=== PATIENT | female | born 1955 | race Caucasian/White ===

== ENCOUNTER 2017-11-25 16:58 | Emergency (ER) | payer BC, OTHER, SELFPAY ==
[2017-10-03 11:02] VITALS: BMI 28.3
[2017-11-25 16:59] VITALS: BP 153/96; PULSE 114; RESP 18; TEMP 36.7; O2SAT 98; BMI 26.3
--- NOTE | 2017-11-25 17:39 | EKG12_ITS ---
Test Reason : CP Blood Pressure : / mmHG Vent. Rate : 096 BPM Atrial Rate : 096 BPM P-R Int : 152 ms QRS Dur : 078 ms QT Int : 326 ms P-R-T Axes : 071 049 073 degrees QTc Int : 411 ms Normal sinus rhythm Left ventricular hypertrophy with repolarization abnormality Abnormal ECG Confirmed by YAKELIN RAMIREZ ([id number]), deputy editor in chief JARED MTZ ([id number]) on 11/28/2017 1:17:04 PM Referred By: Elver Garcia Confirmed By:YAKELIN RAMIREZ
[2017-11-25 18:04] LABS: Absolute Lymphocyte Count 1.51 X10^3/ul (0.83-4.51); Absolute Neutrophil Count 4.6 X10^3/uL (2.0-7.7); Basophil# 0.01 X10^3/uL; Basophil% 0.2 % (0-1); Eosinophil# 0.07 X10^3/uL; Eosinophils% 1.1 % (0-5); Hematocrit 42.2 % (37-47); Hemoglobin 13.6 g/dl (12.0-15.0); Lymphocyte # 1.51 X10^3/ul (4.0); Lymphocyte % 22.9 % (19-41); Mean Corp Hgb Conc 32.2 g/gl (32-36); Mean Corpuscular Hgb 31.1 pg (27.0-32.0); Mean Corpuscular Volume 96.3 fL (81-99); Mean Platelet Vol. 9.3 fl (6.2-12.0); Monocyte# 0.37 X10^3/uL; Monocyte% 5.6 % (0-10); Neutrophil # 4.63 X10^3/uL (2.7-7.7); POSITIVE COUNT NO; POSITIVE DIFFERENTIAL NO; POSITIVE MORPHOLOGY NO; Platelet Count 258 K/mm3 (150-450); RBC Distribution Width CV 15.2 % (11.6-14.6); RBC Distribution Width SD 52.9 fl (35.1-43.9); Red Blood Count 4.38 M/mm3 (4.2-5.4); White Blood Count 6.6 K/mm3 (4.4-11.0)
[2017-11-25] MEDS: 0.9% Normal Saline 1,000 ML 150 ML IV (18:12)
[2017-11-25 18:13] LABS: Anion Gap 7 (5-15); BUN 15 mg/dL (7-18); BUN/Creat Ratio 20.7 RATIO (10-20); Calcium,Total 9.3 mg/dL (8.5-10.1); Chloride 101 mmol/L (98-107); Creatinine, Serum 0.72 mg/dL (0.55-1.02); EST Glomerular Filtration Rate 86 mL/min (>60); Est Glom Filt Rate - Afr Amer 104 mL/min (>60); Estimated Creatinine Clearance 77.77 ml/min; Glucose 102 mg/dL (74-106); Potassium 4.1 mmol/L (3.5-5.1); Sodium Level 138 mmol/L (136-145)
--- NOTE | 2017-11-25 18:18 | RAD_ITS ---
XR Chest 2 Views INDICATION: COUGH x3 DAYS, CURRENTLY ON ORAL CHEMO, HAS PORT FOR HX OF CHEMOTHERAPY FOR SARCOMA COMPARISON: PET/CT September 18, 2017 TECHNIQUE: 2 views of the chest FINDINGS: Heart size is within normal limits. Pulmonary vascularity is within normal limits. There is redemonstration of a mass along the left lateral hemithorax, compatible with given history of metastatic disease. Opacities at the right lung base are new from the prior CT, may represent developing pneumonic infiltrate. Chest port is seen over the right chest. Underlying emphysematous changes are noted. RAD/Chest PA and Lateral IMPRESSION: Masslike opacities in the left chest compatible with given history of metastatic disease. New hazy opacities at the right lung base, may represent metastatic disease or pneumonia in the appropriate clinical setting. Underlying COPD/emphysema. at 1928 Reported and signed by: Celeste Finn MD Electronically Signed: Celeste Finn MD at 18:26 EST Tel , Service support ,
--- NOTE | 2017-11-25 18:45 | CT_ITS ---
CT Chest W/ Contrast INDICATION: MOIST COUGH, SOB, LEFT SIDE CP WORSE WITH BREATHING, CURRENT CHEMO WITH SARCOMA ON LEG, BREAST CA WITH LUNG METS, POWER PORT COMPARISON: PET CT September 18, 2017 TECHNIQUE: Axial CT imaging of the chest with IV contrast. Coronal and sagittal reformatted images. Radiation dose optimization technique applied. : 100 mL of Isovue-300 were given intravenously. FINDINGS: Compared to the PET/CT from September 2017, there is interval increase in pleural based soft tissues, extending along the left lateral hemithorax, most compatible with advancing metastatic disease. Scattered bilateral pulmonary nodules have slightly increased in size. The right middle lobe is collapsed, which is unchanged compared to the prior study. There is stable marked underlying centrilobular emphysema. Enlarged mediastinal and left hilar lymph nodes appear increased compared to the prior study. There is a 3.6 cm lobulated mass in the right breast and a 2 cm spiculated mass in the left breast. Osseous structures are osteopenic. CT/Chest WITH Contrast IMPRESSION: Increase in pleural-based tissue spreading along the left hemithorax, likely increasing metastatic disease. Increase in size in few scattered pulmonary nodules. Stable collapse of the right middle lobe. Stable severe underlying centrilobular emphysema. Worsening mediastinal and left hilar lymphadenopathy. Bilateral breast masses redemonstrated. at 2020 Reported and signed by: Celeste Finn MD Electronically Signed: Celeste Finn MD at 19:18 EST Tel , Service support ,
[2017-11-25 18:50] LABS: Lactic Acid 2.5 mmol/L (0.4-2.0)
[2017-11-25 19:02] VITALS: BP 118/62; PULSE 93; RESP 16; O2SAT 97
[2017-11-25] MEDS: 0.9% Normal Saline 1,000 ML 999 ML IV (19:39)
--- NOTE | 2017-11-25 21:10 | ED.VISSUMM ---
- ER Visit Summary Date of Service: 11/25/17 Chief Complaint: Cough, short of breath, chest pain History of Present Illness: The patient is a 62 F with runny nose symptoms that started a week and a half ago. This progressively worsened the more congestion and cough. She is occasionally bringing up white sputum. She went of left lateral chest pain that is worse with cough. She is a history of breast and lung cancer with bone metastases. She also has a history of A. fib. She is currently taking daily oral chemotherapy. She follows with Dr. Marinelli for her oncology care. She denies having fever, chills, or night sweats. Physical Examination: Blood pressure is 153/96, temperature 98.1, heart rate 114, respiratory rate 18, pulse ox 98% on room air. Patient sitting upright in bed no acute distress. She is chronically ill-appearing. Heart is slightly tachycardic and regular. Lung sounds with rales at the left base. Abdomen is soft nontender. Test Results: Two-view chest x-ray reveals masslike opacities in the left chest compatible with history of metastatic disease. New hazy opacifications the right lung base may represent metastatic disease or pneumonia. Underlying COPD is noted. EKG is sinus at 96. CBC and chemistry studies normal. Lactate mildly elevated at 2.5. Emergency Department Course and Treatment: Patient was given IV fluids here. CT the chest with contrast was obtained that shows an increase in the pleural-based tissue spreading along the left hemithorax, likely increasing metastatic disease. There is an increase in size of pulmonary nodules. There is stable collapse of the right middle lobe. There is stable severe emphysema. Bilateral breast masses are again redemonstrated. Patient's vital signs have maintained stable while here in the emergency room. I spoke with her oncologist. There is no need to start antibiotic at this time but he does want to see the patient in the clinic on Monday. Patient states that she has been trying to taper off her oxycodone. I encouraged her to go back up on her oxycodone to control the pain at this time until this acute illness is resolved. She understands and is comfortable with the plan. Treatment Plan: [] Disposition: Discharge Impression: 1. Viral URI with cough 2. Increased lung metastases with chest pain This note was generated with eLibs.comation software. It may contain incorrect words, spelling, and punctuation that were not noted in review of the chart prior to signing ED Disposition - Plan for ED Patient: Chief Complaint: Chest Pain Referrals: Patrick Lacey DO [Primary Care Provider] -
--- NOTE | 2017-11-25 21:14 | ED.DCSUM_ITS ---
- ER Visit Summary Date of Service: 11/25/17 Chief Complaint: Cough, short of breath, chest pain History of Present Illness: The patient is a 62 F with runny nose symptoms that started a week and a half ago. This progressively worsened the more congestion and cough. She is occasionally bringing up white sputum. She went of left lateral chest pain that is worse with cough. She is a history of breast and lung cancer with bone metastases. She also has a history of A. fib. She is currently taking daily oral chemotherapy. She follows with Dr. Marinelli for her oncology care. She denies having fever, chills, or night sweats. Physical Examination: Blood pressure is 153/96, temperature 98.1, heart rate 114 , respiratory rate 18, pulse ox 98% on room air. Patient sitting upright in bed no acute distress. She is chronically ill- appearing. Heart is slightly tachycardic and regular. Lung sounds with rales at the left base. Abdomen is soft nontender. Test Results: Two-view chest x-ray reveals masslike opacities in the left chest compatible with history of metastatic disease. New hazy opacifications the right lung base may represent metastatic disease or pneumonia. Underlying COPD is noted. EKG is sinus at 96. CBC and chemistry studies normal. Lactate mildly elevated at 2.5. Emergency Department Course and Treatment: Patient was given IV fluids here. CT the chest with contrast was obtained that shows an increase in the pleural- based tissue spreading along the left hemithorax, likely increasing metastatic disease. There is an increase in size of pulmonary nodules. There is stable collapse of the right middle lobe. There is stable severe emphysema. Bilateral breast masses are again redemonstrated. Patient's vital signs have maintained stable while here in the emergency room. I spoke with her oncologist. There is no need to start antibiotic at this time but he does want to see the patient in the clinic on Monday. Patient states that she has been trying to taper off her oxycodone. I encouraged her to go back up on her oxycodone to control the pain at this time until this acute illness is resolved. She understands and is comfortable with the plan. Treatment Plan: [] Disposition: Discharge Impression: 1. Viral URI with cough 2. Increased lung metastases with chest pain This note was generated with Factor.ioation software. It may contain incorrect words, spelling, and punctuation that were not noted in review of the chart prior to signing ED Disposition - Plan for ED Patient: Chief Complaint: Chest Pain Referrals: Patrick Lacey DO [Primary Care Provider] -
--- NOTE | 2017-11-25 21:14 | ED.DEP ---
ED Disposition - Plan for ED Patient: Disposition: Home or Assisted Living Chief Complaint: Chest Pain Instructions: ED Chest Pain NonCardiac, ED URI Viral Referrals: Vince Marinelli MD [NON-STAFF] - 2 Days
[2017-11-25 21:27] VITALS: BP 98/61; PULSE 100; RESP 16; O2SAT 95
[2017-11-25 21:55] LABS: Reflex Lactate? Y
== END 2017-11-25 21:29 | disposition home or self-care (01) ==
PROVIDERS: Emergency Provider Emergency Medicine; Family Provider Family Medicine; PCP Family Medicine
DX: J06.9 Acute upper respiratory infection, unspecified (principal); R05 Cough; R07.9 Chest pain, unspecified; C50.912 Malignant neoplasm of unspecified site of left female breast; C50.911 Malignant neoplasm of unspecified site of right female breast; C78.02 Secondary malignant neoplasm of left lung; C79.51 Secondary malignant neoplasm of bone; Z72.0 Tobacco use; Z79.82 Long term (current) use of aspirin; Z79.899 Other long term (current) drug therapy; Z79.891 Long term (current) use of opiate analgesic
CPT/HCPCS: 36415; 36591; 71046; 71260; 80048; 83605; 85025; 87040; 93005; 99283; J7030; Q9967; A4216

== ENCOUNTER → 2017-12-11 12:09 | Outpatient (CLI) | payer BC, OTHER, SELFPAY ==
[2017-10-03 11:02] VITALS: BMI 28.3
--- NOTE | 2017-12-11 12:28 | CT_ITS ---
STUDY: CT CHEST WITH CONTRAST REASON FOR EXAM: Female, 62 years old. Shortness of breath on exertion. History of breast cancer. Radiation therapy. RADIATION DOSAGE (If Supplied By Facility): CTDIvol = ( 10.35 ) mGy, DLP = ( 421.27 ) mGycm TECHNIQUE: Transaxial imaging was performed following intravenous administration of 100 ml of Isovue 300 contrast material. Multiplanar coronal and sagittal images were reformatted. Individualized dose optimization techniques were used for this CT. COMPARISON: Comparison is made with prior study dated November 25, 2017. FINDINGS: A right-sided aleah catheter seen with the tip in the super vena cava. There is a 3.2 cm x 3.1 cm mass in the right breast with a tissue clip marker within it. There is also evidence of a 1.6 cm x 1.6 cm nodule in the medial inferior portion of the left breast. There is a 4.5 cm x 2.5 cm mass in the peripheral lateral aspect of the left upper lobe. This abuts the pleural surface. There is evidence of a thickening of the right major fissure. Diffuse emphysematous changes. There is a 1 cm x 1 cm nodule in the right upper lobe. This is essentially unchanged. Since prior study, there has been progressive moderate-sized left pleural effusion with pleural soft tissue masses. These have progressed as compared to prior study. There is no evidence of pulmonary embolus. Normal heart and pericardium. There are multiple small lymph nodes within the mediastinum, which are normal in size and morphology most compatible with reactive lymph hyperplasia. Normal hilar regions. Normal enhanced pulmonary arteries. Normal aorta arch and descending thoracic aorta. There are multi-level degenerative changes of the thoracic spine. There is no demonstrated abnormality of the visualized upper abdomen. CT/Chest WITH Contrast IMPRESSION: Progressive left pleural effusion with left pleural based masses. Stable mass in the peripheral lateral aspect of the left upper lobe which abuts the pleural surface. Stable right upper lobe nodule. Stable bilateral breast nodules. There is no evidence of pulmonary embolism. Electronically Signed: Anatoly Broussard MD at 13:47 EDT Tel [phone], Service support ,
== END ==
PROVIDERS: Visit Provider Internal Medicine Medical Oncology
DX: R05 Cough (principal); C50.919 Malignant neoplasm of unspecified site of unspecified female breast; R06.02 Shortness of breath
CPT/HCPCS: 71260; Q9967; A4216

== ENCOUNTER → 2017-12-12 13:02 | Outpatient (CLI) | payer BC, OTHER, SELFPAY ==
[2017-10-03 11:02] VITALS: BMI 28.3
--- NOTE | 2017-12-12 13:04 | US_ITS ---
PROCEDURE: ULTRASOUND GUIDED THORACENTESIS. DATE: December 12, 2017. INDICATION: Female, 62 years old. Left pleural effusion. PHYSICIAN: Anatoly Broussard M.D. PROCEDURE: The risks, benefits, and alternatives to the procedure were explained to the patient. The specific risks of bleeding, infection, and pneumothorax requiring chest tube insertion were discussed and accepted. Written informed consent was obtained. Ultrasonographic evaluation of the left lower pleural space was carried out. An adequate pocket was identified. The patient was placed in the sitting, upright position. The overlying skin was prepped and draped in sterile fashion. 1% lidocaine was administered subcutaneously for local anesthesia. Under ultrasound guidance, a 6 Yoruba thoracentesis needle/catheter system was advanced into the left posterior lower pleural fluid collection. Approximately 150 mL of bloody fluid was drained. The catheter was removed, and a sterile dressing was applied. The patient tolerated the procedure well. A chest x-ray was ordered. US/Thoracentesis W US IMPRESSION: Ultrasound-guided left thoracentesis. Electronically Signed: Anatoly Broussard MD at 14:33 EDT Tel [phone], Service support ,
--- NOTE | 2017-12-12 14:12 | RAD_ITS ---
STUDY: X-RAY CHEST REASON FOR EXAM: Female, 62 years old. Post thoracentesis TECHNIQUE: Single AP portable view of the chest. COMPARISON: 11/25/2017. FINDINGS: No pneumothorax seen. Increasing density in the left lung base suggests worsening of atelectasis or infiltrate and small left pleural effusion. No other changes. Stable right Mediport catheter. Stable soft tissue densities along the periphery of the left chest and in the mid left lung consistent with pleural thickening and/or mass. On the right there is mild atelectasis or scarring in the lung bases. Heart size grossly normal. Degenerative changes of the spine. RAD/Chest Insp/Exp 2 View IMPRESSION: No pneumothorax. Since prior chest x-ray, increased atelectasis, infiltrate, and/or small effusion in the left lung base. Electronically Signed: Miguel Butler MD at 9:18 EDT , Service support ,
== END ==
PROVIDERS: Visit Provider Internal Medicine Medical Oncology
DX: R06.02 Shortness of breath (principal); J91.8 Pleural effusion in other conditions classified elsewhere
CPT/HCPCS: 32555; 71046

== ENCOUNTER → 2017-12-25 13:36 | Outpatient (CLI) | payer BC, OTHER, SELFPAY ==
[2017-10-03 11:02] VITALS: BMI 28.3
--- NOTE | 2017-12-25 13:38 | RAD_ITS ---
STUDY: X-RAY CHEST REASON FOR EXAM: Female, 62 years old. Lung cancer, shortness of breath TECHNIQUE: PA and lateral views of the chest. COMPARISON: 12/12/2017 FINDINGS: Stable appearance of a right subclavian port. Right lung is hyperexpanded with chronic interstitial changes and increased opacifications in the lung base compared to the previous study which likely represent atelectasis. Left lung shows increased opacifications as well there is a suggestion of a left perihilar mass and nodules in the periphery of the left lung field. There is stable nonspecific pleural thickening in the left pleural effusion unchanged. Normal size heart. Normal mediastinum and joel. Normal visualized pulmonary arteries. Normal visualized aortic arch and descending thoracic aorta. There are diffuse degenerative changes of the visualized thoracic spine. There is degenerative osteoarthritis of the bilateral shoulders. Multiple air-fluid levels noted on the upright film consistent with ileus. RAD/Chest PA and Lateral IMPRESSION: Worsening opacifications in both lung santana suggesting atelectasis in the right lung base, left perihilar soft tissue mass and metastasis in the left peripheral lung field. Stable nonspecific pleural thickening in the left hemithorax with stable left pleural effusion. Degenerative bony changes Stable appearance of a right subclavian port Electronically Signed: Pankaj Troy MD at 14:23 EDT , Service support ,
[2017-12-25 15:58] LABS: Absolute Lymphocyte Count 0.42 X10^3/ul (0.83-4.51); Absolute Neutrophil Count 10.5 X10^3/uL (2.0-7.7); Eosinophil# 0.01 X10^3/uL; Eosinophils% 0.1 % (0-5); Hematocrit 41.6 % (37-47); Hemoglobin 13.5 g/dl (12.0-15.0); Lymphocyte # 0.42 X10^3/ul (4.0); Lymphocyte % 3.7 % (19-41); Mean Corp Hgb Conc 32.5 g/gl (32-36); Mean Corpuscular Hgb 30.5 pg (27.0-32.0); Mean Corpuscular Volume 94.1 fL (81-99); Monocyte# 0.22 X10^3/uL; Neutrophil # 10.52 X10^3/uL (2.7-7.7); Neutrophil % 93.8 % (47-70); Platelet Count 312 K/mm3 (150-450); RBC Distribution Width SD 55.3 fl (35.1-43.9); Red Blood Count 4.42 M/mm3 (4.2-5.4); White Blood Count 11.2 K/mm3 (4.4-11.0)
[2017-12-25 16:02] LABS: Differential Indicated SCAN CRITERIA MET; POSITIVE COUNT NO; POSITIVE DIFFERENTIAL YES; POSITIVE MORPHOLOGY NO
[2017-12-25 16:17] LABS: ALB/GLOB Ratio 0.7 RATIO (0.9-2.4); AST(SGOT) 18 U/L (15-37); Alanine Aminotransfer ALT/SGPT 27 U/L (13-56); Albumin, Serum 2.9 g/dL (3.2-5.0); Alkaline Phosphatase 73 U/L (45-117); Anion Gap 11 (5-15); BUN 19 mg/dL (7-18); BUN/Creat Ratio 18.6 RATIO (10-20); Calcium,Total 9.3 mg/dL (8.5-10.1); Chloride 100 mmol/L (98-107); Creatinine, Serum 1.02 mg/dL (0.55-1.02); EST Glomerular Filtration Rate 58 mL/min (>60); Est Glom Filt Rate - Afr Amer 70 mL/min (>60); Glucose 122 mg/dL (74-106); Potassium 4.3 mmol/L (3.5-5.1); Protein, Total 6.9 g/dL (6.4-8.2); Sodium Level 138 mmol/L (136-145)
[2017-12-25 16:58] LABS: Platelet Estimate ADEQUATE (ADEQ)
[2017-12-25 16:59] LABS: Anisocytosis RARE; Macrocytosis RARE
[2017-12-25 23:28] LABS: Xtra Tube EP Lab EXTRA TUBE
[2017-12-25 23:29] LABS: Xtra Tube EP Lab EXTRA TUBE
== END ==
PROVIDERS: Family Provider Family Medicine; PCP Family Medicine; Visit Provider Internal Medicine Medical Oncology
DX: C79.51 Secondary malignant neoplasm of bone (principal); C79.9 Secondary malignant neoplasm of unspecified site; R07.81 Pleurodynia
CPT/HCPCS: 71046; 80053; 85025

== ENCOUNTER → 2018-01-11 14:45 | Outpatient (CLI) | payer BC, SELFPAY ==
[2017-10-03 11:02] VITALS: BMI 28.3
--- NOTE | 2018-01-11 14:46 | CT_ITS ---
STUDY: CT CHEST WITH CONTRAST REASON FOR EXAM: Female, 62 years old. Metastatic sarcoma. RADIATION DOSAGE (If Supplied By Facility): CTDIvol = ( 10.67 ) mGy, DLP = ( 1158.32 ) mGycm TECHNIQUE: Transaxial imaging was performed following intravenous administration of 100 ml of Isovue 300 contrast material. Multiplanar coronal and sagittal images were reformatted. Individualized dose optimization techniques were used for this CT. COMPARISON: CT of the abdomen and pelvis, January 11, 2018. CT of the chest, December 11, 2017. FINDINGS: There is a right jugular Port-A-Cath. There is a multi loculated left pleural effusion with marked atelectasis of the lower left lung. There is associated pleural-based thickening . There is a questionable mass extending from the left pleural surface left upper lobe is appears unchanged from the prior examination. There is diffuse emphysematous changes throughout both lungs. In the right upper lobe there is a 1 x 0.9 x 0.6 cm soft tissue nodule (image 26, series 2). There is persistent thickening of the lower oblique fissure unchanged from prior study. There is a 6 x 6 x 4 cm soft tissue nodule in the right lower lobe best seen on image 66 of series 6. Normal heart and pericardium. There is a cyst stable precarinal lymph node. There is stable subcarinal lymphadenopathy. Stable bilateral hilar lymphadenopathy. Normal enhanced pulmonary arteries. There is atherosclerotic calcification of the aortic arch with tortuosity and elongation of the aortic arch and descending thoracic aorta. There are degenerative changes of the thoracic spine. There is a 3.7 x 3.3 x 2.9 cm soft tissue mass in the upper right breast which now contains a surgical clip suggesting biopsy. This is unchanged there is also subcutaneous mass in the medial left breast measuring 1.1 x 1.5 x 0.9 cm in size. This appears slightly smaller in size and less distinct than on the prior study. Please refer to the abdominal CT performed the same day for evaluation of the subdiaphragmatic findings. CT/Chest WITH Contrast IMPRESSION: 1. Persistent multiloculated left pleural effusion with atelectasis. 2. Persistent pleural-based masses in the left lung is stable when compared to prior study. 3. Stable right upper and right lower lobe masses. 4. Stable mediastinal lymphadenopathy. Stable bilateral breast masses. Electronically Signed: Remigio Wilson DO at 17:04 EDT Tel [phone], Service support ,
--- NOTE | 2018-01-11 14:52 | CT_ITS ---
STUDY: CT ABDOMEN AND PELVIS WITH CONTRAST REASON FOR EXAM: Female, 62 years old. Metastatic sarcoma. RADIATION DOSAGE (If Supplied By Facility): CTDIvol = ( 10.67 ) mGy, DLP = ( 1158.32 ) mGycm TECHNIQUE: Transaxial images were obtained from the dome of the diaphragm to the symphysis pubis without oral contrast. 100 ml of Isovue 300 contrast was administered. Sagittal and coronal images were reconstructed. Individualized dose optimization techniques were used for this CT. COMPARISON: CT of the chest, December 11, 2017. CT of the abdomen and pelvis, September 08, 2017. FINDINGS: There appears to be partially loculated pleural effusion on the left with marked atelectasis at the lung base. There are pleural-based densities are seen along the anterolateral aspect of the mid chest and posteriorly at the right lung base. Stable thickening along the lower right oblique fissure. The visualized portions of the heart are within normal limits. There is a 3.4 x 3 cm mass in the right breast with central calcification. A smaller subcutaneous masses seen in the medial left breast measuring 0.9 x 1.0 x 1.4 cm. Normal liver. Normal gallbladder and extrahepatic biliary system. Normal spleen. Normal pancreas. Normal bilateral adrenal glands. Right kidney is of normal size and cortical enhancement. There are multiple cysts. The largest in the mid to lower pole measures 3.8 x 3 x 3.6 cm. There is no renal calculi or hydronephrosis. Normal left kidney. Normal visualized stomach. Normal small intestine. Normal colon. There is non-visualization of the appendix. Normal abdominal aorta. Normal inferior vena cava. Normal retroperitoneum. Urinary bladder is poorly distended. Normal vaginal cuff. No pelvic lymphadenopathy or mass. No free air or free fluid is seen within the peritoneal cavity. Normal abdominal wall. There are mild degenerative changes lumbar spine. There is a medullary ankur in the proximal right femur. CT/Abdomen/Pelvis WITH Contrast IMPRESSION: 1. Large loculated pleural effusion with collapse and associated pleural thickening. The findings appear similar to the prior CT of the chest. 2. Stable thickening of the lower right oblique fissure. 3. Bilateral breast masses unchanged from prior chest CT. 4. Stable right renal cyst. 5. No other evidence for abdominal or pelvic abnormality. Electronically Signed: Remigio Wilson DO at 16:55 EDT Tel [phone], Service support ,
--- NOTE | 2018-01-11 15:06 | ECHOD_ITS ---
Reason For Study: NEOPLASM Procedure This was a 2D Doppler, Color Flow transthoracic echocardiogram. The study was technically difficult. Exam performed in department. Left Ventricle Normal LV size. Left ventricular systolic function is normal. The estimated ejection fraction is 60 %. Transmitral and pulmonary venous doppler flow suggestive of elevated left atrial pressure. No regional wall motion abnormalities noted. Right Ventricle Normal RV size. Normal systolic function. Atria Normal left atrium. Normal right atrium. Mitral Valve Normal mitral valve. Tricuspid Valve Normal tricuspid valve. Mild (1+) tricuspid valve insufficiency. Pulmonary artery systolic pressure is 38 mmHg. Pulmonic Valve Normal pulmonic valve. Great Vessels Normal aortic root. The pulmonary artery is normal size. Normal inferior vena cava. Pericardium/Pleural No pericardial effusion. MMode/2D Measurements & Calculations LVIDd: 4.2 cm IVSd: 0.90 cm Ao root diam: 3.2 cm LVIDs: 2.7 cm LVPWd: 0.86 cm RVDd: 2.9 cm FS: 34.2 % LAV(MOD-bp): 40.5 ml EDV(MOD-sp4): 49.9 ml EDV(MOD-sp2): 81.7 ml LAV(MOD-bp) Indexed: 21.8 ml/m2 ESV(MOD-sp4): 19.4 ml EF(MOD-sp2): 50.2 % LAV(MOD-sp2): 41.9 ml EF(MOD-sp4): 61.0 % LAV(MOD-sp4): 34.4 ml SV(MOD-sp4): 30.4 ml SV(MOD-sp2): 41.0 ml LA A4 area: 14.4 cm2 RA A4 area: 10.9 cm2 Doppler Measurements & Calculations MV E max poly: 60.3 cm/sec Ao V2 max: 98.8 cm/sec LV V1 max: 80.9 cm/sec MV A max poly: 77.5 cm/sec Ao max P.9 mmHg LV V1 max P.6 mmHg MV E/A: 0.78 PA V2 max: 74.0 cm/sec TR max poly: 287.7 cm/sec TR max P.2 mmHg Interpretation Summary Normal LV size. Left ventricular systolic function is normal. Mild (1+) tricuspid valve insufficiency. The estimated ejection fraction is 60 %. Transmitral and pulmonary venous doppler flow suggestive of elevated left atrial pressure. Compared to prior study, there is no significant change. Ordering Physician: Vince Marinelli Referring Physician: EVER GUSTAFSON Performed By: Kinsey Vasquez, OSIRIS, RVT
== END ==
PROVIDERS: Visit Provider Internal Medicine Medical Oncology
DX: C49.22 Malignant neoplasm of connective and soft tissue of left lower limb, including hip (principal); C40.21 Malignant neoplasm of long bones of right lower limb; C79.9 Secondary malignant neoplasm of unspecified site; C79.51 Secondary malignant neoplasm of bone
CPT/HCPCS: 71260; 74177; 93306; Q9967; A4216

== ENCOUNTER 2018-01-19 14:02 | Inpatient (IN) | payer BC, OTHER, SELFPAY ==
[2017-10-03 11:02] VITALS: BMI 28.3
[2018-01-19] VITALS (9 sets, daily range): BP systolic 83–102; BP diastolic 36–70; PULSE 95–107; RESP 16–20; TEMP 36.4–36.9; O2SAT 83–97; BMI 25.8; BMI 26.2
--- NOTE | 2018-01-19 14:19 | EKG12_ITS ---
Test Reason : CP/SOB Blood Pressure : / mmHG Vent. Rate : 103 BPM Atrial Rate : 103 BPM P-R Int : 144 ms QRS Dur : 084 ms QT Int : 334 ms P-R-T Axes : 054 056 046 degrees QTc Int : 437 ms Sinus tachycardia with occasional Premature ventricular complexes Abnormal ECG Confirmed by SHIKHA TAYLOR, RONDA ([id number]), telegraph editor JARED MTZ ([id number]) on 01/22/2018 2:41:37 PM Referred By: Elver Garcia Confirmed By:RONDA TRIVEDI MD
--- NOTE | 2018-01-19 14:20 | RAD_ITS ---
STUDY: X-RAY CHEST REASON FOR EXAM: Female, 63 years old. Chest pain. TECHNIQUE: Single AP portable view of the chest. COMPARISON: Comparison is made with prior study dated December 25, 2017. FINDINGS: A right-sided aleah catheter is in situ. The tip is at the junction of the superior vena cava and right atrium. EKG lines are seen. There is elevation of the left hemidiaphragm with left pleural effusion and underlying infiltration and/or atelectasis. Metastatic deposits should be ruled out. Stable mild increased markings at the right lung base. Normal size heart. Normal mediastinum and joel. Normal visualized pulmonary arteries. There is atherosclerotic calcification of the aortic arch with tortuosity. Normal visualized thoracic spine. Normal visualized ribs, clavicles, and shoulders. There is no demonstrated abnormality of the visualized soft tissue structures of the upper abdomen. RAD/Chest 1 View (Portable) IMPRESSION: Increasing left pleural effusion with elevation of left hemidiaphragm and infiltration in the left hemithorax. Stable changes at the right lung base. Electronically Signed: Anatoly Broussard MD at 15:01 EDT Tel [phone], Service support ,
--- NOTE | 2018-01-19 14:47 | US_ITS ---
PROCEDURE: ULTRASOUND GUIDED THORACENTESIS. DATE: January 19, 2018. INDICATION: Female, 63 years old. Left pleural effusion PHYSICIAN: Anatoly Broussard M.D. PROCEDURE: The risks, benefits, and alternatives to the procedure were explained to the left. The specific risks of bleeding, infection, and pneumothorax requiring chest tube insertion were discussed and accepted. Written informed consent was obtained. Ultrasonographic evaluation of the left lower pleural space was carried out. An adequate pocket was identified. The patient was placed in the sitting, upright position. The overlying skin was prepped and draped in sterile fashion. 1% lidocaine was administered subcutaneously for local anesthesia. Under ultrasound guidance, a 6 Vincentian thoracentesis needle/catheter system was advanced into the left posterior lower pleural fluid collection. Approximately 1800 mL of bloody fluid was drained. The catheter was removed, and a sterile dressing was applied. A specimen was collected and sent to the laboratory for analysis, as requested by the referring clinician. The patient tolerated the procedure well. A chest x-ray was ordered. US/Thoracentesis W US IMPRESSION: Ultrasound-guided left thoracentesis. Electronically Signed: Anatoly Broussard MD at 16:05 EDT Tel [phone], Service support ,
[2018-01-19] MEDS: HYDROmorphone 1 MG/ML Syringe IV (15:04)
[2018-01-19] MEDS: Ondansetron 4 MG/2 ML Vial IV (15:04)
[2018-01-19 15:36] LABS: Anion Gap 8 (5-15); BUN 11 mg/dL (7-18); Calcium,Total 9.1 mg/dL (8.5-10.1); Chloride 101 mmol/L (98-107); Creatinine, Serum 0.61 mg/dL (0.55-1.02); EST Glomerular Filtration Rate 105 mL/min (>60); Est Glom Filt Rate - Afr Amer 127 mL/min (>60); Glucose 114 mg/dL (74-106); Sodium Level 137 mmol/L (136-145)
--- NOTE | 2018-01-19 15:37 | RAD_ITS ---
STUDY: X-RAY CHEST REASON FOR EXAM: Female, 63 years old. Status post left thoracentesis. TECHNIQUE: AP inspiration and expiration views were obtained. COMPARISON: Comparison is made with prior study done earlier today. FINDINGS: A left-sided thoracentesis was performed. Residual small left pleural effusion with patchy infiltrates and/or masses in the left hemithorax. There is no evidence of pneumothorax. RAD/Chest Insp/Exp 2 View IMPRESSION: Status post left thoracentesis. There is no evidence of pneumothorax. Electronically Signed: Anatoly Broussard MD at 15:57 EDT Tel [phone], Service support ,
--- NOTE | 2018-01-19 15:53 | NURSING ---
1800 cc dark fluid pulled from right ultrasound guided thoracentesis, report given to Grady Crane last set of vital signs 81/41, po2 at 92% 4 l nc, resp 16, heart rate at 94, asymptomatic, denies pain, no sob, call light within reach, dr cutler with patient.
[2018-01-19 15:54] LABS: Absolute Lymphocyte Count 0.68 X10^3/ul (0.83-4.51); Absolute Neutrophil Count 4.7 X10^3/uL (2.0-7.7); Basophil# 0.02 X10^3/uL; Basophil% 0.3 % (0-1); Differential Indicated SCAN CRITERIA MET; Eosinophil# 0.03 X10^3/uL; Eosinophils% 0.5 % (0-5); Hematocrit 32.2 % (37-47); Hemoglobin 10.3 g/dl (12.0-15.0); Lymphocyte # 0.68 X10^3/ul (4.0); Lymphocyte % 11.1 % (19-41); Mean Corpuscular Hgb 31.7 pg (27.0-32.0); Mean Corpuscular Volume 99.1 fL (81-99); Mean Platelet Vol. 9.6 fl (6.2-12.0); Monocyte# 0.71 X10^3/uL; Monocyte% 11.6 % (0-10); Neutrophil # 4.67 X10^3/uL (2.7-7.7); Neutrophil % 76.2 % (47-70); POSITIVE COUNT NO; POSITIVE DIFFERENTIAL NO; POSITIVE MORPHOLOGY YES; Platelet Count 297 K/mm3 (150-450); RBC Distribution Width CV 21.8 % (11.6-14.6); RBC Distribution Width SD 75.2 fl (35.1-43.9); Red Blood Count 3.25 M/mm3 (4.2-5.4); White Blood Count 6.1 K/mm3 (4.4-11.0)
--- NOTE | 2018-01-19 16:21 | ED.VISSUMM ---
- ER Visit Summary Date of Service: 01/19/18 Chief Complaint: Left-sided chest pain with shortness of breath. 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 Patient states her last 5 days she has had left-sided chest and lung discomfort and shortness of breath. The shortness of breath is worse when she is supine. The chest pain really does not change with position or exertion. She has not had a recent admissions. She has never had a DVT or PE. She denies any hemoptysis. There is no pleuritic nature to the pain. She denies any fever or change in her cough. She is not on home oxygen. She denies any calf pain. Physical Examination: Older female vital signs are stable afebrile. She does not look septic toxic. She is no acute distress. Pulse ox is 94% on room air. HEENT exam unremarkable neck nontender lungs clear but diminished in the left base. Heart regular rhythm rate about 100 no murmur. Chest wall nontender. No subcu air. Abdomen soft nontender normal bowel sounds no peritoneal signs. She is moving all 4 extremities. Both lower extremities have trace edema. Equal symmetrical. Calves are nontender without cords. Neurologically she is awake and alert. Patient has equal radial pulses bilaterally. Test Results: Chest x-ray shows chronic changes and a moderate to large left pleural effusion involving about half her left chest cavity. Her EKG shows sinus tachycardia rate of 103 with PVCs. No signs of ND or ischemia. White count is 6. H&H 10 and 32. Electrolytes unremarkable. Troponin normal. Emergency Department Course and Treatment: Patient's history and exam is consistent with left pleural effusion causing her pain shortness of breath. She was treated with IV Dilaudid and Zofran. I spoke to the interventional radiologist Dr. Rene patient was taken to radiology and he drained 1800 cc of bloody fluid out of her left chest cavity. Patient tolerated procedure well. She is hypotensive but she was hypotensive after receiving the IV pain medication and has a history of hypotension. Her and her state her blood pressure often is in the 80s. She denies being lightheaded or dizzy. States she feels much better after having the fluid drained. She has less shortness of breath and less chest pain. She feels chondral being discharged to home. I did review her post thoracentesis chest x-ray and I did not see any signs of a pneumothorax. There is still a fair amount of left pleural effusion but it is improved. I was informed by the respiratory therapy technician that they had to stop the procedure due to her coughing and did not take the entire effusion out. Treatment Plan: Interventional radiology drain the left pleural effusion. She will be discharged to home to follow-up with her oncologist Disposition: Discharge Impression: Left-sided chest pain shortness of breath secondary to left pleural effusion. History of sarcoma with left lung metastases. Chronic anemia This note was generated with [employer] dictation software. It may contain incorrect words, spelling, and punctuation that were not noted in review of the chart prior to signing ED Disposition - Plan for ED Patient: Chief Complaint: Shortness of Breath Referrals: Patrick Lacey DO [Primary Care Provider] -
--- NOTE | 2018-01-19 16:26 | ED.DCSUM_ITS ---
- ER Visit Summary Date of Service: 01/19/18 Chief Complaint: Left-sided chest pain with shortness of breath. 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 Patient states her last 5 days she has had left-sided chest and lung discomfort and shortness of breath. The shortness of breath is worse when she is supine. The chest pain really does not change with position or exertion. She has not had a recent admissions. She has never had a DVT or PE. She denies any hemoptysis. There is no pleuritic nature to the pain. She denies any fever or change in her cough. She is not on home oxygen. She denies any calf pain. Physical Examination: Older female vital signs are stable afebrile. She does not look septic toxic. She is no acute distress. Pulse ox is 94% on room air. HEENT exam unremarkable neck nontender lungs clear but diminished in the left base. Heart regular rhythm rate about 100 no murmur. Chest wall nontender. No subcu air. Abdomen soft nontender normal bowel sounds no peritoneal signs. She is moving all 4 extremities. Both lower extremities have trace edema. Equal symmetrical. Calves are nontender without cords. Neurologically she is awake and alert. Patient has equal radial pulses bilaterally. Test Results: Chest x-ray shows chronic changes and a moderate to large left pleural effusion involving about half her left chest cavity. Her EKG shows sinus tachycardia rate of 103 with PVCs. No signs of NH or ischemia. White count is 6. H&H 10 and 32. Electrolytes unremarkable. Troponin normal. Emergency Department Course and Treatment: Patient's history and exam is consistent with left pleural effusion causing her pain shortness of breath. She was treated with IV Dilaudid and Zofran. I spoke to the interventional radiologist Dr. Rene patient was taken to radiology and he drained 1800 cc of bloody fluid out of her left chest cavity. Patient tolerated procedure well. She is hypotensive but she was hypotensive after receiving the IV pain medication and has a history of hypotension. Her and her state her blood pressure often is in the 80s. She denies being lightheaded or dizzy. States she feels much better after having the fluid drained. She has less shortness of breath and less chest pain. She feels chondral being discharged to home. I did review her post thoracentesis chest x-ray and I did not see any signs of a pneumothorax. There is still a fair amount of left pleural effusion but it is improved. I was informed by the photo technician that they had to stop the procedure due to her coughing and did not take the entire effusion out. Treatment Plan: Interventional radiology drain the left pleural effusion. She will be discharged to home to follow-up with her oncologist Disposition: Discharge Impression: Left-sided chest pain shortness of breath secondary to left pleural effusion. History of sarcoma with left lung metastases. Chronic anemia This note was generated with [employer] dictation software. It may contain incorrect words, spelling, and punctuation that were not noted in review of the chart prior to signing ED Disposition - Plan for ED Patient: Chief Complaint: Shortness of Breath Referrals: Patrick Lacey DO [Primary Care Provider] -
--- NOTE | 2018-01-19 16:26 | ED.DEP ---
ED Disposition - Plan for ED Patient: Disposition: Home or Assisted Living Chief Complaint: Shortness of Breath Instructions: ED Effusion Pleural Referrals: Patrick Lacey DO [Primary Care Provider] - As Needed Vince Marinelli MD [NON-STAFF] - As Needed Additional Instructions: Radiologist drained 1.8 L of fluid out of your left chest cavity. This should greatly improve your symptoms. You may still have some shortness of breath and some chest pain from this because he could not drain it all out. Return to the ER feeling worse. Otherwise follow-up with your oncologist and primary care physician as needed.
[2018-01-19 16:29] LABS: Differential Comment SCANNED
--- NOTE | 2018-01-19 17:10 | PCM.HP.STD ---
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 Chest x-ray showed large left-sided pleural effusion and she underwent thoracentesis by interventional radiology. The patient was to be discharged home and was noted to be hypoxic, she does not usually use supplemental oxygen at home the patient needed to be placed in the hospital for observation to arrange for home oxygen. Whilst in the emergency room the patient was noted to have atrial fibrillation with rapid ventricular response and she was started on IV Cardizem drip and admitted to progressive care unit for further management. Past Medical History Past Medical History (Chronic Problems): Chronic Problems (Last Reviewed 01/23/18 @ 10:09 by Hali Altamirano) Pleural cavity effusion (Chronic) GERD (gastroesophageal reflux disease) (Chronic) Tobacco dependence due to cigarettes (Chronic) Insomnia (Chronic) Depression (Chronic) Malignant pleural effusion (Chronic) Breast cancer (Chronic) left, for port removal PAF (paroxysmal atrial fibrillation) (Chronic) Bone metastases (Chronic) Sarcoma of left thigh (Chronic) Metastatic neoplastic disease (Chronic) Cough (Chronic) Left axillary pain (Chronic) Chemotherapy management, encounter for (Chronic) Anemia associated with chemotherapy (Chronic) Allergies Penicillins Allergy (Intermediate, Verified 01/23/18 10:09) Hives mirtazapine Adverse Reaction (Severe, Verified 01/23/18 10:09) mental changes mental changes Home Medications: Ambulatory Orders Medication Instructions Recorded Escitalopram Oxalate [Lexapro] 20 mg PO DAILY 09/21/15 Multivitamin [Daily Multiple 1 each PO DAILY 10/01/15 Vitamin] Oxycodone CR [Oxycontin] 10 mg PO Q12H #60 tablet 11/10/17 Aspirin [Aspirin, Baby] 81 mg PO DAILY@0800 01/20/18 Cephalexin [Keflex] 500 mg PO BID 01/20/18 Metoprolol Tartrate [Lopressor 25 mg PO BID 01/20/18 (beta onur)] Oxycodone [Oxyir] 5 mg PO Q6H PRN 01/20/18 Amiodarone HCl [Cordarone] 200 mg PO DAILY #30 tab 01/21/18 Amitriptyline HCl [Elavil] 10 mg PO QHS #30 tab 01/21/18 Digoxin [Lanoxin] 62.5 mcg PO DAILY #30 tab 01/21/18 Dronabinol [Marinol] 2.5 mg PO BIDAC #60 cap 01/21/18 Nicotine [Nicoderm Cq (PBKC)] 14 mg TRANSDERM. 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 VTE Information - Inpt Only VTE Present on Admission: No VTE Mechan Device Prophylaxis: SCD's VTE Pharm Prophylaxis ordered?: No - Physical Exam General: Alert, Oriented x3 HEENT: PERRLA Oral: Moist Mucosa Neck: Supple, No JVD Lungs: Clear to auscultation Cardiovascular: Normal S1, Normal S2 Abdomen: Bowel Sounds Present, Soft, Non Tender Extremities: No edema Musculoskeletal: Tenderness Neurological: Cranial nerves II-XII grossly intact Vital Signs Temp Pulse Resp BP Pulse Ox 97.7 F L 87 18 97/43 L 77 01/21/18 11:20 01/21/18 11:20 01/21/18 11:20 01/21/18 11:20 01/21/18 13:58 Oxygen Flow Rate (L/min) [At 0 REST on Room Air] Oxygen Flow Rate (L/min) 3 Oxygen Delivery Method Nasal Cannula Weight: 75.9 kg Body Mass Index (BMI) 26.2 Assessment/Plan 1. Left-sided pleural effusion status post thoracentesis by interventional radiology. 2. Acute hypoxic respiratory failure most likely due to pleural effusion; continue on supplemental oxygen. 3. paroxysmal atrial fibrillation ; she now has rapid ventricular response and has been started on Cardizem drip for rate control. 4. History of sarcoma with left lung metastases. 5. Chronic anemia; we will monitor hemoglobin closely. 6. DVT Prophylaxis with Lovenox. Code Visit OBSV E&M: 60989 Initial observation care L2
--- NOTE | 2018-01-19 22:40 | NURSING ---
Patient converted once to floor -EKG confirms ST with PVC's rate has been controlled between 90-110. Spoke with MD WOODS - cancelled cardizem drip order at this time. Paper order cancelled.
[2018-01-20] VITALS (23 sets, daily range): BP systolic 83–96; BP diastolic 35–59; PULSE 87–153; RESP 17–18; TEMP 36.3–36.9; O2SAT 85–96
[2018-01-20] MEDS: 0.9% NaCl Peripheral Flush Adult/Peds IV ×4 (03:08→15:05)
[2018-01-20 03:25] LABS: Absolute Lymphocyte Count 0.82 X10^3/ul (0.83-4.51); Absolute Neutrophil Count 3.8 X10^3/uL (2.0-7.7); Basophil# 0.01 X10^3/uL; Basophil% 0.2 % (0-1); Eosinophil# 0.05 X10^3/uL; Hematocrit 29.6 % (37-47); Hemoglobin 9.4 g/dl (12.0-15.0); Lymphocyte # 0.82 X10^3/ul (4.0); Lymphocyte % 15.7 % (19-41); Mean Corp Hgb Conc 31.8 g/gl (32-36); Mean Corpuscular Hgb 31.1 pg (27.0-32.0); Mean Platelet Vol. 8.9 fl (6.2-12.0); Monocyte# 0.58 X10^3/uL; Monocyte% 11.1 % (0-10); Neutrophil # 3.76 X10^3/uL (2.7-7.7); Platelet Count 223 K/mm3 (150-450); RBC Distribution Width SD 76.4 fl (35.1-43.9); Red Blood Count 3.02 M/mm3 (4.2-5.4); White Blood Count 5.2 K/mm3 (4.4-11.0)
[2018-01-20 03:26] LABS: Differential Indicated SCAN CRITERIA MET; POSITIVE COUNT NO; POSITIVE DIFFERENTIAL NO; POSITIVE MORPHOLOGY YES
[2018-01-20 03:39] LABS: Anion Gap 8 (5-15); BUN 10 mg/dL (7-18); BUN/Creat Ratio 17.3 RATIO (10-20); Calcium,Total 8.4 mg/dL (8.5-10.1); Chloride 103 mmol/L (98-107); Creatinine, Serum 0.58 mg/dL (0.55-1.02); EST Glomerular Filtration Rate 112 mL/min (>60); Est Glom Filt Rate - Afr Amer 135 mL/min (>60); Estimated Creatinine Clearance 95.29 ml/min; Glucose 99 mg/dL (74-106); Magnesium 1.8 mg/dL (1.6-2.6); Sodium Level 141 mmol/L (136-145); Thyroid Stim Hormone (TSH) 0.82 uIU/mL (0.358-3.74)
[2018-01-20 03:42] LABS: Anisocytosis 2+
[2018-01-20 03:43] LABS: Macrocytosis 1+; Polychromasia RARE
[2018-01-20] MEDS: Metoprolol Tartrate 25 MG Tablet PO ×2 (05:39→21:47)
--- NOTE | 2018-01-20 05:55 | EKG12_ITS ---
Test Reason : AM EKG Blood Pressure : / mmHG Vent. Rate : 110 BPM Atrial Rate : 110 BPM P-R Int : 144 ms QRS Dur : 086 ms QT Int : 328 ms P-R-T Axes : 056 060 062 degrees QTc Int : 443 ms Sinus tachycardia with Premature supraventricular complexes Otherwise normal ECG Confirmed by SHIKHA TAYLOR, RONDA ([id number]), editor at large JARED MTZ ([id number] on 01/25/2018 1:50:10 PM Referred By: ALMA Confirmed By:RONDA TRIVEDI MD
--- NOTE | 2018-01-20 08:03 | PCM.PROGNOTE ---
- Physical Exam Vital Signs Temp Pulse Resp BP Pulse Ox 98 F 101 H 18 94/52 L 94 01/20/18 06:32 01/20/18 06:32 01/20/18 06:32 01/20/18 06:32 01/20/18 06:32 Oxygen Flow Rate (L/min) 4 Oxygen Delivery Method Nasal Cannula Weight: 167 lb 5.294 oz Body Mass Index (BMI) 26.2 Intake and Output for Last 24 Hours 01/18/18 01/19/18 01/20/18 23:59 23:59 23:59 Intake Total 220 / 220 Balance 220 / 220 Laboratory Tests Past 24 Hrs 01/20/18 01/20/18 01/20/18 03:00 03:00 03:00 WBC 5.2 RBC 3.02 L Hgb 9.4 L Hct 29.6 L MCV 98.0 MCH 31.1 MCHC 31.8 L RDW 22.0 H RDW Differential 76.4 H Plt Count 223 MPV 8.9 Immature Gran % (Auto) 0.000 Neut % (Auto) 72.0 H Lymph % (Auto) 15.7 L [place] % (Auto) 11.1 H Eos % (Auto) 1.0 Baso % (Auto) 0.2 Absolute Neuts (auto) 3.8 Absolute Lymphs (auto) 0.82 L Total Counted Not Reportable Polychromasia RARE Anisocytosis 2+ Macrocytosis 1+ Sodium 141 Potassium 4.0 Chloride 103 Carbon Dioxide 30.0 Anion Gap 8 BUN 10 Creatinine 0.58 Estim Creat Clear Calc 95.29 Est GFR (MDRD) Af Amer 135 Est GFR (MDRD) Non-Af 112 BUN/Creatinine Ratio 17.3 Glucose 99 Calcium 8.4 L Magnesium 1.8 Troponin I < 0.02 TSH 0.82 01/20/18 06:40 WBC RBC Hgb Hct MCV MCH MCHC RDW RDW Differential Plt Count MPV Immature Gran % (Auto) Neut % (Auto) Lymph % (Auto) [place] % (Auto) Eos % (Auto) Baso % (Auto) Absolute Neuts (auto) Absolute Lymphs (auto) Total Counted Polychromasia Anisocytosis Macrocytosis Sodium Potassium Chloride Carbon Dioxide Anion Gap BUN Creatinine Estim Creat Clear Calc Est GFR (MDRD) Af Amer Est GFR (MDRD) Non-Af BUN/Creatinine Ratio Glucose Calcium Magnesium Troponin I < 0.02 TSH Medical Necessity - Tobacco Use Smoking Status: Current every day smoker Tobacco Use: Cigarettes
--- NOTE | 2018-01-20 08:09 | PCM.PROGNOTE ---
Subjective: Pt is a 63 YO F admitted to the hospital on 01/[address] Malik after being seen in the ER. No H&P on the chart due to computer crashing on 01/19. 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 EKG in the ER showed AF with RVR and PVC's. No ischemic changes. Admitting lab showed a normal white blood cell count of 6.1 with 76% neutrophils. Hemoglobin was 10.3, down from 13.5 on 01/08/2018. Platelets were WNL. BMP was unremarkable with a potassium of 4.0. Magnesium today is 1.8. Troponin was less than 0.02. Chest x-ray showed an increasing left pleural effusion with elevation of the left hemidiaphragm and infiltration in the left hemothorax. Thoracentesis was performed by Dr. Broussard and 1800 cc of bloody fluid was removed. She is afebrile. Heart rate remains increased and is currently 114. business banking officer shows atrial fibrillation with PVCs. Blood pressures have been on the low side in the current blood pressure is 94/52 with a mean arterial pressure of 66. She is 94% saturated on a 4 L nasal cannula. Lab today shows a hemoglobin of 9.4 and platelets and white blood cell are still within normal limits. Electrolytes are normal and the BUN is 10 with a creatinine of 0.58. Serial troponins were negative. An echocardiogram done on 01/11/2018 showed an ejection fraction of 60% with no regional wall motion abnormalities. There was +1 TR. Both atria were of normal size. - Physical Exam General: Alert, Cooperative, Well developed, Well nourished, - - having some trouble with word finding HEENT: PERRLA, EOMI, Normocephalic, - - she has a mass R restorationism due to metastasis Oral: Moist Mucosa Neck: Supple, No JVD, Negative Carotid Bruits, No Nodes, No Nuchal Rigidity, Trachea Midline Lungs: Diminished, Rales - left, Wheezes - rare on the right, - - not tachypneic, no accessory muscle use, no conversational dyspnea at rest. Cardiovascular: Normal S1, Normal S2, No murmurs, Irregular Rate, No rub noted, No Gallop, - - telemetry shows AF with PVC's Abdomen: Bowel Sounds Present, Soft, Non Tender, Non-Distended, - - no bruits Extremities: No clubbing, No cyanosis, No edema, No Calf Tenderness, Diminished Peripheral Pulses, - - femorals are also diminished....barely palpable...no bruits Skin: No rashes, No breakdown Neurological: Cranial nerves II-XII grossly intact, Neuro grossly intact Psych/Mental Status: Normal Affect, Appropriate Vital Signs Temp Pulse Resp BP Pulse Ox 98 F 101 H 18 94/52 L 94 01/20/18 06:32 01/20/18 06:32 01/20/18 06:32 01/20/18 06:32 01/20/18 06:32 Oxygen Flow Rate (L/min) 4 Oxygen Delivery Method Nasal Cannula Weight: 167 lb 5.294 oz Body Mass Index (BMI) 26.2 Intake and Output for Last 24 Hours 01/18/18 01/19/18 01/20/18 23:59 23:59 23:59 Intake Total 220 / 220 Balance 220 / 220 Laboratory Tests Past 24 Hrs 01/20/18 01/20/18 01/20/18 03:00 03:00 03:00 WBC 5.2 RBC 3.02 L Hgb 9.4 L Hct 29.6 L MCV 98.0 MCH 31.1 MCHC 31.8 L RDW 22.0 H RDW Differential 76.4 H Plt Count 223 MPV 8.9 Immature Gran % (Auto) 0.000 Neut % (Auto) 72.0 H Lymph % (Auto) 15.7 L [place] % (Auto) 11.1 H Eos % (Auto) 1.0 Baso % (Auto) 0.2 Absolute Neuts (auto) 3.8 Absolute Lymphs (auto) 0.82 L Total Counted Not Reportable Polychromasia RARE Anisocytosis 2+ Macrocytosis 1+ Sodium 141 Potassium 4.0 Chloride 103 Carbon Dioxide 30.0 Anion Gap 8 BUN 10 Creatinine 0.58 Estim Creat Clear Calc 95.29 Est GFR (MDRD) Af Amer 135 Est GFR (MDRD) Non-Af 112 BUN/Creatinine Ratio 17.3 Glucose 99 Calcium 8.4 L Magnesium 1.8 Troponin I < 0.02 TSH 0.82 01/20/18 06:40 WBC RBC Hgb Hct MCV MCH MCHC RDW RDW Differential Plt Count MPV Immature Gran % (Auto) Neut % (Auto) Lymph % (Auto) [place] % (Auto) Eos % (Auto) Baso % (Auto) Absolute Neuts (auto) Absolute Lymphs (auto) Total Counted Polychromasia Anisocytosis Macrocytosis Sodium Potassium Chloride Carbon Dioxide Anion Gap BUN Creatinine Estim Creat Clear Calc Est GFR (MDRD) Af Amer Est GFR (MDRD) Non-Af BUN/Creatinine Ratio Glucose Calcium Magnesium Troponin I < 0.02 TSH Medical Necessity - Tobacco Use Smoking Status: Current every day smoker Tobacco Use: Cigarettes Assessment/Plan Impressions 1. PAF with RVR - currently on Metoprolol. BP is marginal so I do not feel we can push the dose any higher. ECHO from 01/11 shows normal EF and normal size atria. Will add dig today. Can not anticoagulate due to the recurrent bloody effusion on the left and the new anemia. She has never seen a certified art therapist so will consult Dr. Benavides to assist in the management of the AF/RVR. Mag is only 1.8 so will supplement to keep it around 2. 2. 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 Right breast cancer diagnosed in 2014 and treated with lumpectomy, chemo and radiation. Recurrent to the left breast and metastatic to pleura with a malignant effusion and to the Left temporal area (involves bone) and also to the lungs. Treated by Dr. Marinelli. She is supposed to get 2 rounds of chemo for lesions in the mouth.....to start 01/23 4. acute respiratory failure with hypoxemia 5. Malignant effusion L chest - S/P thoracentesis on 01/19 6. tobacco dependence 7. HTN 8. Depression 9. GERD 10. Difficulty with word finding and the last imaging of the brain was 2 years ago.......Will get a CTB CTA of the chest to exclude PE as contributing to acute hypoxemia - she is at high risk Recheck the lab in the AM Depending on the results of the CTB and the CTA of the chest may want to discuss palliative. Code Visit Inpatient E&M: 30220 Subs Hosp L3
--- NOTE | 2018-01-20 08:29 | PN_ITS ---
Subjective: Pt is a 63 YO F admitted to the hospital on 01/[address] Malik after being seen in the ER. No H&P on the chart due to computer crashing on 01/19. 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 EKG in the ER showed AF with RVR and PVC's. No ischemic changes. Admitting lab showed a normal white blood cell count of 6.1 with 76% neutrophils. Hemoglobin was 10.3, down from 13.5 on 01/08/2018. Platelets were WNL. BMP was unremarkable with a potassium of 4.0. Magnesium today is 1.8. Troponin was less than 0.02. Chest x-ray showed an increasing left pleural effusion with elevation of the left hemidiaphragm and infiltration in the left hemothorax. Thoracentesis was performed by Dr. Broussard and 1800 cc of bloody fluid was removed. She is afebrile. Heart rate remains increased and is currently 114. laboratory monitor shows atrial fibrillation with PVCs. Blood pressures have been on the low side in the current blood pressure is 94/52 with a mean arterial pressure of 66. She is 94% saturated on a 4 L nasal cannula. Lab today shows a hemoglobin of 9.4 and platelets and white blood cell are still within normal limits. Electrolytes are normal and the BUN is 10 with a creatinine of 0.58. Serial troponins were negative. An echocardiogram done on 01/11/2018 showed an ejection fraction of 60% with no regional wall motion abnormalities. There was +1 TR. Both atria were of normal size. - Physical Exam General: Alert, Cooperative, Well developed, Well nourished, - - having some trouble with word finding HEENT: PERRLA, EOMI, Normocephalic, - - she has a mass R confucianist due to metastasis Oral: Moist Mucosa Neck: Supple, No JVD, Negative Carotid Bruits, No Nodes, No Nuchal Rigidity, Trachea Midline Lungs: Diminished, Rales - left, Wheezes - rare on the right, - - not tachypneic , no accessory muscle use, no conversational dyspnea at rest. Cardiovascular: Normal S1, Normal S2, No murmurs, Irregular Rate, No rub noted, No Gallop, - - telemetry shows AF with PVC's Abdomen: Bowel Sounds Present, Soft, Non Tender, Non-Distended, - - no bruits Extremities: No clubbing, No cyanosis, No edema, No Calf Tenderness, Diminished Peripheral Pulses, - - femorals are also diminished....barely palpable...no bruits Skin: No rashes, No breakdown Neurological: Cranial nerves II-XII grossly intact, Neuro grossly intact Psych/Mental Status: Normal Affect, Appropriate Vital Signs Temp Pulse Resp BP Pulse Ox 98 F 101 H 18 94/52 L 94 01/20/18 06:32 01/20/18 06:32 01/20/18 06:32 01/20/18 06:32 01/20/18 06:32 Oxygen Flow Rate (L/min) 4 Oxygen Delivery Method Nasal Cannula Weight: 167 lb 5.294 oz Body Mass Index (BMI) 26.2 Intake and Output for Last 24 Hours 01/18/18 01/19/18 01/20/18 23:59 23:59 23:59 Intake Total 220 / 220 Balance 220 / 220 Laboratory Tests Past 24 Hrs 01/20/18 01/20/18 01/20/18 03:00 03:00 03:00 WBC 5.2 RBC 3.02 L Hgb 9.4 L Hct 29.6 L MCV 98.0 MCH 31.1 MCHC 31.8 L RDW 22.0 H RDW Differential 76.4 H Plt Count 223 MPV 8.9 Immature Gran % (Auto) 0.000 Neut % (Auto) 72.0 H Lymph % (Auto) 15.7 L [place] % (Auto) 11.1 H Eos % (Auto) 1.0 Baso % (Auto) 0.2 Absolute Neuts (auto) 3.8 Absolute Lymphs (auto) 0.82 L Total Counted Not Reportable Polychromasia RARE Anisocytosis 2+ Macrocytosis 1+ Sodium 141 Potassium 4.0 Chloride 103 Carbon Dioxide 30.0 Anion Gap 8 BUN 10 Creatinine 0.58 Estim Creat Clear Calc 95.29 Est GFR (MDRD) Af Amer 135 Est GFR (MDRD) Non-Af 112 BUN/Creatinine Ratio 17.3 Glucose 99 Calcium 8.4 L Magnesium 1.8 Troponin I < 0.02 TSH 0.82 01/20/18 06:40 WBC RBC Hgb Hct MCV MCH MCHC RDW RDW Differential Plt Count MPV Immature Gran % (Auto) Neut % (Auto) Lymph % (Auto) [place] % (Auto) Eos % (Auto) Baso % (Auto) Absolute Neuts (auto) Absolute Lymphs (auto) Total Counted Polychromasia Anisocytosis Macrocytosis Sodium Potassium Chloride Carbon Dioxide Anion Gap BUN Creatinine Estim Creat Clear Calc Est GFR (MDRD) Af Amer Est GFR (MDRD) Non-Af BUN/Creatinine Ratio Glucose Calcium Magnesium Troponin I < 0.02 TSH Medical Necessity - Tobacco Use Smoking Status: Current every day smoker Tobacco Use: Cigarettes Assessment/Plan Impressions 1. PAF with RVR - currently on Metoprolol. BP is marginal so I do not feel we can push the dose any higher. ECHO from 01/11 shows normal EF and normal size atria. Will add dig today. Can not anticoagulate due to the recurrent bloody effusion on the left and the new anemia. 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 Benavides to assist in the management of the AF/RVR. Mag is only 1.8 so will supplement to keep it around 2. 2. 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 Right breast cancer diagnosed in 2014 and treated with lumpectomy, chemo and radiation. Recurrent to the left breast and metastatic to pleura with a malignant effusion and to the Left temporal area (involves bone) and also to the lungs. Treated by Dr. Marinelli. She is supposed to get 2 rounds of chemo for lesions in the mouth.....to start 01/23 4. acute respiratory failure with hypoxemia 5. Malignant effusion L chest - S/P thoracentesis on 01/19 6. tobacco dependence 7. HTN 8. Depression 9. GERD 10. Difficulty with word finding and the last imaging of the brain was 2 years ago.......Will get a CTB CTA of the chest to exclude PE as contributing to acute hypoxemia - she is at high risk Recheck the lab in the AM Depending on the results of the CTB and the CTA of the chest may want to discuss palliative. Code Visit Inpatient E&M: 28905 Subs Hosp L3
--- NOTE | 2018-01-20 09:03 | CT_ITS ---
STUDY: CTA CHEST REASON FOR EXAM: Female, 63 years old. HYPOXIA, ALTERED MENTAL STATUS, ACUTE RESP FAILURE, HX-BREAST CA AND LARGE MALIGNANT EFFUSION ON LEFT, METASTATIC SARCOMA RT THIGH WITH LUNG METS, CURRENT SMOKER, CHEMO AND RAD TX RADIATION DOSAGE (If Supplied By Facility): CTDIvol = ( 27.86 ) mGy, DLP = ( 1986.77 ) mGycm TECHNIQUE: The examination was performed with the intravenous administration of 100 ml of Isovue 370 contrast material. Post-processing of the angiographic images was performed, with multiplanar reformation and 3D reconstruction. Individualized dose optimization techniques were used for this CT. COMPARISON: Jan 11 2018 2:52pm. FINDINGS: Normal enhancement of the main pulmonary artery and right and left pulmonary arteries. Normal enhancement of the bilateral peripheral pulmonary arteries. There is no demonstrated pulmonary embolism. Normal thoracic aorta and visualized great vessels. There is no demonstrated aortic dissection. Normal heart and pericardium. There is moderate enlargement of mediastinal lymph nodes consistent with metastatic lesions. Normal hilar regions. Normal visualized trachea and bronchi. The lungs are well expanded. There is a multi loculated left pleural effusion with marked atelectasis of the lower left lung. There is associated nodular pleural thickening suggesting diffuse left hemithorax pleural metastatic disease. There is a left upper lobe pleural based mass extending from the left pleural surface is unchanged from the prior examination. Metastatic lesions are seen in anterior aspect of the left second, third, fourth ribs with pathologic fractures. Metastatic lesions are seen in the right upper lobe the largest measures 1.2 cm. Healing fractures are seen at the posterior aspect of the left eighth, ninth, 10th, 11th ribs. There is a right breast mass measures 4 cm. Normal visualized upper abdomen. CT/CTA Chest W/WO Contrast IMPRESSION: No demonstrated pulmonary embolism or arterial dissection. Diffuse left hemithorax pleural metastatic disease. There is a left upper lobe pleural based mass extending from the left pleural surface is unchanged from the prior examination. Metastatic lesions are seen in anterior aspect of the left second, third, fourth ribs with pathologic fractures. Metastatic lesions are seen in the right upper lobe the largest measures 1.2 cm. Electronically Signed: Miguel Miranda MD at 11:55 EDT Tel , Service support ,
--- NOTE | 2018-01-20 09:10 | CT_ITS ---
STUDY: CT BRAIN WITH AND WITHOUT CONTRAST REASON FOR EXAM: Female, 63 years old. HYPOXIA, ALTERED MENTAL STATUS, ACUTE RESP FAILURE, HX-BREAST CA AND LARGE MALIGNANT EFFUSION ON LEFT, METASTATIC SARCOMA RT THIGH WITH LUNG METS, CURRENT SMOKER, CHEMO AND RAD TX. RADIATION DOSAGE (If Supplied By Facility): CTDIvol = ( 27.86 ) mGy, DLP = ( 1986.77 ) mGycm TECHNIQUE: Transaxial CT imaging of the brain was performed pre and post contrast administration. The examination was performed with intravenous administration of 100 ml of Isovue 370 contrast material. Individualized dose optimization techniques were used for this CT. COMPARISON: None. FINDINGS: There is a 3 cm soft tissue mass in the scalp in the right temporal region. Normal calvarium. Normal size ventricles and extra-axial spaces for the patient's age. There are areas of decreased attenuation within the white matter tracts of the supratentorial brain, consistent with microvascular disease changes. Normal basal ganglia and thalami. Normal brainstem. Normal cerebellum. There is no intracranial hemorrhage. There are no findings of an acute ischemic infarction. Normal visualized paranasal sinuses. CT/Brain/Head W/WO Contrast IMPRESSION: There is a 3 cm soft tissue mass in the scalp in the right temporal region. There is no evidence of intracranial metastasis. Electronically Signed: Miguel Miranda MD at 11:37 EDT Tel , Service support ,
[2018-01-20] MEDS: oxyCODONE 5 MG Tablet PO ×2 (10:59→18:34)
[2018-01-20] MEDS: Digoxin 250 MCG/ML Ampul IV (11:07)
[2018-01-20] MEDS: Escitalopram Oxalate 20 MG Tablet PO (11:09)
--- NOTE | 2018-01-20 12:27 | CASEMGMT ---
Addendum entered by Ritika Zavala 01/20/18 13:51: SW spoke with patient's in the hallway as patient was receiving nursing care. SW asked if they have spoken to Terese, the Patient Navigator, regarding disability. He said they have talked with her about this and also regarding insurance. He said they have insurance, but soon will not have insurance. They have spoken to Terese about [employer], which is what they are likely going to end up doing as it will be really hard to find an insurance that will take patient with all of her medical problems. He expressed frustration with insurance companies and various other things with society. He told SW a story about him finding a wallet and in return his ended up receiving a shawl that was prayed over by this gentleman's sabianist. He said it is good to know there are still good people out there. He then told SW he wanted to get back to his and thanked SW for talking. Ritika DAVIES Original Note: SW met with patient to completed initial assessment. Her was also present. She is normally independent. Patient plans on returning home at d/c and is hoping to be able to be weaned off O2 for d/c. After talking with patient SW was informed that patient's insurance will be terminating. SW will check back with patient regarding this. Ritika DAVIES
--- NOTE | 2018-01-20 13:56 | PCM.CONS.C ---
Problem List (1) Atrial fibrillation Status: Acute (2) Breast cancer Status: Resolved Comment: left, for port removal (3) Metastatic neoplastic disease Status: Chronic (4) Pleural cavity effusion Status: Chronic Reason for Consult Date of Consultation: 01/20/18 History of Present Illness: The patient is a 63 year old white female with a history of breast carcinoma, sarcoma involving the lower extremity, metastatic disease, malignant pleural effusion (hemorrhagic) who is referred for evaluation of atrial fibrillation with rapid ventricular response. She states that she has had a history of atrial fibrillation in the past. To the best of her knowledge this occurred one time with spontaneous return to sinus rhythm. She has been hospitalized and has had a recurrence of her atrial fibrillation with notation of rapid ventricular response. She states that she feels it in her neck. She does not describe any classic symptoms of angina pectoris nor she had acute CHF or pulmonary edema. There has been no near syncope or syncope. She has been treated medically with rate control therapy. She has not been on anticoagulant therapy based upon her underlying carcinomas and metastatic disease and malignant pleural effusion which was deemed hemorrhagic. She has been treated with rate control with beta-blockers. Based upon low blood pressure she received additional rate control therapy with digitalis. She has not been on anticoagulant therapy secondary to her previous carcinoma history and her malignant pleural effusion-hemorrhagic. She has not been on antiarrhythmic therapy. [] Past Medical History Allergies/Adverse Reactions: Allergies Penicillins Allergy (Intermediate, Verified 01/20/18 02:09) Hives mirtazapine Adverse Reaction (Severe, Verified 01/20/18 02:09) mental changes mental changes Home Medications: Ambulatory Orders Medication Instructions Recorded Escitalopram Oxalate [Lexapro] 20 mg PO DAILY 09/21/15 Multivitamin [Daily Multiple 1 each PO DAILY 10/01/15 Vitamin] Oxycodone CR [Oxycontin] 10 mg PO Q12H #60 tablet 11/10/17 Lorazepam [Ativan] 1 mg PO QHS 11/25/17 Aspirin [Aspirin, Baby] 81 mg PO DAILY@0800 01/20/18 Cephalexin [Keflex] 500 mg PO BID 01/20/18 Metoprolol Tartrate [Lopressor 25 mg PO BID 01/20/18 (beta onur)] Oxycodone [Oxyir] 5 mg PO Q6H PRN 01/20/18 Past Medical History (Chronic Problems): Chronic Problems (Last Reviewed 01/16/18 @ 11:09 by Hali Altamirano) Pleural cavity effusion (Chronic) Bone metastases (Chronic) Sarcoma of left thigh (Chronic) Metastatic neoplastic disease (Chronic) Anemia associated with chemotherapy (Chronic) Surgical History: - Psychiatric History: No 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 Denies: Chest Discomfort, Orthopnea, PND, Peripheral Edema, Lightheadedness, Dizziness, Near Syncope, Syncope Respiratory: Denies: Cough, Sputum Production, Hemoptysis Gastrointestinal: Denies: Hematemesis, Hematochezia, Melena Genitourinary: Denies: Dysuria, Hematuria Skin: Denies: Rash Subjectve: This is a 63-year-old white female who appears to be resting comfortably at the moment in no acute distress. Objective: Vital Signs Temp Pulse Resp BP Pulse Ox 97.9 F 93 18 93/35 L 95 01/20/18 11:04 01/20/18 11:07 01/20/18 11:04 01/20/18 11:07 01/20/18 11:33 Oxygen Flow Rate (L/min) 4 Oxygen Delivery Method Nasal Cannula Weight: 167 lb 5.294 oz Body Mass Index (BMI) 26.2 Intake and Output for Last 24 Hours 01/18/18 01/19/18 01/20/18 23:59 23:59 23:59 Intake Total 220 / 220 Balance 220 / 220 General: Awake, Alert, Oriented x 3, Cooperative, No Acute Distress, Ill Appearing Neck: No JVD Lungs: Diminished Left Base Cardiovascular: Regular Rhythm, Normal S1, Normal S2 Murmur Murmur: Grade 2/6, Soft, Mid Systolic, LLSB Abdomen: Bowel Sounds Present, Soft, Non Tender Extremities: No edema 01/20/18 03:00: Troponin I < 0.02 01/20/18 03:00: WBC 5.2, RBC 3.02 L, Hgb 9.4 L, Hct 29.6 L, MCV 98.0, MCH 31.1, MCHC 31.8 L, RDW 22.0 H, RDW Differential 76.4 H, Plt Count 223, MPV 8.9, Immature Gran % (Auto) 0.000, Neut % (Auto) 72.0 H, Lymph % (Auto) 15.7 L, [place] % (Auto) 11.1 H, Eos % (Auto) 1.0, Baso % (Auto) 0.2, Absolute Neuts (auto) 3.8, Total Counted Not Reportable 01/20/18 03:00: Sodium 141, Potassium 4.0, Chloride 103, Carbon Dioxide 30.0, Anion Gap 8, BUN 10, Creatinine 0.58, Est GFR (MDRD) Af Amer 135, Est GFR (MDRD) Non-Af 112, BUN/Creatinine Ratio 17.3, Glucose 99, Calcium 8.4 L, Magnesium 1.8 01/20/18 06:40: Troponin I < 0.02 Rhythm: Sinus rhythm EK01/19/2018: 1930 hrs.: Atrial fibrillation with rapid ventricular response with nonspecific ST/T-wave abnormality; 01/19/2018: 2241 hrs.: Sinus rhythm/sinus tachycardia with occasional PVCs; 01/20/2018: 0514 hrs.: Sinus rhythm/sinus tachycardia with occasional PVCs ECHO: 01/11/2018: Left ventricle: Reported as normal with an LVEF of 60%; mild TR; estimated RV systolic pressure of 38 mmHg CXR: Upon review: Findings compatible with bilateral mass lesions with a left sided pleural effusion: Please see official report Assessment/Plan 1. Paroxysmal atrial fibrillation with rapid ventricular response At the present time the patient has a history of paroxysmal atrial fibrillation with rapid ventricular response. The etiology may be multifactorial with respect to a combination of the patient's age and her underlying pulmonary/pleural related conditions. She is not known to have a separate underlying primary cardiovascular condition with respect to underlying structural or functional heart disease. She is not known to have underlying metabolic conditions to contribute to this. At the present time she is in sinus rhythm. It would be reasonable to continue rate control therapy. If she cannot tolerate higher doses of beta blockers or calcium channel antagonists based upon low blood pressure and she can be considered for alternative agents such as digitalis. It might not be unreasonable to consider an attempt at antiarrhythmic therapy. As she is unknown as to whether or not she has other cardiovascular disease such as CAD, etc. it would not be unreasonable to consider agent such as amiodarone. This may help maintain sinus rhythm. She does not appear to be an ideal candidate based upon her aforementioned noncardiac diagnoses and findings for long-term systemic oral anticoagulant therapy. She has been delegated to antiplatelet therapy. She does not appear to demonstrate clinical or objective findings at this time leading to further cardiovascular studies such as noninvasive pharmacologic stress test or invasive diagnostic cardiac catheterization. She appears to be a candidate for conservative medical management based on her extensive carcinoma history, metastatic disease, etc. The above was discussed and reviewed with the patient, her , and Dr. Tinsley. This note was generated with [employer] dictation software. It may contain incorrect words, spelling, and punctuation that were not noted in checking the note before signing.
--- NOTE | 2018-01-20 14:07 | CON.PCM_ITS ---
Problem List (1) Atrial fibrillation Status: Acute (2) Breast cancer Status: Resolved Comment: left, for port removal (3) Metastatic neoplastic disease Status: Chronic (4) Pleural cavity effusion Status: Chronic Reason for Consult Date of Consultation: 01/20/18 History of Present Illness: The patient is a 63 year old white female with a history of breast carcinoma, sarcoma involving the lower extremity, metastatic disease, malignant pleural effusion (hemorrhagic) who is referred for evaluation of atrial fibrillation with rapid ventricular response. She states that she has had a history of atrial fibrillation in the past. To the best of her knowledge this occurred one time with spontaneous return to sinus rhythm. She has been hospitalized and has had a recurrence of her atrial fibrillation with notation of rapid ventricular response. She states that she feels it in her neck. She does not describe any classic symptoms of angina pectoris nor she had acute CHF or pulmonary edema. There has been no near syncope or syncope. She has been treated medically with rate control therapy. She has not been on anticoagulant therapy based upon her underlying carcinomas and metastatic disease and malignant pleural effusion which was deemed hemorrhagic. She has been treated with rate control with beta-blockers. Based upon low blood pressure she received additional rate control therapy with digitalis. She has not been on anticoagulant therapy secondary to her previous carcinoma history and her malignant pleural effusion-hemorrhagic. She has not been on antiarrhythmic therapy. [] Past Medical History Allergies/Adverse Reactions: Allergies Penicillins Allergy (Intermediate, Verified 01/20/18 02:09) Hives mirtazapine Adverse Reaction (Severe, Verified 01/20/18 02:09) mental changes mental changes Home Medications: Ambulatory Orders Medication Instructions Recorded Escitalopram Oxalate [Lexapro] 20 mg PO DAILY 09/21/15 Multivitamin [Daily Multiple 1 each PO DAILY 10/01/15 Vitamin] Oxycodone CR [Oxycontin] 10 mg PO Q12H #60 tablet 11/10/17 Lorazepam [Ativan] 1 mg PO QHS 11/25/17 Aspirin [Aspirin, Baby] 81 mg PO DAILY@0800 01/20/18 Cephalexin [Keflex] 500 mg PO BID 01/20/18 Metoprolol Tartrate [Lopressor 25 mg PO BID 01/20/18 (beta onur)] Oxycodone [Oxyir] 5 mg PO Q6H PRN 01/20/18 Past Medical History (Chronic Problems): Chronic Problems (Last Reviewed 01/16/18 @ 11:09 by Hali Altamirano) Pleural cavity effusion (Chronic) Bone metastases (Chronic) Sarcoma of left thigh (Chronic) Metastatic neoplastic disease (Chronic) Anemia associated with chemotherapy (Chronic) Surgical History: - Psychiatric History: No 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 Denies: Chest Discomfort, Orthopnea, PND, Peripheral Edema, Lightheadedness, Dizziness, Near Syncope, Syncope Respiratory: Denies: Cough, Sputum Production, Hemoptysis Gastrointestinal: Denies: Hematemesis, Hematochezia, Melena Genitourinary: Denies: Dysuria, Hematuria Skin: Denies: Rash Subjectve: This is a 63-year-old white female who appears to be resting comfortably at the moment in no acute distress. Objective: Vital Signs Temp Pulse Resp BP Pulse Ox 97.9 F 93 18 93/35 L 95 01/20/18 11:04 01/20/18 11:07 01/20/18 11:04 01/20/18 11:07 01/20/18 11:33 Oxygen Flow Rate (L/min) 4 Oxygen Delivery Method Nasal Cannula Weight: 167 lb 5.294 oz Body Mass Index (BMI) 26.2 Intake and Output for Last 24 Hours 01/18/18 01/19/18 01/20/18 23:59 23:59 23:59 Intake Total 220 / 220 Balance 220 / 220 General: Awake, Alert, Oriented x 3, Cooperative, No Acute Distress, Ill Appearing Neck: No JVD Lungs: Diminished Left Base Cardiovascular: Regular Rhythm, Normal S1, Normal S2 Murmur Murmur: Grade 2/6, Soft, Mid Systolic, LLSB Abdomen: Bowel Sounds Present, Soft, Non Tender Extremities: No edema 01/20/18 03:00: Troponin I < 0.02 01/20/18 03:00: WBC 5.2, RBC 3.02 L, Hgb 9.4 L, Hct 29.6 L, MCV 98.0, MCH 31.1, MCHC 31.8 L, RDW 22.0 H, RDW Differential 76.4 H, Plt Count 223, MPV 8.9, Immature Gran % (Auto) 0.000, Neut % (Auto) 72.0 H, Lymph % (Auto) 15.7 L, Carlton % (Auto) 11.1 H, Eos % (Auto) 1.0, Baso % (Auto) 0.2, Absolute Neuts (auto) 3.8 , Total Counted Not Reportable 01/20/18 03:00: Sodium 141, Potassium 4.0, Chloride 103, Carbon Dioxide 30.0, Anion Gap 8, BUN 10, Creatinine 0.58, Est GFR (MDRD) Af Amer 135, Est GFR (MDRD ) Non-Af 112, BUN/Creatinine Ratio 17.3, Glucose 99, Calcium 8.4 L, Magnesium 1.8 01/20/18 06:40: Troponin I < 0.02 Rhythm: Sinus rhythm EK01/19/2018: 1930 hrs.: Atrial fibrillation with rapid ventricular response with nonspecific ST/T-wave abnormality; 01/19/2018: 2241 hrs.: Sinus rhythm/ sinus tachycardia with occasional PVCs; 01/20/2018: 0514 hrs.: Sinus rhythm/ sinus tachycardia with occasional PVCs ECHO: 01/11/2018: Left ventricle: Reported as normal with an LVEF of 60%; mild TR ; estimated RV systolic pressure of 38 mmHg CXR: Upon review: Findings compatible with bilateral mass lesions with a left sided pleural effusion: Please see official report Assessment/Plan 1. Paroxysmal atrial fibrillation with rapid ventricular response At the present time the patient has a history of paroxysmal atrial fibrillation with rapid ventricular response. The etiology may be multifactorial with respect to a combination of the patient's age and her underlying pulmonary/ pleural related conditions. She is not known to have a separate underlying primary cardiovascular condition with respect to underlying structural or functional heart disease. She is not known to have underlying metabolic conditions to contribute to this. At the present time she is in sinus rhythm. It would be reasonable to continue rate control therapy. If she cannot tolerate higher doses of beta blockers or calcium channel antagonists based upon low blood pressure and she can be considered for alternative agents such as digitalis. It might not be unreasonable to consider an attempt at antiarrhythmic therapy. As she is unknown as to whether or not she has other cardiovascular disease such as CAD, etc. it would not be unreasonable to consider agent such as amiodarone. This may help maintain sinus rhythm. She does not appear to be an ideal candidate based upon her aforementioned noncardiac diagnoses and findings for long-term systemic oral anticoagulant therapy. She has been delegated to antiplatelet therapy. She does not appear to demonstrate clinical or objective findings at this time leading to further cardiovascular studies such as noninvasive pharmacologic stress test or invasive diagnostic cardiac catheterization. She appears to be a candidate for conservative medical management based on her extensive carcinoma history, metastatic disease, etc. The above was discussed and reviewed with the patient, her , and Dr. Tinsley. This note was generated with [employer] dictation software. It may contain incorrect words, spelling, and punctuation that were not noted in checking the note before signing.
[2018-01-20] MEDS: Acetaminophen 500 MG Tablet PO ×2 (15:48→21:46)
--- NOTE | 2018-01-20 18:00 | NURSING ---
report obtained on this patient from lexy prater RN
[2018-01-20] MEDS: oxyCODONE HCl Cr 10 MG Tablet PO (21:47)
[2018-01-21] VITALS (11 sets, daily range): BP systolic 96–102; BP diastolic 43–50; PULSE 87–101; RESP 18; TEMP 36.5–36.9; O2SAT 76–97
[2018-01-21] MEDS: 0.9% NaCl Peripheral Flush Adult/Peds IV (04:16)
[2018-01-21 05:05] LABS: Hematocrit 29.1 % (37-47); Hemoglobin 9.2 g/dl (12.0-15.0); Mean Corp Hgb Conc 31.6 g/gl (32-36); Mean Corpuscular Hgb 31.8 pg (27.0-32.0); Mean Corpuscular Volume 100.7 fL (81-99); Mean Platelet Vol. 9.3 fl (6.2-12.0); Platelet Count 254 K/mm3 (150-450); RBC Distribution Width CV 21.7 % (11.6-14.6); RBC Distribution Width SD 75.4 fl (35.1-43.9); Red Blood Count 2.89 M/mm3 (4.2-5.4); White Blood Count 5.3 K/mm3 (4.4-11.0)
[2018-01-21 05:11] LABS: ALB/GLOB Ratio 0.5 RATIO (0.9-2.4); AST(SGOT) 10 U/L (15-37); Alanine Aminotransfer ALT/SGPT 13 U/L (13-56); Albumin, Serum 1.8 g/dL (3.2-5.0); Alkaline Phosphatase 80 U/L (45-117); Anion Gap 4 (5-15); BUN 9 mg/dL (7-18); BUN/Creat Ratio 20.2 RATIO (10-20); Calcium,Total 8.2 mg/dL (8.5-10.1); Chloride 104 mmol/L (98-107); Creatinine, Serum 0.45 mg/dL (0.55-1.02); EST Glomerular Filtration Rate 151 mL/min (>60); Est Glom Filt Rate - Afr Amer 182 mL/min (>60); Estimated Creatinine Clearance 122.82 ml/min; Globulin 3.3 g/dL (2.2-4.2); Glucose 85 mg/dL (74-106); Magnesium 2.3 mg/dL (1.6-2.6); Phosphorus 2.6 mg/dL (2.5-4.9); Protein, Total 5.1 g/dL (6.4-8.2); Sodium Level 141 mmol/L (136-145)
[2018-01-21 05:19] LABS: Scan Indicated on CBC? Y/N YES- FLAGS NOTED
[2018-01-21] MEDS: Enoxaparin 40 MG/0.4 ML Syringe SC (05:44)
[2018-01-21] MEDS: oxyCODONE 5 MG Tablet PO (05:49)
[2018-01-21 06:44] LABS: Differential Comment SCANNED
[2018-01-21] MEDS: Digoxin 125 MCG Tablet PO (10:21)
[2018-01-21] MEDS: Amiodarone 200 MG Tablet PO (10:21)
[2018-01-21] MEDS: oxyCODONE HCl Cr 10 MG Tablet PO (10:22)
[2018-01-21] MEDS: Metoprolol Tartrate 25 MG Tablet PO (10:22)
[2018-01-21] MEDS: Escitalopram Oxalate 20 MG Tablet PO (10:22)
--- NOTE | 2018-01-21 11:04 | PCM.PN.CARD ---
Subjectve: The patient appears to be without any new acute symptoms respect to her underlying cardiac rate or rhythm. Objective: Vital Signs Temp Pulse Resp BP Pulse Ox 97.7 F L 101 H 18 102/43 L 94 01/21/18 09:20 01/21/18 10:22 01/21/18 09:20 01/21/18 10:22 01/21/18 09:20 Oxygen Flow Rate (L/min) 3 Oxygen Delivery Method Nasal Cannula Weight: 167 lb 5.294 oz Body Mass Index (BMI) 26.2 Intake and Output for Last 24 Hours 01/19/18 01/20/18 01/21/18 23:59 23:59 23:59 Intake Total 1579 / 1579 600 / 600 Balance 1579 / 1579 600 / 600 General: Awake, Alert, Oriented x 3, Cooperative, No Acute Distress Neck: No JVD Lungs: Clear to auscultation Cardiovascular: Regular Rhythm, Normal S1, Normal S2 Abdomen: Bowel Sounds Present, Soft, Non Tender Extremities: No edema 01/20/18 13:15: Troponin I < 0.02 01/21/18 04:15: WBC 5.3, RBC 2.89 L, Hgb 9.2 L, Hct 29.1 L, MCV 100.7 H, MCH 31.8, MCHC 31.6 L, RDW 21.7 H, RDW Differential 75.4 H, Plt Count 254, MPV 9.3 01/21/18 04:15: Sodium 141, Potassium 4.0, Chloride 104, Carbon Dioxide 33.0 H, Anion Gap 4 L, BUN 9, Creatinine 0.45 L, Est GFR (MDRD) Af Amer 182, Est GFR (MDRD) Non-Af 151, BUN/Creatinine Ratio 20.2 H, Glucose 85, Calcium 8.2 L, Phosphorus 2.6, Magnesium 2.3, Total Bilirubin 0.20 Rhythm: Sinus rhythm Medical Necessity - Tobacco Use Smoking Status: Current every day smoker Tobacco Use: Cigarettes Assessment/Plan 1. Paroxysmal atrial fibrillation with rapid ventricular response At the present time the patient has a history of paroxysmal atrial fibrillation with rapid ventricular response. The etiology may be multifactorial with respect to a combination of the patient's age and her underlying pulmonary/pleural related conditions. She is not known to have a separate underlying primary cardiovascular condition with respect to underlying structural or functional heart disease. She is not known to have underlying metabolic conditions to contribute to this. At the present time she is in sinus rhythm. She is continuing medical management with antiplatelet therapy, rate control therapy, and initiation of antiarrhythmic therapy with amiodarone. She does not appear to be an ideal candidate based upon her aforementioned noncardiac diagnoses and findings for long-term systemic oral anticoagulant therapy. She has been delegated to antiplatelet therapy. She does not appear to demonstrate clinical or objective findings at this time leading to further cardiovascular studies such as noninvasive pharmacologic stress test or invasive diagnostic cardiac catheterization. She appears to be a candidate for conservative medical management based on her extensive carcinoma history, metastatic disease, etc. She will continue with future outpatient cardiovascular follow-up as deemed appropriate. This note was generated with [employer] dictation software. It may contain incorrect words, spelling, and punctuation that were not noted in checking the note before signing.
--- NOTE | 2018-01-21 11:08 | PN.CARD_ITS ---
Subjectve: The patient appears to be without any new acute symptoms respect to her underlying cardiac rate or rhythm. Objective: Vital Signs Temp Pulse Resp BP Pulse Ox 97.7 F L 101 H 18 102/43 L 94 01/21/18 09:20 01/21/18 10:22 01/21/18 09:20 01/21/18 10:22 01/21/18 09:20 Oxygen Flow Rate (L/min) 3 Oxygen Delivery Method Nasal Cannula Weight: 167 lb 5.294 oz Body Mass Index (BMI) 26.2 Intake and Output for Last 24 Hours 01/19/18 01/20/18 01/21/18 23:59 23:59 23:59 Intake Total 1579 / 1579 600 / 600 Balance 1579 / 1579 600 / 600 General: Awake, Alert, Oriented x 3, Cooperative, No Acute Distress Neck: No JVD Lungs: Clear to auscultation Cardiovascular: Regular Rhythm, Normal S1, Normal S2 Abdomen: Bowel Sounds Present, Soft, Non Tender Extremities: No edema 01/20/18 13:15: Troponin I < 0.02 01/21/18 04:15: WBC 5.3, RBC 2.89 L, Hgb 9.2 L, Hct 29.1 L, MCV 100.7 H, MCH 31.8, MCHC 31.6 L, RDW 21.7 H, RDW Differential 75.4 H, Plt Count 254, MPV 9.3 01/21/18 04:15: Sodium 141, Potassium 4.0, Chloride 104, Carbon Dioxide 33.0 H, Anion Gap 4 L, BUN 9, Creatinine 0.45 L, Est GFR (MDRD) Af Amer 182, Est GFR ( MDRD) Non-Af 151, BUN/Creatinine Ratio 20.2 H, Glucose 85, Calcium 8.2 L, Phosphorus 2.6, Magnesium 2.3, Total Bilirubin 0.20 Rhythm: Sinus rhythm Medical Necessity - Tobacco Use Smoking Status: Current every day smoker Tobacco Use: Cigarettes Assessment/Plan 1. Paroxysmal atrial fibrillation with rapid ventricular response At the present time the patient has a history of paroxysmal atrial fibrillation with rapid ventricular response. The etiology may be multifactorial with respect to a combination of the patient's age and her underlying pulmonary/ pleural related conditions. She is not known to have a separate underlying primary cardiovascular condition with respect to underlying structural or functional heart disease. She is not known to have underlying metabolic conditions to contribute to this. At the present time she is in sinus rhythm. She is continuing medical management with antiplatelet therapy, rate control therapy, and initiation of antiarrhythmic therapy with amiodarone. She does not appear to be an ideal candidate based upon her aforementioned noncardiac diagnoses and findings for long-term systemic oral anticoagulant therapy. She has been delegated to antiplatelet therapy. She does not appear to demonstrate clinical or objective findings at this time leading to further cardiovascular studies such as noninvasive pharmacologic stress test or invasive diagnostic cardiac catheterization. She appears to be a candidate for conservative medical management based on her extensive carcinoma history, metastatic disease, etc. She will continue with future outpatient cardiovascular follow-up as deemed appropriate. This note was generated with [employer] dictation software. It may contain incorrect words, spelling, and punctuation that were not noted in checking the note before signing.
[2018-01-21] MEDS: Dronabinol 2.5 MG Capsule PO (12:55)
--- NOTE | 2018-01-21 12:57 | PCM.DC ---
- Discharge Diagnoses Current Active Problems: Current Active and Chronic Problems (Last Reviewed 01/16/18 @ 11:09 by Hali Altamirano) Atrial fibrillation (Acute) You will use the following diet at home:: No restrictions Your food should be the consistency of: Regular Your liquids should be the consistency of: Regular/Thin Discharge Activity: No Restrictions, May not drive while taking narcotic pain medications., - - Avoid exposure to any strong smells such as bleach, cleaning products, strong colognes or perfumes, paint fumes and smoke of any kind. Avoid sudden exposure to cold air because this can cause bronchospasm. You may want to cover your mouth when you go outside in the winter. Avoid exposure to anyone who is sick with a cough or sore throat. Call your doctor if you observe: Fever of 101 or Higher, Inability to urinate, Inability to have a bowel movement, Shortness of breath, Dizziness, Fainting spells, Swelling in the ankles, Chest pain, Calf discomfort, Uncontrolled pain Instructions: ED Effusion Pleural Additional Instructions: I decided to use Elavil (also called amitriptyline) for the second antidepressant because you listed Remeron as an allergy due to mental status changes. Elavil is an antidepressant that also stimulates appetite and helps you sleep and it is not addictive. I started you on the lowest dose of 10 mg at night. If this is not adequate and you have no adverse side effects then the dose can be increased. The CT of the head did not show any evidence of metastatic lesions in the brain. The CT of the chest did not show any new findings and you did not have any blood clots in the lung. You will need to wear the oxygen at home. I am referring you to a lung doctor who can help with improving the lung finction and managing the oxygen. The best thing for you to do is to stop smoking and I have given you a nicotine patch......I do not care if you use this for the rest of your life as long as it keeps you from smoking. There are 4 REALLY IMPORTANT things you need to do to help your body fight the cancer......eat healthy, get good sleep, get some exercise and STAY AWAY FROM SICK PEOPLE!!! Good luck to you....it was nice to meet you and your and if you are ever in the hospital again and I am working I would be happy to take care of you. Pending Tests on Discharge: results of Cortrosyn stimulation test Allergies/Adverse Reactions: Allergies Penicillins Allergy (Intermediate, Verified 01/20/18 02:09) Hives mirtazapine Adverse Reaction (Severe, Verified 01/20/18 02:09) mental changes mental changes Medications to take at Discharge Escitalopram Oxalate [Lexapro] 20 mg PO DAILY 09/21/15 Multivitamin [Daily Multiple Vitamin] 1 each PO DAILY 10/01/15 Oxycodone CR [Oxycontin] 10 mg PO Q12H #60 tablet 11/10/17 Aspirin [Aspirin, Baby] 81 mg PO DAILY@0800 01/20/18 Cephalexin [Keflex] 500 mg PO BID 01/20/18 Metoprolol Tartrate [Lopressor (beta onur)] 25 mg PO BID 01/20/18 Oxycodone [Oxyir] 5 mg PO Q6H PRN 01/20/18 Amiodarone HCl [Cordarone] 200 mg PO DAILY #30 tab 01/21/18 Amitriptyline HCl [Elavil] 10 mg PO QHS #30 tab 01/21/18 Digoxin [Lanoxin] 62.5 mcg PO DAILY #30 tab 01/21/18 Dronabinol [Marinol] 2.5 mg PO BIDAC #60 cap 01/21/18 Nicotine [Nicoderm Cq ([facility])] 14 mg TRANSDERM. DAILY #30 patch 01/21/18 Oxygen, Home [Home Oxygen] 2 - 4 lpm NASAL CONT #1 unit 01/21/18 The following prescriptions were given: Amiodarone HCl [Cordarone] 200 mg PO DAILY #30 tab Amitriptyline HCl [Elavil] 10 mg PO QHS #30 tab Digoxin [Lanoxin] 62.5 mcg PO DAILY #30 tab Dronabinol [Marinol] 2.5 mg PO BIDAC #60 cap Nicotine [Nicoderm Cq ([facility])] 14 mg TRANSDERM. DAILY #30 patch Oxygen, Home [Home Oxygen] 2 - 4 lpm NASAL CONT #1 unit Primary Care Physician: Vince Marinelli MD [NON-STAFF] - As Needed Patrick Lacey DO [Primary Care Provider] - As Needed Please Follow Up With: Deepthi,Patrick, DO When: 7-10 days Please Follow Up With: Zak Benavides MD When: 2-4 weeks Please Follow Up With: Newton Jenkins DO When: call for an appt with Tri in the next 1-2 weeks Proposed Discharge Date: 01/21/18
--- NOTE | 2018-01-21 13:33 | PCM.DC.SUM ---
Discharge Date and Diagnosis - Problem List Patient Problems: Active and Suspected Problems (Last Reviewed 01/16/18 @ 11:09 by Hali Altamirano) COPD (chronic obstructive pulmonary disease) (Suspected) Acute respiratory failure with hypoxemia (Acute) Atrial fibrillation with RVR (Acute) Date of Admission: 01/19/18 Date of Discharge: 01/21/18 - Primary Discharge Diagnosis Active and Suspected Problems (Last Reviewed 01/16/18 @ 11:09 by Hali Altamirano) Acute respiratory failure with hypoxemia (Acute) Atrial fibrillation with RVR (Acute) COPD (chronic obstructive pulmonary disease) (Suspected) - Secondary Discharge Diagnosis Chronic Problems (Last Reviewed 01/16/18 @ 11:09 by Hali Altamirano) GERD (gastroesophageal reflux disease) (Chronic) Tobacco dependence due to cigarettes (Chronic) Insomnia (Chronic) Depression (Chronic) Malignant pleural effusion (Chronic) Breast cancer (Chronic) - BL PAF (paroxysmal atrial fibrillation) (Chronic) Bone metastases (Chronic) 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 Stable changes at the right lung base. Electronically Signed: Anatoly Broussard MD at 15:01 EDT Tel [phone], Service support , Thoracentesis Ultrasound 01/19/18 14:47 IMPRESSION: Ultrasound-guided left thoracentesis. Electronically Signed: Anatoly Broussard MD at 16:05 EDT Tel [phone], Service support , Chest CTA 01/20/18 09:03 IMPRESSION: No demonstrated pulmonary embolism or arterial dissection. Diffuse left hemithorax pleural metastatic disease. There is a left upper lobe pleural based mass extending from the left pleural surface is unchanged from the prior examination. Metastatic lesions are seen in anterior aspect of the left second, third, fourth ribs with pathologic fractures. Metastatic lesions are seen in the right upper lobe the largest measures 1.2 cm. Electronically Signed: Miguel Miranda MD at 11:55 EDT Tel , Service support , Brain CT 01/20/18 09:10 IMPRESSION: There is a 3 cm soft tissue mass in the scalp in the right temporal region. There is no evidence of intracranial metastasis. Electronically Signed: Miguel Miranda MD at 11:37 EDT Tel , Service support , Laboratory Tests 01/19/18 01/19/18 01/20/18 15:09 15:09 03:00 WBC 6.1 RBC 3.25 L Hgb 10.3 L Hct 32.2 L MCV 99.1 H MCH 31.7 MCHC 32.0 RDW 21.8 H RDW Differential 75.2 H Plt Count 297 MPV 9.6 Immature Gran % (Auto) 0.300 Neut % (Auto) 76.2 H Lymph % (Auto) 11.1 L [place] % (Auto) 11.6 H Eos % (Auto) 0.5 Baso % (Auto) 0.3 Absolute Neuts (auto) 4.7 Absolute Lymphs (auto) 0.68 L Total Counted Not Reportable Differential Comment SCANNED Polychromasia Anisocytosis Macrocytosis Sodium 137 Potassium 4.0 Chloride 101 Carbon Dioxide 28.0 Anion Gap 8 BUN 11 Creatinine 0.61 Estim Creat Clear Calc 90.60 Est GFR (MDRD) Af Amer 127 Est GFR (MDRD) Non-Af 105 BUN/Creatinine Ratio 18.0 Glucose 114 H Calcium 9.1 Phosphorus Magnesium Total Bilirubin AST ALT Alkaline Phosphatase Troponin I < 0.02 < 0.02 Total Protein Albumin Globulin Albumin/Globulin Ratio TSH 01/20/18 01/20/18 01/20/18 03:00 03:00 06:40 WBC 5.2 RBC 3.02 L Hgb 9.4 L Hct 29.6 L MCV 98.0 MCH 31.1 MCHC 31.8 L RDW 22.0 H RDW Differential 76.4 H Plt Count 223 MPV 8.9 Immature Gran % (Auto) 0.000 Neut % (Auto) 72.0 H Lymph % (Auto) 15.7 L [place] % (Auto) 11.1 H Eos % (Auto) 1.0 Baso % (Auto) 0.2 Absolute Neuts (auto) 3.8 Absolute Lymphs (auto) 0.82 L Total Counted Not Reportable Differential Comment Polychromasia RARE Anisocytosis 2+ Macrocytosis 1+ Sodium 141 Potassium 4.0 Chloride 103 Carbon Dioxide 30.0 Anion Gap 8 BUN 10 Creatinine 0.58 Estim Creat Clear Calc 95.29 Est GFR (MDRD) Af Amer 135 Est GFR (MDRD) Non-Af 112 BUN/Creatinine Ratio 17.3 Glucose 99 Calcium 8.4 L Phosphorus Magnesium 1.8 Total Bilirubin AST ALT Alkaline Phosphatase Troponin I < 0.02 Total Protein Albumin Globulin Albumin/Globulin Ratio TSH 0.82 01/20/18 01/21/18 01/21/18 13:15 04:15 04:15 WBC 5.3 RBC 2.89 L Hgb 9.2 L Hct 29.1 L MCV 100.7 H MCH 31.8 MCHC 31.6 L RDW 21.7 H RDW Differential 75.4 H Plt Count 254 MPV 9.3 Immature Gran % (Auto) Neut % (Auto) Lymph % (Auto) [place] % (Auto) Eos % (Auto) Baso % (Auto) Absolute Neuts (auto) Absolute Lymphs (auto) Total Counted Differential Comment SCANNED Polychromasia Anisocytosis Macrocytosis Sodium 141 Potassium 4.0 Chloride 104 Carbon Dioxide 33.0 H Anion Gap 4 L BUN 9 Creatinine 0.45 L Estim Creat Clear Calc 122.82 Est GFR (MDRD) Af Amer 182 Est GFR (MDRD) Non-Af 151 BUN/Creatinine Ratio 20.2 H Glucose 85 Calcium 8.2 L Phosphorus 2.6 Magnesium 2.3 Total Bilirubin 0.20 AST 10 L ALT 13 Alkaline Phosphatase 80 Troponin I < 0.02 Total Protein 5.1 L Albumin 1.8 L Globulin 3.3 Albumin/Globulin Ratio 0.[address] [facility] Operations: None Procedures: Thoracentesis - 01/19/[address] Broussard - 1800 cc removed Summary of Care Provided: Pt is a 63 YO F with a PMH significant for PAF, depression, GERD, sarcoma of the leg, Breast Cancer with mets (lungs, pleura and scalp), malignant pleural effusion on the left and anemia who presented to the ED at [facility] EKG in the ER showed AF with RVR and PVC's. No ischemic changes. Admitting labs showed a normal white blood cell count of 6.1 with 76% neutrophils. Hemoglobin was 10.3, down from 13.5 on 01/08/2018. Platelets were WNL. BMP was unremarkable with a potassium of 4.0. Magnesium today is 1.8. Troponin was less than 0.02. Chest x-ray showed an increasing left pleural effusion with elevation of the left hemidiaphragm and infiltration in the left hemothorax. Thoracentesis was performed by Dr. Broussard and 1800 cc of bloody fluid was removed. There was still fluid remaining but the procedure was stopped due to coughing. She was to be discharged home but, developed AF with RVR prior to leaving and was admitted to a monitored bed on PCU. She has been admitted to the hospital in the past for AF and has been on Metoprolol 25 mg BID. She is chronically borderline hypotensive and diltiazem and increased beta onur were contraindicated. She was given 250mcg of IV dig and started on a daily dose of dig. Renal function is normal. Consult was ordered with Dr. Benavides. She had a CTA of the chest that showed no PE's. The CT chest did show diffuse left hemithorax pleural metastatic disease and a left upper lobe pleural-based mass. It was unchanged from previous CAT scans. A CT brain was also done due to some trouble with word finding and it did not show any brain mets. She has a scalp lesion in the left There were metastatic lesions seen in the anterior aspect of the left second, third and fourth ribs with pathologic fractures. There were metastatic lesions in the right upper lobe, the largest measuring 1.2 cm. There was no pneumothorax on the post procedure film or on the CT scan the following day. She spontaneously converted to NSR in the afternoon of 01/20 and then was started on Amiodarone [address] Benavides. A Cortrosyn stim test was done because of the hypotension and the results are still pending at the time of DC. She was kept in the hospital overnight to monitor for recurrent AF and she remained in SR. There was no significant ectopy. The pulse ox on RA at rest on the day of DC was 77%. A PA and Lateral CXR showed reaccumulating pleural fluid with no evidence of pneumothorax. Home oxygen was arranged. She was discharged home on digoxin 0.625 mg daily and amiodarone 200 mg daily. She will follow up with Dr. Lacey in 7-[address] Benavides in 2-4 weeks. She will follow up with Dr. Marinelli this coming Monday to start chemo. She was given a lab requisition to obtain a CBC, BMP, Mag and Dig in 1 week and the results will be sent to Dr. Lacey. She was not placed on anticoagulation for PAF because she has a bloody malignant effusion on the Left and is at high risk for bleeding. I asked her to follow up with Dr. Jenkins or Dr. Delmer Up in the pulmonary clinic and also with Dr. Alfonso for consideration for a Pleurx catheter. She has been depressed with decreased motivation, decreased appetite and trouble sleeping despite 20 mg of Lexapro. She has tried Remeron in the past and it caused mental status changes. She was started on Elavil 10 mg at in addition to the Lexapro to increase appetite and help her sleep. She was also given a RX for Marinol 2.5 mg BID to help stimulate appetite, help with chronic pain and also to help with anxiety. She was given a dose in the hospital and tolerated it well without adverse side effect. Smoking cessation counselling was given in the hospital and she was given a RX for a Nicotine patch 14 mg at [place]. This note was generated with [employer] dictation software. It may contain incorrect words, spelling, and punctuation that were not noted in checking the note before signing. Discharge Activity: No Restrictions, May not drive while taking narcotic pain medications., - - Avoid exposure to any strong smells such as bleach, cleaning products, strong colognes or perfumes, paint fumes and smoke of any kind. Avoid sudden exposure to cold air because this can cause bronchospasm. You may want to cover your mouth when you go outside in the winter. Avoid exposure to anyone who is sick with a cough or sore throat. Call your doctor if you observe: Fever of 101 or Higher, Inability to urinate, Inability to have a bowel movement, Shortness of breath, Dizziness, Fainting spells, Swelling in the ankles, Chest pain, Calf discomfort, Uncontrolled pain Home Medications: Medications to take at Discharge Escitalopram Oxalate [Lexapro] 20 mg PO DAILY 09/21/15 Multivitamin [Daily Multiple Vitamin] 1 each PO DAILY 10/01/15 Oxycodone CR [Oxycontin] 10 mg PO Q12H #60 tablet 11/10/17 Aspirin [Aspirin, Baby] 81 mg PO DAILY@0800 01/20/18 Cephalexin [Keflex] 500 mg PO BID 01/20/18 Metoprolol Tartrate [Lopressor (beta onur)] 25 mg PO BID 01/20/18 Oxycodone [Oxyir] 5 mg PO Q6H PRN 01/20/18 Amiodarone HCl [Cordarone] 200 mg PO DAILY #30 tab 01/21/18 Amitriptyline HCl [Elavil] 10 mg PO QHS #30 tab 01/21/18 Digoxin [Lanoxin] 62.5 mcg PO DAILY #30 tab 01/21/18 Dronabinol [Marinol] 2.5 mg PO BIDAC #60 cap 01/21/18 Nicotine [Nicoderm Cq ([facility])] 14 mg TRANSDERM. DAILY #30 patch 01/21/18 Oxygen, Home [Home Oxygen] 2 - 4 lpm NASAL CONT #1 unit 01/21/18 Following Prescrptions Were Given to Patient: Amiodarone HCl [Cordarone] 200 mg PO DAILY #30 tab Amitriptyline HCl [Elavil] 10 mg PO QHS #30 tab Digoxin [Lanoxin] 62.5 mcg PO DAILY #30 tab Dronabinol [Marinol] 2.5 mg PO BIDAC #60 cap Nicotine [Nicoderm Cq ([facility]KC)] 14 mg TRANSDERM. DAILY #30 patch Oxygen, Home [Home Oxygen] 2 - 4 lpm NASAL CONT #1 unit Primary Care Physician: Vince Marinelli MD [NON-STAFF] - As Needed Patrick Lacey DO [Primary Care Provider] - As Needed Please Follow Up With: Patrick Lacey DO When: 7-10 days Please Follow Up With: Zak Benavides MD When: 2-4 weeks Please Follow Up With: Newton Jenkins DO When: call for an appt with Tri in the next 1-2 weeks Patient Instructions: Dronabinol Oral capsule, liquid filled, Amitriptyline Hydrochloride Oral tablet, Digoxin Oral tablet, Amiodarone Hydrochloride Oral tablet, ED Effusion Pleural Disposition: Home Minutes spent on discharge:: 45 Patient Condition:: Stable Medical Necessity - Tobacco Use Smoking Status: Current every day smoker Tobacco Use: Cigarettes Meaningful Use Info Meaningful Use Diagnoses (Choose all that apply): None applicable Code Visit Inpatient E&M: 70380 [facility]
--- NOTE | 2018-01-21 14:02 | RAD_ITS ---
STUDY: X-RAY CHEST REASON FOR EXAM: Female, 63 years old. Hypoxemia. TECHNIQUE: PA and lateral views of the chest. COMPARISON: CT of the chest dated January 21, 2018. FINDINGS: Cardiac monitoring leads are present. Right-sided Mediport catheter is visible with the tip the catheter in the superior vena cava. The lungs are expanded. There is heterogeneous left-sided airspace consolidation in addition to what probably represents a loculated left-sided pleural collection. There is patchy right middle lobe airspace disease and/or atelectasis. There are bilateral pleural effusions. There is borderline cardiomegaly. Normal mediastinum and joel. Normal visualized pulmonary arteries. There is atherosclerotic calcification of the aortic arch with tortuosity. There is demineralization of the osseous structures. There is mild curvature of the thoracic spine convexity towards the right. Normal visualized ribs, clavicles, and shoulders. There is no demonstrated abnormality of the visualized soft tissue structures of the upper abdomen. RAD/Chest PA and Lateral IMPRESSION: 1. Persistent left-sided airspace disease with probable loculated pleural collection. 2. Right basilar airspace disease and atelectasis and bilateral pleural effusions. Electronically Signed: Tessie Peña MD at 14:36 EDT , Service support ,
--- NOTE | 2018-01-21 14:19 | DS.PCM_ITS ---
Discharge Date and Diagnosis - Problem List Patient Problems: Active and Suspected Problems (Last Reviewed 01/16/18 @ 11:09 by Hali Altamirano) COPD (chronic obstructive pulmonary disease) (Suspected) Acute respiratory failure with hypoxemia (Acute) Atrial fibrillation with RVR (Acute) Date of Admission: 01/19/18 Date of Discharge: 01/21/18 - Primary Discharge Diagnosis Active and Suspected Problems (Last Reviewed 01/16/18 @ 11:09 by Hali Altamirano) Acute respiratory failure with hypoxemia (Acute) Atrial fibrillation with RVR (Acute) COPD (chronic obstructive pulmonary disease) (Suspected) - Secondary Discharge Diagnosis Chronic Problems (Last Reviewed 01/16/18 @ 11:09 by Hali Altamirano) GERD (gastroesophageal reflux disease) (Chronic) Tobacco dependence due to cigarettes (Chronic) Insomnia (Chronic) Depression (Chronic) Malignant pleural effusion (Chronic) Breast cancer (Chronic) - BL PAF (paroxysmal atrial fibrillation) (Chronic) Bone metastases (Chronic) 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 Stable changes at the right lung base. Electronically Signed: Anatoly Broussard MD at 15:01 EDT Tel [phone], Service support , Thoracentesis Ultrasound 01/19/18 14:47 IMPRESSION: Ultrasound-guided left thoracentesis. Electronically Signed: Anatoly Broussard MD at 16:05 EDT Tel [phone], Service support , Chest CTA 01/20/18 09:03 IMPRESSION: No demonstrated pulmonary embolism or arterial dissection. Diffuse left hemithorax pleural metastatic disease. There is a left upper lobe pleural based mass extending from the left pleural surface is unchanged from the prior examination. Metastatic lesions are seen in anterior aspect of the left second, third, fourth ribs with pathologic fractures. Metastatic lesions are seen in the right upper lobe the largest measures 1.2 cm. Electronically Signed: Miguel Miranda MD at 11:55 EDT Tel , Service support , Brain CT 01/20/18 09:10 IMPRESSION: There is a 3 cm soft tissue mass in the scalp in the right temporal region. There is no evidence of intracranial metastasis. Electronically Signed: Miguel Miranda MD at 11:37 EDT Tel , Service support , Laboratory Tests 01/19/18 01/19/18 01/20/18 15:09 15:09 03:00 WBC 6.1 RBC 3.25 L Hgb 10.3 L Hct 32.2 L MCV 99.1 H MCH 31.7 MCHC 32.0 RDW 21.8 H RDW Differential 75.2 H Plt Count 297 MPV 9.6 Immature Gran % (Auto) 0.300 Neut % (Auto) 76.2 H Lymph % (Auto) 11.1 L [place] % (Auto) 11.6 H Eos % (Auto) 0.5 Baso % (Auto) 0.3 Absolute Neuts (auto) 4.7 Absolute Lymphs (auto) 0.68 L Total Counted Not Reportable Differential Comment SCANNED Polychromasia Anisocytosis Macrocytosis Sodium 137 Potassium 4.0 Chloride 101 Carbon Dioxide 28.0 Anion Gap 8 BUN 11 Creatinine 0.61 Estim Creat Clear Calc 90.60 Est GFR (MDRD) Af Amer 127 Est GFR (MDRD) Non-Af 105 BUN/Creatinine Ratio 18.0 Glucose 114 H Calcium 9.1 Phosphorus Magnesium Total Bilirubin AST ALT Alkaline Phosphatase Troponin I < 0.02 < 0.02 Total Protein Albumin Globulin Albumin/Globulin Ratio TSH 01/20/18 01/20/18 01/20/18 03:00 03:00 06:40 WBC 5.2 RBC 3.02 L Hgb 9.4 L Hct 29.6 L MCV 98.0 MCH 31.1 MCHC 31.8 L RDW 22.0 H RDW Differential 76.4 H Plt Count 223 MPV 8.9 Immature Gran % (Auto) 0.000 Neut % (Auto) 72.0 H Lymph % (Auto) 15.7 L [place] % (Auto) 11.1 H Eos % (Auto) 1.0 Baso % (Auto) 0.2 Absolute Neuts (auto) 3.8 Absolute Lymphs (auto) 0.82 L Total Counted Not Reportable Differential Comment Polychromasia RARE Anisocytosis 2+ Macrocytosis 1+ Sodium 141 Potassium 4.0 Chloride 103 Carbon Dioxide 30.0 Anion Gap 8 BUN 10 Creatinine 0.58 Estim Creat Clear Calc 95.29 Est GFR (MDRD) Af Amer 135 Est GFR (MDRD) Non-Af 112 BUN/Creatinine Ratio 17.3 Glucose 99 Calcium 8.4 L Phosphorus Magnesium 1.8 Total Bilirubin AST ALT Alkaline Phosphatase Troponin I < 0.02 Total Protein Albumin Globulin Albumin/Globulin Ratio TSH 0.82 01/20/18 01/21/18 01/21/18 13:15 04:15 04:15 WBC 5.3 RBC 2.89 L Hgb 9.2 L Hct 29.1 L MCV 100.7 H MCH 31.8 MCHC 31.6 L RDW 21.7 H RDW Differential 75.4 H Plt Count 254 MPV 9.3 Immature Gran % (Auto) Neut % (Auto) Lymph % (Auto) [place] % (Auto) Eos % (Auto) Baso % (Auto) Absolute Neuts (auto) Absolute Lymphs (auto) Total Counted Differential Comment SCANNED Polychromasia Anisocytosis Macrocytosis Sodium 141 Potassium 4.0 Chloride 104 Carbon Dioxide 33.0 H Anion Gap 4 L BUN 9 Creatinine 0.45 L Estim Creat Clear Calc 122.82 Est GFR (MDRD) Af Amer 182 Est GFR (MDRD) Non-Af 151 BUN/Creatinine Ratio 20.2 H Glucose 85 Calcium 8.2 L Phosphorus 2.6 Magnesium 2.3 Total Bilirubin 0.20 AST 10 L ALT 13 Alkaline Phosphatase 80 Troponin I < 0.02 Total Protein 5.1 L Albumin 1.8 L Globulin 3.3 Albumin/Globulin Ratio 0.[address] [facility] Operations: None Procedures: Thoracentesis - 01/19/[address] Broussard - 1800 cc removed Summary of Care Provided: Pt is a 63 YO F with a PMH significant for PAF, depression, GERD, sarcoma of the leg, Breast Cancer with mets (lungs, pleura and scalp), malignant pleural effusion on the left and anemia who presented to the ED at [facility] EKG in the ER showed AF with RVR and PVC's. No ischemic changes. Admitting labs showed a normal white blood cell count of 6.1 with 76% neutrophils. Hemoglobin was 10.3, down from 13.5 on 01/08/2018. Platelets were WNL. BMP was unremarkable with a potassium of 4.0. Magnesium today is 1.8. Troponin was less than 0.02. Chest x-ray showed an increasing left pleural effusion with elevation of the left hemidiaphragm and infiltration in the left hemothorax. Thoracentesis was performed by Dr. Broussard and 1800 cc of bloody fluid was removed. There was still fluid remaining but the procedure was stopped due to coughing. She was to be discharged home but, developed AF with RVR prior to leaving and was admitted to a monitored bed on PCU. She has been admitted to the hospital in the past for AF and has been on Metoprolol 25 mg BID. She is chronically borderline hypotensive and diltiazem and increased beta onur were contraindicated. She was given 250mcg of IV dig and started on a daily dose of dig. Renal function is normal. Consult was ordered with Dr. Benavides. She had a CTA of the chest that showed no PE's. The CT chest did show diffuse left hemithorax pleural metastatic disease and a left upper lobe pleural-based mass. It was unchanged from previous CAT scans. A CT brain was also done due to some trouble with word finding and it did not show any brain mets. She has a scalp lesion in the left There were metastatic lesions seen in the anterior aspect of the left second, third and fourth ribs with pathologic fractures. There were metastatic lesions in the right upper lobe, the largest measuring 1.2 cm. There was no pneumothorax on the post procedure film or on the CT scan the following day. She spontaneously converted to NSR in the afternoon of 01/20 and then was started on Amiodarone [address] Benavides. A Cortrosyn stim test was done because of the hypotension and the results are still pending at the time of DC. She was kept in the hospital overnight to monitor for recurrent AF and she remained in SR. There was no significant ectopy. The pulse ox on RA at rest on the day of DC was 77%. A PA and Lateral CXR showed reaccumulating pleural fluid with no evidence of pneumothorax. Home oxygen was arranged. She was discharged home on digoxin 0.625 mg daily and amiodarone 200 mg daily. She will follow up with Dr. Lacey in 7-[address] Benavides in 2-4 weeks. She will follow up with Dr. Marinelli this coming Monday to start chemo. She was given a lab requisition to obtain a CBC, BMP, Mag and Dig in 1 week and the results will be sent to Dr. Lacey. She was not placed on anticoagulation for PAF because she has a bloody malignant effusion on the Left and is at high risk for bleeding. I asked her to follow up with Dr. Jnekins or Dr. Delmer Up in the pulmonary clinic and also with Dr. Alfonso for consideration for a Pleurx catheter. She has been depressed with decreased motivation, decreased appetite and trouble sleeping despite 20 mg of Lexapro. She has tried Remeron in the past and it caused mental status changes. She was started on Elavil 10 mg at in addition to the Lexapro to increase appetite and help her sleep. She was also given a RX for Marinol 2.5 mg BID to help stimulate appetite, help with chronic pain and also to help with anxiety. She was given a dose in the hospital and tolerated it well without adverse side effect. Smoking cessation counselling was given in the hospital and she was given a RX for a Nicotine patch 14 mg at SD. This note was generated with [employer] dictation software. It may contain incorrect words, spelling, and punctuation that were not noted in checking the note before signing. Discharge Activity: No Restrictions, May not drive while taking narcotic pain medications., - - Avoid exposure to any strong smells such as bleach, cleaning products, strong colognes or perfumes, paint fumes and smoke of any kind. Avoid sudden exposure to cold air because this can cause bronchospasm. You may want to cover your mouth when you go outside in the winter. Avoid exposure to anyone who is sick with a cough or sore throat. Call your doctor if you observe: Fever of 101 or Higher, Inability to urinate, Inability to have a bowel movement, Shortness of breath, Dizziness, Fainting spells, Swelling in the ankles, Chest pain, Calf discomfort, Uncontrolled pain Home Medications: Medications to take at Discharge Escitalopram Oxalate [Lexapro] 20 mg PO DAILY 09/21/15 Multivitamin [Daily Multiple Vitamin] 1 each PO DAILY 10/01/15 Oxycodone CR [Oxycontin] 10 mg PO Q12H #60 tablet 11/10/17 Aspirin [Aspirin, Baby] 81 mg PO DAILY@0800 01/20/18 Cephalexin [Keflex] 500 mg PO BID 01/20/18 Metoprolol Tartrate [Lopressor (beta onur)] 25 mg PO BID 01/20/18 Oxycodone [Oxyir] 5 mg PO Q6H PRN 01/20/18 Amiodarone HCl [Cordarone] 200 mg PO DAILY #30 tab 01/21/18 Amitriptyline HCl [Elavil] 10 mg PO QHS #30 tab 01/21/18 Digoxin [Lanoxin] 62.5 mcg PO DAILY #30 tab 01/21/18 Dronabinol [Marinol] 2.5 mg PO BIDAC #60 cap 01/21/18 Nicotine [Nicoderm Cq (PBKC)] 14 mg TRANSDERM. DAILY #30 patch 01/21/18 Oxygen, Home [Home Oxygen] 2 - 4 lpm NASAL CONT #1 unit 01/21/18 Following Prescrptions Were Given to Patient: Amiodarone HCl [Cordarone] 200 mg PO DAILY #30 tab Amitriptyline HCl [Elavil] 10 mg PO QHS #30 tab Digoxin [Lanoxin] 62.5 mcg PO DAILY #30 tab Dronabinol [Marinol] 2.5 mg PO BIDAC #60 cap Nicotine [Nicoderm Cq (PBKC)] 14 mg TRANSDERM. DAILY #30 patch Oxygen, Home [Home Oxygen] 2 - 4 lpm NASAL CONT #1 unit Primary Care Physician: Vince Marinelli MD [NON-STAFF] - As Needed Patrick Lacey DO [Primary Care Provider] - As Needed Please Follow Up With: Patrick Lacey DO When: 7-10 days Please Follow Up With: Zak Benavides MD When: 2-4 weeks Please Follow Up With: Newton Jenkins DO When: call for an appt with Tri in the next 1-2 weeks Patient Instructions: Dronabinol Oral capsule, liquid filled, Amitriptyline Hydrochloride Oral tablet, Digoxin Oral tablet, Amiodarone Hydrochloride Oral tablet, ED Effusion Pleural Disposition: Home Minutes spent on discharge:: 45 Patient Condition:: Stable Medical Necessity - Tobacco Use Smoking Status: Current every day smoker Tobacco Use: Cigarettes Meaningful Use Info Meaningful Use Diagnoses (Choose all that apply): None applicable Code Visit Inpatient E&M: 72192 [facility]
[2018-01-21] MEDS: 0.9% NaCl VAD Flush 10 ML IV (15:21)
--- NOTE | 2018-01-22 16:00 | CASEMGMT ---
RN CM Discharge f/u phone call attempted at this time but no answer. Message left on pt VM to return call to this RN LEXII. SStaten NAN SHULTZ
--- NOTE | 2018-01-23 15:41 | CASEMGMT ---
RN CM DISCHARGE F/U PHONE CALL LACE: 12 STRATA: 4 CALL DATE: 01/23/18 DISCHARGE DATE: 01/21/18 TIME OF CALL: 1537 DURATION: 4 MINUTES ADM DX: AFIB PT'S , KATE, ANSWERED PHONE PT IS CURRENTLY GETTING CHEMO INFUSION. STATES THAT PT HAS BEEN DOING 'ALRIGHT' SINCE DISCHARGE AND THAT SHE HAS BEEN WEARING OXYGEN MOST OF THE TIME DURING THE DAY AND ALL NIGHT. STATES THAT PT HAS SLEPT THROUGH THE NIGHT THE LAST COUPLE NIGHTS WHICH IS THE FIRST TIME IN AWHILE. STATES NO QUESTIONS REGARDING D/C INSTRUCTIONS OR MEDICATIONS AT THIS TIME. STATES PT WILL F/U AT ALL SCHEDULED APPOINTMENTS. STATES NO FURTHER QUESTIONS/CONCERNS AT THIS TIME. HAS CONTACT INFO FOR THIS RN CM FOR ANY FURTHER QUESTIONS/CONCERNS/NEEDS. SSTATEN NAN SHULTZ
== END 2018-01-21 15:43 | disposition home or self-care (01) | DRG 308 ==
LOC: ED 17:05 → PCU 01-20 01:42
PROVIDERS: Admitting Provider Internal Medicine; Emergency Provider Emergency Medicine; Family Provider Family Medicine; PCP Family Medicine; Visit Provider Internal Medicine
DX: I48.0 Paroxysmal atrial fibrillation (principal); J96.01 Acute respiratory failure with hypoxia; J91.0 Malignant pleural effusion; C78.00 Secondary malignant neoplasm of unspecified lung; C79.51 Secondary malignant neoplasm of bone; C49.22 Malignant neoplasm of connective and soft tissue of left lower limb, including hip; J44.9 Chronic obstructive pulmonary disease, unspecified; K21.9 Gastro-esophageal reflux disease without esophagitis; F32.9 Major depressive disorder, single episode, unspecified; I10 Essential (primary) hypertension; D64.81 Anemia due to antineoplastic chemotherapy; T45.1X5A Adverse effect of antineoplastic and immunosuppressive drugs, initial encounter; F17.200 Nicotine dependence, unspecified, uncomplicated; Z79.02 Long term (current) use of antithrombotics/antiplatelets; Z85.3 Personal history of malignant neoplasm of breast; G47.00 Insomnia, unspecified
CPT/HCPCS: 32555; 36415; 70470; 71045; 71046; 71275; 80048; 80053; 82533; 83735; 84100; 84443; 84484; 85025; 85027; 93005; 94640; 97116; 97161; 97530; 97802; 99282; 99283; 99406; Q9967; A4216; J0834; J2405; J3490

== ENCOUNTER 2018-02-01 12:44 | Inpatient (IN) | payer BC, SELFPAY ==
[2017-10-03 11:02] VITALS: BMI 28.3
[2018-02-01] VITALS (37 sets, daily range): BP systolic 81–124; BP diastolic 56–90; PULSE 80–173; RESP 10–29; TEMP 36.1–37.1; O2SAT 89–100; BMI 29.3; BMI 29.4; BMI 26.6
--- NOTE | 2018-02-01 12:52 | EKG12_ITS ---
Test Reason : SOB Blood Pressure : / mmHG Vent. Rate : 164 BPM Atrial Rate : 166 BPM P-R Int : 000 ms QRS Dur : 078 ms QT Int : 256 ms P-R-T Axes : 000 051 211 degrees QTc Int : 422 ms Atrial fibrillation Nonspecific ST and T wave abnormality Abnormal ECG Confirmed by GEORGIANA TAYLOR, IDA ([id number]), order editor JARED MTZ ([id number]) on 02/05/2018 2:22:03 PM Referred By: Elver Garcia Confirmed By:IDA STONER MD
--- NOTE | 2018-02-01 13:00 | RAD_ITS ---
STUDY: X-RAY CHEST REASON FOR EXAM: Female, 63 years old. Dyspnea TECHNIQUE: Single AP portable view of the chest. COMPARISON: Jan 21 2018 2:05pm FINDINGS: Cardiac monitoring leads are present. Right-sided Mediport catheter is visible with the tip the catheter in the superior vena cava. There is heterogeneous left-sided airspace consolidation in addition to what probably represents a large left-sided pleural collection. There is patchy right middle lobe airspace disease and/or atelectasis. There is borderline cardiomegaly. Normal mediastinum and joel. Normal visualized pulmonary arteries. There is atherosclerotic calcification of the aortic arch with tortuosity. There is demineralization of the osseous structures. There is mild curvature of the thoracic spine convexity towards the right. Normal visualized ribs, clavicles, and shoulders. There is no demonstrated abnormality of the visualized soft tissue structures of the upper abdomen. RAD/Chest 1 View (Portable) IMPRESSION: 1. Persistent left-sided airspace disease with increased left pleural effusion. 2. Right basilar airspace disease . Electronically Signed: Miguel Miranda MD at 13:57 EDT Tel , Service support ,
[2018-02-01 13:11] LABS: Allen Test POS; Base Excess 1 mmol/L (-2 to +2); Bicarbonate 28.8 mmol/L (22-26); Blood Gas Specimen Type ART; O2 Delivery Device NRB Mask; PO2 55 mmHG (75-100); SITE R Radial; SO2 81 % (95-99); Time Given 1256; Total Carbon Dioxide 31 mmol/L; pCO2 67.4 mmHg (35-45); pH 7.24 (7.35-7.45)
[2018-02-01] MEDS: Metoprolol Tartrate 5 MG/5 ML Vial IV ×2 (13:13→16:50)
[2018-02-01] MEDS: Albuterol 2.5 MG/3 ML VIAL.NEB. INHALATION (13:17)
--- NOTE | 2018-02-01 13:25 | US_ITS ---
PROCEDURE: ULTRASOUND GUIDED THORACENTESIS - LEFT HEMITHORAX CLINICAL HISTORY: Female, 63 years old. Left pleural effusion CONSENT: The risks, benefits and alternatives to the procedure were explained to the patient, and the patient agreed to the procedure and signed the consent. STERILE BARRIER TECHNIQUE: The following sterile barrier precautions were used during the procedure: hand hygiene; use of 2% chlorhexidine aseptic; use of a cap, mask, sterile gown, sterile gloves, sterile full body drape, and a large sterile sheet. SEDATION: Local anesthesia TECHNIQUE: Under the ultrasound guidance using all elements of maximum sterile technique and after infiltration of the skin and subcutaneous soft tissues with 10 mL of lidocaine 1% a 5 Russian drainage catheter is introduced in the lower part of the hemithorax. 1550 mL of fluid were removed sample sent to lab for evaluation. The patient tolerated the procedure there was no immediate complication. US/Thoracentesis W US IMPRESSION: Successful ultrasound-guided thoracentesis. Electronically Signed: Miguel Miranda MD at 15:34 EDT Tel , Service support ,
[2018-02-01 13:52] LABS: International Normalized Ratio 1.3; Prothrombin Time (Protime)PT. 16.1 SECONDS (11.7-14.9)
--- NOTE | 2018-02-01 13:53 | ED.RN ---
PT DOWN TO RADIOLOGY TO HAVE THORACENTISIS DONE
[2018-02-01 13:59] LABS: Absolute Lymphocyte Count 0.31 X10^3/ul (0.83-4.51); Absolute Neutrophil Count 0.8 X10^3/uL (2.0-7.7); Basophil# 0.01 X10^3/uL; Basophil% 0.7 % (0-1); Differential Indicated SCAN CRITERIA MET; Hematocrit 27.7 % (37-47); Hemoglobin 8.4 g/dl (12.0-15.0); Lymphocyte # 0.31 X10^3/ul (4.0); Lymphocyte % 20.3 % (19-41); Mean Corp Hgb Conc 30.3 g/gl (32-36); Mean Corpuscular Hgb 31.2 pg (27.0-32.0); Mean Platelet Vol. 10.9 fl (6.2-12.0); Monocyte# 0.44 X10^3/uL; Monocyte% 28.8 % (0-10); Neutrophil # 0.76 X10^3/uL (2.7-7.7); Neutrophil % 49.5 % (47-70); POSITIVE COUNT NO; POSITIVE DIFFERENTIAL YES; POSITIVE MORPHOLOGY YES; Platelet Count 91 K/mm3 (150-450); RBC Distribution Width CV 19.3 % (11.6-14.6); RBC Distribution Width SD 70.7 fl (35.1-43.9); Red Blood Count 2.69 M/mm3 (4.2-5.4); White Blood Count 1.5 K/mm3 (4.4-11.0)
[2018-02-01 14:03] LABS: Anion Gap 8 (5-15); BUN 31 mg/dL (7-18); BUN/Creat Ratio 32.9 RATIO (10-20); Calcium,Total 9.8 mg/dL (8.5-10.1); Chloride 103 mmol/L (98-107); Creatinine, Serum 0.94 mg/dL (0.55-1.02); EST Glomerular Filtration Rate 64 mL/min (>60); Est Glom Filt Rate - Afr Amer 77 mL/min (>60); Glucose 133 mg/dL (74-106); Sodium Level 140 mmol/L (136-145)
[2018-02-01 14:10] LABS: BNP,B-Type NATRIURETIC PEPTIDE 316.4 pg/mL (0-100)
--- NOTE | 2018-02-01 14:10 | ED.RN ---
LAB CALLED WITH CRITICAL 2.7. DR CASTRO
[2018-02-01 14:11] LABS: Lactic Acid 2.7 mmol/L (0.4-2.0)
--- NOTE | 2018-02-01 14:17 | RAD_ITS ---
STUDY: X-RAY CHEST REASON FOR EXAM: Female, 63 years old. POST LT SIDE THORACENTESIS. R/O PTX. TECHNIQUE: Single AP portable view of the chest. COMPARISON: None. FINDINGS: Cardiac monitoring leads are present. Right-sided Mediport catheter is visible with the tip the catheter in the superior vena cava. The left pleural effusion has markedly decreased in size. There is improved aeration of the left lung. There is persistent patchy right middle lobe airspace disease and/or atelectasis. There is borderline cardiomegaly. Normal mediastinum and joel. Normal visualized pulmonary arteries. There is atherosclerotic calcification of the aortic arch with tortuosity. There is demineralization of the osseous structures. There is mild curvature of the thoracic spine convexity towards the right. Normal visualized ribs, clavicles, and shoulders. There is no demonstrated abnormality of the visualized soft tissue structures of the upper abdomen. RAD/Chest 1 View IMPRESSION: 1. Decreased left pleural effusion. 2. Improved aeration of the left lung Electronically Signed: Miguel Miranda MD at 15:39 EDT Tel , Service support ,
--- NOTE | 2018-02-01 14:24 | ED.RN ---
PT BACK FROM RADIOLOGY AFTER PROCEDURE
[2018-02-01 14:27] LABS: Anisocytosis 1+; Hypochromasia 2+
[2018-02-01 14:28] LABS: Platelet Estimate SLT DEC (ADEQ)
[2018-02-01] MEDS: 0.9% Normal Saline 1,000 ML 999 ML IV (14:40)
--- NOTE | 2018-02-01 14:42 | CASEMGMT ---
Social Work Note Referral from Dr. Marroquin for family support. Pt was brought in for shortness of breath. Family waiting outside room, tearful. Introduced self and role at [facility]. Spouse was in with pt and extended family outside of room. Per family the pt is receiving chemo and her oncologist is Dr. Marinelli. Contact Dr. Marinelli's office and request an updated medlist be faxed to ED. Pt being transported to radiology and spouse exits room. States he feels weak and is diabetic. Food and drink provided. Spouse states he feels better. Confirms that the pt does not have any palliative care services and still is receiving chemo. Reports that the pt does not have HCPOA or LW paperwork completed. Spouse went down to radiology and upon return SW provided with HCPOA, LW and MOLST. Provided education on each document along with their purpose. Understanding expressed and no further concerns or needs identified at this time. CM on floor to follow for coordination of care at discharge. Elsie Osborne, [employer] ARCHITECT, TREATING ENGINEER
--- NOTE | 2018-02-01 14:46 | CPS ---
Patient transported to Imaging for thoracentesis while on bipap. Patient tolerated procedure well, transport back to ED on BIPAP at this time.
--- NOTE | 2018-02-01 15:09 | ED.DCSUM_ITS ---
- ER Visit Summary Date of Service: 02/01/18 Chief Complaint: Shortness of breath History of Present Illness: The patient is a 63 F who is short of breath. It started today. Patient currently is on chemotherapy for metastatic sarcoma. Her oncologist, Dr. Marinelli, escorted her down from his office. He states she has had a recurrent left pleural effusion that has been drained multiple times. She does wear home oxygen. She does have a history of atrial fibrillation. She denies any pain. No fevers. Physical Examination: Vital signs are reviewed. Significant for tachycardia and tachypnea. HEENT exam unremarkable. Heart is irregularly irregular and tachycardic without murmurs. Lungs have rhonchi bilaterally with decreased breath sounds, left greater than right. Abdomen soft nontender. Extremities reveal no edema. Neurologic exam is normal. Test Results: EKG is atrial fibrillation with a rate of 164. Nonspecific ST-T wave changes noted. Chest x-ray reveals a large left pleural effusion. White blood cell count 1.5, hemoglobin 8.4, glucose 133, INR 1.3 lactate 2.7. PH is 7.24, PCO2 67, PO2 55, bicarb 28 Emergency Department Course and Treatment: Patient was given 1 dose of metoprolol and she had converted to sinus tachycardia. She was given albuterol treatments as well. Due to the large pleural effusion, I spoke with radiology and the patient was sent for an ultrasound-guided thoracentesis. It drained 1.5 L fluid. The patient looks more comfortable on the BiPAP. She was placed on BiPAP for comfort. She seems to have a better respiratory status with this. I will place her on antibiotics due to her immunosuppressed status. She meets severe sepsis criteria due to her lactate. She will be hydrated with IV fluids. I will start her on vancomycin and Azactam. I spoke with the hospitalist and she will be admitted to PCU on BiPAP Treatment Plan: [] Disposition: Admit Impression: Healthcare associated pneumonia, left pleural effusion, hypoxia, metastatic sarcoma, severe sepsis This note was generated with [employer] software. It may contain incorrect words, spelling, and punctuation that were not noted in review of the chart prior to signing ED Disposition - Plan for ED Patient: Chief Complaint: Shortness of Breath Referrals: Elver Garcia MD [Primary Care Provider] -
--- NOTE | 2018-02-01 15:30 | PCM.HP.STD ---
Problem List (1) Left severe malignant pleural effusion Status: Acute (2) Acute on chronic respiratory failure with hypoxia and hypercapnia Status: Acute (3) CA breast with malignant effusion Status: Acute (4) Mucositis (ulcerative) due to antineoplastic therapy Status: Acute (5) COPD (chronic obstructive pulmonary disease) Status: Suspected (6) GERD (gastroesophageal reflux disease) Status: Chronic (7) Tobacco dependence due to cigarettes Status: Chronic (8) Insomnia Status: Chronic (9) Depression Status: Chronic (10) Breast cancer Status: Chronic Comment: left, for port removal (11) PAF (paroxysmal atrial fibrillation) Status: Chronic (12) Atrial fibrillation with RVR Status: Acute (13) Bone metastases Status: Chronic (14) Sarcoma of left thigh Status: Chronic (15) Metastatic neoplastic disease Status: Chronic (16) Cough Status: Chronic (17) Left axillary pain Status: Chronic (18) Chemotherapy management, encounter for Status: Chronic (19) Anemia associated with chemotherapy Status: Chronic History of Present Illness Date of Admission: 02/01/18 Chief Complaint: Progressive worsening of shortness of breath for 3- 4 days The patient is a 63 year old F with history of CA breast, 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 Marinelli, her oncologist when she got really hypoxic and short of breath was receiving IV fluid infusion [facility]. Patient had last chemo on Monday. She wears 3 L of home oxygen but as per her pulse ox has been getting low 88% for last 2-3 days and getting more short of breath and tachypneic. She denies fever or chills and chest pain. In the ED, she was found tachycardic, tachypneic and very hypoxic. Initial EKG shows A. fib with RVR but patient was converted to sinus tachycardia after 1 dose of 5 mg of IV metoprolol. Chest x-ray shows left lung whiteout. She was put on BiPAP she had 1.5 L of fluid drained from the left lung. She was given IV aztreonam and vancomycin in ER for concern of healthcare acid pneumonia [] Past Medical History Past Medical History (Chronic Problems): Chronic Problems (Last Reviewed 01/23/18 @ 10:09 by Hali Altamirano) GERD (gastroesophageal reflux disease) (Chronic) Tobacco dependence due to cigarettes (Chronic) Insomnia (Chronic) Depression (Chronic) Breast cancer (Chronic) left, for port removal PAF (paroxysmal atrial fibrillation) (Chronic) Bone metastases (Chronic) Sarcoma of left thigh (Chronic) Metastatic neoplastic disease (Chronic) Cough (Chronic) Left axillary pain (Chronic) Chemotherapy management, encounter for (Chronic) Anemia associated with chemotherapy (Chronic) Allergies Penicillins Allergy (Intermediate, Verified 02/01/18 12:44) Hives mirtazapine Adverse Reaction (Severe, Verified 02/01/18 12:44) mental changes mental changes Home Medications: Ambulatory Orders Medication Instructions Recorded Escitalopram Oxalate [Lexapro] 20 mg PO DAILY 09/21/15 Multivitamin [Daily Multiple 1 each PO DAILY 10/01/15 Vitamin] Aspirin [Aspirin, Baby] 81 mg PO DAILY@0800 01/20/18 Cephalexin [Keflex] 500 mg PO BID 01/20/18 Metoprolol Tartrate [Lopressor 25 mg PO BID 01/20/18 (beta onur)] Oxygen, Home [Home Oxygen] 2 - 4 lpm NASAL CONT #1 unit 01/21/18 proCHLORPERazine tablet [Compazine 5 mg PO Q6H PRN PRN #60 tab 01/23/18 tablet] Amiodarone HCl [Cordarone] 200 mg PO DAILY 02/01/18 Amitriptyline HCl [Elavil] 10 mg PO QHS 02/01/18 Digoxin [Lanoxin] 62.5 mcg PO DAILY 02/01/18 Dronabinol [Marinol] 2.5 mg PO BIDAC 02/01/18 Fluconazole [Diflucan] 200 mg PO DAILY 02/01/18 Magic Mouth Wash 10 ml PO 4X/DAY 02/01/18 Morphine [Morphine IR] 15 mg PO Q4H PRN PRN #90 tablet 02/01/18 Oxycodone CR [Oxycontin] 15 mg PO Q12H 02/01/18 Oxycodone [Oxyir] 5 mg PO Q6H PRN 02/01/18 morphine SR tablet [MS Contin] 30 mg PO Q12H 02/01/18 Surgical History: - Psychiatric History: No 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 Denies: Chills, Fever, Weight Change HEENT: Denies: Head Aches, Sinus Congestion, Sinus Drainage Cardiovascular: Denies: Chest Pain, Palpitations Respiratory: Reports: Cough, Shortness of Breath, Shortness of breath upon exertion. Denies: Shortness of breath at rest, Sputum production Gastrointestinal: Reports: Nausea. Denies: Abdominal Pain, Vomiting Genitourinary: Denies: Dysuria Musculoskeletal: Reports: Joint Pain. Denies: Joint Tenderness Skin: Denies: Rash, Wounds Neurological: Denies: Numbness, Tingling, Focal weakness Psychiatric: Reports: Anxiety, Depression. Denies: Homicidal Ideations, Suicidal Ideations Hematologic/ Lymphatic: Denies: Easy Bruising, Easy Bleeding VTE Information - Inpt Only VTE Present on Admission: No VTE Mechan Device Prophylaxis: SCD's Reason prophylaxis not ordered:: Medical Contraindication - Severe thrombocytopenia leukopenia Patient Problems: Active and Suspected Problems (Last Reviewed 01/23/18 @ 10:09 by Hali Altamirano) Mucositis (ulcerative) due to antineoplastic therapy (Acute) Left severe malignant pleural effusion (Acute) Acute on chronic respiratory failure with hypoxia and hypercapnia (Acute) CA breast with malignant effusion (Acute) - Physical Exam General: Alert, Cooperative, Lethargic HEENT: Atraumatic, PERRLA, EOMI, Normocephalic Oral: - - On BiPAP machine Neck: Supple, No JVD, Negative Carotid Bruits Lungs: Diminished, Short of Breath, Tachypneic, - - Air entry severely diminished in posterior half of left lung Cardiovascular: Regular Rhythm, Normal S1, Normal S2, No murmurs, Tachycardic Abdomen: Bowel Sounds Present, Soft, Non Tender, Non-Distended Extremities: Capillary Refill Less than 3 Seconds, Edema Skin: No rashes, No breakdown Musculoskeletal: No Tenderness to Palpation of Joints or Extremities, Arthritic Changes, Muscle Wasting Neurological: Cranial nerves II-XII grossly intact Psych/Mental Status: Normal Affect, Appropriate Vital Signs Temp Pulse Resp BP Pulse Ox 98.8 F 105 H 18 112/63 97 02/01/18 12:45 02/01/18 15:17 02/01/18 15:17 02/01/18 15:17 02/01/18 15:17 Assessment/Plan Active and Suspected Problems (Last Reviewed 01/23/18 @ 10:09 by Hali Altamirano) Mucositis (ulcerative) due to antineoplastic therapy (Acute) Left severe malignant pleural effusion (Acute) Acute on chronic respiratory failure with hypoxia and hypercapnia (Acute) CA breast with malignant effusion (Acute) The patient is a 63 year old F with history of CA breast, 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 Marinelli, her oncologist when she got really hypoxic and short of breath was receiving IV fluid infusion in [facility]. Patient had last chemo on Monday. She wears 3 L of home oxygen but as per her pulse ox has been getting low 88% for last 2-3 days and getting more short of breath and tachypneic. She denies fever or chills and chest pain. In the ED, she was found tachycardic, tachypneic and very hypoxic. Initial EKG shows A. fib with RVR but patient was converted to sinus tachycardia after 1 dose of 5 mg of IV metoprolol. Chest x-ray shows left lung whiteout. She was put on BiPAP she had 1.5 L of fluid drained from the left lung. She was given IV aztreonam and vancomycin in ER for concern of healthcare acid pneumonia. 1. Acute on chronic hypoxic and hypercarbic respiratory failure secondary to large/severe malignant left pleural effusion: Patient is being admitted in PCU. Patient requires BiPAP and will continue it. First ABG shows 7.24//55 at 15 L nonrebreather mask suggestive of respiratory alkalosis with high Aa gradient. Pulmonary consult. 2. Acute on recurrent left malignant pleural effusion required multiple thoracocentesis past: Patient's and family asked for Pleurx catheter and discussed about benefits and risk. They have not decided for it yet. 3. Left-sided underlying healthcare associated pneumonia with last chemotherapy on Monday: Patient received IV vancomycin and aztreonam in ER. Start on IV Levaquin and continue vancomycin. Pneumonia workup including blood culture, urinary antigens, respiratory panel and a sputum culture ordered. Bronchodilator. 4. COPD with nicotine dependence: Does not seem to an exacerbation. On nicotine patch. 5. Malignant history: CA breast status post malignant pleural effusion, sarcoma left thigh: Dr. Marinelli has been consulted. 6. Paroxysmal A. fib with RVR: Patient converted to sinus tachycardia as mentioned above. Continue digoxin, metoprolol, aspirin and amiodarone home medication. The patient was last admitted in December 2017 for acute respiratory failure, A. fib with RVR and was seen by Dr. 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 Advanced directive: Discussed with the patient's , Mr. Gigi Miller and patient's daughter regarding advanced directive/living will. Currently patient does not have living will. Different options including palliative care, DNR CC arrest, intubation and pain control discussed with the patient's . Patient submitted more time to decide on that. Patient is on multiple opioid medications including oxycodone controlled release and morphine sustained-release. Total time spent in [id number] encounter 17 minutes DVT prophylaxis: Pharmacological prophylaxis contraindicated. On SCDs bilaterally Clinical Impression(s) from Imaging Studies Chest X-Ray 02/01/18 13:00 IMPRESSION: 1. Persistent left-sided airspace disease with increased left pleural effusion. 2. Right basilar airspace disease . Thoracentesis Ultrasound 02/01/18 13:25 IMPRESSION: Successful ultrasound-guided thoracentesis. Chest X-Ray 02/01/18 14:17 IMPRESSION: 1. Decreased left pleural effusion. 2. Improved aeration of the left lung Laboratory Results 02/01/18 13:03: Specimen Type ART, Sample Site R Radial, pH 7.24 L, Bicarbonate Actual 28.8 H, POC Total CO2 31, Base Excess 1, O2 Saturation 81 L, ABG pCO2 67.4 H*, ABG pO2 55 L, Remigio Test POS, O2 Delivery Device NRB Mask, Liter Flow 15.0, Blood Gas Notified Whom ED MD, Blood Gas Notified Time 1256 02/01/18 13:34: WBC 1.5 L, RBC 2.69 L, Hgb 8.4 L, Hct 27.7 L, MCV 103.0 H, MCH 31.2, MCHC 30.3 L, RDW 19.3 H, RDW Differential 70.7 H, Plt Count 91 L, MPV 10.9, Immature Gran % (Auto) 0.700, Neut % (Auto) 49.5, Lymph % (Auto) 20.3, [place] % (Auto) 28.8 H, Eos % (Auto) 0.0, Baso % (Auto) 0.7, Absolute Neuts (auto) 0.8 L, Absolute Lymphs (auto) 0.31 L, Total Counted Not Reportable, Platelet Estimate SLT DEC, Hypochromasia 2+, Anisocytosis 1+ 02/01/18 13:34: Sodium 140, Potassium 5.0, Chloride 103, Carbon Dioxide 29.0, Anion Gap 8, BUN 31 H, Creatinine 0.94, Estim Creat Clear Calc 56.60, Est GFR (MDRD) Af Amer 77, Est GFR (MDRD) Non-Af 64, BUN/Creatinine Ratio 32.9 H, Glucose 133 H, Calcium 9.8, Troponin I < 0.02 02/01/18 13:34: Lactic Acid 2.7 H 02/01/18 13:34: B-Natriuretic Peptide 316.4 H 02/01/18 13:34: PT 16.1 H, INR 1.3 Code Visit Inpatient E&M: 81943 Init Hosp L3 Procedures: 06568 Advncd Care Plan 30 Min
--- NOTE | 2018-02-01 15:41 | HP.PCM_ITS ---
Problem List (1) Left severe malignant pleural effusion Status: Acute (2) Acute on chronic respiratory failure with hypoxia and hypercapnia Status: Acute (3) CA breast with malignant effusion Status: Acute (4) Mucositis (ulcerative) due to antineoplastic therapy Status: Acute (5) COPD (chronic obstructive pulmonary disease) Status: Suspected (6) GERD (gastroesophageal reflux disease) Status: Chronic (7) Tobacco dependence due to cigarettes Status: Chronic (8) Insomnia Status: Chronic (9) Depression Status: Chronic (10) Breast cancer Status: Chronic Comment: left, for port removal (11) PAF (paroxysmal atrial fibrillation) Status: Chronic (12) Atrial fibrillation with RVR Status: Acute (13) Bone metastases Status: Chronic (14) Sarcoma of left thigh Status: Chronic (15) Metastatic neoplastic disease Status: Chronic (16) Cough Status: Chronic (17) Left axillary pain Status: Chronic (18) Chemotherapy management, encounter for Status: Chronic (19) Anemia associated with chemotherapy Status: Chronic History of Present Illness Date of Admission: 02/01/18 Chief Complaint: Progressive worsening of shortness of breath for 3- 4 days The patient is a 63 year old F with history of CA breast, 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 Marinelli, her oncologist when she got really hypoxic and short of breath was receiving IV fluid infusion [facility]. Patient had last chemo on Monday. She wears 3 L of home oxygen but as per her pulse ox has been getting low 88% for last 2-3 days and getting more short of breath and tachypneic. She denies fever or chills and chest pain. In the ED, she was found tachycardic, tachypneic and very hypoxic. Initial EKG shows A. fib with RVR but patient was converted to sinus tachycardia after 1 dose of 5 mg of IV metoprolol. Chest x-ray shows left lung whiteout. She was put on BiPAP she had 1.5 L of fluid drained from the left lung. She was given IV aztreonam and vancomycin in ER for concern of healthcare acid pneumonia [] Past Medical History Past Medical History (Chronic Problems): Chronic Problems (Last Reviewed 01/23/18 @ 10:09 by Hali Altamirano) GERD (gastroesophageal reflux disease) (Chronic) Tobacco dependence due to cigarettes (Chronic) Insomnia (Chronic) Depression (Chronic) Breast cancer (Chronic) left, for port removal PAF (paroxysmal atrial fibrillation) (Chronic) Bone metastases (Chronic) Sarcoma of left thigh (Chronic) Metastatic neoplastic disease (Chronic) Cough (Chronic) Left axillary pain (Chronic) Chemotherapy management, encounter for (Chronic) Anemia associated with chemotherapy (Chronic) Allergies Penicillins Allergy (Intermediate, Verified 02/01/18 12:44) Hives mirtazapine Adverse Reaction (Severe, Verified 02/01/18 12:44) mental changes mental changes Home Medications: Ambulatory Orders Medication Instructions Recorded Escitalopram Oxalate [Lexapro] 20 mg PO DAILY 09/21/15 Multivitamin [Daily Multiple 1 each PO DAILY 10/01/15 Vitamin] Aspirin [Aspirin, Baby] 81 mg PO DAILY@0800 01/20/18 Cephalexin [Keflex] 500 mg PO BID 01/20/18 Metoprolol Tartrate [Lopressor 25 mg PO BID 01/20/18 (beta onur)] Oxygen, Home [Home Oxygen] 2 - 4 lpm NASAL CONT #1 unit 01/21/18 proCHLORPERazine tablet [Compazine 5 mg PO Q6H PRN PRN #60 tab 01/23/18 tablet] Amiodarone HCl [Cordarone] 200 mg PO DAILY 02/01/18 Amitriptyline HCl [Elavil] 10 mg PO QHS 02/01/18 Digoxin [Lanoxin] 62.5 mcg PO DAILY 02/01/18 Dronabinol [Marinol] 2.5 mg PO BIDAC 02/01/18 Fluconazole [Diflucan] 200 mg PO DAILY 02/01/18 Magic Mouth Wash 10 ml PO 4X/DAY 02/01/18 Morphine [Morphine IR] 15 mg PO Q4H PRN PRN #90 tablet 02/01/18 Oxycodone CR [Oxycontin] 15 mg PO Q12H 02/01/18 Oxycodone [Oxyir] 5 mg PO Q6H PRN 02/01/18 morphine SR tablet [MS Contin] 30 mg PO Q12H 02/01/18 Surgical History: - Psychiatric History: No 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 Denies: Chills, Fever, Weight Change HEENT: Denies: Head Aches, Sinus Congestion, Sinus Drainage Cardiovascular: Denies: Chest Pain, Palpitations Respiratory: Reports: Cough, Shortness of Breath, Shortness of breath upon exertion. Denies: Shortness of breath at rest, Sputum production Gastrointestinal: Reports: Nausea. Denies: Abdominal Pain, Vomiting Genitourinary: Denies: Dysuria Musculoskeletal: Reports: Joint Pain. Denies: Joint Tenderness Skin: Denies: Rash, Wounds Neurological: Denies: Numbness, Tingling, Focal weakness Psychiatric: Reports: Anxiety, Depression. Denies: Homicidal Ideations, Suicidal Ideations Hematologic/ Lymphatic: Denies: Easy Bruising, Easy Bleeding VTE Information - Inpt Only VTE Present on Admission: No VTE Mechan Device Prophylaxis: SCD's Reason prophylaxis not ordered:: Medical Contraindication - Severe thrombocytopenia leukopenia Patient Problems: Active and Suspected Problems (Last Reviewed 01/23/18 @ 10:09 by Hali Altamirano) Mucositis (ulcerative) due to antineoplastic therapy (Acute) Left severe malignant pleural effusion (Acute) Acute on chronic respiratory failure with hypoxia and hypercapnia (Acute) CA breast with malignant effusion (Acute) - Physical Exam General: Alert, Cooperative, Lethargic HEENT: Atraumatic, PERRLA, EOMI, Normocephalic Oral: - - On BiPAP machine Neck: Supple, No JVD, Negative Carotid Bruits Lungs: Diminished, Short of Breath, Tachypneic, - - Air entry severely diminished in posterior half of left lung Cardiovascular: Regular Rhythm, Normal S1, Normal S2, No murmurs, Tachycardic Abdomen: Bowel Sounds Present, Soft, Non Tender, Non-Distended Extremities: Capillary Refill Less than 3 Seconds, Edema Skin: No rashes, No breakdown Musculoskeletal: No Tenderness to Palpation of Joints or Extremities, Arthritic Changes, Muscle Wasting Neurological: Cranial nerves II-XII grossly intact Psych/Mental Status: Normal Affect, Appropriate Vital Signs Temp Pulse Resp BP Pulse Ox 98.8 F 105 H 18 112/63 97 02/01/18 12:45 02/01/18 15:17 02/01/18 15:17 02/01/18 15:17 02/01/18 15:17 Assessment/Plan Active and Suspected Problems (Last Reviewed 01/23/18 @ 10:09 by Hali Altamirano) Mucositis (ulcerative) due to antineoplastic therapy (Acute) Left severe malignant pleural effusion (Acute) Acute on chronic respiratory failure with hypoxia and hypercapnia (Acute) CA breast with malignant effusion (Acute) The patient is a 63 year old F with history of CA breast, 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 Marinelli, her oncologist when she got really hypoxic and short of breath was receiving IV fluid infusion [facility]. Patient had last chemo on Monday. She wears 3 L of home oxygen but as per her pulse ox has been getting low 88% for last 2-3 days and getting more short of breath and tachypneic. She denies fever or chills and chest pain. In the ED, she was found tachycardic, tachypneic and very hypoxic. Initial EKG shows A. fib with RVR but patient was converted to sinus tachycardia after 1 dose of 5 mg of IV metoprolol. Chest x-ray shows left lung whiteout. She was put on BiPAP she had 1.5 L of fluid drained from the left lung. She was given IV aztreonam and vancomycin in ER for concern of healthcare acid pneumonia. 1. Acute on chronic hypoxic and hypercarbic respiratory failure secondary to large/severe malignant left pleural effusion: Patient is being admitted in PCU. Patient requires BiPAP and will continue it. First ABG shows 7.24//55 at 15 L nonrebreather mask suggestive of respiratory alkalosis with high Aa gradient. Pulmonary consult. 2. Acute on recurrent left malignant pleural effusion required multiple thoracocentesis past: Patient's and family asked for Pleurx catheter and discussed about benefits and risk. They have not decided for it yet. 3. Left-sided underlying healthcare associated pneumonia with last chemotherapy on Monday: Patient received IV vancomycin and aztreonam in ER. Start on IV Levaquin and continue vancomycin. Pneumonia workup including blood culture, urinary antigens, respiratory panel and a sputum culture ordered. Bronchodilator. 4. COPD with nicotine dependence: Does not seem to an exacerbation. On nicotine patch. 5. Malignant history: CA breast status post malignant pleural effusion, sarcoma left thigh: Dr. Marinelli has been consulted. 6. Paroxysmal A. fib with RVR: Patient converted to sinus tachycardia as mentioned above. Continue digoxin, metoprolol, aspirin and amiodarone home medication. The patient was last admitted in December 2017 for acute respiratory failure, A. fib with RVR and was seen by Dr. 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 Advanced directive: Discussed with the patient's , Mr. Gigi Miller and patient's daughter regarding advanced directive/living will. Currently patient does not have living will. Different options including palliative care, DNR CC arrest, intubation and pain control discussed with the patient's . Patient submitted more time to decide on that. Patient is on multiple opioid medications including oxycodone controlled release and morphine sustained- release. Total time spent in [id number] encounter 17 minutes DVT prophylaxis: Pharmacological prophylaxis contraindicated. On SCDs bilaterally Clinical Impression(s) from Imaging Studies Chest X-Ray 02/01/18 13:00 IMPRESSION: 1. Persistent left-sided airspace disease with increased left pleural effusion. 2. Right basilar airspace disease . Thoracentesis Ultrasound 02/01/18 13:25 IMPRESSION: Successful ultrasound-guided thoracentesis. Chest X-Ray 02/01/18 14:17 IMPRESSION: 1. Decreased left pleural effusion. 2. Improved aeration of the left lung Laboratory Results 02/01/18 13:03: Specimen Type ART, Sample Site R Radial, pH 7.24 L, Bicarbonate Actual 28.8 H, POC Total CO2 31, Base Excess 1, O2 Saturation 81 L, ABG pCO2 67.4 H*, ABG pO2 55 L, Remigio Test POS, O2 Delivery Device NRB Mask, Liter Flow 15.0, Blood Gas Notified Whom ED MD, Blood Gas Notified Time 1256 02/01/18 13:34: WBC 1.5 L, RBC 2.69 L, Hgb 8.4 L, Hct 27.7 L, MCV 103.0 H, MCH 31.2, MCHC 30.3 L, RDW 19.3 H, RDW Differential 70.7 H, Plt Count 91 L, MPV 10.9 , Immature Gran % (Auto) 0.700, Neut % (Auto) 49.5, Lymph % (Auto) 20.3, [place] % (Auto) 28.8 H, Eos % (Auto) 0.0, Baso % (Auto) 0.7, Absolute Neuts (auto) 0.8 L , Absolute Lymphs (auto) 0.31 L, Total Counted Not Reportable, Platelet Estimate SLT DEC, Hypochromasia 2+, Anisocytosis 1+ 02/01/18 13:34: Sodium 140, Potassium 5.0, Chloride 103, Carbon Dioxide 29.0, Anion Gap 8, BUN 31 H, Creatinine 0.94, Estim Creat Clear Calc 56.60, Est GFR ( MDRD) Af Amer 77, Est GFR (MDRD) Non-Af 64, BUN/Creatinine Ratio 32.9 H, Glucose 133 H, Calcium 9.8, Troponin I < 0.02 02/01/18 13:34: Lactic Acid 2.7 H 02/01/18 13:34: B-Natriuretic Peptide 316.4 H 02/01/18 13:34: PT 16.1 H, INR 1.3 Code Visit Inpatient E&M: 96179 Init Hosp L3 Procedures: 82229 Advncd Care Plan 30 Min
--- NOTE | 2018-02-01 16:36 | EKG12_ITS ---
Test Reason : REPEAT Blood Pressure : / mmHG Vent. Rate : 110 BPM Atrial Rate : 110 BPM P-R Int : 138 ms QRS Dur : 084 ms QT Int : 312 ms P-R-T Axes : 037 051 070 degrees QTc Int : 422 ms Sinus tachycardia with Premature supraventricular complexes Nonspecific T wave abnormality Abnormal ECG Confirmed by GEORGIANA TAYLOR, IDA ([id number]), editor publications JARED MTZ ([id number]) on 02/05/2018 2:24:55 PM Referred By: Elver Garcia Confirmed By:IDA STONER MD
--- NOTE | 2018-02-01 16:59 | PCM.RX.CS ---
Consult Pharmacy has been consulted to manage selected antiobiotic: Vancomycin Type of Consult: New start Suspected Infection: Pneumonia Prior Doses of Antibiotics Received/Current Regimen: VANCOMYCIN 1250MG IV X 1 IN ED 02/01/18 @1600 Labs: Sodium 140 mmol/L (136-145) 02/01/18 13:34 Potassium 5.0 mmol/L (3.5-5.1) 02/01/18 13:34 Chloride 103 mmol/L (98-107) 02/01/18 13:34 Carbon Dioxide 29.0 mmol/L (21.0-32.0) 02/01/18 13:34 Anion Gap 8 (5-15) 02/01/18 13:34 BUN 31 mg/dL (7-18) H 02/01/18 13:34 Creatinine 0.94 mg/dL (0.55-1.02) 02/01/18 13:34 Est GFR (MDRD) Af Amer 77 mL/min (>60) 02/01/18 13:34 Est GFR (MDRD) Non-Af 64 mL/min (>60) 02/01/18 13:34 BUN/Creatinine Ratio 32.9 RATIO (10-20) H 02/01/18 13:34 Glucose 133 mg/dL (74-106) H 02/01/18 13:34 Weight used for dosin.5 kg Estimated Creatinine Clearance: 57 ML/MIN Goal Trough: 15-20 mcg/mL Pharmacy Plan for Drug Dosing: Will start vancomycin 750mg IV q12h. Trough level orderd for before 4th dose on 02.03.18 @0330 Pharmacy Service will continue to monitor and adjust dosing as required.
[2018-02-01 17:38] LABS: Reflex Lactate? Y
[2018-02-01] MEDS: 0.9% Normal Saline 1,000 ML 75 ML IV (17:56)
--- NOTE | 2018-02-01 18:30 | EKG12_ITS ---
Test Reason : RHYTHM CHANGE Blood Pressure : / mmHG Vent. Rate : 128 BPM Atrial Rate : 141 BPM P-R Int : 000 ms QRS Dur : 086 ms QT Int : 286 ms P-R-T Axes : 000 044 023 degrees QTc Int : 417 ms Atrial fibrillation Nonspecific T wave abnormality Abnormal ECG When compared with ECG of 01-FEB-2018 13:31, MANUAL COMPARISON REQUIRED, DATA IS UNCONFIRMED Confirmed by GEORGIANA TAYLOR, IDA ([id number]), mine safety director JARED MTZ ([id number] on 02/05/2018 2:33:29 PM Referred By: Elver Garcia Confirmed By:IDA STONER MD
[2018-02-01 18:42] LABS: Lactic Acid 1.7 mmol/L (0.4-2.0)
[2018-02-01 19:54] LABS: Color, Urine Yellow (Yellow); Glucose, Dipstick Normal (Normal); Ketone-Dipstick 15 mg/dl (Negative); Leukocyte Esterase-Dipstick Negative /ul (Negative); Nitrite-Dipstick Negative (Negative); Occult Blood-Urine Negative /ul (Negative); Protein-Dipstick 30 mg/dl (Negative); Specific Gravity, Urine 1.025 (1.002-1.030); Urine Bilirubin Dipstick Negative (Negative); Urine Clarity Sl. Cloudy (Clear); Urine Urobilinogen Normal (Normal)
[2018-02-01] MEDS: Digoxin 250 MCG/ML Ampul IV (20:15)
[2018-02-01] MEDS: 0.9% NaCl Peripheral Flush Adult/Peds IV (20:19)
--- NOTE | 2018-02-01 20:25 | NURSING ---
Pt. to be transferred to ICU at this time. Report called to [facility]. Many family members going with pt. to ICU along with RT and bipap derrek, and heart monitor.
--- NOTE | 2018-02-01 20:40 | NURSING ---
Pt. taken to ICU bed 3 on monitor, and bipap, with belongings. Family to follow.
[2018-02-01] MEDS: Metoprolol Tartrate 25 MG Tablet PO (22:44)
[2018-02-01] MEDS: guaiFENesin 1,200 MG Tablet 1200 MG PO (22:44)
[2018-02-01] MEDS: Famotidine 20 MG Tablet PO (22:44)
[2018-02-01] MEDS: Amitriptyline 10 MG Tablet PO (22:44)
[2018-02-01] MEDS: oxyCODONE CR 15 MG Tablet PO (22:45)
[2018-02-02] VITALS (40 sets, daily range): BP systolic 90–135; BP diastolic 47–85; PULSE 78–162; RESP 12–32; TEMP 36.4–37.1; O2SAT 93–100
--- NOTE | 2018-02-02 01:40 | CPS ---
Addendum entered by Elver Benson 02/02/18 01:42: changed FIO2 to 45%, not 35% Original Note: decreased FIO2 to 35%
[2018-02-02 02:30] LABS: M R Staph aureus DNA By PCR Negative (Negative); Probe Check PASS; Specimen Processing Control PASS
[2018-02-02] MEDS: 0.9% Normal Saline 1,000 ML 75 ML IV ×2 (04:25→20:26)
--- NOTE | 2018-02-02 05:55 | RAD_ITS ---
STUDY: X-RAY CHEST REASON FOR EXAM: Female, 63 years old. LEFT MALIGNANT EFFUSION TECHNIQUE: Single AP portable view of the chest. COMPARISON: Feb 01 2018 1:02pm FINDINGS: Cardiac monitoring leads are present. Right-sided Mediport catheter is visible with the tip the catheter in the superior vena cava. The left pleural effusion has markedly decreased in size. There is improved aeration of the left lung. There is persistent patchy right middle lobe airspace disease and/or atelectasis. There is borderline cardiomegaly. Normal mediastinum and joel. Normal visualized pulmonary arteries. There is atherosclerotic calcification of the aortic arch with tortuosity. There is demineralization of the osseous structures. There is mild curvature of the thoracic spine convexity towards the right. Normal visualized ribs, clavicles, and shoulders. There is no demonstrated abnormality of the visualized soft tissue structures of the upper abdomen. RAD/Chest 1 View (Portable) IMPRESSION: 1. Decreased left pleural effusion. 2. There is no evidence of pneumothorax. Electronically Signed: Miguel Miranda MD at 9:55 EDT Tel , Service support ,
[2018-02-02] MEDS: Alteplase 2 MG/2 ML Vial IV (06:37)
[2018-02-02 07:01] LABS: Anion Gap 5 (5-15); BUN 21 mg/dL (7-18); BUN/Creat Ratio 34.2 RATIO (10-20); Calcium,Total 8.9 mg/dL (8.5-10.1); Chloride 102 mmol/L (98-107); Creatinine, Serum 0.61 mg/dL (0.55-1.02); EST Glomerular Filtration Rate 104 mL/min (>60); Est Glom Filt Rate - Afr Amer 126 mL/min (>60); Glucose 67 mg/dL (74-106); Magnesium 2.2 mg/dL (1.6-2.6); Phosphorus 1.5 mg/dL (2.5-4.9); Potassium 4.3 mmol/L (3.5-5.1); Sodium Level 138 mmol/L (136-145)
[2018-02-02 07:02] LABS: Hematocrit 23.4 % (37-47); Hemoglobin 7.2 g/dl (12.0-15.0); Mean Corp Hgb Conc 30.8 g/gl (32-36); Mean Corpuscular Hgb 30.5 pg (27.0-32.0); Mean Corpuscular Volume 99.2 fL (81-99); Mean Platelet Vol. 12.6 fl (6.2-12.0); RBC Distribution Width CV 19.5 % (11.6-14.6); RBC Distribution Width SD 70.6 fl (35.1-43.9); Red Blood Count 2.36 M/mm3 (4.2-5.4); White Blood Count 2.1 K/mm3 (4.4-11.0)
[2018-02-02 07:04] LABS: Differential Indicated MANUAL DIFF; POSITIVE COUNT YES; POSITIVE DIFFERENTIAL YES; POSITIVE MORPHOLOGY YES; Platelet Count 40 K/mm3 (150-450)
[2018-02-02 07:05] LABS: Allen Test POS; Base Excess 5 mmol/L (-2 to +2); Bicarbonate 29.1 mmol/L (22-26); Blood Gas Specimen Type ART; EPAP 6; FI02 45; IPAP 12; PO2 69 mmHG (75-100); SITE R Radial; SO2 94 % (95-99); Time Given 701; Total Carbon Dioxide 30 mmol/L; pCO2 43.6 mmHg (35-45); pH 7.43 (7.35-7.45)
--- NOTE | 2018-02-02 07:19 | PCM.CON.CC ---
Problem List (1) Mucositis (ulcerative) due to antineoplastic therapy Status: Acute (2) Left severe malignant pleural effusion Status: Acute (3) Acute on chronic respiratory failure with hypoxia and hypercapnia Status: Acute (4) CA breast with malignant effusion Status: Acute (5) COPD (chronic obstructive pulmonary disease) Status: Suspected (6) GERD (gastroesophageal reflux disease) Status: Chronic (7) Insomnia Status: Chronic (8) Depression Status: Chronic (9) PAF (paroxysmal atrial fibrillation) Status: Chronic (10) Bone metastases Status: Chronic (11) Sarcoma of left thigh Status: Chronic (12) Sarcoma of right femur Status: Resolved (13) Metastatic neoplastic disease Status: Chronic (14) Pleuritic chest pain Status: Inactive (15) Anemia associated with chemotherapy Status: Chronic Reason for Consult Date of Consultation: 02/02/18 Reason for Consultation: Acute combined respiratory failure History of Present Illness: The patient is a 63 year old F, with past medical history listed below, who presented to [facility] on 02/01/2018 secondary progressive shortness of breath over the last 24 hours. 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 Marinelli. Patient reportedly had recurrent left pleural effusion that has been drained multiple times and wears oxygen at home. Patient reportedly had stated no recent pain or fevers. On presentation to the emergency room, patient was noted to be in A. fib with RVR with a rate of 164 bpm. A large left-sided pleural effusion was noted and an elevated lactate of 2.7. An ABG showed 7.24/67/55/81%. One dose of metoprolol was attempted without significant improvement. Patient was sent to radiology for 1.5 L drainage of the left lung. Patient tolerated this procedure well with subjective improvement in overall condition. Patient was continued on BiPAP therapy and admitted to the intensive care unit for further monitoring. Overnight, patient reports subjective improvement in overall condition. Patient has not tolerated significant breaks off of BiPAP, but was able to take p.o. medications. Patient reports she has had 3 previous thoracentesis secondary to left sided pleural effusion. Patient denies any pain. Patient is denying any prodromal symptoms such as fever, chills, nausea or vomiting. Patient does have some issues with mucositis related to chemotherapy. Patient denies any bleeding complications such as epistaxis, hemoptysis, melena or hematochezia. Discussed with patient about her CODE STATUS. Patient is clear that she wants all interventions. Order for full code was placed. Past Medical History Past Medical History (Chronic Problems): Chronic Problems (Last Reviewed 01/23/18 @ 10:09 by Hali Altamirano) GERD (gastroesophageal reflux disease) (Chronic) Tobacco dependence due to cigarettes (Chronic) Insomnia (Chronic) Depression (Chronic) Breast cancer (Chronic) left, for port removal PAF (paroxysmal atrial fibrillation) (Chronic) Bone metastases (Chronic) Sarcoma of left thigh (Chronic) Metastatic neoplastic disease (Chronic) Cough (Chronic) Left axillary pain (Chronic) Chemotherapy management, encounter for (Chronic) Anemia associated with chemotherapy (Chronic) Allergies Penicillins Allergy (Intermediate, Verified 02/01/18 12:44) Hives mirtazapine Adverse Reaction (Severe, Verified 02/01/18 12:44) mental changes mental changes Home Medications: Ambulatory Orders Medication Instructions Recorded Escitalopram Oxalate [Lexapro] 20 mg PO DAILY 09/21/15 Multivitamin [Daily Multiple 1 each PO DAILY 10/01/15 Vitamin] Aspirin [Aspirin, Baby] 81 mg PO DAILY@0800 01/20/18 Cephalexin [Keflex] 500 mg PO BID 01/20/18 Metoprolol Tartrate [Lopressor 25 mg PO BID 01/20/18 (beta onur)] Oxygen, Home [Home Oxygen] 2 - 4 lpm NASAL CONT #1 unit 01/21/18 proCHLORPERazine tablet [Compazine 5 mg PO Q6H PRN PRN #60 tab 01/23/18 tablet] Amiodarone HCl [Cordarone] 200 mg PO DAILY 02/01/18 Amitriptyline HCl [Elavil] 10 mg PO QHS 02/01/18 Digoxin [Lanoxin] 62.5 mcg PO DAILY 02/01/18 Dronabinol [Marinol] 2.5 mg PO BIDAC 02/01/18 Fluconazole [Diflucan] 200 mg PO DAILY 02/01/18 Magic Mouth Wash 10 ml PO 4X/DAY 02/01/18 Oxycodone CR [Oxycontin] 15 mg PO Q12H 02/01/18 Oxycodone [Oxyir] 5 mg PO Q6H PRN 02/01/18 Surgical History: - Psychiatric History: No 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 Patient Problems: Active and Suspected Problems (Last Reviewed 01/23/18 @ 10:09 by Hali Altamirano) Mucositis (ulcerative) due to antineoplastic therapy (Acute) Left severe malignant pleural effusion (Acute) Acute on chronic respiratory failure with hypoxia and hypercapnia (Acute) CA breast with malignant effusion (Acute) Objective: All imaging was personally reviewed. Original chest x-ray showed a large left-sided pleural effusion that improved after thoracentesis. Chest x-ray this morning shows layering of effusion. - Physical Exam General: Alert, Oriented x3, Cooperative, No apparent distress, - - Good BiPAP synchrony. Appears older than stated age. HEENT: Atraumatic, PERRLA, EOMI, Normocephalic, - - Alopecia noted. No scleral icterus or injection noted. Oral: Moist Mucosa, No Gingival or Mucosal Lesions/ Ulcerations Neck: Supple, No JVD, No Nodes, Trachea Midline Lungs: No rhonchi, No wheeze, Diminished - Left greater than right, Rales - Left greater than right, - - Symmetric expansion. Slight dullness to percussion at the left base. Cardiovascular: Normal S1, Normal S2, No murmurs, Irregular Rate, No rub noted, No Gallop Abdomen: Bowel Sounds Present, Soft, Non Tender, Non-Distended Extremities: No clubbing, No cyanosis, No edema, Capillary Refill Less than 3 Seconds Skin: No rashes, No breakdown Musculoskeletal: No Tenderness to Palpation of Joints or Extremities Lymphatic: No Cervical, Supraclavicular, or Inguinal Adenopathy Neurological: Cranial nerves II-XII grossly intact, Neuro grossly intact, Motor Exam 5/5 strength throughout, Sensory exam intact to light touch and pain Psych/Mental Status: Alert and oriented to time, place, person, mood and affect Vital Signs Temp Pulse Resp BP Pulse Ox 36.4 C L 85 12 107/85 H 97 02/02/18 00:00 02/02/18 06:00 02/02/18 06:00 02/02/18 06:00 02/02/18 06:00 Oxygen Delivery Method Bi-pap Weight: 78.7 kg Body Mass Index (BMI) 26.6 Intake and Output for Last 24 Hours 01/31/18 02/01/18 02/02/18 23:59 23:59 23:59 Intake Total 1157 / 1157 831 / 831 Output Total 275 / 275 200 / 200 Balance 882 / 882 631 / 631 Microbiology Past 72 Hours 02/01/18 19:30 Streptococcus pneumoniae Antigen (M - Final Urine, Clean Catch 02/01/18 19:30 Legionella Antigen - Final Urine, Clean Catch Laboratory Tests Past 24 Hrs 02/01/18 02/01/18 02/01/18 18:05 19:30 23:25 WBC RBC Hgb Hct MCV MCH MCHC RDW RDW Differential Plt Count MPV Neut % (Auto) Absolute Neuts (auto) Total Counted Specimen Type Sample Site pH Bicarbonate Actual POC Total CO2 Base Excess O2 Saturation O2 % ABG pCO2 ABG pO2 Remigio Test O2 Delivery Device EPAP IPAP Blood Gas Notified Whom Blood Gas Notified Time Sodium Potassium Chloride Carbon Dioxide Anion Gap BUN Creatinine Estim Creat Clear Calc Est GFR (MDRD) Af Amer Est GFR (MDRD) Non-Af BUN/Creatinine Ratio Glucose Lactic Acid 1.7 Calcium Phosphorus Magnesium Urine Color Yellow Urine Clarity Sl. Cloudy Urine pH 5.0 Ur Specific [place] 1.025 Urine Protein 30 H Urine Glucose (UA) Normal Urine Ketones 15 H Urine Occult Blood Negative Urine Nitrite Negative Urine Bilirubin Negative Urine Urobilinogen Normal Ur Leukocyte Esterase Negative MRSA (PCR) Negative 02/02/18 02/02/18 02/02/18 06:38 06:38 06:58 WBC 2.1 L RBC 2.36 L Hgb 7.2 L Hct 23.4 L MCV 99.2 H MCH 30.5 MCHC 30.8 L RDW 19.5 H RDW Differential 70.6 H Plt Count 40 L* MPV 12.6 H Neut % (Auto) Not Reportable Absolute Neuts (auto) Not Reportable Total Counted Pending Specimen Type ART Sample Site R Radial pH 7.43 Bicarbonate Actual 29.1 H POC Total CO2 30 Base Excess 5 H O2 Saturation 94 L O2 % 45 ABG pCO2 43.6 ABG pO2 69 L Remigio Test POS O2 Delivery Device Bi / C PAP EPAP 6 IPAP 12 Blood Gas Notified Whom ICU MD Blood Gas Notified Time 701 Sodium 138 Potassium 4.3 Chloride 102 Carbon Dioxide 31.0 Anion Gap 5 BUN 21 H Creatinine 0.61 Estim Creat Clear Calc 90.60 Est GFR (MDRD) Af Amer 126 Est GFR (MDRD) Non-Af 104 BUN/Creatinine Ratio 34.2 H Glucose 67 L Lactic Acid Calcium 8.9 Phosphorus 1.5 L Magnesium 2.2 Urine Color Urine Clarity Urine pH Ur Specific [place] Urine Protein Urine Glucose (UA) Urine Ketones Urine Occult Blood Urine Nitrite Urine Bilirubin Urine Urobilinogen Ur Leukocyte Esterase MRSA (PCR) Clinical Impression(s) from Imaging Studies Chest X-Ray 02/01/18 13:00 IMPRESSION: 1. Persistent left-sided airspace disease with increased left pleural effusion. 2. Right basilar airspace disease . Electronically Signed: Miguel Miranda MD at 13:57 EDT Tel , Service support , Thoracentesis Ultrasound 02/01/18 13:25 IMPRESSION: Successful ultrasound-guided thoracentesis. Electronically Signed: Miguel Miranda MD at 15:34 EDT Tel , Service support , Chest X-Ray 02/01/18 14:17 IMPRESSION: 1. Decreased left pleural effusion. 2. Improved aeration of the left lung Electronically Signed: Miguel Miranda MD at 15:39 EDT Tel , Service support , Assessment/Plan Active and Suspected Problems (Last Reviewed 01/23/18 @ 10:09 by Hali Altamirano) Mucositis (ulcerative) due to antineoplastic therapy (Acute) Left severe malignant pleural effusion (Acute) Acute on chronic respiratory failure with hypoxia and hypercapnia (Acute) CA breast with malignant effusion (Acute) RECOMMENDATIONS: 1. Consider consultation with Dr. Benavides 2. BiPAP breaks as tolerated 3. No further thoracentesis, possible placement of Pleurx catheter in the future 4. Wean oxygen as tolerated 5. Continue with rate control medications and amiodarone 6. GI/DVT prophylaxis 7. Okay to discontinue vancomycin 8. Continue empiric antibiotics until culture negative IMPRESSIONS: 1. Acute on chronic combined respiratory failure secondary to malignant effusion Patient appears to be responding appropriately to BiPAP therapy following thoracentesis. Given patient's recurrent pleural effusions with malignant etiology, patient may be best served by placement of a Pleurx catheter. Would allow reaccumulation of fluid to minimize risk of complication. Patient can take BiPAP breaks as tolerated during the day today. Agree with empiric antibiotics until culture negative. Patient is immunocompromised secondary to chemotherapy. Patient reportedly has an underlying diagnosis of COPD. 2. A. fib with RVR Patient currently in normal sinus rhythm. Patient did have significant tachycardia on presentation with hypoxemia. Patient has seen Dr. Benavides in the past. Defer to hospitalist on whether he should be involved at this time. Patient has received significant digoxin. 3. Breast cancer/sarcoma with current chemotherapy Multiple complications with chemotherapy including mucositis, bone marrow suppression and alopecia. Patient is followed by Dr. Marinelli as an outpatient. Defer to hospitalist on whether he should be involved during this hospitalization. Patient is very clear that she wants to be a full code. 4. Insomnia/depression/pancytopenia secondary to chemotherapy/current chemotherapy Complicates care, management, recovery and prognosis. Likely okay to continue with baseline medications for now. No indications for transfusion at this time. Monitor for bleeding complications. TIME: 40 minutes critical care time spent addressing patient's acute on chronic combined respiratory failure, A. fib with RVR, review of all data and collaboration with care team (6 AM to 7:30 AM) Code Visit [id number]: [id number] Critical care first hour
[2018-02-02 07:43] LABS: Blast 2 % (0-0); Lymphocyte 25 % (19-41); Metamyelocyte 6 % (0-1); Monocyte 3 % (0-10); Myelocyte 3 (0-0); Neutrophil-Band 33 % (0-5); Neutrophil-Segmented 27 % (47-70); Nucleated Red Bld Cells,Manual 1 % (0-5); Plasma Cell 1 %; Total Cells Counted 100 (MANUAL DIFF)
[2018-02-02 07:46] LABS: Anisocytosis 1+; Platelet Estimate MOD DEC (ADEQ); Platelet Morphology LARGE
--- NOTE | 2018-02-02 07:46 | CON.PCM_ITS ---
Problem List (1) Mucositis (ulcerative) due to antineoplastic therapy Status: Acute (2) Left severe malignant pleural effusion Status: Acute (3) Acute on chronic respiratory failure with hypoxia and hypercapnia Status: Acute (4) CA breast with malignant effusion Status: Acute (5) COPD (chronic obstructive pulmonary disease) Status: Suspected (6) GERD (gastroesophageal reflux disease) Status: Chronic (7) Insomnia Status: Chronic (8) Depression Status: Chronic (9) PAF (paroxysmal atrial fibrillation) Status: Chronic (10) Bone metastases Status: Chronic (11) Sarcoma of left thigh Status: Chronic (12) Sarcoma of right femur Status: Resolved (13) Metastatic neoplastic disease Status: Chronic (14) Pleuritic chest pain Status: Inactive (15) Anemia associated with chemotherapy Status: Chronic Reason for Consult Date of Consultation: 02/02/18 Reason for Consultation: Acute combined respiratory failure History of Present Illness: The patient is a 63 year old F, with past medical history listed below, who presented to [facility] on 02/01/2018 secondary progressive shortness of breath over the last 24 hours. 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 Marinelli. Patient reportedly had recurrent left pleural effusion that has been drained multiple times and wears oxygen at home. Patient reportedly had stated no recent pain or fevers. On presentation to the emergency room, patient was noted to be in A. fib with RVR with a rate of 164 bpm. A large left-sided pleural effusion was noted and an elevated lactate of 2.7. An ABG showed 7.24/67/55/81%. One dose of metoprolol was attempted without significant improvement. Patient was sent to radiology for 1.5 L drainage of the left lung. Patient tolerated this procedure well with subjective improvement in overall condition. Patient was continued on BiPAP therapy and admitted to the intensive care unit for further monitoring. Overnight, patient reports subjective improvement in overall condition. Patient has not tolerated significant breaks off of BiPAP, but was able to take p.o. medications. Patient reports she has had 3 previous thoracentesis secondary to left sided pleural effusion. Patient denies any pain. Patient is denying any prodromal symptoms such as fever, chills, nausea or vomiting. Patient does have some issues with mucositis related to chemotherapy. Patient denies any bleeding complications such as epistaxis, hemoptysis, melena or hematochezia. Discussed with patient about her CODE STATUS. Patient is clear that she wants all interventions. Order for full code was placed. Past Medical History Past Medical History (Chronic Problems): Chronic Problems (Last Reviewed 01/23/18 @ 10:09 by Hali Altamirano) GERD (gastroesophageal reflux disease) (Chronic) Tobacco dependence due to cigarettes (Chronic) Insomnia (Chronic) Depression (Chronic) Breast cancer (Chronic) left, for port removal PAF (paroxysmal atrial fibrillation) (Chronic) Bone metastases (Chronic) Sarcoma of left thigh (Chronic) Metastatic neoplastic disease (Chronic) Cough (Chronic) Left axillary pain (Chronic) Chemotherapy management, encounter for (Chronic) Anemia associated with chemotherapy (Chronic) Allergies Penicillins Allergy (Intermediate, Verified 02/01/18 12:44) Hives mirtazapine Adverse Reaction (Severe, Verified 02/01/18 12:44) mental changes mental changes Home Medications: Ambulatory Orders Medication Instructions Recorded Escitalopram Oxalate [Lexapro] 20 mg PO DAILY 09/21/15 Multivitamin [Daily Multiple 1 each PO DAILY 10/01/15 Vitamin] Aspirin [Aspirin, Baby] 81 mg PO DAILY@0800 01/20/18 Cephalexin [Keflex] 500 mg PO BID 01/20/18 Metoprolol Tartrate [Lopressor 25 mg PO BID 01/20/18 (beta onur)] Oxygen, Home [Home Oxygen] 2 - 4 lpm NASAL CONT #1 unit 01/21/18 proCHLORPERazine tablet [Compazine 5 mg PO Q6H PRN PRN #60 tab 01/23/18 tablet] Amiodarone HCl [Cordarone] 200 mg PO DAILY 02/01/18 Amitriptyline HCl [Elavil] 10 mg PO QHS 02/01/18 Digoxin [Lanoxin] 62.5 mcg PO DAILY 02/01/18 Dronabinol [Marinol] 2.5 mg PO BIDAC 02/01/18 Fluconazole [Diflucan] 200 mg PO DAILY 02/01/18 Magic Mouth Wash 10 ml PO 4X/DAY 02/01/18 Oxycodone CR [Oxycontin] 15 mg PO Q12H 02/01/18 Oxycodone [Oxyir] 5 mg PO Q6H PRN 02/01/18 Surgical History: - Psychiatric History: No 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 [employer] History: No pertinent [employer] history Smoking Status: Current some day smoker - *Family History Maternal History Items: Diabetes Paternal History Items: - - of cirrhosis Review of Systems Comment: See HPI, otherwise negative ?10 systems. Patient Problems: Active and Suspected Problems (Last Reviewed 01/23/18 @ 10:09 by Hali Altamirano) Mucositis (ulcerative) due to antineoplastic therapy (Acute) Left severe malignant pleural effusion (Acute) Acute on chronic respiratory failure with hypoxia and hypercapnia (Acute) CA breast with malignant effusion (Acute) Objective: All imaging was personally reviewed. Original chest x-ray showed a large left- sided pleural effusion that improved after thoracentesis. Chest x-ray this morning shows layering of effusion. - Physical Exam General: Alert, Oriented x3, Cooperative, No apparent distress, - - Good BiPAP synchrony. Appears older than stated age. HEENT: Atraumatic, PERRLA, EOMI, Normocephalic, - - Alopecia noted. No scleral icterus or injection noted. Oral: Moist Mucosa, No Gingival or Mucosal Lesions/ Ulcerations Neck: Supple, No JVD, No Nodes, Trachea Midline Lungs: No rhonchi, No wheeze, Diminished - Left greater than right, Rales - Left greater than right, - - Symmetric expansion. Slight dullness to percussion at the left base. Cardiovascular: Normal S1, Normal S2, No murmurs, Irregular Rate, No rub noted, No Gallop Abdomen: Bowel Sounds Present, Soft, Non Tender, Non-Distended Extremities: No clubbing, No cyanosis, No edema, Capillary Refill Less than 3 Seconds Skin: No rashes, No breakdown Musculoskeletal: No Tenderness to Palpation of Joints or Extremities Lymphatic: No Cervical, Supraclavicular, or Inguinal Adenopathy Neurological: Cranial nerves II-XII grossly intact, Neuro grossly intact, Motor Exam 5/5 strength throughout, Sensory exam intact to light touch and pain Psych/Mental Status: Alert and oriented to time, place, person, mood and affect Vital Signs Temp Pulse Resp BP Pulse Ox 36.4 C L 85 12 107/85 H 97 02/02/18 00:00 02/02/18 06:00 02/02/18 06:00 02/02/18 06:00 02/02/18 06:00 Oxygen Delivery Method Bi-pap Weight: 78.7 kg Body Mass Index (BMI) 26.6 Intake and Output for Last 24 Hours 01/31/18 02/01/18 02/02/18 23:59 23:59 23:59 Intake Total 1157 / 1157 831 / 831 Output Total 275 / 275 200 / 200 Balance 882 / 882 631 / 631 Microbiology Past 72 Hours 02/01/18 19:30 Streptococcus pneumoniae Antigen (M - Final Urine, Clean Catch 02/01/18 19:30 Legionella Antigen - Final Urine, Clean Catch Laboratory Tests Past 24 Hrs 02/01/18 02/01/18 02/01/18 18:05 19:30 23:25 WBC RBC Hgb Hct MCV MCH MCHC RDW RDW Differential Plt Count MPV Neut % (Auto) Absolute Neuts (auto) Total Counted Specimen Type Sample Site pH Bicarbonate Actual POC Total CO2 Base Excess O2 Saturation O2 % ABG pCO2 ABG pO2 Remigio Test O2 Delivery Device EPAP IPAP Blood Gas Notified Whom Blood Gas Notified Time Sodium Potassium Chloride Carbon Dioxide Anion Gap BUN Creatinine Estim Creat Clear Calc Est GFR (MDRD) Af Amer Est GFR (MDRD) Non-Af BUN/Creatinine Ratio Glucose Lactic Acid 1.7 Calcium Phosphorus Magnesium Urine Color Yellow Urine Clarity Sl. Cloudy Urine pH 5.0 Ur Specific [place] 1.025 Urine Protein 30 H Urine Glucose (UA) Normal Urine Ketones 15 H Urine Occult Blood Negative Urine Nitrite Negative Urine Bilirubin Negative Urine Urobilinogen Normal Ur Leukocyte Esterase Negative MRSA (PCR) Negative 02/02/18 02/02/18 02/02/18 06:38 06:38 06:58 WBC 2.1 L RBC 2.36 L Hgb 7.2 L Hct 23.4 L MCV 99.2 H MCH 30.5 MCHC 30.8 L RDW 19.5 H RDW Differential 70.6 H Plt Count 40 L* MPV 12.6 H Neut % (Auto) Not Reportable Absolute Neuts (auto) Not Reportable Total Counted Pending Specimen Type ART Sample Site R Radial pH 7.43 Bicarbonate Actual 29.1 H POC Total CO2 30 Base Excess 5 H O2 Saturation 94 L O2 % 45 ABG pCO2 43.6 ABG pO2 69 L Remigio Test POS O2 Delivery Device Bi / C PAP EPAP 6 IPAP 12 Blood Gas Notified Whom ICU MD Blood Gas Notified Time 701 Sodium 138 Potassium 4.3 Chloride 102 Carbon Dioxide 31.0 Anion Gap 5 BUN 21 H Creatinine 0.61 Estim Creat Clear Calc 90.60 Est GFR (MDRD) Af Amer 126 Est GFR (MDRD) Non-Af 104 BUN/Creatinine Ratio 34.2 H Glucose 67 L Lactic Acid Calcium 8.9 Phosphorus 1.5 L Magnesium 2.2 Urine Color Urine Clarity Urine pH Ur Specific [place] Urine Protein Urine Glucose (UA) Urine Ketones Urine Occult Blood Urine Nitrite Urine Bilirubin Urine Urobilinogen Ur Leukocyte Esterase MRSA (PCR) Clinical Impression(s) from Imaging Studies Chest X-Ray 02/01/18 13:00 IMPRESSION: 1. Persistent left-sided airspace disease with increased left pleural effusion. 2. Right basilar airspace disease . Electronically Signed: Miguel Miranda MD at 13:57 EDT Tel , Service support , Thoracentesis Ultrasound 02/01/18 13:25 IMPRESSION: Successful ultrasound-guided thoracentesis. Electronically Signed: Miguel Miranda MD at 15:34 EDT Tel , Service support , Chest X-Ray 02/01/18 14:17 IMPRESSION: 1. Decreased left pleural effusion. 2. Improved aeration of the left lung Electronically Signed: Miguel Miranda MD at 15:39 EDT Tel , Service support , Assessment/Plan Active and Suspected Problems (Last Reviewed 01/23/18 @ 10:09 by Hali Altamirano) Mucositis (ulcerative) due to antineoplastic therapy (Acute) Left severe malignant pleural effusion (Acute) Acute on chronic respiratory failure with hypoxia and hypercapnia (Acute) CA breast with malignant effusion (Acute) RECOMMENDATIONS: 1. Consider consultation with Dr. Benavides 2. BiPAP breaks as tolerated 3. No further thoracentesis, possible placement of Pleurx catheter in the future 4. Wean oxygen as tolerated 5. Continue with rate control medications and amiodarone 6. GI/DVT prophylaxis 7. Okay to discontinue vancomycin 8. Continue empiric antibiotics until culture negative IMPRESSIONS: 1. Acute on chronic combined respiratory failure secondary to malignant effusion Patient appears to be responding appropriately to BiPAP therapy following thoracentesis. Given patient's recurrent pleural effusions with malignant etiology, patient may be best served by placement of a Pleurx catheter. Would allow reaccumulation of fluid to minimize risk of complication. Patient can take BiPAP breaks as tolerated during the day today. Agree with empiric antibiotics until culture negative. Patient is immunocompromised secondary to chemotherapy. Patient reportedly has an underlying diagnosis of COPD. 2. A. fib with RVR Patient currently in normal sinus rhythm. Patient did have significant tachycardia on presentation with hypoxemia. Patient has seen Dr. Benavides in the past. Defer to hospitalist on whether he should be involved at this time. Patient has received significant digoxin. 3. Breast cancer/sarcoma with current chemotherapy Multiple complications with chemotherapy including mucositis, bone marrow suppression and alopecia. Patient is followed by Dr. Marinelli as an outpatient. Defer to hospitalist on whether he should be involved during this hospitalization. Patient is very clear that she wants to be a full code. 4. Insomnia/depression/pancytopenia secondary to chemotherapy/current chemotherapy Complicates care, management, recovery and prognosis. Likely okay to continue with baseline medications for now. No indications for transfusion at this time. Monitor for bleeding complications. TIME: 40 minutes critical care time spent addressing patient's acute on chronic combined respiratory failure, A. fib with RVR, review of all data and collaboration with care team (6 AM to 7:30 AM) Code Visit [id number]: [id number] Critical care first hour
[2018-02-02 07:53] LABS: Absolute Lymphocyte Count 0.51 X10^3/ul (0.83-4.51); Absolute Neutrophil Count 1.2 X10^3/uL (2.0-7.7); Lymphocyte # 0.51 X10^3/ul (4.0); Neutrophil # 1.23 X10^3/uL (2.7-7.7)
--- NOTE | 2018-02-02 08:00 | NURSING ---
Nursing supervisor cook house assessing Port at this time after alteplase. Still unable to aspirate blood. Alteplase withdrawn per RN supervisor cook house [place]. IV maintenance fluid restarted.
--- NOTE | 2018-02-02 09:15 | PCM.PN.HOSP ---
Patient Problems: Active and Suspected Problems (Last Reviewed 01/23/18 @ 10:09 by Hali Altamirano) Mucositis (ulcerative) due to antineoplastic therapy (Acute) Left severe malignant pleural effusion (Acute) Acute on chronic respiratory failure with hypoxia and hypercapnia (Acute) CA breast with malignant effusion (Acute) Subjective: Breathing better on the BiPAP. And breathing better after the thoracentesis. Vitals/I&O's: Vital Signs Temp Pulse Resp BP Pulse Ox 37.1 C 126 H 27 H 135/65 H 94 02/02/18 08:00 02/02/18 08:00 02/02/18 08:00 02/02/18 08:00 02/02/18 08:00 Oxygen Delivery Method Bi-pap Weight: 78.7 kg Body Mass Index (BMI) 26.6 Intake and Output for Last 24 Hours 01/31/18 02/01/18 02/02/18 23:59 23:59 23:59 Intake Total 1157 / 1157 831 / 831 Output Total 275 / 275 200 / 200 Balance 882 / 882 631 / 631 General: Alert, Cooperative, No apparent distress, - - On BiPAP. No respiratory distress. HEENT: Atraumatic, Normocephalic Neck: No Nodes, Thyroid Normal Size and Texture Lungs: Diminished, - - Coarse breath sounds bilaterally Cardiovascular: Regular rate, Regular Rhythm, Normal S1, Normal S2, No murmurs Abdomen: Bowel Sounds Present, Soft, Non Tender, Non-Distended, No Hepato-splenomegaly Extremities: No edema, No Calf Tenderness Skin: - - some bruising. superficial LE varicosities. Musculoskeletal: No Tenderness to Palpation of Joints or Extremities, No Muscle Wasting Psych/Mental Status: Normal Affect, Appropriate Microbiology Past 72 Hours 02/01/18 19:30 Urine, Clean Catch Streptococcus pneumoniae Antigen (M - Final 02/01/18 19:30 Urine, Clean Catch Legionella Antigen - Final Laboratory Results 02/01/18 18:05: Lactic Acid 1.7 02/01/18 19:30: Urine Color Yellow, Urine Clarity Sl. Cloudy, Urine pH 5.0, Ur Specific [place] 1.025, Urine Protein 30 H, Urine Glucose (UA) Normal, Urine Ketones 15 H, Urine Occult Blood Negative, Urine Nitrite Negative, Urine Bilirubin Negative, Urine Urobilinogen Normal, Ur Leukocyte Esterase Negative 02/01/18 23:25: MRSA (PCR) Negative 02/02/18 06:38: WBC 2.1 L, RBC 2.36 L, Hgb 7.2 L, Hct 23.4 L, MCV 99.2 H, MCH 30.5, MCHC 30.8 L, RDW 19.5 H, RDW Differential 70.6 H, Plt Count 40 L*, MPV 12.6 H, Neut % (Auto) Not Reportable, Absolute Neuts (auto) 1.2 L, Absolute Lymphs (auto) 0.51 L, Total Counted 100, Neutrophils % (Manual) 27 L, Band Neutrophils % 33 H, Lymphocytes % (Manual) 25, Monocytes % (Manual) 3, Metamyelocytes % 6 H, Myelocytes % 3 H, Blast Cells % 2 H*, Plasma Cell % (Manual) 1, Nucleated RBCs/100 WBC 1, Diff Path Review January foll, Platelet Estimate MOD DEC, Plt Morphology Comment LARGE, Anisocytosis 1+ 02/02/18 06:38: Sodium 138, Potassium 4.3, Chloride 102, Carbon Dioxide 31.0, Anion Gap 5, BUN 21 H, Creatinine 0.61, Estim Creat Clear Calc 90.60, Est GFR (MDRD) Af Amer 126, Est GFR (MDRD) Non-Af 104, BUN/Creatinine Ratio 34.2 H, Glucose 67 L, Calcium 8.9, Phosphorus 1.5 L, Magnesium 2.2 02/02/18 06:58: Specimen Type ART, Sample Site R Radial, pH 7.43, Bicarbonate Actual 29.1 H, POC Total CO2 30, Base Excess 5 H, O2 Saturation 94 L, O2 % 45, ABG pCO2 43.6, ABG pO2 69 L, Remigio Test POS, O2 Delivery Device Bi / C PAP, EPAP 6, IPAP 12, Blood Gas Notified Whom ICU MD, Blood Gas Notified Time 701 Current Medications Acetaminophen (Tylenol) 650 mg PO Q4H PRN PRN PRN Reason: FEVER,MILD-MOD PAIN,HEADACHE Al Hydroxide/Mg Hydroxide (Mylanta Ii) 30 ml PO Q6H PRN PRN PRN Reason: Gastric Burning Albuterol Sulfate (Ventolin Aerosols) 2.5 mg INHALATION Q2H PRN PRN PRN Reason: SHORTNESS OF BREATH Albuterol/Ipratropium (Duoneb) 3 ml INHALATION Q4H.RT [facility] Last Admin: 02/02/18 06:26 Dose: Not Given Amiodarone HCl (Cordarone) 200 mg PO DAILY [facility] Amitriptyline HCl (Elavil) 10 mg PO QHS [facility] Last Admin: 02/01/18 22:44 Dose: 10 mg Aspirin (Aspirin, Baby) 81 mg PO DAILY@0800 [facility] Bisacodyl (Dulcolax) 10 mg RECTAL DAILY PRN PRN PRN Reason: Constipation Digoxin (Lanoxin) 62.5 mcg PO DAILY [facility] Docusate Sodium (Colace) 200 mg PO BID PRN PRN PRN Reason: Constipation Dronabinol (Marinol) 2.5 mg PO BIDAC [facility] Last Admin: 02/01/18 17:24 Dose: Not Given Famotidine (Pepcid) 20 mg PO BID [facility] Last Admin: 02/01/18 22:44 Dose: 20 mg Guaifenesin (Mucinex) 1,200 mg PO BID [facility] Last Admin: 02/01/18 22:44 Dose: 1,200 mg Heparin Sodium (Beef Lung) (Heparin 500 Unit/5 Ml (100/Ml)) 500 unit IV UD PRN PRN Reason: HEPARIN FLUSH Levofloxacin 750 mg/ N/A 150 mls @ 100 mls/hr IV DAILY [facility] Last Admin: 02/01/18 17:55 Dose: 100 mls/hr Sodium Chloride () 1,000 mls @ 75 mls/hr IV .[id number] [facility] Last Admin: 02/02/18 04:25 Dose: 75 mls/hr Fluconazole (Diflucan) 200 mg in 100 mls @ 100 mls/hr IV DAILY [facility] Last Admin: 02/01/18 18:57 Dose: 100 mls/hr Lidocaine/Diphenhydr/Alum/Mg/Simeth () 10 ml PO 4X/DAY [facility] Last Admin: 02/01/18 22:44 Dose: 10 ml Metoprolol Tartrate (Lopressor (Beta Sonny)) 25 mg PO BID [facility] Last Admin: 02/01/18 22:44 Dose: 25 mg Morphine Sulfate () 1 - 2 mg IV Q4H PRN PRN PRN Reason: Moderate Pain (pain scale 4-5) Multivitamins (Multivitamin) 1 tablet PO DAILY@0800 [facility] Nicotine (Nicoderm Cq (Pbkc)) 21 mg TRANSDERM. DAILY [facility] Ondansetron HCl (Zofran) 4 mg IV Q4H PRN PRN PRN Reason: Nausea Oxycodone HCl (Oxycontin) 15 mg PO Q12H [facility] Last Admin: 02/01/18 22:45 Dose: 15 mg Oxycodone HCl (Oxyir) 5 mg PO Q4H PRN PRN PRN Reason: Moderate Pain (pain scale 4-5) Polyethylene Glycol (Miralax) 17 gm PO DAILY [facility] Prochlorperazine Maleate (Compazine Tablet) 5 mg PO Q6H PRN PRN PRN Reason: NAUSEA/VOMITING Sodium Chloride () 5 - 30 ml IV UD PRN PRN Reason: SALINE FLUSH Last Admin: 02/01/18 20:19 Dose: 10 ml Sodium Chloride () 10 ml IV UD PRN PRN Reason: VAD FLUSH Zolpidem Tartrate (Ambien (Generic)) 5 mg PO QHS PRN PRN PRN Reason: SLEEP Medical Necessity - Tobacco Use Smoking Status: Current some day smoker Assessment/Plan Active and Suspected Problems (Last Reviewed 01/23/18 @ 10:09 by Hali Altamirano) Mucositis (ulcerative) due to antineoplastic therapy (Acute) Left severe malignant pleural effusion (Acute) Acute on chronic respiratory failure with hypoxia and hypercapnia (Acute) CA breast with malignant effusion (Acute) 1. Acute hypoxic and hypercapnic respiratory failure Multifactorial Permanent due to the metastatic pleural effusion May also be a component of gram-negative pneumonia, COPD. Improving but still requiring BiPAP at this time. Continue with Levaquin, pulmonary toilet, BiPAP. 2. Malignant pleural effusion has required several thoracenteses. Agent has expressed interest in a Pleurx catheter Patient will be need to be more stable before she can undergo that procedure. 3. Suspected gram-negative pneumonia We will need to evaluate and rule this out. Cultures still pending at this time. Negative, then could discontinue antibiotics. 4. A. fib with RVR Currently rate controlled Continue amiodarone digoxin and metoprolol Chads vasc score is 1 On aspirin No oral anticoagulants given history of hemothorax 5. Metastatic sarcoma Dr. Marinelli is on consult. 6. DVT prophylaxis with SCDs. Code Visit Inpatient E&M: 90081 Subs Hosp L3
--- NOTE | 2018-02-02 09:25 | PN_ITS ---
Patient Problems: Active and Suspected Problems (Last Reviewed 01/23/18 @ 10:09 by Hali Altamirano) Mucositis (ulcerative) due to antineoplastic therapy (Acute) Left severe malignant pleural effusion (Acute) Acute on chronic respiratory failure with hypoxia and hypercapnia (Acute) CA breast with malignant effusion (Acute) Subjective: Breathing better on the BiPAP. And breathing better after the thoracentesis. Vitals/I&O's: Vital Signs Temp Pulse Resp BP Pulse Ox 37.1 C 126 H 27 H 135/65 H 94 02/02/18 08:00 02/02/18 08:00 02/02/18 08:00 02/02/18 08:00 02/02/18 08:00 Oxygen Delivery Method Bi-pap Weight: 78.7 kg Body Mass Index (BMI) 26.6 Intake and Output for Last 24 Hours 01/31/18 02/01/18 02/02/18 23:59 23:59 23:59 Intake Total 1157 / 1157 831 / 831 Output Total 275 / 275 200 / 200 Balance 882 / 882 631 / 631 General: Alert, Cooperative, No apparent distress, - - On BiPAP. No respiratory distress. HEENT: Atraumatic, Normocephalic Neck: No Nodes, Thyroid Normal Size and Texture Lungs: Diminished, - - Coarse breath sounds bilaterally Cardiovascular: Regular rate, Regular Rhythm, Normal S1, Normal S2, No murmurs Abdomen: Bowel Sounds Present, Soft, Non Tender, Non-Distended, No Hepato- splenomegaly Extremities: No edema, No Calf Tenderness Skin: - - some bruising. superficial LE varicosities. Musculoskeletal: No Tenderness to Palpation of Joints or Extremities, No Muscle Wasting Psych/Mental Status: Normal Affect, Appropriate Microbiology Past 72 Hours 02/01/18 19:30 Urine, Clean Catch Streptococcus pneumoniae Antigen (M - Final 02/01/18 19:30 Urine, Clean Catch Legionella Antigen - Final Laboratory Results 02/01/18 18:05: Lactic Acid 1.7 02/01/18 19:30: Urine Color Yellow, Urine Clarity Sl. Cloudy, Urine pH 5.0, Ur Specific [place] 1.025, Urine Protein 30 H, Urine Glucose (UA) Normal, Urine Ketones 15 H, Urine Occult Blood Negative, Urine Nitrite Negative, Urine Bilirubin Negative, Urine Urobilinogen Normal, Ur Leukocyte Esterase Negative 02/01/18 23:25: MRSA (PCR) Negative 02/02/18 06:38: WBC 2.1 L, RBC 2.36 L, Hgb 7.2 L, Hct 23.4 L, MCV 99.2 H, MCH 30.5, MCHC 30.8 L, RDW 19.5 H, RDW Differential 70.6 H, Plt Count 40 L*, MPV 12.6 H, Neut % (Auto) Not Reportable, Absolute Neuts (auto) 1.2 L, Absolute Lymphs (auto) 0.51 L, Total Counted 100, Neutrophils % (Manual) 27 L, Band Neutrophils % 33 H, Lymphocytes % (Manual) 25, Monocytes % (Manual) 3, Metamyelocytes % 6 H, Myelocytes % 3 H, Blast Cells % 2 H*, Plasma Cell % ( Manual) 1, Nucleated RBCs/100 WBC 1, Diff Path Review January foll, Platelet Estimate MOD DEC, Plt Morphology Comment LARGE, Anisocytosis 1+ 02/02/18 06:38: Sodium 138, Potassium 4.3, Chloride 102, Carbon Dioxide 31.0, Anion Gap 5, BUN 21 H, Creatinine 0.61, Estim Creat Clear Calc 90.60, Est GFR ( MDRD) Af Amer 126, Est GFR (MDRD) Non-Af 104, BUN/Creatinine Ratio 34.2 H, Glucose 67 L, Calcium 8.9, Phosphorus 1.5 L, Magnesium 2.2 02/02/18 06:58: Specimen Type ART, Sample Site R Radial, pH 7.43, Bicarbonate Actual 29.1 H, POC Total CO2 30, Base Excess 5 H, O2 Saturation 94 L, O2 % 45, ABG pCO2 43.6, ABG pO2 69 L, Remigio Test POS, O2 Delivery Device Bi / C PAP, EPAP 6, IPAP 12, Blood Gas Notified Whom ICU MD, Blood Gas Notified Time 701 Current Medications Acetaminophen (Tylenol) 650 mg PO Q4H PRN PRN PRN Reason: FEVER,MILD-MOD PAIN,HEADACHE Al Hydroxide/Mg Hydroxide (Mylanta Ii) 30 ml PO Q6H PRN PRN PRN Reason: Gastric Burning Albuterol Sulfate (Ventolin Aerosols) 2.5 mg INHALATION Q2H PRN PRN PRN Reason: SHORTNESS OF BREATH Albuterol/Ipratropium (Duoneb) 3 ml INHALATION Q4H.RT [facility] Last Admin: 02/02/18 06:26 Dose: Not Given Amiodarone HCl (Cordarone) 200 mg PO DAILY [facility] Amitriptyline HCl (Elavil) 10 mg PO QHS [facility] Last Admin: 02/01/18 22:44 Dose: 10 mg Aspirin (Aspirin, Baby) 81 mg PO DAILY@0800 [facility] Bisacodyl (Dulcolax) 10 mg RECTAL DAILY PRN PRN PRN Reason: Constipation Digoxin (Lanoxin) 62.5 mcg PO DAILY [facility] Docusate Sodium (Colace) 200 mg PO BID PRN PRN PRN Reason: Constipation Dronabinol (Marinol) 2.5 mg PO BIDAC [facility] Last Admin: 02/01/18 17:24 Dose: Not Given Famotidine (Pepcid) 20 mg PO BID [facility] Last Admin: 02/01/18 22:44 Dose: 20 mg Guaifenesin (Mucinex) 1,200 mg PO BID [facility] Last Admin: 02/01/18 22:44 Dose: 1,200 mg Heparin Sodium (Beef Lung) (Heparin 500 Unit/5 Ml (100/Ml)) 500 unit IV UD PRN PRN Reason: HEPARIN FLUSH Levofloxacin 750 mg/ N/A 150 mls @ 100 mls/hr IV DAILY [facility] Last Admin: 02/01/18 17:55 Dose: 100 mls/hr Sodium Chloride () 1,000 mls @ 75 mls/hr IV .[id number] [facility] Last Admin: 02/02/18 04:25 Dose: 75 mls/hr Fluconazole (Diflucan) 200 mg in 100 mls @ 100 mls/hr IV DAILY [facility] Last Admin: 02/01/18 18:57 Dose: 100 mls/hr Lidocaine/Diphenhydr/Alum/Mg/Simeth () 10 ml PO 4X/DAY [facility] Last Admin: 02/01/18 22:44 Dose: 10 ml Metoprolol Tartrate (Lopressor (Beta Sonny)) 25 mg PO BID [facility] Last Admin: 02/01/18 22:44 Dose: 25 mg Morphine Sulfate () 1 - 2 mg IV Q4H PRN PRN PRN Reason: Moderate Pain (pain scale 4-5) Multivitamins (Multivitamin) 1 tablet PO DAILY@0800 [facility] Nicotine (Nicoderm Cq (Pbkc)) 21 mg TRANSDERM. DAILY [facility] Ondansetron HCl (Zofran) 4 mg IV Q4H PRN PRN PRN Reason: Nausea Oxycodone HCl (Oxycontin) 15 mg PO Q12H [facility] Last Admin: 02/01/18 22:45 Dose: 15 mg Oxycodone HCl (Oxyir) 5 mg PO Q4H PRN PRN PRN Reason: Moderate Pain (pain scale 4-5) Polyethylene Glycol (Miralax) 17 gm PO DAILY [facility] Prochlorperazine Maleate (Compazine Tablet) 5 mg PO Q6H PRN PRN PRN Reason: NAUSEA/VOMITING Sodium Chloride () 5 - 30 ml IV UD PRN PRN Reason: SALINE FLUSH Last Admin: 02/01/18 20:19 Dose: 10 ml Sodium Chloride () 10 ml IV UD PRN PRN Reason: VAD FLUSH Zolpidem Tartrate (Ambien (Generic)) 5 mg PO QHS PRN PRN PRN Reason: SLEEP Medical Necessity - Tobacco Use Smoking Status: Current some day smoker Assessment/Plan Active and Suspected Problems (Last Reviewed 01/23/18 @ 10:09 by Hali Altamirano) Mucositis (ulcerative) due to antineoplastic therapy (Acute) Left severe malignant pleural effusion (Acute) Acute on chronic respiratory failure with hypoxia and hypercapnia (Acute) CA breast with malignant effusion (Acute) 1. Acute hypoxic and hypercapnic respiratory failure * Multifactorial * Permanent due to the metastatic pleural effusion * May also be a component of gram-negative pneumonia, COPD. * Improving but still requiring BiPAP at this time. * Continue with Levaquin, pulmonary toilet, BiPAP. 2. Malignant pleural effusion * has required several thoracenteses. * Agent has expressed interest in a Pleurx catheter * Patient will be need to be more stable before she can undergo that procedure. 3. Suspected gram-negative pneumonia * We will need to evaluate and rule this out. Cultures still pending at this time. * Negative, then could discontinue antibiotics. 4. A. fib with RVR * Currently rate controlled * Continue amiodarone digoxin and metoprolol * Chads vasc score is 1 * On aspirin * No oral anticoagulants given history of hemothorax 5. Metastatic sarcoma * Dr. Prah is on consult. 6. DVT prophylaxis with SCDs. Code Visit Inpatient E&M: 30729 Subs Hosp L3
[2018-02-02] MEDS: CHLORHEXIDINE GLUC 2% CLOTH 1 EACH TOWELETTE TOPICAL (09:43)
[2018-02-02] MEDS: Metoprolol Tartrate 25 MG Tablet PO ×2 (10:07→22:20)
[2018-02-02] MEDS: Amiodarone 200 MG Tablet PO (10:07)
[2018-02-02] MEDS: Digoxin 125 MCG Tablet 62.5 MCG PO (10:07)
[2018-02-02] MEDS: Aspirin 81 MG TAB.CHEW PO (10:07)
[2018-02-02] MEDS: oxyCODONE CR 15 MG Tablet PO ×2 (10:08→22:23)
--- NOTE | 2018-02-02 10:20 | CASEMGMT ---
Intro role of CM to pt in room. She is wearing Bipap, is tired. RN CM offered to speak with re: dc planning, pt is agreeable. Intro role of CM to in waiting room. He states up to this admission pt has been independent, not using DME except for home oxygen through [employer]. Discussed PT/OT will be evaluating pt when medically stable and if Home care or DME is recommended, CM can assist. -SW consulted for emotional support. Gerald CONWAYN RN ACM
--- NOTE | 2018-02-02 10:44 | CASEMGMT ---
Addendum entered by Winter Peterson 02/02/18 11:01: SW spoke w/pt's outside of the ICU waiting room, offered support. talked about everything that happened yesterday, and how difficult this has been. He states that three weeks ago they were out in the garage laughing. states he does have a lot of family support, and many family members are here at present. SW spoke also w/ regarding living will and POA, he would rather wait until tomorrow to speak w/pt again about it tomorrow and let pt rest today. SW explained that if pt were to become confused again, without POA papers, he would be considered the POA. SW explained will have weekend SW speak w/pt about the POA papers tomorrow. expressed appreciation. SW did speak w/weekend SW, and she will check in w/pt tomorrow. SW remains available for support to pt and family. JAZZ Ventura, [employer] Original Note: SW participated in ICU rounds this morning. SW spoke w/pt briefly in room, pt's sister and niece are visiting. SW inquired about POA, pt states she has completed POA forms and her is POA, not interested in completing POA forms at this time. SW also just spoke w/pt's briefly in the hallway, will come back to speak w/ again. Terese Benson, patient navigator, had actually just started the POA forms yesterday but they are not completed. SW will speak w/pt again about this. JAZZ Ventura, [employer]
[2018-02-02] MEDS: Famotidine 20 MG Tablet PO ×2 (11:24→22:20)
[2018-02-02] MEDS: guaiFENesin 1,200 MG Tablet 1200 MG PO ×2 (11:24→22:20)
[2018-02-02 14:38] LABS: Pathologist Review Reviewed
--- NOTE | 2018-02-02 15:49 | CON.PCM_ITS ---
Consult Referring Physician: Evgeny Morris Consult Results: Metastatic sarcoma, Left pleural effusion, Respiratory failure. Subjective Date of Service:: 02/02/18 Chief Complaint: Shortness of Breath History of Present Illness: 63y.o woman with Metastatic Sarcoma, Left pleural effusion, history of tachyarrhythmia was found to be in respiratory distress in the clinic, sent to ER. She was found to have a large left pleural effusion and respiratory failure. She has L thoracentesis and placed on BiPAP machine. This morning when seen in the ICU, she has made remarkable progress and on O2 by nasal cannular. Past Medical History: Chronic Problems (Last Reviewed 01/23/18 @ 10:09 by Hali Altamirano) Left severe malignant pleural effusion (Chronic) GERD (gastroesophageal reflux disease) (Chronic) Tobacco dependence due to cigarettes (Chronic) Insomnia (Chronic) Depression (Chronic) Breast cancer (Chronic) left, for port removal PAF (paroxysmal atrial fibrillation) (Chronic) Bone metastases (Chronic) Sarcoma of left thigh (Chronic) Metastatic neoplastic disease (Chronic) Cough (Chronic) Left axillary pain (Chronic) Chemotherapy management, encounter for (Chronic) Anemia associated with chemotherapy (Chronic) Past Medical/Surgical History: Past Medical History - Most Recent Inpatient Visit Past Medical History Start: 02/01/18 15: 10 Text: Status: Complete Freq: Protocol: [place] 02/01/18 15:12 [facility] [place] 02/01/18 15:27 [facility] [id number] BMI Required to complete PMH What is Patient's BMI 29.4 Past Medical History Unable History Recalled No Query Text:Pt Unable/Family Not Present Neurologic Medical History Hx Stroke/TIA No Hx Dementia/Alzheimer's No Hx Parkinson's Disease No Hx Seizures No Hx Multiple Sclerosis No Hx Migraines No Cardiac Medical History VTE Present on Admission No Hx of Deep Vein Thrombosis/VTE/PE No Hx Hypertension No Hx Chest Pain/Angina No Hx Heart Attack No Hx Cardiac Surgery/Stents/Etc. No Hx Heart Failure No Hx Pacemaker/AICD No Hx Irregular Heartbeat and/or Afib Yes: HX OF AFIB Hx Anticoagulant Therapy Yes: ASA Query Text:(Coumadin, Aspirin, Plavix, Xarelto, etc.) Hx Pain in Legs when Walking/Leg Cramps No Respiratory Medical History Hx COPD Yes: wears home o2 Hx Emphysema No Hx Smoking Yes: 1/2 PPD 35 YRS Smoking Status Current some day smoker Hx Tobacco Use in last 12 months Yes Sent to [facility] Yes Hx Sleep Apnea No CPAP No BIPAP No Do you snore loudly (louder than talking No or can be heard through closed doors)? Do you often feel tired/ fatigued/ Yes sleepy during daytime? Has anyone observed you stop breathing No during sleep? STOP Results Negative Comments frequent pleural effusions GI Medical History Hx Ulcer No Hx Hepatitis No Hx Cirrhosis No Hx GI Bleed No Hx Unplanned Weight Loss No Genitourinary Medical History Indwelling Catheter in Place on Arrival/ No Admission Hx Renal Disease No Hx Dialysis No Musculoskeletal History Hx Arthritis No Hx Rheumatoid Arthritis No Endocrine Medical History Hx Diabetes No Hx Thyroid Disease No Hematologic Medical History Hx of Blood Transfusion Yes Hx of Transfusion in last 3 Months No Ever experience any problems with No transfusion(s)? Hx of Preganancy in last 3 Months No Nurse Filling Out Transfusion & SGESSEL Questions: Date: 02/01/18 Time: 15:25 Psycho/Social Medical History Hx Depression Yes Hx Anxiety Yes: ON MEDS Hx Behavior Disorder No Hx Alcohol Use No Hx Substance Use No Other Medical History Hx Blood Disorders No Hx Anemia Yes Hx Cancer Yes: sarcoma and breast and lung cancer Hx Drug Resistant Organism No Wound/Pressure Injury Present on Arrival No: to be assessed per primary /Admission rn Query Text:If yes, chart assessment in Shift/Clinical Findings Central Line/PICC/VAD Present on Arrival Yes /Admission Antibiotics within last 7 days? Yes Name of Antibiotic (Include dose/# days keflex taken if known) Last day ATB taken 01/31/18 Comments last chemo 01/30/2018 Risk for Readmission Number of Risk Factors 6 At Risk for Readmission Patient is At Risk For Readmission Patient is eligible for Call Back Y Past Medical History (Last Reviewed 01/23/18 @ 10:09 by Hali Altamirano) Osteopenia (Acute) Osteosarcoma (Acute) med port placement (Acute) replacement of hardware in right femur (Acute) Past Surgical History (Last Reviewed 01/23/18 @ 10:09 by Hali Altamirano) History of breast surgery (Acute) History of hysterectomy (Acute) History of lumpectomy (Acute) History of lung biopsy (Acute) Maternal Family History: Family History (Last Reviewed 01/23/18 @ 10:09 by Hali Altamirano) Father Liver disease Mother Diabetes Heart disease Family History: Diabetes Paternal Family History: Family History (Last Reviewed 01/23/18 @ 10:09 by Hali Altamirano) Father Liver disease Mother Diabetes Heart disease Family History: - - of cirrhosis - Social History Smoking Status: Current some day smoker Allergies/Adverse Reactions: Allergy/AdvReac Type Severity Reaction Status Date / Time Penicillins Allergy Intermediate Hives Verified 02/01/18 12:44 mirtazapine AdvReac Severe mental Verified 02/01/18 12:44 changes Home Medications Medication Instructions Recorded Escitalopram Oxalate [Lexapro] 20 mg PO DAILY 09/21/15 Multivitamin [Daily Multiple 1 each PO DAILY 10/01/15 Vitamin] Aspirin [Aspirin, Baby] 81 mg PO DAILY@0800 01/20/18 Cephalexin [Keflex] 500 mg PO BID 01/20/18 Metoprolol Tartrate [Lopressor 25 mg PO BID 01/20/18 (beta onur)] Oxygen, Home [Home Oxygen] 2 - 4 lpm NASAL CONT #1 unit 01/21/18 proCHLORPERazine tablet [Compazine 5 mg PO Q6H PRN PRN #60 tab 01/23/18 tablet] Amiodarone HCl [Cordarone] 200 mg PO DAILY 02/01/18 Amitriptyline HCl [Elavil] 10 mg PO QHS 02/01/18 Digoxin [Lanoxin] 62.5 mcg PO DAILY 02/01/18 Dronabinol [Marinol] 2.5 mg PO BIDAC 02/01/18 Fluconazole [Diflucan] 200 mg PO DAILY 02/01/18 Magic Mouth Wash 10 ml PO 4X/DAY 02/01/18 Oxycodone CR [Oxycontin] 15 mg PO Q12H 02/01/18 Oxycodone [Oxyir] 5 mg PO Q6H PRN 02/01/18 Review of Systems Constitutional:: Reports: Weakness, Fatigue. Denies: Fever, Sweats Cardiovascular:: Denies: Chest pain, Palpitations, Dyspnea on exertion, Orthopnea, PND, Shortness of breath Respiratory: Denies: Cough, Hemoptysis, Shortness of Breath, Wheezing Gastrointestinal:: Denies: Abdominal pain, Nausea, Vomiting, Diarrhea, Constipation, Hematochezia Genitourinary: Denies: Dysuria, Hematuria, 15, Flank pain Musculoskeletal:: Denies: Back pain, Myalgia, Arthralgia Skin: Denies: Rash, Skin Changes, Wounds Neurological:: Denies: Headache, Dizziness, Visual changes, Tinnitus, Hearing loss Psychiatric: Denies: Anxiety, Depression, Homicidal Ideations, Suicidal Ideations Vital Signs Height 5 ft 7 in Weight: 78.7 kg Weight in Pounds 173.5 lbs Pulse Ox 97 Temperature 97.7 F Pulse Rate 114 Respiratory Rate 25 Blood Pressure [BP] 99/47 Blood Pressure 135/70 Blood Pressure Position [BP] Sitting Blood Pressure Position Semi-Fowlers - Physical Exam General: Alert, Oriented x3, No apparent distress Laboratory Data: Microbiology 02/01/18 19:30 Respiratory Panel (PCR) - Final Mucosa - Nasopharyngeal 02/01/18 19:30 Streptococcus pneumoniae Antigen (M - Final Urine, Clean Catch 02/01/18 19:30 Legionella Antigen - Final Urine, Clean Catch Laboratory Tests 3 02/02/18 02/02/18 02/02/18 Range/Units 06:58 06:38 06:38 WBC 2.1 L (4.4-11.0) K/mm3 RBC 2.36 L (4.2-5.4) M/mm3 Hgb 7.2 L (12.0-15.0) g/dl Hct 23.4 L (37-47) % MCV 99.2 H (81-99) fL MCH 30.5 (27.0-32.0) pg MCHC 30.8 L (32-36) g/gl RDW 19.5 H (11.6-14.6) % RDW Differential 70.6 H (35.1-43.9) fl Plt Count 40 L* (150-450) K/mm3 MPV 12.6 H (6.2-12.0) fl Neut % (Auto) Not Reportable Absolute Neuts (auto) 1.2 L (2.0-7.7) X10^3/uL Absolute Lymphs (auto) 0.51 L (0.83-4.51) X10^3/ul Total Counted 100 (MANUAL DIFF) Neutrophils % (Manual) 27 L (47-70) % Band Neutrophils % 33 H (0-5) % Lymphocytes % (Manual) 25 (19-41) % Monocytes % (Manual) 3 (0-10) % Metamyelocytes % 6 H (0-1) % Myelocytes % 3 H (0-0) Blast Cells % 2 H* (0-0) % Plasma Cell % (Manual) 1 % Nucleated RBCs/100 WBC 1 (0-5) % Diff Path Review Reviewed Platelet Estimate MOD DEC (ADEQ) Plt Morphology Comment LARGE Anisocytosis 1+ Specimen Type ART Sample Site R Radial pH 7.43 (7.35-7.45) Bicarbonate Actual 29.1 H (22-26) mmol/L POC Total CO2 30 mmol/L Base Excess 5 H (-2 to +2) mmol/L O2 Saturation 94 L (95-99) % O2 % 45 ABG pCO2 43.6 (35-45) mmHg ABG pO2 69 L (75-100) mmHG Remigio Test POS O2 Delivery Device Bi / C PAP EPAP 6 IPAP 12 Blood Gas Notified Whom ICU Blood Gas Notified Time 701 Sodium 138 (136-145) mmol/L Potassium 4.3 (3.5-5.1) mmol/L Chloride 102 (98-107) mmol/L Carbon Dioxide 31.0 (21.0-32.0) mmol/L Anion Gap 5 (5-15) BUN 21 H (7-18) mg/dL Creatinine 0.61 (0.55-1.02) mg/dL Estim Creat Clear Calc 90.60 ml/min Est GFR (MDRD) Af Amer 126 (>60) mL/min Est GFR (MDRD) Non-Af 104 (>60) mL/min BUN/Creatinine Ratio 34.2 H (10-20) RATIO Glucose 67 L (74-106) mg/dL Lactic Acid (0.4-2.0) mmol/L Calcium 8.9 (8.5-10.1) mg/dL Phosphorus 1.5 L (2.5-4.9) mg/dL Magnesium 2.2 (1.6-2.6) mg/dL Urine Color (Yellow) Urine Clarity (Clear) Urine pH (5.0 - 8.0) Ur Specific [place] (1.002-1.030) Urine Protein (Negative) mg/dl Urine Glucose (UA) (Normal) mg/dl Urine Ketones (Negative) mg/dl Urine Occult Blood (Negative) /ul Urine Nitrite (Negative) Urine Bilirubin (Negative) mg/dL Urine Urobilinogen (Normal) mg/dl Ur Leukocyte Esterase (Negative) /ul MRSA (PCR) (Negative) 3 02/01/18 02/01/18 02/01/18 Range/Units 23:25 19:30 18:05 WBC (4.4-11.0) K/mm3 RBC (4.2-5.4) M/mm3 Hgb (12.0-15.0) g/dl Hct (37-47) % MCV (81-99) fL MCH (27.0-32.0) pg MCHC (32-36) g/gl RDW (11.6-14.6) % RDW Differential (35.1-43.9) fl Plt Count (150-450) K/mm3 MPV (6.2-12.0) fl Neut % (Auto) Absolute Neuts (auto) (2.0-7.7) X10^3/uL Absolute Lymphs (auto) (0.83-4.51) X10^3/ul Total Counted (MANUAL DIFF) Neutrophils % (Manual) (47-70) % Band Neutrophils % (0-5) % Lymphocytes % (Manual) (19-41) % Monocytes % (Manual) (0-10) % Metamyelocytes % (0-1) % Myelocytes % (0-0) Blast Cells % (0-0) % Plasma Cell % (Manual) % Nucleated RBCs/100 WBC (0-5) % Diff Path Review Platelet Estimate (ADEQ) Plt Morphology Comment Anisocytosis Specimen Type Sample Site pH (7.35-7.45) Bicarbonate Actual (22-26) mmol/L POC Total CO2 mmol/L Base Excess (-2 to +2) mmol/L O2 Saturation (95-99) % O2 % ABG pCO2 (35-45) mmHg ABG pO2 (75-100) mmHG Remigio Test O2 Delivery Device EPAP IPAP Blood Gas Notified Whom Blood Gas Notified Time Sodium (136-145) mmol/L Potassium (3.5-5.1) mmol/L Chloride (98-107) mmol/L Carbon Dioxide (21.0-32.0) mmol/L Anion Gap (5-15) BUN (7-18) mg/dL Creatinine (0.55-1.02) mg/dL Estim Creat Clear Calc ml/min Est GFR (MDRD) Af Amer (>60) mL/min Est GFR (MDRD) Non-Af (>60) mL/min BUN/Creatinine Ratio (10-20) RATIO Glucose (74-106) mg/dL Lactic Acid 1.7 (0.4-2.0) mmol/L Calcium (8.5-10.1) mg/dL Phosphorus (2.5-4.9) mg/dL Magnesium (1.6-2.6) mg/dL Urine Color Yellow (Yellow) Urine Clarity Sl. Cloudy (Clear) Urine pH 5.0 (5.0 - 8.0) Ur Specific [place] 1.025 (1.002-1.030) Urine Protein 30 H (Negative) mg/dl Urine Glucose (UA) Normal (Normal) mg/dl Urine Ketones 15 H (Negative) mg/dl Urine Occult Blood Negative (Negative) /ul Urine Nitrite Negative (Negative) Urine Bilirubin Negative (Negative) mg/dL Urine Urobilinogen Normal (Normal) mg/dl Ur Leukocyte Esterase Negative (Negative) /ul MRSA (PCR) Negative (Negative) Diagnostic Data: Diagnostic Data Thoracentesis Ultrasound 02/01/18 13:25 IMPRESSION: Successful ultrasound-guided thoracentesis. Electronically Signed: Miguel Miranda MD at 15:34 EDT Tel , Service support , Chest X-Ray 02/02/18 05:55 IMPRESSION: 1. Decreased left pleural effusion. 2. There is no evidence of pneumothorax. Electronically Signed: Miguel Miranda MD at 9:55 EDT Tel , Service support , Assessment and Plan Metastatic Sarcoma, Large Left pleural effusion s/p thoracentesis. Respiratory failure, improving. Suggestion is continue current supportive management of respiratory failure. If she becomes stable, discharge home for outpatient follow up at [facility]. Thank you. Medications: Prescriptions This Visit Medication Instructions Recorded Amiodarone HCl [Cordarone] 200 mg PO DAILY 02/01/18 Amitriptyline HCl [Elavil] 10 mg PO QHS 02/01/18 Digoxin [Lanoxin] 62.5 mcg PO DAILY 02/01/18 Dronabinol [Marinol] 2.5 mg PO BIDAC 02/01/18 Fluconazole [Diflucan] 200 mg PO DAILY 02/01/18 Magic Mouth Wash 10 ml PO 4X/DAY 02/01/18 Oxycodone CR [Oxycontin] 15 mg PO Q12H 02/01/18 Oxycodone [Oxyir] 5 mg PO Q6H PRN 02/01/18 Medications Added to Medication List This Visit Category Date Time Status Amiodarone HCl [Cordarone] Med 02/02/18 10:00 Active 200 mg PO DAILY Aspirin [Aspirin, Baby] Med 02/02/18 08:00 Active 81 mg PO DAILY@0800 Chlorhexidine Gluc 2% Cloth Med 02/02/18 10:00 Active 1 each TOPICAL DAILY Digoxin [Lanoxin] Med 02/02/18 10:00 Active 62.5 mcg PO DAILY Ensure Enlive Med 02/02/18 14:00 Active 120 ml PO 4X/DAY Multivitamins,Therapeutic [Multivitamin] Med 02/02/18 08:00 Active 1 tablet PO DAILY@0800 Nicotine [Nicoderm Cq (PBKC)] Med 02/02/18 10:00 Active 21 mg TRANSDERM. DAILY Polyethylene Glycol 3350 [Miralax] Med 02/02/18 10:00 Active 17 gm PO DAILY Primary Care Provider: Elver Garcia MD Referring Provider: - Problem List (1) Acute on chronic respiratory failure with hypoxia and hypercapnia Status: Acute (2) Left severe malignant pleural effusion Status: Chronic (3) Metastatic neoplastic disease Status: Chronic Code Visit Office Visits / Consults: [id number] IP Consult L4
[2018-02-02] MEDS: Amitriptyline 10 MG Tablet PO (22:20)
[2018-02-03] VITALS (34 sets, daily range): BP systolic 81–135; BP diastolic 35–95; PULSE 90–145; RESP 12–29; TEMP 36.6–36.7; O2SAT 88–100
[2018-02-03 05:04] LABS: Hematocrit 25.2 % (37-47); Hemoglobin 7.8 g/dl (12.0-15.0); Mean Corpuscular Hgb 30.8 pg (27.0-32.0); Mean Corpuscular Volume 99.6 fL (81-99); Mean Platelet Vol. 11.4 fl (6.2-12.0); RBC Distribution Width CV 19.4 % (11.6-14.6); RBC Distribution Width SD 70.1 fl (35.1-43.9); Red Blood Count 2.53 M/mm3 (4.2-5.4); White Blood Count 5.4 K/mm3 (4.4-11.0)
[2018-02-03 05:05] LABS: Differential Indicated MANUAL DIFF; POSITIVE COUNT YES; POSITIVE DIFFERENTIAL YES; POSITIVE MORPHOLOGY YES; Platelet Count 46 K/mm3 (150-450)
[2018-02-03 05:21] LABS: Anion Gap 6 (5-15); BUN 14 mg/dL (7-18); BUN/Creat Ratio 29.7 RATIO (10-20); Calcium,Total 8.8 mg/dL (8.5-10.1); Chloride 102 mmol/L (98-107); Creatinine, Serum 0.47 mg/dL (0.55-1.02); EST Glomerular Filtration Rate 141 mL/min (>60); Est Glom Filt Rate - Afr Amer 171 mL/min (>60); Estimated Creatinine Clearance 117.59 ml/min; Glucose 87 mg/dL (74-106); Potassium 3.7 mmol/L (3.5-5.1); Sodium Level 140 mmol/L (136-145)
[2018-02-03 05:26] LABS: Lymphocyte 8 % (19-41); Metamyelocyte 5 % (0-1); Monocyte 9 % (0-10); Neutrophil-Band 32 % (0-5); Neutrophil-Segmented 46 % (47-70); Total Cells Counted 100 (MANUAL DIFF)
[2018-02-03 05:39] LABS: Absolute Neutrophil Count 4.5 X10^3/uL (2.0-7.7); Neutrophil # 4.48 X10^3/uL (2.7-7.7)
[2018-02-03 05:40] LABS: Absolute Lymphocyte Count 0.43 X10^3/ul (0.83-4.51); Lymphocyte # 0.43 X10^3/ul (4.0)
[2018-02-03 05:42] LABS: Dohle Bodies 1+; Platelet Estimate MKD DEC (ADEQ); Toxic Granulation 1+
[2018-02-03 05:43] LABS: Anisocytosis 1+; Hypochromasia RARE; Polychromasia RARE
--- NOTE | 2018-02-03 06:40 | PCM.PN.INT ---
Subjective: Patient did well overnight. Patient reports subjective improvement in overall condition. Patient did wear BiPAP with sleep, but otherwise was tolerating nasal cannula oxygen. No acute blood loss has been noted. No fevers noted overnight. General: Alert, Oriented x3, Cooperative, No apparent distress, - - Speaking in full sentences. Good BiPAP synchrony. HEENT: Atraumatic, PERRLA, EOMI, Normocephalic, - - Slightly pale conjunctival, without icterus or injection Oral: Moist Mucosa, No Gingival or Mucosal Lesions/ Ulcerations Neck: Supple, No JVD, No Nodes, Trachea Midline Lungs: No rhonchi, No wheeze, No rales, Diminished, - - Dullness to percussion at the left lung base Cardiovascular: Normal S1, Normal S2, No murmurs, Irregular Rate, No rub noted, No Gallop Abdomen: Bowel Sounds Present, Soft, Non Tender, Non-Distended Extremities: No clubbing, No cyanosis, Capillary Refill Less than 3 Seconds, Edema Skin: - - No significant change compared to previous Musculoskeletal: No Tenderness to Palpation of Joints or Extremities Lymphatic: No Cervical, Supraclavicular, or Inguinal Adenopathy Neurological: Cranial nerves II-XII grossly intact, Neuro grossly intact, Motor Exam 5/5 strength throughout Psych/Mental Status: Alert and oriented to time, place, person, mood and affect Vital Signs Temp Pulse Resp BP Pulse Ox 36.6 C 109 H 21 H 110/38 L 95 02/03/18 04:00 02/03/18 06:00 02/03/18 06:00 02/03/18 06:00 02/03/18 06:00 Oxygen Flow Rate (L/min) 6 Oxygen Delivery Method Bi-pap Weight: 78.9 kg Body Mass Index (BMI) 26.6 Intake and Output for Last 24 Hours 02/01/18 02/02/18 02/03/18 23:59 23:59 23:59 Intake Total 1157 / 1157 2289 / 2289 941 / 941 Output Total 275 / 275 1100 / 1100 200 / 200 Balance 882 / 882 1189 / 1189 741 / 741 Labs (Last 48 Hours) 02/01/18 02/01/18 02/01/18 18:05 19:30 23:25 WBC RBC Hgb Hct MCV MCH MCHC RDW RDW Differential Plt Count MPV Neut % (Auto) Absolute Neuts (auto) Absolute Lymphs (auto) Total Counted Neutrophils % (Manual) Band Neutrophils % Lymphocytes % (Manual) Monocytes % (Manual) Metamyelocytes % Myelocytes % Blast Cells % Plasma Cell % (Manual) Nucleated RBCs/100 WBC Diff Path Review Toxic Granulation Dohle Bodies Platelet Estimate Plt Morphology Comment Polychromasia Hypochromasia Anisocytosis Specimen Type Sample Site pH Bicarbonate Actual POC Total CO2 Base Excess O2 Saturation O2 % ABG pCO2 ABG pO2 Remigio Test O2 Delivery Device EPAP IPAP Blood Gas Notified Whom Blood Gas Notified Time Sodium Potassium Chloride Carbon Dioxide Anion Gap BUN Creatinine Estim Creat Clear Calc Est GFR (MDRD) Af Amer Est GFR (MDRD) Non-Af BUN/Creatinine Ratio Glucose Lactic Acid 1.7 Calcium Phosphorus Magnesium Urine Color Yellow Urine Clarity Sl. Cloudy Urine pH 5.0 Ur Specific [place] 1.025 Urine Protein 30 H Urine Glucose (UA) Normal Urine Ketones 15 H Urine Occult Blood Negative Urine Nitrite Negative Urine Bilirubin Negative Urine Urobilinogen Normal Ur Leukocyte Esterase Negative MRSA (PCR) Negative 02/02/18 02/02/18 02/02/18 06:38 06:38 06:58 WBC 2.1 L RBC 2.36 L Hgb 7.2 L Hct 23.4 L MCV 99.2 H MCH 30.5 MCHC 30.8 L RDW 19.5 H RDW Differential 70.6 H Plt Count 40 L* MPV 12.6 H Neut % (Auto) Not Reportable Absolute Neuts (auto) 1.2 L Absolute Lymphs (auto) 0.51 L Total Counted 100 Neutrophils % (Manual) 27 L Band Neutrophils % 33 H Lymphocytes % (Manual) 25 Monocytes % (Manual) 3 Metamyelocytes % 6 H Myelocytes % 3 H Blast Cells % 2 H* Plasma Cell % (Manual) 1 Nucleated RBCs/100 WBC 1 Diff Path Review Reviewed Toxic Granulation Dohle Bodies Platelet Estimate MOD DEC Plt Morphology Comment LARGE Polychromasia Hypochromasia Anisocytosis 1+ Specimen Type ART Sample Site R Radial pH 7.43 Bicarbonate Actual 29.1 H POC Total CO2 30 Base Excess 5 H O2 Saturation 94 L O2 % 45 ABG pCO2 43.6 ABG pO2 69 L Remigio Test POS O2 Delivery Device Bi / C PAP EPAP 6 IPAP 12 Blood Gas Notified Whom ICU Blood Gas Notified Time 701 Sodium 138 Potassium 4.3 Chloride 102 Carbon Dioxide 31.0 Anion Gap 5 BUN 21 H Creatinine 0.61 Estim Creat Clear Calc 90.60 Est GFR (MDRD) Af Amer 126 Est GFR (MDRD) Non-Af 104 BUN/Creatinine Ratio 34.2 H Glucose 67 L Lactic Acid Calcium 8.9 Phosphorus 1.5 L Magnesium 2.2 Urine Color Urine Clarity Urine pH Ur Specific [place] Urine Protein Urine Glucose (UA) Urine Ketones Urine Occult Blood Urine Nitrite Urine Bilirubin Urine Urobilinogen Ur Leukocyte Esterase MRSA (PCR) 02/03/18 02/03/18 04:50 04:50 WBC 5.4 RBC 2.53 L Hgb 7.8 L Hct 25.2 L MCV 99.6 H MCH 30.8 MCHC 31.0 L RDW 19.4 H RDW Differential 70.1 H Plt Count 46 L* MPV 11.4 Neut % (Auto) Not Reportable Absolute Neuts (auto) 4.5 Absolute Lymphs (auto) 0.43 L Total Counted 100 Neutrophils % (Manual) 46 L Band Neutrophils % 32 H Lymphocytes % (Manual) 8 L Monocytes % (Manual) 9 Metamyelocytes % 5 H Myelocytes % Blast Cells % Plasma Cell % (Manual) Nucleated RBCs/100 WBC Diff Path Review May foll Toxic Granulation 1+ Dohle Bodies 1+ Platelet Estimate MKD DEC Plt Morphology Comment Polychromasia RARE Hypochromasia RARE Anisocytosis 1+ Specimen Type Sample Site pH Bicarbonate Actual POC Total CO2 Base Excess O2 Saturation O2 % ABG pCO2 ABG pO2 Remigio Test O2 Delivery Device EPAP IPAP Blood Gas Notified Whom Blood Gas Notified Time Sodium 140 Potassium 3.7 Chloride 102 Carbon Dioxide 32.0 Anion Gap 6 BUN 14 Creatinine 0.47 L Estim Creat Clear Calc 117.59 Est GFR (MDRD) Af Amer 171 Est GFR (MDRD) Non-Af 141 BUN/Creatinine Ratio 29.7 H Glucose 87 Lactic Acid Calcium 8.8 Phosphorus Magnesium Urine Color Urine Clarity Urine pH Ur Specific [place] Urine Protein Urine Glucose (UA) Urine Ketones Urine Occult Blood Urine Nitrite Urine Bilirubin Urine Urobilinogen Ur Leukocyte Esterase MRSA (PCR) Microbiology 02/01/18 19:30 Mucosa - Nasopharyngeal Respiratory Panel (PCR) - Final 02/01/18 19:30 Urine, Clean Catch Streptococcus pneumoniae Antigen (M - Final 02/01/18 19:30 Urine, Clean Catch Legionella Antigen - Final Clinical Impression(s) from Imaging Studies Chest X-Ray 02/02/18 05:55 IMPRESSION: 1. Decreased left pleural effusion. 2. There is no evidence of pneumothorax. Electronically Signed: Miguel Miranda MD at 9:55 EDT Tel , Service support , Medical Necessity - Tobacco Use Smoking Status: Current some day smoker Assessment/Plan Active and Suspected Problems (Last Reviewed 01/23/18 @ 10:09 by Hali Altamirano) Mucositis (ulcerative) due to antineoplastic therapy (Acute) Acute on chronic respiratory failure with hypoxia and hypercapnia (Acute) CA breast with malignant effusion (Acute) RECOMMENDATIONS: 1. Consider consultation with Dr. Benavides 2. BiPAP with sleep only 3. No further thoracentesis, possible placement of Pleurx catheter in the future 4. Wean oxygen as tolerated 5. Discontinue antibiotics once cultures negative at 48 hours 6. GI/DVT prophylaxis 7. Possible transition out of the intensive care unit later today IMPRESSIONS: 1. Acute on chronic combined respiratory failure secondary to malignant effusion Patient appears to be responding appropriately to BiPAP therapy following thoracentesis. Given patient's recurrent pleural effusions with malignant etiology, patient may be best served by placement of a Pleurx catheter. Would allow reaccumulation of fluid to minimize risk of complication. Patient is to BiPAP overnight, which is likely appropriate in the acute setting. Patient's respiratory status is much improved. 2. A. fib with RVR Patient currently in with highly variable rhythm and some rapid response noted. Patient did have significant tachycardia on presentation with hypoxemia. Patient has seen Dr. Benavides in the past. Defer to hospitalist on whether he should be involved at this time. Patient has received significant digoxin. 3. Breast cancer/sarcoma with current chemotherapy Multiple complications with chemotherapy including mucositis, bone marrow suppression and alopecia. Patient is followed by Dr. Marinelli as an outpatient. Patient is very clear that she wants to be a full code. Patient is able to tolerate p.o. intake with Magic mouthwash. 4. Insomnia/depression/pancytopenia secondary to chemotherapy/current chemotherapy Complicates care, management, recovery and prognosis. Likely okay to continue with baseline medications for now. No indications for transfusion at this time. Monitor for bleeding complications. Code Visit Inpatient E&M: 59951 Subs Hosp L3
[2018-02-03] MEDS: 0.9% Normal Saline 1,000 ML 75 ML IV (10:00)
[2018-02-03] MEDS: guaiFENesin 1,200 MG Tablet 1200 MG PO ×2 (10:03→21:18)
[2018-02-03] MEDS: oxyCODONE CR 15 MG Tablet PO ×2 (10:04→21:19)
[2018-02-03] MEDS: Famotidine 20 MG Tablet PO ×2 (10:04→21:17)
[2018-02-03] MEDS: Digoxin 125 MCG Tablet 62.5 MCG PO (10:04)
[2018-02-03] MEDS: Metoprolol Tartrate 25 MG Tablet PO ×2 (10:04→21:17)
[2018-02-03] MEDS: Amiodarone 200 MG Tablet PO (10:05)
[2018-02-03] MEDS: Dronabinol 2.5 MG Capsule PO ×2 (10:05→18:07)
[2018-02-03] MEDS: Multivitamins,Therapeutic Tablet 1 TABLET PO (10:06)
[2018-02-03] MEDS: Aspirin 81 MG TAB.CHEW PO (10:06)
--- NOTE | 2018-02-03 10:17 | PCM.PN.HOSP ---
Patient Problems: Active and Suspected Problems (Last Reviewed 01/23/18 @ 10:09 by Hali Altamirano) Mucositis (ulcerative) due to antineoplastic therapy (Acute) Acute on chronic respiratory failure with hypoxia and hypercapnia (Acute) CA breast with malignant effusion (Acute) Subjective: Taken off of BiPAP. Currently on 6 L nasal cannula and patient denying any shortness of breath at this time. Vitals/I&O's: Vital Signs Temp Pulse Resp BP Pulse Ox 36.6 C 119 H 17 110/38 L 95 02/03/18 04:00 02/03/18 10:04 02/03/18 06:25 02/03/18 06:00 02/03/18 09:15 Oxygen Flow Rate (L/min) 6 Oxygen Delivery Method Nasal Cannula Weight: 78.9 kg Body Mass Index (BMI) 26.6 Intake and Output for Last 24 Hours 02/01/18 02/02/18 02/03/18 23:59 23:59 23:59 Intake Total 1157 / 1157 2289 / 2289 941 / 941 Output Total 275 / 275 1100 / 1100 200 / 200 Balance 882 / 882 1189 / 1189 741 / 741 General: Alert, Cooperative, No apparent distress HEENT: Atraumatic, Normocephalic Neck: No Nodes, Thyroid Normal Size and Texture Lungs: Diminished, - - Bibasilar crackles. Dullness to percussion in the left lower lobe. Cardiovascular: Normal S1, Normal S2, Tachycardic Abdomen: Bowel Sounds Present, Soft, Non Tender, Non-Distended, No Hepato-splenomegaly Extremities: No edema, No Calf Tenderness Skin: - - Some petechiae on the lower extremities. Musculoskeletal: No Tenderness to Palpation of Joints or Extremities, No Muscle Wasting Neurological: Neuro grossly intact, Sensory exam intact to light touch and pain Psych/Mental Status: Normal Affect, Appropriate Microbiology Past 72 Hours 02/01/18 19:30 Mucosa - Nasopharyngeal Respiratory Panel (PCR) - Final 02/01/18 19:30 Urine, Clean Catch Streptococcus pneumoniae Antigen (M - Final 02/01/18 19:30 Urine, Clean Catch Legionella Antigen - Final Laboratory Results 02/02/18 06:38: Diff Path Review Reviewed 02/03/18 04:50: WBC 5.4, RBC 2.53 L, Hgb 7.8 L, Hct 25.2 L, MCV 99.6 H, MCH 30.8, MCHC 31.0 L, RDW 19.4 H, RDW Differential 70.1 H, Plt Count 46 L*, MPV 11.4, Neut % (Auto) Not Reportable, Absolute Neuts (auto) 4.5, Absolute Lymphs (auto) 0.43 L, Total Counted 100, Neutrophils % (Manual) 46 L, Band Neutrophils % 32 H, Lymphocytes % (Manual) 8 L, Monocytes % (Manual) 9, Metamyelocytes % 5 H, Diff Path Review May foll, Toxic Granulation 1+, Dohle Bodies 1+, Platelet Estimate MKD DEC, Polychromasia RARE, Hypochromasia RARE, Anisocytosis 1+ 02/03/18 04:50: Sodium 140, Potassium 3.7, Chloride 102, Carbon Dioxide 32.0, Anion Gap 6, BUN 14, Creatinine 0.47 L, Estim Creat Clear Calc 117.59, Est GFR (MDRD) Af Amer 171, Est GFR (MDRD) Non-Af 141, BUN/Creatinine Ratio 29.7 H, Glucose 87, Calcium 8.8 Current Medications Acetaminophen (Tylenol) 650 mg PO Q4H PRN PRN PRN Reason: FEVER,MILD-MOD PAIN,HEADACHE Al Hydroxide/Mg Hydroxide (Mylanta Ii) 30 ml PO Q6H PRN PRN PRN Reason: Gastric Burning Albuterol Sulfate (Ventolin Aerosols) 2.5 mg INHALATION Q2H PRN PRN PRN Reason: SHORTNESS OF BREATH Amiodarone HCl (Cordarone) 200 mg PO DAILY [facility] Last Admin: 02/03/18 10:05 Dose: 200 mg Amitriptyline HCl (Elavil) 10 mg PO QHS [facility] Last Admin: 02/02/18 22:20 Dose: 10 mg Aspirin (Aspirin, Baby) 81 mg PO DAILY@0800 [facility] Last Admin: 02/03/18 10:06 Dose: 81 mg Bisacodyl (Dulcolax) 10 mg RECTAL DAILY PRN PRN PRN Reason: Constipation Chlorhexidine Gluconate () 1 each TOPICAL DAILY [facility] Last Admin: 02/02/18 09:43 Dose: 1 each Digoxin (Lanoxin) 62.5 mcg PO DAILY [facility] Last Admin: 02/03/18 10:04 Dose: 62.5 mcg Docusate Sodium (Colace) 200 mg PO BID PRN PRN PRN Reason: Constipation Dronabinol (Marinol) 2.5 mg PO BIDAC [facility] Last Admin: 02/03/18 10:05 Dose: 2.5 mg Famotidine (Pepcid) 20 mg PO BID [facility] Last Admin: 02/03/18 10:04 Dose: 20 mg Guaifenesin (Mucinex) 1,200 mg PO BID [facility] Last Admin: 02/03/18 10:03 Dose: 1,200 mg Heparin Sodium (Beef Lung) (Heparin 500 Unit/5 Ml (100/Ml)) 500 unit IV UD PRN PRN Reason: HEPARIN FLUSH Levofloxacin 750 mg/ N/A 150 mls @ 100 mls/hr IV DAILY [facility] Last Admin: 02/02/18 09:36 Dose: 100 mls/hr Sodium Chloride () 1,000 mls @ 75 mls/hr IV .[id number] [facility] Last Admin: 02/03/18 10:00 Dose: 75 mls/hr Fluconazole (Diflucan) 200 mg in 100 mls @ 100 mls/hr IV DAILY [facility] Last Admin: 02/03/18 10:01 Dose: 100 mls/hr Lidocaine/Diphenhydr/Alum/Mg/Simeth () 10 ml PO 4X/DAY [facility] Last Admin: 02/03/18 09:57 Dose: 10 ml Metoprolol Tartrate (Lopressor (Beta Sonny)) 25 mg PO BID [facility] Last Admin: 02/03/18 10:04 Dose: 25 mg Morphine Sulfate () 1 - 2 mg IV Q4H PRN PRN PRN Reason: Moderate Pain (pain scale 4-5) Multivitamins (Multivitamin) 1 tablet PO DAILY@0800 [facility] Last Admin: 02/03/18 10:06 Dose: 1 tablet Nicotine (Nicoderm Cq (Pbkc)) 21 mg TRANSDERM. DAILY [facility] Last Admin: 02/03/18 10:00 Dose: 21 mg Nutritional Formula (Lactose Free) (Ensure Enlive) 120 ml PO 4X/DAY [facility] Last Admin: 02/03/18 10:12 Dose: 120 ml Ondansetron HCl (Zofran) 4 mg IV Q4H PRN PRN PRN Reason: Nausea Oxycodone HCl (Oxycontin) 15 mg PO Q12H [facility] Last Admin: 02/03/18 10:04 Dose: 15 mg Oxycodone HCl (Oxyir) 5 mg PO Q4H PRN PRN PRN Reason: Moderate Pain (pain scale 4-5) Polyethylene Glycol (Miralax) 17 gm PO DAILY [facility] Last Admin: 02/03/18 10:06 Dose: Not Given Prochlorperazine Maleate (Compazine Tablet) 5 mg PO Q6H PRN PRN PRN Reason: NAUSEA/VOMITING Sodium Chloride () 5 - 30 ml IV UD PRN PRN Reason: SALINE FLUSH Last Admin: 02/01/18 20:19 Dose: 10 ml Sodium Chloride () 10 ml IV UD PRN PRN Reason: VAD FLUSH Zolpidem Tartrate (Ambien (Generic)) 5 mg PO QHS PRN PRN PRN Reason: SLEEP Medical Necessity - Tobacco Use Smoking Status: Current some day smoker Assessment/Plan Active and Suspected Problems (Last Reviewed 01/23/18 @ 10:09 by Hali Altamirano) Mucositis (ulcerative) due to antineoplastic therapy (Acute) Acute on chronic respiratory failure with hypoxia and hypercapnia (Acute) CA breast with malignant effusion (Acute) 1. Acute hypoxic and hypercapnic respiratory failure Multifactorial Primarily due to the metastatic pleural effusion May also be a component of gram-negative pneumonia, COPD. Improving but still requiring BiPAP at this time. Continue with Levaquin, pulmonary toilet, BiPAP. 2. Malignant pleural effusion has required several thoracenteses. Discussed Pleurx catheter patient and her family. Discussed the risks and benefits and the primary reason for it is for palliation and has no curative intent. They seemed interested. They are aware that she would not have anything until early next week in regards to placement if they so decided on it. Patient will be need to be more stable before she can undergo that procedure. 3. Suspected gram-negative pneumonia We will need to evaluate and rule this out. Cultures still pending at this time. Negative, then could discontinue antibiotics. 4. A. fib with RVR Heart rate back up. Feel part of this is reactive given the patient's other medical issues. Would hold off on further cardiology evaluation at this time but try to treat the underlying processes. Continue amiodarone digoxin and metoprolol Chads vasc score is 1 On aspirin No oral anticoagulants given history of hemothorax 5. Metastatic sarcoma Seen by Dr. Dr. Marinelli and the consult was of low practical use for the inpatient stay, just says to follow-up with him as outpatient. I was hoping for more bernice discussion and goals of care but likely only be obtained in an acute worsening of her condition. I did discuss the fact that her chemotherapy has no curative intent and is strictly for palliation. 6. DVT prophylaxis with SCDs. Discussed with family at bedside with the patient's , brother and [id number]. Greater than 35 minutes of which greater than 50% of time was discussing Pleurx catheters, palliative chemotherapy and her pleural effusions. Code Visit Inpatient E&M: 81383 Subs Hosp L3
--- NOTE | 2018-02-03 10:23 | PN_ITS ---
Patient Problems: Active and Suspected Problems (Last Reviewed 01/23/18 @ 10:09 by Hali Altamirano) Mucositis (ulcerative) due to antineoplastic therapy (Acute) Acute on chronic respiratory failure with hypoxia and hypercapnia (Acute) CA breast with malignant effusion (Acute) Subjective: Taken off of BiPAP. Currently on 6 L nasal cannula and patient denying any shortness of breath at this time. Vitals/I&O's: Vital Signs Temp Pulse Resp BP Pulse Ox 36.6 C 119 H 17 110/38 L 95 02/03/18 04:00 02/03/18 10:04 02/03/18 06:25 02/03/18 06:00 02/03/18 09:15 Oxygen Flow Rate (L/min) 6 Oxygen Delivery Method Nasal Cannula Weight: 78.9 kg Body Mass Index (BMI) 26.6 Intake and Output for Last 24 Hours 02/01/18 02/02/18 02/03/18 23:59 23:59 23:59 Intake Total 1157 / 1157 2289 / 2289 941 / 941 Output Total 275 / 275 1100 / 1100 200 / 200 Balance 882 / 882 1189 / 1189 741 / 741 General: Alert, Cooperative, No apparent distress HEENT: Atraumatic, Normocephalic Neck: No Nodes, Thyroid Normal Size and Texture Lungs: Diminished, - - Bibasilar crackles. Dullness to percussion in the left lower lobe. Cardiovascular: Normal S1, Normal S2, Tachycardic Abdomen: Bowel Sounds Present, Soft, Non Tender, Non-Distended, No Hepato- splenomegaly Extremities: No edema, No Calf Tenderness Skin: - - Some petechiae on the lower extremities. Musculoskeletal: No Tenderness to Palpation of Joints or Extremities, No Muscle Wasting Neurological: Neuro grossly intact, Sensory exam intact to light touch and pain Psych/Mental Status: Normal Affect, Appropriate Microbiology Past 72 Hours 02/01/18 19:30 Mucosa - Nasopharyngeal Respiratory Panel (PCR) - Final 02/01/18 19:30 Urine, Clean Catch Streptococcus pneumoniae Antigen (M - Final 02/01/18 19:30 Urine, Clean Catch Legionella Antigen - Final Laboratory Results 02/02/18 06:38: Diff Path Review Reviewed 02/03/18 04:50: WBC 5.4, RBC 2.53 L, Hgb 7.8 L, Hct 25.2 L, MCV 99.6 H, MCH 30.8 , MCHC 31.0 L, RDW 19.4 H, RDW Differential 70.1 H, Plt Count 46 L*, MPV 11.4, Neut % (Auto) Not Reportable, Absolute Neuts (auto) 4.5, Absolute Lymphs (auto) 0.43 L, Total Counted 100, Neutrophils % (Manual) 46 L, Band Neutrophils % 32 H , Lymphocytes % (Manual) 8 L, Monocytes % (Manual) 9, Metamyelocytes % 5 H, Diff Path Review May foll, Toxic Granulation 1+, Dohle Bodies 1+, Platelet Estimate MKD DEC, Polychromasia RARE, Hypochromasia RARE, Anisocytosis 1+ 02/03/18 04:50: Sodium 140, Potassium 3.7, Chloride 102, Carbon Dioxide 32.0, Anion Gap 6, BUN 14, Creatinine 0.47 L, Estim Creat Clear Calc 117.59, Est GFR ( MDRD) Af Amer 171, Est GFR (MDRD) Non-Af 141, BUN/Creatinine Ratio 29.7 H, Glucose 87, Calcium 8.8 Current Medications Acetaminophen (Tylenol) 650 mg PO Q4H PRN PRN PRN Reason: FEVER,MILD-MOD PAIN,HEADACHE Al Hydroxide/Mg Hydroxide (Mylanta Ii) 30 ml PO Q6H PRN PRN PRN Reason: Gastric Burning Albuterol Sulfate (Ventolin Aerosols) 2.5 mg INHALATION Q2H PRN PRN PRN Reason: SHORTNESS OF BREATH Amiodarone HCl (Cordarone) 200 mg PO DAILY [facility] Last Admin: 02/03/18 10:05 Dose: 200 mg Amitriptyline HCl (Elavil) 10 mg PO QHS [facility] Last Admin: 02/02/18 22:20 Dose: 10 mg Aspirin (Aspirin, Baby) 81 mg PO DAILY@0800 [facility] Last Admin: 02/03/18 10:06 Dose: 81 mg Bisacodyl (Dulcolax) 10 mg RECTAL DAILY PRN PRN PRN Reason: Constipation Chlorhexidine Gluconate () 1 each TOPICAL DAILY [facility] Last Admin: 02/02/18 09:43 Dose: 1 each Digoxin (Lanoxin) 62.5 mcg PO DAILY [facility] Last Admin: 02/03/18 10:04 Dose: 62.5 mcg Docusate Sodium (Colace) 200 mg PO BID PRN PRN PRN Reason: Constipation Dronabinol (Marinol) 2.5 mg PO BIDAC [facility] Last Admin: 02/03/18 10:05 Dose: 2.5 mg Famotidine (Pepcid) 20 mg PO BID [facility] Last Admin: 02/03/18 10:04 Dose: 20 mg Guaifenesin (Mucinex) 1,200 mg PO BID [facility] Last Admin: 02/03/18 10:03 Dose: 1,200 mg Heparin Sodium (Beef Lung) (Heparin 500 Unit/5 Ml (100/Ml)) 500 unit IV UD PRN PRN Reason: HEPARIN FLUSH Levofloxacin 750 mg/ N/A 150 mls @ 100 mls/hr IV DAILY [facility] Last Admin: 02/02/18 09:36 Dose: 100 mls/hr Sodium Chloride () 1,000 mls @ 75 mls/hr IV .[id number] [facility] Last Admin: 02/03/18 10:00 Dose: 75 mls/hr Fluconazole (Diflucan) 200 mg in 100 mls @ 100 mls/hr IV DAILY [facility] Last Admin: 02/03/18 10:01 Dose: 100 mls/hr Lidocaine/Diphenhydr/Alum/Mg/Simeth () 10 ml PO 4X/DAY [facility] Last Admin: 02/03/18 09:57 Dose: 10 ml Metoprolol Tartrate (Lopressor (Beta Sonny)) 25 mg PO BID [facility] Last Admin: 02/03/18 10:04 Dose: 25 mg Morphine Sulfate () 1 - 2 mg IV Q4H PRN PRN PRN Reason: Moderate Pain (pain scale 4-5) Multivitamins (Multivitamin) 1 tablet PO DAILY@0800 [facility] Last Admin: 02/03/18 10:06 Dose: 1 tablet Nicotine (Nicoderm Cq (Pbkc)) 21 mg TRANSDERM. DAILY [facility] Last Admin: 02/03/18 10:00 Dose: 21 mg Nutritional Formula (Lactose Free) (Ensure Enlive) 120 ml PO 4X/DAY [facility] Last Admin: 02/03/18 10:12 Dose: 120 ml Ondansetron HCl (Zofran) 4 mg IV Q4H PRN PRN PRN Reason: Nausea Oxycodone HCl (Oxycontin) 15 mg PO Q12H [facility] Last Admin: 02/03/18 10:04 Dose: 15 mg Oxycodone HCl (Oxyir) 5 mg PO Q4H PRN PRN PRN Reason: Moderate Pain (pain scale 4-5) Polyethylene Glycol (Miralax) 17 gm PO DAILY [facility] Last Admin: 02/03/18 10:06 Dose: Not Given Prochlorperazine Maleate (Compazine Tablet) 5 mg PO Q6H PRN PRN PRN Reason: NAUSEA/VOMITING Sodium Chloride () 5 - 30 ml IV UD PRN PRN Reason: SALINE FLUSH Last Admin: 02/01/18 20:19 Dose: 10 ml Sodium Chloride () 10 ml IV UD PRN PRN Reason: VAD FLUSH Zolpidem Tartrate (Ambien (Generic)) 5 mg PO QHS PRN PRN PRN Reason: SLEEP Medical Necessity - Tobacco Use Smoking Status: Current some day smoker Assessment/Plan Active and Suspected Problems (Last Reviewed 01/23/18 @ 10:09 by Hlai Altamirano) Mucositis (ulcerative) due to antineoplastic therapy (Acute) Acute on chronic respiratory failure with hypoxia and hypercapnia (Acute) CA breast with malignant effusion (Acute) 1. Acute hypoxic and hypercapnic respiratory failure * Multifactorial * Primarily due to the metastatic pleural effusion * May also be a component of gram-negative pneumonia, COPD. * Improving but still requiring BiPAP at this time. * Continue with Levaquin, pulmonary toilet, BiPAP. 2. Malignant pleural effusion * has required several thoracenteses. * Discussed Pleurx catheter patient and her family. Discussed the risks and benefits and the primary reason for it is for palliation and has no curative intent. They seemed interested. They are aware that she would not have anything until early next week in regards to placement if they so decided on it. * Patient will be need to be more stable before she can undergo that procedure. 3. Suspected gram-negative pneumonia * We will need to evaluate and rule this out. Cultures still pending at this time. * Negative, then could discontinue antibiotics. 4. A. fib with RVR * Heart rate back up. Feel part of this is reactive given the patient's other medical issues. Would hold off on further cardiology evaluation at this time but try to treat the underlying processes. * Continue amiodarone digoxin and metoprolol * Chads vasc score is 1 * On aspirin * No oral anticoagulants given history of hemothorax 5. Metastatic sarcoma * Seen by Dr. Dr. Marinelli and the consult was of low practical use for the inpatient stay, just says to follow-up with him as outpatient. * I was hoping for more bernice discussion and goals of care but likely only be obtained in an acute worsening of her condition. I did discuss the fact that her chemotherapy has no curative intent and is strictly for palliation. 6. DVT prophylaxis with SCDs. Discussed with family at bedside with the patient's , brother and sister- in-law. Greater than 35 minutes of which greater than 50% of time was discussing Pleurx catheters, palliative chemotherapy and her pleural effusions. Code Visit Inpatient E&M: [id number] [facility]osp L3
[2018-02-03] MEDS: CHLORHEXIDINE GLUC 2% CLOTH 1 EACH TOWELETTE TOPICAL (10:30)
--- NOTE | 2018-02-03 12:52 | CASEMGMT ---
SW stopped to see patient and her . Patient was sleeping. SW spoke with patient's and provided emotional support. He was telling SW what the doctor's have said. He thinks they may put a pleurix catheter in to help with the fluid build up. SW spent about 15-20 minutes in the room listening and offering support. Then 3 visitors came into the room and SW told patient's SW will check back with them on Monday. Ritika ELIAS MSW
[2018-02-03] MEDS: Amitriptyline 10 MG Tablet PO (21:17)
--- NOTE | 2018-02-03 23:43 | CPS ---
decreased fio2 to 35% nurse aware
[2018-02-04] VITALS (41 sets, daily range): BP systolic 86–128; BP diastolic 34–96; PULSE 55–119; RESP 12–31; TEMP 36.6–36.8; O2SAT 89–100
[2018-02-04] MEDS: CHLORHEXIDINE GLUC 2% CLOTH 1 EACH TOWELETTE TOPICAL (01:56)
[2018-02-04] MEDS: 0.9% Normal Saline 1,000 ML 75 ML IV (01:56)
[2018-02-04 06:05] LABS: Magnesium 1.9 mg/dL (1.6-2.6); Phosphorus 1.2 mg/dL (2.5-4.9)
[2018-02-04 06:06] LABS: Anion Gap 5 (5-15); BUN 10 mg/dL (7-18); BUN/Creat Ratio 20.6 RATIO (10-20); Calcium,Total 8.8 mg/dL (8.5-10.1); Chloride 105 mmol/L (98-107); Creatinine, Serum 0.49 mg/dL (0.55-1.02); EST Glomerular Filtration Rate 136 mL/min (>60); Est Glom Filt Rate - Afr Amer 165 mL/min (>60); Estimated Creatinine Clearance 112.79 ml/min; Glucose 102 mg/dL (74-106); Potassium 3.5 mmol/L (3.5-5.1); Sodium Level 144 mmol/L (136-145)
[2018-02-04 06:36] LABS: Hemoglobin 7.7 g/dl (12.0-15.0); Mean Corp Hgb Conc 30.8 g/gl (32-36); Mean Corpuscular Hgb 31.2 pg (27.0-32.0); Mean Corpuscular Volume 101.2 fL (81-99); Mean Platelet Vol. 11.7 fl (6.2-12.0); POSITIVE DIFFERENTIAL NO; Platelet Count 73 K/mm3 (150-450); RBC Distribution Width CV 20.1 % (11.6-14.6); RBC Distribution Width SD 74.3 fl (35.1-43.9); Red Blood Count 2.47 M/mm3 (4.2-5.4); White Blood Count 8.4 K/mm3 (4.4-11.0)
[2018-02-04 06:37] LABS: Differential Indicated MANUAL DIFF; POSITIVE COUNT YES; POSITIVE MORPHOLOGY YES
--- NOTE | 2018-02-04 06:50 | RAD_ITS ---
STUDY: X-RAY CHEST REASON FOR EXAM: Female, 63 years old. Shortness of breath TECHNIQUE: 1 view COMPARISON: None. FINDINGS: The left-sided pleural effusion noted in the study of February 02, 2018 has increased. There are still atelectatic changes in the right lung base. An [id number] through the right internal jugular vein has its tip in the superior vena cava. The heart remains enlarged. Normal visualized thoracic spine. Normal visualized ribs, clavicles, and shoulders. There is no demonstrated abnormality of the visualized soft tissue structures of the upper abdomen. RAD/Chest 1 View (Portable) IMPRESSION: Increased left-sided pleural effusion since the study of February 02, 2018 Electronically Signed: Perez Regan, at 7:25 EDT Tel , Service support ,
--- NOTE | 2018-02-04 07:02 | PCM.PN.INT ---
Subjective: Patient did okay overnight. Patient did have several episodes of tachycardia yesterday, delaying patient was transferred to the floor. Patient reports subjective improvement overnight. Patient continues to use BiPAP with sleep. No fevers have been noted. General: Alert, Oriented x3, Cooperative, - - Mild conversational dyspnea. HEENT: Atraumatic, PERRLA, EOMI, Normocephalic Oral: Moist Mucosa, No Gingival or Mucosal Lesions/ Ulcerations Neck: Supple, No Nodes, Trachea Midline, JVD, Right Lungs: No rhonchi, No wheeze, No rales, Diminished - Left greater than right, - - Significant dullness to percussion at the left base Cardiovascular: Regular rate, Regular Rhythm, Normal S1, Normal S2, No murmurs, No rub noted, No Gallop Abdomen: Bowel Sounds Present, Soft, Non Tender, Distended - Slightly Extremities: No clubbing, No cyanosis, Capillary Refill Less than 3 Seconds, Edema Skin: - - No significant change compared to previous Musculoskeletal: No Tenderness to Palpation of Joints or Extremities, No Muscle Wasting Lymphatic: No Cervical, Supraclavicular, or Inguinal Adenopathy Neurological: Cranial nerves II-XII grossly intact, Neuro grossly intact, Motor Exam 5/5 strength throughout Psych/Mental Status: Alert and oriented to time, place, person, mood and affect Vital Signs Temp Pulse Resp BP Pulse Ox 36.8 C 99 20 H 106/40 L 97 02/04/18 04:00 02/04/18 06:00 02/04/18 06:00 02/04/18 06:00 02/04/18 06:00 Oxygen Flow Rate (L/min) 6 Oxygen Delivery Method Bi-pap Weight: 79.8 kg Body Mass Index (BMI) 26.6 Intake and Output for Last 24 Hours 02/02/18 02/03/18 02/04/18 23:59 23:59 23:59 Intake Total 2289 / 2289 1774 / 1774 1368 / 1368 Output Total 1100 / 1100 200 / 200 600 / 600 Balance 1189 / 1189 1574 / 1574 768 / 768 Labs (Last 48 Hours) 02/02/18 02/02/18 02/03/18 06:38 06:58 04:50 WBC 2.1 L 5.4 RBC 2.36 L 2.53 L Hgb 7.2 L 7.8 L Hct 23.4 L 25.2 L MCV 99.2 H 99.6 H MCH 30.5 30.8 MCHC 30.8 L 31.0 L RDW 19.5 H 19.4 H RDW Differential 70.6 H 70.1 H Plt Count 40 L* 46 L* MPV 12.6 H 11.4 Neut % (Auto) Not Reportable Not Reportable Absolute Neuts (auto) 1.2 L 4.5 Absolute Lymphs (auto) 0.51 L 0.43 L Total Counted 100 100 Neutrophils % (Manual) 27 L 46 L Band Neutrophils % 33 H 32 H Lymphocytes % (Manual) 25 8 L Monocytes % (Manual) 3 9 Metamyelocytes % 6 H 5 H Myelocytes % 3 H Blast Cells % 2 H* Plasma Cell % (Manual) 1 Nucleated RBCs/100 WBC 1 Diff Path Review Reviewed January foll Toxic Granulation 1+ Dohle Bodies 1+ Platelet Estimate MOD DEC MKD DEC Plt Morphology Comment LARGE Polychromasia RARE Hypochromasia RARE Anisocytosis 1+ 1+ Specimen Type ART Sample Site R Radial pH 7.43 Bicarbonate Actual 29.1 H POC Total CO2 30 Base Excess 5 H O2 Saturation 94 L O2 % 45 ABG pCO2 43.6 ABG pO2 69 L Remigio Test POS O2 Delivery Device Bi / C PAP EPAP 6 IPAP 12 Blood Gas Notified Whom ICU Blood Gas Notified Time 701 Sodium Potassium Chloride Carbon Dioxide Anion Gap BUN Creatinine Estim Creat Clear Calc Est GFR (MDRD) Af Amer Est GFR (MDRD) Non-Af BUN/Creatinine Ratio Glucose Calcium Phosphorus Magnesium 02/03/18 02/04/18 02/04/18 04:50 05:10 05:10 WBC 8.4 RBC 2.47 L Hgb 7.7 L Hct 25.0 L MCV 101.2 H MCH 31.2 MCHC 30.8 L RDW 20.1 H RDW Differential 74.3 H Plt Count 73 L MPV 11.7 Neut % (Auto) Not Reportable Absolute Neuts (auto) Not Reportable Absolute Lymphs (auto) Total Counted Pending Neutrophils % (Manual) Band Neutrophils % Lymphocytes % (Manual) Monocytes % (Manual) Metamyelocytes % Myelocytes % Blast Cells % Plasma Cell % (Manual) Nucleated RBCs/100 WBC Diff Path Review Toxic Granulation Dohle Bodies Platelet Estimate Plt Morphology Comment Polychromasia Hypochromasia Anisocytosis Specimen Type Sample Site pH Bicarbonate Actual POC Total CO2 Base Excess O2 Saturation O2 % ABG pCO2 ABG pO2 Remigio Test O2 Delivery Device EPAP IPAP Blood Gas Notified Whom Blood Gas Notified Time Sodium 140 144 Potassium 3.7 3.5 Chloride 102 105 Carbon Dioxide 32.0 34.0 H Anion Gap 6 5 BUN 14 10 Creatinine 0.47 L 0.49 L Estim Creat Clear Calc 117.59 112.79 Est GFR (MDRD) Af Amer 171 165 Est GFR (MDRD) Non-Af 141 136 BUN/Creatinine Ratio 29.7 H 20.6 H Glucose 87 102 Calcium 8.8 8.8 Phosphorus Magnesium 02/04/18 05:10 WBC RBC Hgb Hct MCV MCH MCHC RDW RDW Differential Plt Count MPV Neut % (Auto) Absolute Neuts (auto) Absolute Lymphs (auto) Total Counted Neutrophils % (Manual) Band Neutrophils % Lymphocytes % (Manual) Monocytes % (Manual) Metamyelocytes % Myelocytes % Blast Cells % Plasma Cell % (Manual) Nucleated RBCs/100 WBC Diff Path Review Toxic Granulation Dohle Bodies Platelet Estimate Plt Morphology Comment Polychromasia Hypochromasia Anisocytosis Specimen Type Sample Site pH Bicarbonate Actual POC Total CO2 Base Excess O2 Saturation O2 % ABG pCO2 ABG pO2 Remigio Test O2 Delivery Device EPAP IPAP Blood Gas Notified Whom Blood Gas Notified Time Sodium Potassium Chloride Carbon Dioxide Anion Gap BUN Creatinine Estim Creat Clear Calc Est GFR (MDRD) Af Amer Est GFR (MDRD) Non-Af BUN/Creatinine Ratio Glucose Calcium Phosphorus 1.2 L Magnesium 1.9 Microbiology 02/01/18 19:30 Mucosa - Nasopharyngeal Respiratory Panel (PCR) - Final Medical Necessity - Tobacco Use Smoking Status: Current some day smoker Assessment/Plan Active and Suspected Problems (Last Reviewed 01/23/18 @ 10:09 by Hali Altamirano) Mucositis (ulcerative) due to antineoplastic therapy (Acute) Acute on chronic respiratory failure with hypoxia and hypercapnia (Acute) CA breast with malignant effusion (Acute) RECOMMENDATIONS: 1. Consider consultation with Dr. Benavides 2. BiPAP with sleep only 3. Possible placement of Pleurx catheter tomorrow 4. Wean oxygen as tolerated 5. Discontinue antibiotics once cultures negative at 48 hours 6. GI/DVT prophylaxis 7. Replete phosphorus IMPRESSIONS: 1. Acute on chronic combined respiratory failure secondary to malignant effusion Patient appears to be responding appropriately to BiPAP therapy following thoracentesis. Given patient's recurrent pleural effusions with malignant etiology, patient may be best served by placement of a Pleurx catheter. Patient is having significant accumulation on repeat chest x-ray today. Possibly see if Pleurx catheter can be placed tomorrow. Patient is to BiPAP overnight, which is likely appropriate in the acute setting. Patient's respiratory status is much improved. 2. A. fib with RVR Patient currently in with highly variable rhythm and some rapid response noted. Patient did have significant tachycardia on presentation with hypoxemia. Patient has seen Dr. Benavides in the past. Defer to hospitalist on whether he should be involved at this time. Patient with significant tachycardia yesterday. Most of the time it was sinus tachycardia, but A. fib with RVR was noted. Repleting potassium and phosphorus to see if this will help. 3. Breast cancer/sarcoma with current chemotherapy Multiple complications with chemotherapy including mucositis, bone marrow suppression and alopecia. Patient is followed by Dr. Marinelli as an outpatient. Patient is very clear that she wants to be a full code. Patient is able to tolerate p.o. intake with Magic mouthwash. 4. Insomnia/depression/pancytopenia secondary to chemotherapy/current chemotherapy Complicates care, management, recovery and prognosis. Likely okay to continue with baseline medications for now. No indications for transfusion at this time. Monitor for bleeding complications. Code Visit Inpatient E&M: [id number] [facility] L3
[2018-02-04 07:22] LABS: Lymphocyte 7 % (19-41); Metamyelocyte 8 % (0-1); Monocyte 7 % (0-10); Myelocyte 3 (0-0); Neutrophil-Band 36 % (0-5); Neutrophil-Segmented 39 % (47-70); Total Cells Counted 100 (MANUAL DIFF)
[2018-02-04 07:25] LABS: Absolute Lymphocyte Count 0.59 X10^3/ul (0.83-4.51); Absolute Neutrophil Count 7.2 X10^3/uL (2.0-7.7); Dohle Bodies 1+; Lymphocyte # 0.59 X10^3/ul (4.0); Neutrophil # 7.22 X10^3/uL (2.7-7.7)
[2018-02-04] MEDS: Dronabinol 2.5 MG Capsule PO ×2 (09:03→18:13)
[2018-02-04] MEDS: Aspirin 81 MG TAB.CHEW PO (09:04)
[2018-02-04] MEDS: Multivitamins,Therapeutic Tablet 1 TABLET PO (09:04)
[2018-02-04] MEDS: Metoprolol Tartrate 25 MG Tablet PO ×2 (10:18→22:03)
[2018-02-04] MEDS: guaiFENesin 1,200 MG Tablet 1200 MG PO ×2 (10:18→22:03)
[2018-02-04] MEDS: Famotidine 20 MG Tablet PO ×2 (10:18→22:02)
[2018-02-04] MEDS: Amiodarone 200 MG Tablet PO (10:19)
[2018-02-04] MEDS: Digoxin 125 MCG Tablet 62.5 MCG PO (10:20)
[2018-02-04] MEDS: oxyCODONE CR 15 MG Tablet PO ×2 (10:21→22:03)
[2018-02-04] MEDS: Na Biphos/Potassium Phosphate PACKET 1 PACKET PO ×4 (10:21→22:03)
--- NOTE | 2018-02-04 11:22 | PCM.PN.HOSP ---
Patient Problems: Active and Suspected Problems (Last Reviewed 01/23/18 @ 10:09 by Hali Altamirano) Acute on chronic respiratory failure with hypoxia and hypercapnia (Acute) CA breast with malignant effusion (Acute) Subjective: Denies shortness of breath but when patient was taken off the BiPAP patient is noted to be tachypneic with short shallow respirations. Additionally patient's heart rate goes up in the 140s once being off the BiPAP. Vitals/I&O's: Vital Signs Temp Pulse Resp BP Pulse Ox 36.7 C 89 15 87/43 L 99 02/04/18 08:00 02/04/18 11:00 02/04/18 11:00 02/04/18 11:00 02/04/18 11:00 Oxygen Flow Rate (L/min) 6 Oxygen Delivery Method Bi-pap Weight: 79.8 kg Body Mass Index (BMI) 26.6 Intake and Output for Last 24 Hours 02/02/18 02/03/18 02/04/18 23:59 23:59 23:59 Intake Total 2289 / 2289 1774 / 1774 1368 / 1368 Output Total 1100 / 1100 200 / 200 600 / 600 Balance 1189 / 1189 1574 / 1574 768 / 768 General: Alert, - - Tachypneic the BiPAP with short shallow respirations HEENT: Atraumatic, Normocephalic Oral: Moist Mucosa, No Gingival or Mucosal Lesions/ Ulcerations Neck: No Nodes, Thyroid Normal Size and Texture Lungs: Diminished, - - Diminished breath sounds in the left base with dullness to percussion. Bibasilar crackles. Cardiovascular: Regular rate, Regular Rhythm, Normal S1, Normal S2, No murmurs Abdomen: Bowel Sounds Present, Soft, Non Tender, Non-Distended, No Hepato-splenomegaly Extremities: No edema, No Calf Tenderness Skin: No rashes, No breakdown Musculoskeletal: No Tenderness to Palpation of Joints or Extremities, No Muscle Wasting Neurological: Muscle tone normal, Coordination normal Psych/Mental Status: Normal Affect, Appropriate Microbiology Past 72 Hours 02/01/18 19:30 Mucosa - Nasopharyngeal Respiratory Panel (PCR) - Final 02/01/18 19:30 Urine, Clean Catch Streptococcus pneumoniae Antigen (M - Final 02/01/18 19:30 Urine, Clean Catch Legionella Antigen - Final Laboratory Results 02/04/18 05:10: WBC 8.4, RBC 2.47 L, Hgb 7.7 L, Hct 25.0 L, MCV 101.2 H, MCH 31.2, MCHC 30.8 L, RDW 20.1 H, RDW Differential 74.3 H, Plt Count 73 L, MPV 11.7, Neut % (Auto) Not Reportable, Absolute Neuts (auto) 7.2, Absolute Lymphs (auto) 0.59 L, Total Counted 100, Neutrophils % (Manual) 39 L, Band Neutrophils % 36 H, Lymphocytes % (Manual) 7 L, Monocytes % (Manual) 7, Metamyelocytes % 8 H, Myelocytes % 3 H, Diff Path Review May Adeola holcomb Bodies 1+ 02/04/18 05:10: Sodium 144, Potassium 3.5, Chloride 105, Carbon Dioxide 34.0 H, Anion Gap 5, BUN 10, Creatinine 0.49 L, Estim Creat Clear Calc 112.79, Est GFR (MDRD) Af Amer 165, Est GFR (MDRD) Non-Af 136, BUN/Creatinine Ratio 20.6 H, Glucose 102, Calcium 8.8 02/04/18 05:10: Phosphorus 1.2 L, Magnesium 1.9 Current Medications Acetaminophen (Tylenol) 650 mg PO Q4H PRN PRN PRN Reason: FEVER,MILD-MOD PAIN,HEADACHE Al Hydroxide/Mg Hydroxide (Mylanta Ii) 30 ml PO Q6H PRN PRN PRN Reason: Gastric Burning Albuterol Sulfate (Ventolin Aerosols) 2.5 mg INHALATION Q2H PRN PRN PRN Reason: SHORTNESS OF BREATH Amiodarone HCl (Cordarone) [address] [facility] Last Admin: 02/04/18 10:19 Dose: 200 mg Amitriptyline HCl (Elavil) [address] [facility] Last Admin: 02/03/18 21:17 Dose: 10 mg Aspirin (Aspirin, Baby) 81 mg PO DAILY@0800 [facility] Last Admin: 02/04/18 09:04 Dose: 81 mg Bisacodyl (Dulcolax) 10 mg RECTAL DAILY PRN PRN PRN Reason: Constipation Chlorhexidine Gluconate () [address] [facility] Last Admin: 02/04/18 01:56 Dose: 1 each Digoxin (Lanoxin) 62.[address] [facility] Last Admin: 02/04/18 10:20 Dose: 62.5 mcg Docusate Sodium (Colace) 200 mg PO BID PRN PRN PRN Reason: Constipation Dronabinol (Marinol) 2.[address] [facility] Last Admin: 02/04/18 09:03 Dose: 2.5 mg Famotidine (Pepcid) [address] [facility] Last Admin: 02/04/18 10:18 Dose: 20 mg Guaifenesin (Mucinex) 1,[address] [facility] Last Admin: 02/04/18 10:18 Dose: 1,200 mg Heparin Sodium (Beef Lung) (Heparin 500 Unit/5 Ml (100/Ml)) 500 unit IV UD PRN PRN Reason: HEPARIN FLUSH Levofloxacin 750 mg/ N/A 150 mls @ 100 mls/hr IV DAILY [facility] Last Admin: 02/03/18 11:58 Dose: 100 mls/hr Fluconazole (Diflucan) 200 mg in 100 mls @ 100 mls/hr IV DAILY [facility] Last Admin: 02/03/18 10:01 Dose: 100 mls/hr Potassium Phosphate 40 mm/ (Sodium Chloride) 513.3333 mls @ 62.5 mls/hr IV X1 ONE Stop: 02/04/18 14:30 Last Admin: 02/04/18 06:55 Dose: 62.5 mls/hr Lidocaine/Diphenhydr/Alum/Mg/Simeth () 10 ml PO 4X/DAY [facility] Last Admin: 02/04/18 10:19 Dose: 10 ml Metoprolol Tartrate (Lopressor (Beta Sonny)) [address] [facility] Last Admin: 02/04/18 10:18 Dose: 25 mg Morphine Sulfate () 1 - 2 mg IV Q4H PRN PRN PRN Reason: Moderate Pain (pain scale 4-5) Multivitamins (Multivitamin) 1 tablet PO DAILY@0800 [facility] Last Admin: 02/04/18 09:04 Dose: 1 tablet Nicotine (Nicoderm Cq (Pbkc)) [address] [facility] Last Admin: 02/04/18 10:18 Dose: 21 mg Nutritional Formula (Lactose Free) (Ensure Enlive) 120 ml PO 4X/DAY [facility] Last Admin: 02/03/18 21:18 Dose: 120 ml Ondansetron HCl (Zofran) 4 mg IV Q4H PRN PRN PRN Reason: Nausea Oxycodone HCl (Oxycontin) [address] [facility] Last Admin: 02/04/18 10:21 Dose: 15 mg Oxycodone HCl (Oxyir) 5 mg PO Q4H PRN PRN PRN Reason: Moderate Pain (pain scale 4-5) Polyethylene Glycol (Miralax) [address] [facility] Last Admin: 02/04/18 10:20 Dose: Not Given Potassium Phos/Sodium Phos (Neutra-Phos Packet) 1 packet PO 4X/DAY [facility] Last Admin: 02/04/18 10:21 Dose: 1 packet Prochlorperazine Maleate (Compazine Tablet) 5 mg PO Q6H PRN PRN PRN Reason: NAUSEA/VOMITING Sodium Chloride () 5 - 30 ml IV UD PRN PRN Reason: SALINE FLUSH Last Admin: 02/01/18 20:19 Dose: 10 ml Sodium Chloride () 10 ml IV UD PRN PRN Reason: VAD FLUSH Zolpidem Tartrate (Ambien (Generic)) 5 mg PO QHS PRN PRN PRN Reason: SLEEP Medical Necessity - Tobacco Use Smoking Status: Current some day smoker Assessment/Plan Active and Suspected Problems (Last Reviewed 01/23/18 @ 10:09 by Hali Altamirano) Acute on chronic respiratory failure with hypoxia and hypercapnia (Acute) CA breast with malignant effusion (Acute) 1. Acute hypoxic and hypercapnic respiratory failure Multifactorial Primarily due to the metastatic pleural effusion May also be a component of gram-negative pneumonia, COPD. Improving but still requiring BiPAP at this time. Continue with Levaquin, pulmonary toilet, BiPAP. 2. Malignant pleural effusion has required several thoracenteses. Discussed Pleurx catheter patient and her family. Discussed the risks and benefits and the primary reason for it is for palliation and has no curative intent. They seemed interested. They are aware that she would not have anything until early next week in regards to placement if they so decided on it. Patient will be need to be more stable before she can undergo that procedure. Patient in agreement for a Pleurx catheter. Tentative plan for that to be performed on the seventh. 3. Suspected gram-negative pneumonia We will need to evaluate and rule this out. Cultures still pending at this time. Negative, then could discontinue antibiotics. 4. A. fib with RVR Heart rate back up. Feel part of this is reactive given the patient's other medical issues. Gets worse with being taken off of the BiPAP. Would hold off on further cardiology evaluation at this time but try to treat the underlying processes. Continue amiodarone digoxin and metoprolol Chads vasc score is 1 On aspirin No oral anticoagulants given history of hemothorax 5. Metastatic sarcoma Seen by Dr. Dr. Marinelli and the consult was of low practical use for the inpatient stay, just says to follow-up with him as outpatient. I was hoping for more bernice discussion and goals of care but likely only be obtained in an acute worsening of her condition. I did discuss the fact that her chemotherapy has no curative intent and is strictly for palliation. Prognosis overall poor. Patient full CODE STATUS. 6. DVT prophylaxis with SCDs. 7. Disposition: Patient to remain in the ICU as she is full CODE STATUS and with her breathing difficulties and intermittent tachycardia do not feel that she should be transferred to the progressive care unit yet. Ideally, the patient should be hospice and have strictly palliative treatment. Code Visit Inpatient E&M: 08404 Subs Hosp L3
--- NOTE | 2018-02-04 11:26 | PN_ITS ---
Patient Problems: Active and Suspected Problems (Last Reviewed 01/23/18 @ 10:09 by Hali Altamirano) Acute on chronic respiratory failure with hypoxia and hypercapnia (Acute) CA breast with malignant effusion (Acute) Subjective: Denies shortness of breath but when patient was taken off the BiPAP patient is noted to be tachypneic with short shallow respirations. Additionally patient's heart rate goes up in the 140s once being off the BiPAP. Vitals/I&O's: Vital Signs Temp Pulse Resp BP Pulse Ox 36.7 C 89 15 87/43 L 99 02/04/18 08:00 02/04/18 11:00 02/04/18 11:00 02/04/18 11:00 02/04/18 11:00 Oxygen Flow Rate (L/min) 6 Oxygen Delivery Method Bi-pap Weight: 79.8 kg Body Mass Index (BMI) 26.6 Intake and Output for Last 24 Hours 02/02/18 02/03/18 02/04/18 23:59 23:59 23:59 Intake Total 2289 / 2289 1774 / 1774 1368 / 1368 Output Total 1100 / 1100 200 / 200 600 / 600 Balance 1189 / 1189 1574 / 1574 768 / 768 General: Alert, - - Tachypneic the BiPAP with short shallow respirations HEENT: Atraumatic, Normocephalic Oral: Moist Mucosa, No Gingival or Mucosal Lesions/ Ulcerations Neck: No Nodes, Thyroid Normal Size and Texture Lungs: Diminished, - - Diminished breath sounds in the left base with dullness to percussion. Bibasilar crackles. Cardiovascular: Regular rate, Regular Rhythm, Normal S1, Normal S2, No murmurs Abdomen: Bowel Sounds Present, Soft, Non Tender, Non-Distended, No Hepato- splenomegaly Extremities: No edema, No Calf Tenderness Skin: No rashes, No breakdown Musculoskeletal: No Tenderness to Palpation of Joints or Extremities, No Muscle Wasting Neurological: Muscle tone normal, Coordination normal Psych/Mental Status: Normal Affect, Appropriate Microbiology Past 72 Hours 02/01/18 19:30 Mucosa - Nasopharyngeal Respiratory Panel (PCR) - Final 02/01/18 19:30 Urine, Clean Catch Streptococcus pneumoniae Antigen (M - Final 02/01/18 19:30 Urine, Clean Catch Legionella Antigen - Final Laboratory Results 02/04/18 05:10: WBC 8.4, RBC 2.47 L, Hgb 7.7 L, Hct 25.0 L, MCV 101.2 H, MCH 31.2, MCHC 30.8 L, RDW 20.1 H, RDW Differential 74.3 H, Plt Count 73 L, MPV 11.7 , Neut % (Auto) Not Reportable, Absolute Neuts (auto) 7.2, Absolute Lymphs (auto ) 0.59 L, Total Counted 100, Neutrophils % (Manual) 39 L, Band Neutrophils % 36 H, Lymphocytes % (Manual) 7 L, Monocytes % (Manual) 7, Metamyelocytes % 8 H, Myelocytes % 3 H, Diff Path Review May Adeola holcomb Bodies 1+ 02/04/18 05:10: Sodium 144, Potassium 3.5, Chloride 105, Carbon Dioxide 34.0 H, Anion Gap 5, BUN 10, Creatinine 0.49 L, Estim Creat Clear Calc 112.79, Est GFR ( MDRD) Af Amer 165, Est GFR (MDRD) Non-Af 136, BUN/Creatinine Ratio 20.6 H, Glucose 102, Calcium 8.8 02/04/18 05:10: Phosphorus 1.2 L, Magnesium 1.9 Current Medications Acetaminophen (Tylenol) 650 mg PO Q4H PRN PRN PRN Reason: FEVER,MILD-MOD PAIN,HEADACHE Al Hydroxide/Mg Hydroxide (Mylanta Ii) 30 ml PO Q6H PRN PRN PRN Reason: Gastric Burning Albuterol Sulfate (Ventolin Aerosols) 2.5 mg INHALATION Q2H PRN PRN PRN Reason: SHORTNESS OF BREATH Amiodarone HCl (Cordarone) 200 mg PO DAILY [facility] Last Admin: 02/04/18 10:19 Dose: 200 mg Amitriptyline HCl (Elavil) 10 mg PO QHS [facility] Last Admin: 02/03/18 21:17 Dose: 10 mg Aspirin (Aspirin, Baby) 81 mg PO DAILY@0800 [facility] Last Admin: 02/04/18 09:04 Dose: 81 mg Bisacodyl (Dulcolax) 10 mg RECTAL DAILY PRN PRN PRN Reason: Constipation Chlorhexidine Gluconate () 1 each TOPICAL DAILY [facility] Last Admin: 02/04/18 01:56 Dose: 1 each Digoxin (Lanoxin) 62.5 mcg PO DAILY [facility] Last Admin: 02/04/18 10:20 Dose: 62.5 mcg Docusate Sodium (Colace) 200 mg PO BID PRN PRN PRN Reason: Constipation Dronabinol (Marinol) 2.5 mg PO BIDAC [facility] Last Admin: 02/04/18 09:03 Dose: 2.5 mg Famotidine (Pepcid) 20 mg PO BID [facility] Last Admin: 02/04/18 10:18 Dose: 20 mg Guaifenesin (Mucinex) 1,200 mg PO BID [facility] Last Admin: 02/04/18 10:18 Dose: 1,200 mg Heparin Sodium (Beef Lung) (Heparin 500 Unit/5 Ml (100/Ml)) 500 unit IV UD PRN PRN Reason: HEPARIN FLUSH Levofloxacin 750 mg/ N/A 150 mls @ 100 mls/hr IV DAILY [facility] Last Admin: 02/03/18 11:58 Dose: 100 mls/hr Fluconazole (Diflucan) 200 mg in 100 mls @ 100 mls/hr IV DAILY [facility] Last Admin: 02/03/18 10:01 Dose: 100 mls/hr Potassium Phosphate 40 mm/ (Sodium Chloride) 513.3333 mls @ 62.5 mls/hr IV X1 ONE Stop: 02/04/18 14:30 Last Admin: 02/04/18 06:55 Dose: 62.5 mls/hr Lidocaine/Diphenhydr/Alum/Mg/Simeth () 10 ml PO 4X/DAY [facility] Last Admin: 02/04/18 10:19 Dose: 10 ml Metoprolol Tartrate (Lopressor (Beta Sonny)) 25 mg PO BID [facility] Last Admin: 02/04/18 10:18 Dose: 25 mg Morphine Sulfate () 1 - 2 mg IV Q4H PRN PRN PRN Reason: Moderate Pain (pain scale 4-5) Multivitamins (Multivitamin) 1 tablet PO DAILY@0800 [facility] Last Admin: 02/04/18 09:04 Dose: 1 tablet Nicotine (Nicoderm Cq (Pbkc)) 21 mg TRANSDERM. DAILY [facility] Last Admin: 02/04/18 10:18 Dose: 21 mg Nutritional Formula (Lactose Free) (Ensure Enlive) 120 ml PO 4X/DAY [facility] Last Admin: 02/03/18 21:18 Dose: 120 ml Ondansetron HCl (Zofran) 4 mg IV Q4H PRN PRN PRN Reason: Nausea Oxycodone HCl (Oxycontin) 15 mg PO Q12H [facility] Last Admin: 02/04/18 10:21 Dose: 15 mg Oxycodone HCl (Oxyir) 5 mg PO Q4H PRN PRN PRN Reason: Moderate Pain (pain scale 4-5) Polyethylene Glycol (Miralax) 17 gm PO DAILY [facility] Last Admin: 02/04/18 10:20 Dose: Not Given Potassium Phos/Sodium Phos (Neutra-Phos Packet) 1 packet PO 4X/DAY [facility] Last Admin: 02/04/18 10:21 Dose: 1 packet Prochlorperazine Maleate (Compazine Tablet) 5 mg PO Q6H PRN PRN PRN Reason: NAUSEA/VOMITING Sodium Chloride () 5 - 30 ml IV UD PRN PRN Reason: SALINE FLUSH Last Admin: 02/01/18 20:19 Dose: 10 ml Sodium Chloride () 10 ml IV UD PRN PRN Reason: VAD FLUSH Zolpidem Tartrate (Ambien (Generic)) 5 mg PO QHS PRN PRN PRN Reason: SLEEP Medical Necessity - Tobacco Use Smoking Status: Current some day smoker Assessment/Plan Active and Suspected Problems (Last Reviewed 01/23/18 @ 10:09 by Hali Atlamirano) Acute on chronic respiratory failure with hypoxia and hypercapnia (Acute) CA breast with malignant effusion (Acute) 1. Acute hypoxic and hypercapnic respiratory failure * Multifactorial * Primarily due to the metastatic pleural effusion * May also be a component of gram-negative pneumonia, COPD. * Improving but still requiring BiPAP at this time. * Continue with Levaquin, pulmonary toilet, BiPAP. 2. Malignant pleural effusion * has required several thoracenteses. * Discussed Pleurx catheter patient and her family. Discussed the risks and benefits and the primary reason for it is for palliation and has no curative intent. They seemed interested. They are aware that she would not have anything until early next week in regards to placement if they so decided on it. * Patient will be need to be more stable before she can undergo that procedure. * Patient in agreement for a Pleurx catheter. Tentative plan for that to be performed on the seventh. 3. Suspected gram-negative pneumonia * We will need to evaluate and rule this out. Cultures still pending at this time. * Negative, then could discontinue antibiotics. 4. A. fib with RVR * Heart rate back up. Feel part of this is reactive given the patient's other medical issues. Gets worse with being taken off of the BiPAP. * Would hold off on further cardiology evaluation at this time but try to treat the underlying processes. * Continue amiodarone digoxin and metoprolol * Chads vasc score is 1 * On aspirin * No oral anticoagulants given history of hemothorax 5. Metastatic sarcoma * Seen by Dr. Dr. Marinelli and the consult was of low practical use for the inpatient stay, just says to follow-up with him as outpatient. * I was hoping for more bernice discussion and goals of care but likely only be obtained in an acute worsening of her condition. I did discuss the fact that her chemotherapy has no curative intent and is strictly for palliation. * Prognosis overall poor. Patient full CODE STATUS. 6. DVT prophylaxis with SCDs. 7. Disposition: Patient to remain in the ICU as she is full CODE STATUS and with her breathing difficulties and intermittent tachycardia do not feel that she should be transferred to the progressive care unit yet. Ideally, the patient should be hospice and have strictly palliative treatment. Code Visit Inpatient E&M: 65206 Subs Hosp L3
[2018-02-04] MEDS: Amitriptyline 10 MG Tablet PO (22:02)
[2018-02-05] VITALS (29 sets, daily range): BP systolic 86–133; BP diastolic 44–85; PULSE 72–166; RESP 12–33; TEMP 36.2–36.7; O2SAT 5–100
[2018-02-05 04:37] LABS: ALB/GLOB Ratio 0.6 RATIO (0.9-2.4); AST(SGOT) 30 U/L (15-37); Alanine Aminotransfer ALT/SGPT 76 U/L (13-56); Albumin, Serum 2.1 g/dL (3.2-5.0); Alkaline Phosphatase 92 U/L (45-117); Anion Gap 4 (5-15); BUN 9 mg/dL (7-18); Calcium,Total 8.6 mg/dL (8.5-10.1); Chloride 103 mmol/L (98-107); Creatinine, Serum 0.43 mg/dL (0.55-1.02); EST Glomerular Filtration Rate 158 mL/min (>60); Est Glom Filt Rate - Afr Amer 191 mL/min (>60); Estimated Creatinine Clearance 128.53 ml/min; Globulin 3.5 g/dL (2.2-4.2); Glucose 99 mg/dL (74-106); Magnesium 2.6 mg/dL (1.6-2.6); Potassium 4.4 mmol/L (3.5-5.1); Protein, Total 5.6 g/dL (6.4-8.2); Sodium Level 142 mmol/L (136-145)
--- NOTE | 2018-02-05 06:50 | PCM.PN.INT ---
Subjective: The patient was seen and examined at the bedside this morning. Events from the last 24 hours have been reviewed. The patient is currently afebrile and hemodynamically stable. The patient has been transitioning back and forth between BiPAP and 5 L/min of supplemental oxygen. She is overall net +4.5 L for the admission. She reports the presence of shortness of breath, but denies the presence of a cough. She reports that she has been utilizing 2 L/min of supplemental oxygen in her home environment at her baseline. Objective: The patient's most recent lab work, culture data and imaging studies have all been personally reviewed. Blood cultures have shown no growth to date. Respiratory viral panel was negative. Strep and urine Legionella antigens were both negative. Ultrasound-guided thoracentesis was completed on February 01 with 1.5 L of fluid removed. Surface echocardiogram dated December 2017 revealed normal LV size and function with an ejection fraction of 60%. Pulmonary artery systolic pressure was estimated to be 38 mmHg. General: Alert, Oriented x3, Cooperative HEENT: Atraumatic, PERRLA, Normocephalic Oral: No Gingival or Mucosal Lesions/ Ulcerations, Dry Mucosa Neck: Supple, No Nodes, Trachea Midline Lungs: No rhonchi, No wheeze, No rales, Diminished, - - Dullness to percussion present in the left lung base. Cardiovascular: Normal S1, Normal S2, No murmurs, No rub noted, No Gallop, Tachycardic Abdomen: Bowel Sounds Present, Soft, Non Tender Extremities: No clubbing, No cyanosis, Edema Skin: - - No significant change from previous. Musculoskeletal: No Tenderness to Palpation of Joints or Extremities Lymphatic: No Cervical, Supraclavicular, or Inguinal Adenopathy Neurological: Neuro grossly intact Psych/Mental Status: Normal Affect, Appropriate Vital Signs Temp Pulse Resp BP Pulse Ox 97.2 F L 99 26 H 110/80 100 02/05/18 04:00 02/05/18 06:00 02/05/18 06:00 02/05/18 06:00 02/05/18 06:00 Oxygen Flow Rate (L/min) 5 Oxygen Delivery Method Nasal Cannula Weight: 174 lb 2.643 oz Body Mass Index (BMI) 26.6 Intake and Output for Last 24 Hours 02/03/18 02/04/18 02/05/18 23:59 23:59 23:59 Intake Total 1774 / 1774 3073 / 3073 60 / 60 Output Total 200 / 200 1825 / 1825 400 / 400 Balance 1574 / 1574 1248 / 1248 -340 / -340 Labs (Last 48 Hours) 02/04/18 02/04/18 02/04/18 05:10 05:10 05:10 WBC 8.4 RBC 2.47 L Hgb 7.7 L Hct 25.0 L MCV 101.2 H MCH 31.2 MCHC 30.8 L RDW 20.1 H RDW Differential 74.3 H Plt Count 73 L MPV 11.7 Neut % (Auto) Not Reportable Absolute Neuts (auto) 7.2 Absolute Lymphs (auto) 0.59 L Total Counted 100 Neutrophils % (Manual) 39 L Band Neutrophils % 36 H Lymphocytes % (Manual) 7 L Monocytes % (Manual) 7 Metamyelocytes % 8 H Myelocytes % 3 H Diff Path Review May foll Dohle Bodies 1+ Sodium 144 Potassium 3.5 Chloride 105 Carbon Dioxide 34.0 H Anion Gap 5 BUN 10 Creatinine 0.49 L Estim Creat Clear Calc 112.79 Est GFR (MDRD) Af Amer 165 Est GFR (MDRD) Non-Af 136 BUN/Creatinine Ratio 20.6 H Glucose 102 Calcium 8.8 Phosphorus 1.2 L Magnesium 1.9 Total Bilirubin AST ALT Alkaline Phosphatase Total Protein Albumin Globulin Albumin/Globulin Ratio 02/05/18 04:00 WBC RBC Hgb Hct MCV MCH MCHC RDW RDW Differential Plt Count MPV Neut % (Auto) Absolute Neuts (auto) Absolute Lymphs (auto) Total Counted Neutrophils % (Manual) Band Neutrophils % Lymphocytes % (Manual) Monocytes % (Manual) Metamyelocytes % Myelocytes % Diff Path Review Dohle Bodies Sodium 142 Potassium 4.4 Chloride 103 Carbon Dioxide 35.0 H Anion Gap 4 L BUN 9 Creatinine 0.43 L Estim Creat Clear Calc 128.53 Est GFR (MDRD) Af Amer 191 Est GFR (MDRD) Non-Af 158 BUN/Creatinine Ratio 21.0 H Glucose 99 Calcium 8.6 Phosphorus 3.0 Magnesium 2.6 Total Bilirubin 0.30 AST 30 ALT 76 H Alkaline Phosphatase 92 Total Protein 5.6 L Albumin 2.1 L Globulin 3.5 Albumin/Globulin Ratio 0.6 L Clinical Impression(s) from Imaging Studies Chest X-Ray 05/03/18 13:00 IMPRESSION: 1. Persistent left-sided airspace disease with increased left pleural effusion. 2. Right basilar airspace disease . Electronically Signed: Miguel Miranda MD at 13:57 EDT Tel , Service support , Thoracentesis Ultrasound 02/01/18 13:25 IMPRESSION: Successful ultrasound-guided thoracentesis. Electronically Signed: Miguel Miranda MD at 15:34 EDT Tel , Service support , Chest X-Ray 02/01/18 14:17 IMPRESSION: 1. Decreased left pleural effusion. 2. Improved aeration of the left lung Electronically Signed: Miguel Miranda MD at 15:39 EDT Tel , Service support , Chest X-Ray 02/02/18 05:55 IMPRESSION: 1. Decreased left pleural effusion. 2. There is no evidence of pneumothorax. Electronically Signed: Miguel Miranda MD at 9:55 EDT Tel , Service support , Chest X-Ray 02/04/18 06:50 IMPRESSION: Increased left-sided pleural effusion since the study of February 02, 2018 Electronically Signed: Perez Regan, at 7:25 EDT Tel , Service support , Medical Necessity - Tobacco Use Smoking Status: Current some day smoker Assessment/Plan Active and Suspected Problems (Last Reviewed 01/23/18 @ 10:09 by Hali Altamirano) Acute on chronic respiratory failure with hypoxia and hypercapnia (Acute) CA breast with malignant effusion (Acute) RECOMMENDATIONS: 1. Continue to wean supplemental oxygen as tolerated. 2. Await evaluation by surgery with regards to Pleurx catheter placement 3. A Pleurx catheter is unable to be placed during this hospitalization, recommend repeat thoracentesis with close outpatient follow-up with general surgery (Dr. Alfonso) 4. Monitor blood counts daily 5. Okay from my perspective to discontinue antibiotics. IMPRESSIONS: 1. Acute on chronic combined respiratory failure secondary to malignant effusion with recurrence Patient appears to be responding appropriately to BiPAP therapy following thoracentesis. Given patient's recurrent pleural effusions with malignant etiology, patient may be best served by placement of a Pleurx catheter. Patient is awaiting evaluation by surgery with regards to potential indwelling pleural catheter placement. Continue to wean supplemental oxygen as tolerated. If a Pleurx catheter is unable to be placed during this hospitalization, recommend repeating thoracentesis with close outpatient follow-up with surgery for eventual Pleurx catheter placement. 2. A. fib with RVR Patient has seen Dr. Benavides in the past. Maintain potassium greater than 4 and magnesium greater than 2. Continue current cardiac medication regimen. 3. Breast cancer/sarcoma with current chemotherapy Multiple complications with chemotherapy including mucositis, bone marrow suppression and alopecia. Patient is followed by Dr. Marinelli as an outpatient. Patient is very clear that she wants to be a full code. Patient is able to tolerate p.o. intake with Magic mouthwash. 4. Insomnia/depression/pancytopenia secondary to chemotherapy/current chemotherapy Complicates care, management, recovery and prognosis. Likely okay to continue with baseline medications for now. No indications for transfusion at this time. This note was generated with [employer] dictation software. It may contain incorrect words, spelling, and punctuation that were not noted in checking the note before signing. Code Visit Inpatient E&M: 65100 Subs Hosp L2
--- NOTE | 2018-02-05 06:55 | PN_ITS ---
Subjective: The patient was seen and examined at the bedside this morning. Events from the last 24 hours have been reviewed. The patient is currently afebrile and hemodynamically stable. The patient has been transitioning back and forth between BiPAP and 5 L/min of supplemental oxygen. She is overall net +4.5 L for the admission. She reports the presence of shortness of breath, but denies the presence of a cough. She reports that she has been utilizing 2 L/min of supplemental oxygen in her home environment at her baseline. Objective: The patient's most recent lab work, culture data and imaging studies have all been personally reviewed. Blood cultures have shown no growth to date. Respiratory viral panel was negative. Strep and urine Legionella antigens were both negative. Ultrasound-guided thoracentesis was completed on February 01 with 1.5 L of fluid removed. Surface echocardiogram dated December 2017 revealed normal LV size and function with an ejection fraction of 60%. Pulmonary artery systolic pressure was estimated to be 38 mmHg. General: Alert, Oriented x3, Cooperative HEENT: Atraumatic, PERRLA, Normocephalic Oral: No Gingival or Mucosal Lesions/ Ulcerations, Dry Mucosa Neck: Supple, No Nodes, Trachea Midline Lungs: No rhonchi, No wheeze, No rales, Diminished, - - Dullness to percussion present in the left lung base. Cardiovascular: Normal S1, Normal S2, No murmurs, No rub noted, No Gallop, Tachycardic Abdomen: Bowel Sounds Present, Soft, Non Tender Extremities: No clubbing, No cyanosis, Edema Skin: - - No significant change from previous. Musculoskeletal: No Tenderness to Palpation of Joints or Extremities Lymphatic: No Cervical, Supraclavicular, or Inguinal Adenopathy Neurological: Neuro grossly intact Psych/Mental Status: Normal Affect, Appropriate Vital Signs Temp Pulse Resp BP Pulse Ox 97.2 F L 99 26 H 110/80 100 02/05/18 04:00 02/05/18 06:00 02/05/18 06:00 02/05/18 06:00 02/05/18 06:00 Oxygen Flow Rate (L/min) 5 Oxygen Delivery Method Nasal Cannula Weight: 174 lb 2.643 oz Body Mass Index (BMI) 26.6 Intake and Output for Last 24 Hours 02/03/18 02/04/18 02/05/18 23:59 23:59 23:59 Intake Total 1774 / 1774 3073 / 3073 60 / 60 Output Total 200 / 200 1825 / 1825 400 / 400 Balance 1574 / 1574 1248 / 1248 -340 / -340 Labs (Last 48 Hours) 02/04/18 02/04/18 02/04/18 05:10 05:10 05:10 WBC 8.4 RBC 2.47 L Hgb 7.7 L Hct 25.0 L MCV 101.2 H MCH 31.2 MCHC 30.8 L RDW 20.1 H RDW Differential 74.3 H Plt Count 73 L MPV 11.7 Neut % (Auto) Not Reportable Absolute Neuts (auto) 7.2 Absolute Lymphs (auto) 0.59 L Total Counted 100 Neutrophils % (Manual) 39 L Band Neutrophils % 36 H Lymphocytes % (Manual) 7 L Monocytes % (Manual) 7 Metamyelocytes % 8 H Myelocytes % 3 H Diff Path Review May foll Dohle Bodies 1+ Sodium 144 Potassium 3.5 Chloride 105 Carbon Dioxide 34.0 H Anion Gap 5 BUN 10 Creatinine 0.49 L Estim Creat Clear Calc 112.79 Est GFR (MDRD) Af Amer 165 Est GFR (MDRD) Non-Af 136 BUN/Creatinine Ratio 20.6 H Glucose 102 Calcium 8.8 Phosphorus 1.2 L Magnesium 1.9 Total Bilirubin AST ALT Alkaline Phosphatase Total Protein Albumin Globulin Albumin/Globulin Ratio 02/05/18 04:00 WBC RBC Hgb Hct MCV MCH MCHC RDW RDW Differential Plt Count MPV Neut % (Auto) Absolute Neuts (auto) Absolute Lymphs (auto) Total Counted Neutrophils % (Manual) Band Neutrophils % Lymphocytes % (Manual) Monocytes % (Manual) Metamyelocytes % Myelocytes % Diff Path Review Dohle Bodies Sodium 142 Potassium 4.4 Chloride 103 Carbon Dioxide 35.0 H Anion Gap 4 L BUN 9 Creatinine 0.43 L Estim Creat Clear Calc 128.53 Est GFR (MDRD) Af Amer 191 Est GFR (MDRD) Non-Af 158 BUN/Creatinine Ratio 21.0 H Glucose 99 Calcium 8.6 Phosphorus 3.0 Magnesium 2.6 Total Bilirubin 0.30 AST 30 ALT 76 H Alkaline Phosphatase 92 Total Protein 5.6 L Albumin 2.1 L Globulin 3.5 Albumin/Globulin Ratio 0.6 L Clinical Impression(s) from Imaging Studies Chest X-Ray 05/03/18 13:00 IMPRESSION: 1. Persistent left-sided airspace disease with increased left pleural effusion. 2. Right basilar airspace disease . Electronically Signed: Miguel Miranda MD at 13:57 EDT Tel , Service support , Thoracentesis Ultrasound 02/01/18 13:25 IMPRESSION: Successful ultrasound-guided thoracentesis. Electronically Signed: Miguel Miranda MD at 15:34 EDT Tel , Service support , Chest X-Ray 02/01/18 14:17 IMPRESSION: 1. Decreased left pleural effusion. 2. Improved aeration of the left lung Electronically Signed: Miguel Miranda MD at 15:39 EDT Tel , Service support , Chest X-Ray 02/02/18 05:55 IMPRESSION: 1. Decreased left pleural effusion. 2. There is no evidence of pneumothorax. Electronically Signed: Miguel Miranda MD at 9:55 EDT Tel , Service support , Chest X-Ray 02/04/18 06:50 IMPRESSION: Increased left-sided pleural effusion since the study of February 02, 2018 Electronically Signed: Perez Regan, at 7:25 EDT Tel , Service support , Medical Necessity - Tobacco Use Smoking Status: Current some day smoker Assessment/Plan Active and Suspected Problems (Last Reviewed 01/23/18 @ 10:09 by Hali Altamirano) Acute on chronic respiratory failure with hypoxia and hypercapnia (Acute) CA breast with malignant effusion (Acute) RECOMMENDATIONS: 1. Continue to wean supplemental oxygen as tolerated. 2. Await evaluation by surgery with regards to Pleurx catheter placement 3. A Pleurx catheter is unable to be placed during this hospitalization, recommend repeat thoracentesis with close outpatient follow-up with general surgery (Dr. Alfonso) 4. Monitor blood counts daily 5. Okay from my perspective to discontinue antibiotics. IMPRESSIONS: 1. Acute on chronic combined respiratory failure secondary to malignant effusion with recurrence Patient appears to be responding appropriately to BiPAP therapy following thoracentesis. Given patient's recurrent pleural effusions with malignant etiology, patient may be best served by placement of a Pleurx catheter. Patient is awaiting evaluation by surgery with regards to potential indwelling pleural catheter placement. Continue to wean supplemental oxygen as tolerated. If a Pleurx catheter is unable to be placed during this hospitalization, recommend repeating thoracentesis with close outpatient follow-up with surgery for eventual Pleurx catheter placement. 2. A. fib with RVR Patient has seen Dr. Benavides in the past. Maintain potassium greater than 4 and magnesium greater than 2. Continue current cardiac medication regimen. 3. Breast cancer/sarcoma with current chemotherapy Multiple complications with chemotherapy including mucositis, bone marrow suppression and alopecia. Patient is followed by Dr. Marinelli as an outpatient. Patient is very clear that she wants to be a full code. Patient is able to tolerate p.o. intake with Magic mouthwash. 4. Insomnia/depression/pancytopenia secondary to chemotherapy/current chemotherapy Complicates care, management, recovery and prognosis. Likely okay to continue with baseline medications for now. No indications for transfusion at this time. This note was generated with [employer] dictation software. It may contain incorrect words, spelling, and punctuation that were not noted in checking the note before signing. Code Visit Inpatient E&M: 95777 Subs Hosp L2
--- NOTE | 2018-02-05 08:15 | PCM.PN.HOSP ---
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 status post recurrent thoracocentesis presented to the emergency department with progressive shortness of breath and assessment of acute on chronic hypoxic and hypercapnic respiratory failure secondary to left-sided large malignant pleural effusion made admitted to the intensive care unit for subsequent management Objective: GENERAL: Dyspneic at rest on BiPAP HEENT: Clear conjunctiva, NECK; supple, normal thyroid, CHEST: Diminished to auscultation bilaterally, HEART: Irregular, tachycardic ABDOMEN: soft, non-tender, normoactive bowel sounds, RECTAL: deferred EXTREMITIES: No edema, no clubbing, no cyanosis. OFFICE SERVICES SPECIALIST: Awake, no lateralizing signs. SKIN: No rash Vitals/I&O's: Vital Signs Temp Pulse Resp BP Pulse Ox 97.2 F L 99 26 H 110/80 100 02/05/18 04:00 02/05/18 06:00 02/05/18 06:00 02/05/18 06:00 02/05/18 06:00 Oxygen Flow Rate (L/min) 5 Oxygen Delivery Method Nasal Cannula Weight: 79 kg Body Mass Index (BMI) 26.6 Intake and Output for Last 24 Hours 02/03/18 02/04/18 02/05/18 23:59 23:59 23:59 Intake Total 1774 / 1774 3073 / 3073 60 / 60 Output Total 200 / 200 1825 / 1825 400 / 400 Balance 1574 / 1574 1248 / 1248 -340 / -340 Microbiology Past 72 Hours 02/01/18 19:30 Mucosa - Nasopharyngeal Respiratory Panel (PCR) - Final Laboratory Results 02/05/18 04:00: Sodium 142, Potassium 4.4, Chloride 103, Carbon Dioxide 35.0 H, Anion Gap 4 L, BUN 9, Creatinine 0.43 L, Estim Creat Clear Calc 128.53, Est GFR (MDRD) Af Amer 191, Est GFR (MDRD) Non-Af 158, BUN/Creatinine Ratio 21.0 H, Glucose 99, Calcium 8.6, Phosphorus 3.0, Magnesium 2.6, Total Bilirubin 0.30, AST 30, ALT 76 H, Alkaline Phosphatase 92, Total Protein 5.6 L, Albumin 2.1 L, Globulin 3.5, Albumin/Globulin Ratio 0.6 L Current Medications Acetaminophen (Tylenol) 650 mg PO Q4H PRN PRN PRN Reason: FEVER,MILD-MOD PAIN,HEADACHE Al Hydroxide/Mg Hydroxide (Mylanta Ii) 30 ml PO Q6H PRN PRN PRN Reason: Gastric Burning Albuterol Sulfate (Ventolin Aerosols) 2.5 mg INHALATION Q2H PRN PRN PRN Reason: SHORTNESS OF BREATH Amiodarone HCl (Cordarone) 200 mg PO DAILY [facility] Last Admin: 02/04/18 10:19 Dose: 200 mg Amitriptyline HCl (Elavil) 10 mg PO QHS [facility] Last Admin: 02/04/18 22:02 Dose: 10 mg Aspirin (Aspirin, Baby) 81 mg PO DAILY@0800 [facility] Last Admin: 02/04/18 09:04 Dose: 81 mg Bisacodyl (Dulcolax) 10 mg RECTAL DAILY PRN PRN PRN Reason: Constipation Chlorhexidine Gluconate () 1 each TOPICAL DAILY [facility] Last Admin: 02/04/18 01:56 Dose: 1 each Digoxin (Lanoxin) 62.5 mcg PO DAILY [facility] Last Admin: 02/04/18 10:20 Dose: 62.5 mcg Docusate Sodium (Colace) 200 mg PO BID PRN PRN PRN Reason: Constipation Dronabinol (Marinol) 2.5 mg PO BIDAC [facility] Last Admin: 02/04/18 18:13 Dose: 2.5 mg Famotidine (Pepcid) 20 mg PO BID [facility] Last Admin: 02/04/18 22:02 Dose: 20 mg Guaifenesin (Mucinex) 1,200 mg PO BID [facility] Last Admin: 02/04/18 22:03 Dose: 1,200 mg Heparin Sodium (Beef Lung) (Heparin 500 Unit/5 Ml (100/Ml)) 500 unit IV UD PRN PRN Reason: HEPARIN FLUSH Levofloxacin 750 mg/ N/A 150 mls @ 100 mls/hr IV DAILY [facility] Last Admin: 02/04/18 14:04 Dose: 100 mls/hr Fluconazole (Diflucan) 200 mg in 100 mls @ 100 mls/hr IV DAILY [facility] Last Admin: 02/04/18 13:03 Dose: 100 mls/hr Lidocaine/Diphenhydr/Alum/Mg/Simeth () 10 ml PO 4X/DAY [facility] Last Admin: 02/04/18 22:03 Dose: 10 ml Metoprolol Tartrate (Lopressor (Beta Sonny)) 25 mg PO BID [facility] Last Admin: 02/04/18 22:03 Dose: 25 mg Morphine Sulfate () 1 - 2 mg IV Q4H PRN PRN PRN Reason: Moderate Pain (pain scale 4-5) Multivitamins (Multivitamin) 1 tablet PO DAILY@0800 [facility] Last Admin: 02/04/18 09:04 Dose: 1 tablet Nicotine (Nicoderm Cq (Pbkc)) 21 mg TRANSDERM. DAILY [facility] Last Admin: 02/04/18 10:18 Dose: 21 mg Nutritional Formula (Lactose Free) (Ensure Enlive) 120 ml PO 4X/DAY [facility] Last Admin: 02/04/18 22:06 Dose: 120 ml Ondansetron HCl (Zofran) 4 mg IV Q4H PRN PRN PRN Reason: Nausea Oxycodone HCl (Oxycontin) 15 mg PO Q12H [facility] Last Admin: 02/04/18 22:03 Dose: 15 mg Oxycodone HCl (Oxyir) 5 mg PO Q4H PRN PRN PRN Reason: Moderate Pain (pain scale 4-5) Polyethylene Glycol (Miralax) 17 gm PO DAILY [facility] Last Admin: 02/04/18 10:20 Dose: Not Given Potassium Phos/Sodium Phos (Neutra-Phos Packet) 1 packet PO 4X/DAY [facility] Last Admin: 02/04/18 22:03 Dose: 1 packet Prochlorperazine Maleate (Compazine Tablet) 5 mg PO Q6H PRN PRN PRN Reason: NAUSEA/VOMITING Sodium Chloride () 5 - 30 ml IV UD PRN PRN Reason: SALINE FLUSH Last Admin: 02/01/18 20:19 Dose: 10 ml Sodium Chloride () 10 ml IV UD PRN PRN Reason: VAD FLUSH Zolpidem Tartrate (Ambien (Generic)) 5 mg PO QHS PRN PRN PRN Reason: SLEEP Medical Necessity - Tobacco Use Smoking Status: Current some day smoker Assessment/Plan Active and Suspected Problems (Last Reviewed 01/23/18 @ 10:09 by Hali Altamirano) Acute on chronic respiratory failure with hypoxia and hypercapnia (Acute) CA breast with malignant effusion (Acute) Patient is a 63-year-old lady with history of breast CA, 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 Acute on chronic hypoxic and hypercapnic respiratory failure secondary to malignant pleural effusion involving the left side. Patient has been admitted to the intensive care unit with consultation placed a pulmonary/intensive care. Patient has been managed intermittently on BiPAP 2. Suspected gram-negative pneumonia; possibly contributing to above patient is on Levaquin 3. Recurrent left-sided malignant pleural effusion did discuss with patient regarding Pleurx catheter placement consultation was placed to Dr. العراقي 4. History of breast CA is followed by Dr. Marinelli 5. Metastatic sarcoma involving the left Thigh; followed by Dr. Marinelli 6. Paroxysmal A. fib currently in sinus rhythm rate control with dig; metoprolol and amiodarone 7. Chronic hypoxic respiratory failure secondary to COPD on baseline home O2 8. Depression with anxiety 9. Trouble cytopenia patient counts improving 10. DVT prophylaxis chemoprophylaxis held in view of patient significant low platelet count Active Medications Acetaminophen (Tylenol) 650 mg PO Q4H PRN PRN PRN Reason: FEVER,MILD-MOD PAIN,HEADACHE Al Hydroxide/Mg Hydroxide (Mylanta Ii) 30 ml PO Q6H PRN PRN PRN Reason: Gastric Burning Albuterol Sulfate (Ventolin Aerosols) 2.5 mg INHALATION Q2H PRN PRN PRN Reason: SHORTNESS OF BREATH Amiodarone HCl (Cordarone) 200 mg PO DAILY [facility] Last Admin: 02/04/18 10:19 Dose: 200 mg Amitriptyline HCl (Elavil) 10 mg PO QHS [facility] Last Admin: 02/04/18 22:02 Dose: 10 mg Aspirin (Aspirin, Baby) 81 mg PO DAILY@0800 [facility] Last Admin: 02/04/18 09:04 Dose: 81 mg Bisacodyl (Dulcolax) 10 mg RECTAL DAILY PRN PRN PRN Reason: Constipation Chlorhexidine Gluconate () 1 each TOPICAL DAILY [facility] Last Admin: 02/04/18 01:56 Dose: 1 each Digoxin (Lanoxin) 62.5 mcg PO DAILY [facility] Last Admin: 02/04/18 10:20 Dose: 62.5 mcg Docusate Sodium (Colace) 200 mg PO BID PRN PRN PRN Reason: Constipation Dronabinol (Marinol) 2.5 mg PO BIDAC [facility] Last Admin: 02/04/18 18:13 Dose: 2.5 mg Famotidine (Pepcid) 20 mg PO BID [facility] Last Admin: 02/04/18 22:02 Dose: 20 mg Guaifenesin (Mucinex) 1,200 mg PO BID [facility] Last Admin: 02/04/18 22:03 Dose: 1,200 mg Heparin Sodium (Beef Lung) (Heparin 500 Unit/5 Ml (100/Ml)) 500 unit IV UD PRN PRN Reason: HEPARIN FLUSH Levofloxacin 750 mg/ N/A 150 mls @ 100 mls/hr IV DAILY [facility] Last Admin: 02/04/18 14:04 Dose: 100 mls/hr Fluconazole (Diflucan) 200 mg in 100 mls @ 100 mls/hr IV DAILY [facility] Last Admin: 02/04/18 13:03 Dose: 100 mls/hr Lidocaine/Diphenhydr/Alum/Mg/Simeth () 10 ml PO 4X/DAY [facility] Last Admin: 02/04/18 22:03 Dose: 10 ml Metoprolol Tartrate (Lopressor (Beta Sonny)) 25 mg PO BID [facility] Last Admin: 02/04/18 22:03 Dose: 25 mg Morphine Sulfate () 1 - 2 mg IV Q4H PRN PRN PRN Reason: Moderate Pain (pain scale 4-5) Multivitamins (Multivitamin) 1 tablet PO DAILY@0800 [facility] Last Admin: 02/04/18 09:04 Dose: 1 tablet Nicotine (Nicoderm Cq (Pbkc)) 21 mg TRANSDERM. DAILY [facility] Last Admin: 02/04/18 10:18 Dose: 21 mg Nutritional Formula (Lactose Free) (Ensure Enlive) 120 ml PO 4X/DAY [facility] Last Admin: 02/04/18 22:06 Dose: 120 ml Ondansetron HCl (Zofran) 4 mg IV Q4H PRN PRN PRN Reason: Nausea Oxycodone HCl (Oxycontin) 15 mg PO Q12H [facility] Last Admin: 02/04/18 22:03 Dose: 15 mg Oxycodone HCl (Oxyir) 5 mg PO Q4H PRN PRN PRN Reason: Moderate Pain (pain scale 4-5) Polyethylene Glycol (Miralax) 17 gm PO DAILY [facility] Last Admin: 02/04/18 10:20 Dose: Not Given Potassium Phos/Sodium Phos (Neutra-Phos Packet) 1 packet PO 4X/DAY [facility] Last Admin: 02/04/18 22:03 Dose: 1 packet Prochlorperazine Maleate (Compazine Tablet) 5 mg PO Q6H PRN PRN PRN Reason: NAUSEA/VOMITING Sodium Chloride () 5 - 30 ml IV UD PRN PRN Reason: SALINE FLUSH Last Admin: 02/01/18 20:19 Dose: 10 ml Sodium Chloride () 10 ml IV UD PRN PRN Reason: VAD FLUSH Zolpidem Tartrate (Ambien (Generic)) 5 mg PO QHS PRN PRN PRN Reason: SLEEP Clinical Impression(s) from Imaging Studies Chest X-Ray 02/01/18 13:00 IMPRESSION: 1. Persistent left-sided airspace disease with increased left pleural effusion. 2. Right basilar airspace disease . Electronically Signed: Miguel Miranda MD at 13:57 EDT Tel , Service support , Thoracentesis Ultrasound 02/01/18 13:25 IMPRESSION: Successful ultrasound-guided thoracentesis. Electronically Signed: Miguel Miranda MD at 15:34 EDT Tel , Service support , Chest X-Ray 02/01/18 14:17 IMPRESSION: 1. Decreased left pleural effusion. 2. Improved aeration of the left lung Electronically Signed: Miguel Miranda MD at 15:39 EDT Tel , Service support , Chest X-Ray 02/02/18 05:55 IMPRESSION: 1. Decreased left pleural effusion. 2. There is no evidence of pneumothorax. Electronically Signed: Miguel Miranda MD at 9:55 EDT Tel , Service support , Chest X-Ray 02/04/18 06:50 IMPRESSION: Increased left-sided pleural effusion since the study of February 02, 2018 Electronically Signed: Perez Regan, at 7:25 EDT Tel , Service support , Code Visit Inpatient E&M: 26472 Subs Hosp L3
--- NOTE | 2018-02-05 08:20 | PN_ITS ---
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 status post recurrent thoracocentesis presented to the emergency department with progressive shortness of breath and assessment of acute on chronic hypoxic and hypercapnic respiratory failure secondary to left-sided large malignant pleural effusion made admitted to the intensive care unit for subsequent management Objective: GENERAL: Dyspneic at rest on BiPAP HEENT: Clear conjunctiva, NECK; supple, normal thyroid, CHEST: Diminished to auscultation bilaterally, HEART: Irregular, tachycardic ABDOMEN: soft, non-tender, normoactive bowel sounds, RECTAL: deferred EXTREMITIES: No edema, no clubbing, no cyanosis. 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 SKIN: No rash Vitals/I&O's: Vital Signs Temp Pulse Resp BP Pulse Ox 97.2 F L 99 26 H 110/80 100 02/05/18 04:00 02/05/18 06:00 02/05/18 06:00 02/05/18 06:00 02/05/18 06:00 Oxygen Flow Rate (L/min) 5 Oxygen Delivery Method Nasal Cannula Weight: 79 kg Body Mass Index (BMI) 26.6 Intake and Output for Last 24 Hours 02/03/18 02/04/18 02/05/18 23:59 23:59 23:59 Intake Total 1774 / 1774 3073 / 3073 60 / 60 Output Total 200 / 200 1825 / 1825 400 / 400 Balance 1574 / 1574 1248 / 1248 -340 / -340 Microbiology Past 72 Hours 02/01/18 19:30 Mucosa - Nasopharyngeal Respiratory Panel (PCR) - Final Laboratory Results 02/05/18 04:00: Sodium 142, Potassium 4.4, Chloride 103, Carbon Dioxide 35.0 H, Anion Gap 4 L, BUN 9, Creatinine 0.43 L, Estim Creat Clear Calc 128.53, Est GFR (MDRD) Af Amer 191, Est GFR (MDRD) Non-Af 158, BUN/Creatinine Ratio 21.0 H, Glucose 99, Calcium 8.6, Phosphorus 3.0, Magnesium 2.6, Total Bilirubin 0.30, AST 30, ALT 76 H, Alkaline Phosphatase 92, Total Protein 5.6 L, Albumin 2.1 L, Globulin 3.5, Albumin/Globulin Ratio 0.6 L Current Medications Acetaminophen (Tylenol) 650 mg PO Q4H PRN PRN PRN Reason: FEVER,MILD-MOD PAIN,HEADACHE Al Hydroxide/Mg Hydroxide (Mylanta Ii) 30 ml PO Q6H PRN PRN PRN Reason: Gastric Burning Albuterol Sulfate (Ventolin Aerosols) 2.5 mg INHALATION Q2H PRN PRN PRN Reason: SHORTNESS OF BREATH Amiodarone HCl (Cordarone) 200 mg PO DAILY [facility] Last Admin: 02/04/18 10:19 Dose: 200 mg Amitriptyline HCl (Elavil) 10 mg PO QHS [facility] Last Admin: 02/04/18 22:02 Dose: 10 mg Aspirin (Aspirin, Baby) 81 mg PO DAILY@0800 [facility] Last Admin: 02/04/18 09:04 Dose: 81 mg Bisacodyl (Dulcolax) 10 mg RECTAL DAILY PRN PRN PRN Reason: Constipation Chlorhexidine Gluconate () 1 each TOPICAL DAILY [facility] Last Admin: 02/04/18 01:56 Dose: 1 each Digoxin (Lanoxin) 62.5 mcg PO DAILY [facility] Last Admin: 02/04/18 10:20 Dose: 62.5 mcg Docusate Sodium (Colace) 200 mg PO BID PRN PRN PRN Reason: Constipation Dronabinol (Marinol) 2.5 mg PO BIDAC [facility] Last Admin: 02/04/18 18:13 Dose: 2.5 mg Famotidine (Pepcid) 20 mg PO BID [facility] Last Admin: 02/04/18 22:02 Dose: 20 mg Guaifenesin (Mucinex) 1,200 mg PO BID [facility] Last Admin: 02/04/18 22:03 Dose: 1,200 mg Heparin Sodium (Beef Lung) (Heparin 500 Unit/5 Ml (100/Ml)) 500 unit IV UD PRN PRN Reason: HEPARIN FLUSH Levofloxacin 750 mg/ N/A 150 mls @ 100 mls/hr IV DAILY [facility] Last Admin: 02/04/18 14:04 Dose: 100 mls/hr Fluconazole (Diflucan) 200 mg in 100 mls @ 100 mls/hr IV DAILY [facility] Last Admin: 02/04/18 13:03 Dose: 100 mls/hr Lidocaine/Diphenhydr/Alum/Mg/Simeth () 10 ml PO 4X/DAY [facility] Last Admin: 02/04/18 22:03 Dose: 10 ml Metoprolol Tartrate (Lopressor (Beta Sonny)) 25 mg PO BID [facility] Last Admin: 02/04/18 22:03 Dose: 25 mg Morphine Sulfate () 1 - 2 mg IV Q4H PRN PRN PRN Reason: Moderate Pain (pain scale 4-5) Multivitamins (Multivitamin) 1 tablet PO DAILY@0800 [facility] Last Admin: 02/04/18 09:04 Dose: 1 tablet Nicotine (Nicoderm Cq (Pbkc)) 21 mg TRANSDERM. DAILY [facility] Last Admin: 02/04/18 10:18 Dose: 21 mg Nutritional Formula (Lactose Free) (Ensure Enlive) 120 ml PO 4X/DAY [facility] Last Admin: 02/04/18 22:06 Dose: 120 ml Ondansetron HCl (Zofran) 4 mg IV Q4H PRN PRN PRN Reason: Nausea Oxycodone HCl (Oxycontin) 15 mg PO Q12H [facility] Last Admin: 02/04/18 22:03 Dose: 15 mg Oxycodone HCl (Oxyir) 5 mg PO Q4H PRN PRN PRN Reason: Moderate Pain (pain scale 4-5) Polyethylene Glycol (Miralax) 17 gm PO DAILY [facility] Last Admin: 02/04/18 10:20 Dose: Not Given Potassium Phos/Sodium Phos (Neutra-Phos Packet) 1 packet PO 4X/DAY [facility] Last Admin: 02/04/18 22:03 Dose: 1 packet Prochlorperazine Maleate (Compazine Tablet) 5 mg PO Q6H PRN PRN PRN Reason: NAUSEA/VOMITING Sodium Chloride () 5 - 30 ml IV UD PRN PRN Reason: SALINE FLUSH Last Admin: 02/01/18 20:19 Dose: 10 ml Sodium Chloride () 10 ml IV UD PRN PRN Reason: VAD FLUSH Zolpidem Tartrate (Ambien (Generic)) 5 mg PO QHS PRN PRN PRN Reason: SLEEP Medical Necessity - Tobacco Use Smoking Status: Current some day smoker Assessment/Plan Active and Suspected Problems (Last Reviewed 01/23/18 @ 10:09 by Hali Altamirano) Acute on chronic respiratory failure with hypoxia and hypercapnia (Acute) CA breast with malignant effusion (Acute) Patient is a 63-year-old lady with history of breast CA, 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 Acute on chronic hypoxic and hypercapnic respiratory failure secondary to malignant pleural effusion involving the left side. Patient has been admitted to the intensive care unit with consultation placed a pulmonary/intensive care. Patient has been managed intermittently on BiPAP 2. Suspected gram-negative pneumonia; possibly contributing to above patient is on Levaquin 3. Recurrent left-sided malignant pleural effusion did discuss with patient regarding Pleurx catheter placement consultation was placed to Dr. العراقي 4. History of breast CA is followed by Dr. Marinelli 5. Metastatic sarcoma involving the left Thigh; followed by Dr. Marinelli 6. Paroxysmal A. fib currently in sinus rhythm rate control with dig; metoprolol and amiodarone 7. Chronic hypoxic respiratory failure secondary to COPD on baseline home O2 8. Depression with anxiety 9. Trouble cytopenia patient counts improving 10. DVT prophylaxis chemoprophylaxis held in view of patient significant low platelet count Active Medications Acetaminophen (Tylenol) 650 mg PO Q4H PRN PRN PRN Reason: FEVER,MILD-MOD PAIN,HEADACHE Al Hydroxide/Mg Hydroxide (Mylanta Ii) 30 ml PO Q6H PRN PRN PRN Reason: Gastric Burning Albuterol Sulfate (Ventolin Aerosols) 2.5 mg INHALATION Q2H PRN PRN PRN Reason: SHORTNESS OF BREATH Amiodarone HCl (Cordarone) 200 mg PO DAILY [facility] Last Admin: 02/04/18 10:19 Dose: 200 mg Amitriptyline HCl (Elavil) 10 mg PO QHS [facility] Last Admin: 02/04/18 22:02 Dose: 10 mg Aspirin (Aspirin, Baby) 81 mg PO DAILY@0800 [facility] Last Admin: 02/04/18 09:04 Dose: 81 mg Bisacodyl (Dulcolax) 10 mg RECTAL DAILY PRN PRN PRN Reason: Constipation Chlorhexidine Gluconate () 1 each TOPICAL DAILY [facility] Last Admin: 02/04/18 01:56 Dose: 1 each Digoxin (Lanoxin) 62.5 mcg PO DAILY [facility] Last Admin: 02/04/18 10:20 Dose: 62.5 mcg Docusate Sodium (Colace) 200 mg PO BID PRN PRN PRN Reason: Constipation Dronabinol (Marinol) 2.5 mg PO BIDAC [facility] Last Admin: 02/04/18 18:13 Dose: 2.5 mg Famotidine (Pepcid) 20 mg PO BID [facility] Last Admin: 02/04/18 22:02 Dose: 20 mg Guaifenesin (Mucinex) 1,200 mg PO BID [facility] Last Admin: 02/04/18 22:03 Dose: 1,200 mg Heparin Sodium (Beef Lung) (Heparin 500 Unit/5 Ml (100/Ml)) 500 unit IV UD PRN PRN Reason: HEPARIN FLUSH Levofloxacin 750 mg/ N/A 150 mls @ 100 mls/hr IV DAILY [facility] Last Admin: 02/04/18 14:04 Dose: 100 mls/hr Fluconazole (Diflucan) 200 mg in 100 mls @ 100 mls/hr IV DAILY [facility] Last Admin: 02/04/18 13:03 Dose: 100 mls/hr Lidocaine/Diphenhydr/Alum/Mg/Simeth () 10 ml PO 4X/DAY [facility] Last Admin: 02/04/18 22:03 Dose: 10 ml Metoprolol Tartrate (Lopressor (Beta Sonny)) 25 mg PO BID [facility] Last Admin: 02/04/18 22:03 Dose: 25 mg Morphine Sulfate () 1 - 2 mg IV Q4H PRN PRN PRN Reason: Moderate Pain (pain scale 4-5) Multivitamins (Multivitamin) 1 tablet PO DAILY@0800 [facility] Last Admin: 02/04/18 09:04 Dose: 1 tablet Nicotine (Nicoderm Cq (Pbkc)) 21 mg TRANSDERM. DAILY [facility] Last Admin: 02/04/18 10:18 Dose: 21 mg Nutritional Formula (Lactose Free) (Ensure Enlive) 120 ml PO 4X/DAY [facility] Last Admin: 02/04/18 22:06 Dose: 120 ml Ondansetron HCl (Zofran) 4 mg IV Q4H PRN PRN PRN Reason: Nausea Oxycodone HCl (Oxycontin) 15 mg PO Q12H [facility] Last Admin: 02/04/18 22:03 Dose: 15 mg Oxycodone HCl (Oxyir) 5 mg PO Q4H PRN PRN PRN Reason: Moderate Pain (pain scale 4-5) Polyethylene Glycol (Miralax) 17 gm PO DAILY [facility] Last Admin: 02/04/18 10:20 Dose: Not Given Potassium Phos/Sodium Phos (Neutra-Phos Packet) 1 packet PO 4X/DAY [facility] Last Admin: 02/04/18 22:03 Dose: 1 packet Prochlorperazine Maleate (Compazine Tablet) 5 mg PO Q6H PRN PRN PRN Reason: NAUSEA/VOMITING Sodium Chloride () 5 - 30 ml IV UD PRN PRN Reason: SALINE FLUSH Last Admin: 02/01/18 20:19 Dose: 10 ml Sodium Chloride () 10 ml IV UD PRN PRN Reason: VAD FLUSH Zolpidem Tartrate (Ambien (Generic)) 5 mg PO QHS PRN PRN PRN Reason: SLEEP Clinical Impression(s) from Imaging Studies Chest X-Ray 02/01/18 13:00 IMPRESSION: 1. Persistent left-sided airspace disease with increased left pleural effusion. 2. Right basilar airspace disease . Electronically Signed: Miguel Miranda MD at 13:57 EDT Tel , Service support , Thoracentesis Ultrasound 02/01/18 13:25 IMPRESSION: Successful ultrasound-guided thoracentesis. Electronically Signed: Miguel Miranda MD at 15:34 EDT Tel , Service support , Chest X-Ray 02/01/18 14:17 IMPRESSION: 1. Decreased left pleural effusion. 2. Improved aeration of the left lung Electronically Signed: Miguel Miranda MD at 15:39 EDT Tel , Service support , Chest X-Ray 02/02/18 05:55 IMPRESSION: 1. Decreased left pleural effusion. 2. There is no evidence of pneumothorax. Electronically Signed: Miguel Miranda MD at 9:55 EDT Tel , Service support , Chest X-Ray 02/04/18 06:50 IMPRESSION: Increased left-sided pleural effusion since the study of February 02, 2018 Electronically Signed: Perez Regan, at 7:25 EDT Tel , Service support , Code Visit Inpatient E&M: [id number] Subs Hosp L3
[2018-02-05] MEDS: Dronabinol 2.5 MG Capsule PO ×2 (08:40→17:08)
[2018-02-05] MEDS: Multivitamins,Therapeutic Tablet 1 TABLET PO (08:41)
[2018-02-05] MEDS: Famotidine 20 MG Tablet PO ×2 (08:41→22:02)
[2018-02-05] MEDS: Aspirin 81 MG TAB.CHEW PO (08:41)
[2018-02-05] MEDS: Na Biphos/Potassium Phosphate PACKET 1 PACKET PO ×4 (08:42→22:01)
[2018-02-05] MEDS: Digoxin 125 MCG Tablet 62.5 MCG PO (08:42)
[2018-02-05] MEDS: Polyethylene Glycol 3350 17 GM PACKET PO (08:42)
[2018-02-05] MEDS: Metoprolol Tartrate 25 MG Tablet PO ×2 (08:42→22:02)
[2018-02-05] MEDS: Amiodarone 200 MG Tablet PO (08:43)
[2018-02-05] MEDS: oxyCODONE CR 15 MG Tablet PO ×2 (08:45→21:59)
--- NOTE | 2018-02-05 09:22 | CASEMGMT ---
Ins[facility]. [employer] insurance with CHARLY designation. [facility], [facility], [facility]. [facility], [facility], [facility]
--- NOTE | 2018-02-05 09:34 | CASEMGMT ---
Addendum entered by Ken Chand 02/05/18 11:27: Call to [facility], spoke with Bertha who verified pt script is for 2-4 L NC, concentrator and portability. If pt's liter flow is above 4L on dc, will need new script faxed to [facility]. If pt requires 6L or above, they will provide new concentrator and increased portability for pt. Gerald GOMES Original Note: Addendum entered by Ken Chand 02/05/18 09:49: Intro role of CM to patient and her . Re: dc planning- pt states she has alot of help @ home. Family was present for ICU rounds, appear to very supportive. -Home O2 through [facility]. Pt was on 3L NC @ home, has concentrator and portable tanks. If increased oxygen flow is needed at home (pt is on 5-6L NC here), new script can be sent to [email or web address] and they will deliver any extra equipment that is needed. -Declined need for Home Health. -Discussed possible plan for outpt pleurex catheter placement and f/u with pulmonary clinic if thoracentesis is needed prior to procedure. RN CM let pt/ know final plans re: procedure will be confirmed by Dr. Jenkins. -Questions answered, support given -CM will continue to follow and assist with dc planning needs. Gerald GOMES Original Note: ICU Interdisciplinary rounds. Pt may need additional thoracentesis prior to dc. Plan is for Pleurex catheter as outpt. If additional thoracentesis is needed prior to procedure, Dr. Jenkins will see in Pulmonary office. Plan will be home on discharge, with physician follow up. Per PT, pt may benefit from Outpt therapy. If needed, pt will need script prior to dc. Gerald NUNEZ
[2018-02-05 09:40] LABS: Pathologist Review Reviewed
[2018-02-05] MEDS: guaiFENesin 1,200 MG Tablet 1200 MG PO ×2 (11:02→22:01)
--- NOTE | 2018-02-05 11:19 | PCM.CONS.GEN ---
Problem List (1) Recurrent pleural effusion on left Status: Acute Reason for Consult Date of Consultation: 02/05/18 History of Present Illness: The patient is a 63 year old F who was admitted with shortness of breath and possible pneumonia. She had a right chest port placed in June last year for malignancy. She had a recent PET scan which showed mass in the left lung as well as several other areas. She has recurrent left pleural effusion. She had a thoracentesis at the end of last month and again 4 days ago and her pleural effusion has recurred. She reports shortness of breath. She is in the middle of chemotherapy for her malignancies. Past Medical History Past Medical History (Chronic Problems): Chronic Problems (Last Reviewed 01/23/18 @ 10:09 by Hali Altamirano) Left severe malignant pleural effusion (Chronic) GERD (gastroesophageal reflux disease) (Chronic) Tobacco dependence due to cigarettes (Chronic) Insomnia (Chronic) Depression (Chronic) Breast cancer (Chronic) left, for port removal PAF (paroxysmal atrial fibrillation) (Chronic) Bone metastases (Chronic) Sarcoma of left thigh (Chronic) Metastatic neoplastic disease (Chronic) Cough (Chronic) Left axillary pain (Chronic) Chemotherapy management, encounter for (Chronic) Anemia associated with chemotherapy (Chronic) Allergies Penicillins Allergy (Intermediate, Verified 02/01/18 12:44) Hives mirtazapine Adverse Reaction (Severe, Verified 02/01/18 12:44) mental changes mental changes Home Medications: Ambulatory Orders Medication Instructions Recorded Escitalopram Oxalate [Lexapro] 20 mg PO DAILY 09/21/15 Multivitamin [Daily Multiple 1 each PO DAILY 10/01/15 Vitamin] Aspirin [Aspirin, Baby] 81 mg PO DAILY@0800 01/20/18 Cephalexin [Keflex] 500 mg PO BID 01/20/18 Metoprolol Tartrate [Lopressor 25 mg PO BID 01/20/18 (beta onur)] Oxygen, Home [Home Oxygen] 2 - 4 lpm NASAL CONT #1 unit 01/21/18 proCHLORPERazine tablet [Compazine 5 mg PO Q6H PRN PRN #60 tab 01/23/18 tablet] Amiodarone HCl [Cordarone] 200 mg PO DAILY 02/01/18 Amitriptyline HCl [Elavil] 10 mg PO QHS 02/01/18 Digoxin [Lanoxin] 62.5 mcg PO DAILY 02/01/18 Dronabinol [Marinol] 2.5 mg PO BIDAC 02/01/18 Fluconazole [Diflucan] 200 mg PO DAILY 02/01/18 Magic Mouth Wash 10 ml PO 4X/DAY 02/01/18 Oxycodone CR [Oxycontin] 15 mg PO Q12H 02/01/18 Oxycodone [Oxyir] 5 mg PO Q6H PRN 02/01/18 Surgical History: - Psychiatric History: No 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 Smoking Status: Current some day smoker - *Family History Maternal History Items: Diabetes Paternal History Items: - - of cirrhosis Review of Systems Constitutional: Denies: Anorexia, Fever HEENT: Denies: Difficulty Swallowing Cardiovascular: Denies: Chest Pain Respiratory: Reports: Cough, Shortness of Breath Gastrointestinal: Denies: Abdominal Pain Genitourinary: Denies: Dysuria Skin: Denies: Dryness, Jaundice Hematologic/ Lymphatic: Reports: Anemia Patient Problems: Active and Suspected Problems (Last Reviewed 01/23/18 @ 10:09 by Hali Altamirano) Acute on chronic respiratory failure with hypoxia and hypercapnia (Acute) CA breast with malignant effusion (Acute) Recurrent pleural effusion on left (Acute) - Physical Exam General: Alert, Oriented x3, Cooperative HEENT: Atraumatic, PERRLA, EOMI Neck: No JVD Lungs: Short of Breath Cardiovascular: Regular Rhythm, Tachycardic Abdomen: Soft, Non Tender, Non-Distended Extremities: No cyanosis Skin: No breakdown Musculoskeletal: No Muscle Wasting Neurological: Cranial nerves II-XII grossly intact Psych/Mental Status: Normal Affect Vital Signs Temp Pulse Resp BP Pulse Ox 98 F 72 24 H 109/85 H 5 02/05/18 08:00 02/05/18 10:00 02/05/18 10:00 02/05/18 08:42 02/05/18 10:00 Oxygen Flow Rate (L/min) 5 Oxygen Delivery Method Nasal Cannula Weight: 174 lb 2.643 oz Body Mass Index (BMI) 26.6 Intake and Output for Last 24 Hours 02/03/18 02/04/18 02/05/18 23:59 23:59 23:59 Intake Total 1774 / 1774 3073 / 3073 60 / 60 Output Total 200 / 200 1825 / 1825 400 / 400 Balance 1574 / 1574 1248 / 1248 -340 / -340 Microbiology Past 72 Hours 02/01/18 19:30 Respiratory Panel (PCR) - Final Mucosa - Nasopharyngeal Laboratory Tests Past 24 Hrs 02/04/18 02/05/18 05:10 04:00 Diff Path Review Reviewed Sodium 142 Potassium 4.4 Chloride 103 Carbon Dioxide 35.0 H Anion Gap 4 L BUN 9 Creatinine 0.43 L Estim Creat Clear Calc 128.53 Est GFR (MDRD) Af Amer 191 Est GFR (MDRD) Non-Af 158 BUN/Creatinine Ratio 21.0 H Glucose 99 Calcium 8.6 Phosphorus 3.0 Magnesium 2.6 Total Bilirubin 0.30 AST 30 ALT 76 H Alkaline Phosphatase 92 Total Protein 5.6 L Albumin 2.1 L Globulin 3.5 Albumin/Globulin Ratio 0.6 L Clinical Impression(s) from Imaging Studies Chest X-Ray 02/01/18 13:00 IMPRESSION: 1. Persistent left-sided airspace disease with increased left pleural effusion. 2. Right basilar airspace disease . Electronically Signed: Miguel Miranda MD at 13:57 EDT Tel , Service support , Thoracentesis Ultrasound 02/01/18 13:25 IMPRESSION: Successful ultrasound-guided thoracentesis. Electronically Signed: Miguel Miranda MD at 15:34 EDT Tel , Service support , Chest X-Ray 02/01/18 14:17 IMPRESSION: 1. Decreased left pleural effusion. 2. Improved aeration of the left lung Electronically Signed: Miguel Miranda MD at 15:39 EDT Tel , Service support , Chest X-Ray 02/02/18 05:55 IMPRESSION: 1. Decreased left pleural effusion. 2. There is no evidence of pneumothorax. Electronically Signed: Miguel Miranda MD at 9:55 EDT Tel , Service support , Chest X-Ray 02/04/18 06:50 IMPRESSION: Increased left-sided pleural effusion since the study of February 02, 2018 Electronically Signed: Perez Regan, at 7:25 EDT Tel , Service support , Assessment/Plan Active and Suspected Problems (Last Reviewed 01/23/18 @ 10:09 by Hali Altamirano) Acute on chronic respiratory failure with hypoxia and hypercapnia (Acute) CA breast with malignant effusion (Acute) Recurrent pleural effusion on left (Acute) 63-year-old female with malignant left pleural effusion 1. Patient has recurrent left pleural effusion and I was consulted to place a left Pleurx catheter. I believe this is warranted as she has had several thoracentesis drainages the last week. She is still short of breath and has a possible pneumonia. 2. I discussed Pleurx catheter placement with the patient in detail. I discussed the risks of the procedure including but not limited to bleeding, infection, pneumothorax, chronically draining incision. The patient understands all the risks and is willing to proceed with left Pleurx catheter placement tomorrow. I have made the patient clear liquids after midnight and n.p.o. 2 hours before surgery. Plan is for placement tomorrow afternoon. Marino العراقي MD Pager: [facility] [address] [place] [address], [address] [place] [address] Office:
--- NOTE | 2018-02-05 11:24 | CON.PCM_ITS ---
Problem List (1) Recurrent pleural effusion on left Status: Acute Reason for Consult Date of Consultation: 02/05/18 History of Present Illness: The patient is a 63 year old F who was admitted with shortness of breath and possible pneumonia. She had a right chest port placed in June last year for malignancy. She had a recent PET scan which showed mass in the left lung as well as several other areas. She has recurrent left pleural effusion. She had a thoracentesis at the end of last month and again 4 days ago and her pleural effusion has recurred. She reports shortness of breath. She is in the middle of chemotherapy for her malignancies. Past Medical History Past Medical History (Chronic Problems): Chronic Problems (Last Reviewed 01/23/18 @ 10:09 by Hali Altamirano) Left severe malignant pleural effusion (Chronic) GERD (gastroesophageal reflux disease) (Chronic) Tobacco dependence due to cigarettes (Chronic) Insomnia (Chronic) Depression (Chronic) Breast cancer (Chronic) left, for port removal PAF (paroxysmal atrial fibrillation) (Chronic) Bone metastases (Chronic) Sarcoma of left thigh (Chronic) Metastatic neoplastic disease (Chronic) Cough (Chronic) Left axillary pain (Chronic) Chemotherapy management, encounter for (Chronic) Anemia associated with chemotherapy (Chronic) Allergies Penicillins Allergy (Intermediate, Verified 02/01/18 12:44) Hives mirtazapine Adverse Reaction (Severe, Verified 02/01/18 12:44) mental changes mental changes Home Medications: Ambulatory Orders Medication Instructions Recorded Escitalopram Oxalate [Lexapro] 20 mg PO DAILY 09/21/15 Multivitamin [Daily Multiple 1 each PO DAILY 10/01/15 Vitamin] Aspirin [Aspirin, Baby] 81 mg PO DAILY@0800 01/20/18 Cephalexin [Keflex] 500 mg PO BID 01/20/18 Metoprolol Tartrate [Lopressor 25 mg PO BID 01/20/18 (beta onur)] Oxygen, Home [Home Oxygen] 2 - 4 lpm NASAL CONT #1 unit 01/21/18 proCHLORPERazine tablet [Compazine 5 mg PO Q6H PRN PRN #60 tab 01/23/18 tablet] Amiodarone HCl [Cordarone] 200 mg PO DAILY 02/01/18 Amitriptyline HCl [Elavil] 10 mg PO QHS 02/01/18 Digoxin [Lanoxin] 62.5 mcg PO DAILY 02/01/18 Dronabinol [Marinol] 2.5 mg PO BIDAC 02/01/18 Fluconazole [Diflucan] 200 mg PO DAILY 02/01/18 Magic Mouth Wash 10 ml PO 4X/DAY 02/01/18 Oxycodone CR [Oxycontin] 15 mg PO Q12H 02/01/18 Oxycodone [Oxyir] 5 mg PO Q6H PRN 02/01/18 Surgical History: - Psychiatric History: No 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 Smoking Status: Current some day smoker - *Family History Maternal History Items: Diabetes Paternal History Items: - - of cirrhosis Review of Systems Constitutional: Denies: Anorexia, Fever HEENT: Denies: Difficulty Swallowing Cardiovascular: Denies: Chest Pain Respiratory: Reports: Cough, Shortness of Breath Gastrointestinal: Denies: Abdominal Pain Genitourinary: Denies: Dysuria Skin: Denies: Dryness, Jaundice Hematologic/ Lymphatic: Reports: Anemia Patient Problems: Active and Suspected Problems (Last Reviewed 01/23/18 @ 10:09 by Hali Altamirano) Acute on chronic respiratory failure with hypoxia and hypercapnia (Acute) CA breast with malignant effusion (Acute) Recurrent pleural effusion on left (Acute) - Physical Exam General: Alert, Oriented x3, Cooperative HEENT: Atraumatic, PERRLA, EOMI Neck: No JVD Lungs: Short of Breath Cardiovascular: Regular Rhythm, Tachycardic Abdomen: Soft, Non Tender, Non-Distended Extremities: No cyanosis Skin: No breakdown Musculoskeletal: No Muscle Wasting Neurological: Cranial nerves II-XII grossly intact Psych/Mental Status: Normal Affect Vital Signs Temp Pulse Resp BP Pulse Ox 98 F 72 24 H 109/85 H 5 02/05/18 08:00 02/05/18 10:00 02/05/18 10:00 02/05/18 08:42 02/05/18 10:00 Oxygen Flow Rate (L/min) 5 Oxygen Delivery Method Nasal Cannula Weight: 174 lb 2.643 oz Body Mass Index (BMI) 26.6 Intake and Output for Last 24 Hours 02/03/18 02/04/18 02/05/18 23:59 23:59 23:59 Intake Total 1774 / 1774 3073 / 3073 60 / 60 Output Total 200 / 200 1825 / 1825 400 / 400 Balance 1574 / 1574 1248 / 1248 -340 / -340 Microbiology Past 72 Hours 02/01/18 19:30 Respiratory Panel (PCR) - Final Mucosa - Nasopharyngeal Laboratory Tests Past 24 Hrs 02/04/18 02/05/18 05:10 04:00 Diff Path Review Reviewed Sodium 142 Potassium 4.4 Chloride 103 Carbon Dioxide 35.0 H Anion Gap 4 L BUN 9 Creatinine 0.43 L Estim Creat Clear Calc 128.53 Est GFR (MDRD) Af Amer 191 Est GFR (MDRD) Non-Af 158 BUN/Creatinine Ratio 21.0 H Glucose 99 Calcium 8.6 Phosphorus 3.0 Magnesium 2.6 Total Bilirubin 0.30 AST 30 ALT 76 H Alkaline Phosphatase 92 Total Protein 5.6 L Albumin 2.1 L Globulin 3.5 Albumin/Globulin Ratio 0.6 L Clinical Impression(s) from Imaging Studies Chest X-Ray 02/01/18 13:00 IMPRESSION: 1. Persistent left-sided airspace disease with increased left pleural effusion. 2. Right basilar airspace disease . Electronically Signed: Miguel Miranda MD at 13:57 EDT Tel , Service support , Thoracentesis Ultrasound 02/01/18 13:25 IMPRESSION: Successful ultrasound-guided thoracentesis. Electronically Signed: Miguel Miranda MD at 15:34 EDT Tel , Service support , Chest X-Ray 02/01/18 14:17 IMPRESSION: 1. Decreased left pleural effusion. 2. Improved aeration of the left lung Electronically Signed: Miguel Miranda MD at 15:39 EDT Tel , Service support , Chest X-Ray 02/02/18 05:55 IMPRESSION: 1. Decreased left pleural effusion. 2. There is no evidence of pneumothorax. Electronically Signed: Miguel Miranda MD at 9:55 EDT Tel , Service support , Chest X-Ray 02/04/18 06:50 IMPRESSION: Increased left-sided pleural effusion since the study of February 02, 2018 Electronically Signed: Perez Regan, at 7:25 EDT Tel , Service support , Assessment/Plan Active and Suspected Problems (Last Reviewed 01/23/18 @ 10:09 by Hali Altamirano) Acute on chronic respiratory failure with hypoxia and hypercapnia (Acute) CA breast with malignant effusion (Acute) Recurrent pleural effusion on left (Acute) 63-year-old female with malignant left pleural effusion 1. Patient has recurrent left pleural effusion and I was consulted to place a left Pleurx catheter. I believe this is warranted as she has had several thoracentesis drainages the last week. She is still short of breath and has a possible pneumonia. 2. I discussed Pleurx catheter placement with the patient in detail. I discussed the risks of the procedure including but not limited to bleeding, infection, pneumothorax, chronically draining incision. The patient understands all the risks and is willing to proceed with left Pleurx catheter placement tomorrow. I have made the patient clear liquids after midnight and n.p.o. 2 hours before surgery. Plan is for placement tomorrow afternoon. Marino العراقي MD Pager: [facility] [address] [place] [address], [address] [place] [address] Office:
[2018-02-05 13:57] LABS: Pathologist Review Reviewed
[2018-02-05] MEDS: Amitriptyline 10 MG Tablet PO (22:03)
[2018-02-05] MEDS: oxyCODONE 5 MG Tablet PO (23:48)
[2018-02-06] VITALS (43 sets, daily range): BP systolic 74–149; BP diastolic 32–91; PULSE 44–147; RESP 12–35; TEMP 36.5–36.9; O2SAT 92–100; BMI 26.9
[2018-02-06 04:17] LABS: International Normalized Ratio 1.2; Prothrombin Time (Protime)PT. 15.4 SECONDS (11.7-14.9)
[2018-02-06] MEDS: CHLORHEXIDINE GLUC 2% CLOTH 1 EACH TOWELETTE TOPICAL (04:17)
[2018-02-06] MEDS: 0.9% NaCl Peripheral Flush Adult/Peds IV (04:17)
[2018-02-06 04:18] LABS: Partial Thromboplast Time 38.3 Seconds (24.1-36.2)
--- NOTE | 2018-02-06 06:47 | PN_ITS ---
Subjective: The patient was seen and examined at the bedside this morning. Events from the last 24 hours have been reviewed. The patient is currently afebrile, hemodynamically stable and maintaining appropriate oxygen saturations on 5 L/ min via nasal cannula. The patient remains tachycardic. Overnight, she had significant anxiety with associated shortness of breath. She has been intermittently utilizing BiPAP therapy. There are plans to proceed with Pleurx catheter placement today. Objective: The patient's most recent lab work, culture data and imaging studies have all been personally reviewed. Blood cultures have shown no growth to date. Respiratory viral panel was negative. Strep and urine Legionella antigens were both negative. Ultrasound-guided thoracentesis was completed on February 01 with 1.5 L of fluid removed. Surface echocardiogram dated December 2017 revealed normal LV size and function with an ejection fraction of 60%. Pulmonary artery systolic pressure was estimated to be 38 mmHg. General: Alert, Oriented x3, Cooperative, - - Currently resting in bed with BiPAP in place HEENT: Atraumatic, PERRLA, Normocephalic Oral: Dry Mucosa Neck: Supple, No Nodes, Trachea Midline Lungs: No rhonchi, No wheeze, Diminished, Rales, - - Dullness to percussion persists in left lung base. Cardiovascular: Normal S1, Normal S2, No murmurs, Irregular Rate, Tachycardic Abdomen: Bowel Sounds Present, Soft, Non Tender Extremities: No clubbing, No cyanosis, No edema Skin: - - No significant change from previous. Musculoskeletal: No Tenderness to Palpation of Joints or Extremities Lymphatic: No Cervical, Supraclavicular, or Inguinal Adenopathy Neurological: Neuro grossly intact Psych/Mental Status: Anxious Vital Signs Temp Pulse Resp BP Pulse Ox 98.0 F 131 H 28 H 105/48 L 100 02/06/18 06:00 02/06/18 06:30 02/06/18 06:30 02/06/18 06:00 02/06/18 06:30 Oxygen Flow Rate (L/min) 5 Oxygen Delivery Method Nasal Cannula Weight: 171 lb 8.314 oz Body Mass Index (BMI) 26.6 Intake and Output for Last 24 Hours 02/04/18 02/05/18 02/06/18 23:59 23:59 23:59 Intake Total 3073 / 3073 810 / 810 218 / 218 Output Total 1825 / 1825 1450 / 1450 215 / 215 Balance 1248 / 1248 -640 / -640 3 / 3 Labs (Last 48 Hours) 02/03/18 02/04/18 02/05/18 04:50 05:10 04:00 Absolute Neuts (auto) 7.2 Absolute Lymphs (auto) 0.59 L Total Counted 100 Neutrophils % (Manual) 39 L Band Neutrophils % 36 H Lymphocytes % (Manual) 7 L Monocytes % (Manual) 7 Metamyelocytes % 8 H Myelocytes % 3 H Diff Path Review Reviewed Reviewed Dohle Bodies 1+ PT INR APTT Sodium 142 Potassium 4.4 Chloride 103 Carbon Dioxide 35.0 H Anion Gap 4 L BUN 9 Creatinine 0.43 L Estim Creat Clear Calc 128.53 Est GFR (MDRD) Af Amer 191 Est GFR (MDRD) Non-Af 158 BUN/Creatinine Ratio 21.0 H Glucose 99 Calcium 8.6 Phosphorus 3.0 Magnesium 2.6 Total Bilirubin 0.30 AST 30 ALT 76 H Alkaline Phosphatase 92 Total Protein 5.6 L Albumin 2.1 L Globulin 3.5 Albumin/Globulin Ratio 0.6 L 02/06/18 04:00 Absolute Neuts (auto) Absolute Lymphs (auto) Total Counted Neutrophils % (Manual) Band Neutrophils % Lymphocytes % (Manual) Monocytes % (Manual) Metamyelocytes % Myelocytes % Diff Path Review Dohle Bodies PT 15.4 H INR 1.2 APTT 38.3 H Sodium Potassium Chloride Carbon Dioxide Anion Gap BUN Creatinine Estim Creat Clear Calc Est GFR (MDRD) Af Amer Est GFR (MDRD) Non-Af BUN/Creatinine Ratio Glucose Calcium Phosphorus Magnesium Total Bilirubin AST ALT Alkaline Phosphatase Total Protein Albumin Globulin Albumin/Globulin Ratio Clinical Impression(s) from Imaging Studies Chest X-Ray 02/01/18 13:00 IMPRESSION: 1. Persistent left-sided airspace disease with increased left pleural effusion. 2. Right basilar airspace disease . Electronically Signed: Miguel Miranda MD at 13:57 EDT Tel , Service support , Thoracentesis Ultrasound 02/01/18 13:25 IMPRESSION: Successful ultrasound-guided thoracentesis. Electronically Signed: Miguel Miranda MD at 15:34 EDT Tel , Service support , Chest X-Ray 02/01/18 14:17 IMPRESSION: 1. Decreased left pleural effusion. 2. Improved aeration of the left lung Electronically Signed: Miguel Miranda MD at 15:39 EDT Tel , Service support , Chest X-Ray 02/02/18 05:55 IMPRESSION: 1. Decreased left pleural effusion. 2. There is no evidence of pneumothorax. Electronically Signed: Miguel Miranda MD at 9:55 EDT Tel , Service support , Chest X-Ray 02/04/18 06:50 IMPRESSION: Increased left-sided pleural effusion since the study of February 02, 2018 Electronically Signed: Perez Regan, at 7:25 EDT Tel , Service support , Medical Necessity - Tobacco Use Smoking Status: Current some day smoker Assessment/Plan Active and Suspected Problems (Last Reviewed 01/23/18 @ 10:09 by Hali Altamirano) Acute on chronic respiratory failure with hypoxia and hypercapnia (Acute) CA breast with malignant effusion (Acute) Recurrent pleural effusion on left (Acute) RECOMMENDATIONS: 1. Continue to wean supplemental oxygen as tolerated. Continue to utilize BiPAP for patient comfort. 2. Await Pleurx catheter placement this afternoon. 3. Recheck CBC and BMP today 4. Given that the patient has atrial fibrillation with uncontrolled heart rate , may need to consider cardiology consultation. IMPRESSIONS: 1. Acute on chronic combined respiratory failure secondary to malignant effusion with recurrence Patient has a known history of recurrent malignant pleural effusion, for which she underwent thoracentesis upon admission to the hospital. The procedure does provide symptomatic support for the patient. However, the pleural effusion has quickly reaccumulated. Therefore, she would certainly be a candidate for Pleurx catheter placement. Surgery is following with plans for Pleurx placement later today. Continue to utilize BiPAP as needed. Wean supplemental oxygen as tolerated. 2. A. fib with RVR Patient has seen Dr. Benavides in the past. Maintain potassium greater than 4 and magnesium greater than 2. Continue current cardiac medication regimen. If the patient's heart rates remain uncontrolled following Pleurx catheter placement, strongly recommend cardiology consultation. 3. Breast cancer/sarcoma with current chemotherapy Multiple complications with chemotherapy including mucositis, bone marrow suppression and alopecia. Patient is followed by Dr. Marinelli as an outpatient. Patient is very clear that she wants to be a full code. Patient is able to tolerate p.o. intake with Magic mouthwash. 4. Insomnia/depression/pancytopenia secondary to chemotherapy/current chemotherapy Complicates care, management, recovery and prognosis. Likely okay to continue with baseline medications for now. No indications for transfusion at this time. This note was generated with [employer] dictation software. It may contain incorrect words, spelling, and punctuation that were not noted in checking the note before signing. Code Visit Inpatient E&M: 69960 Subs Hosp L2
--- NOTE | 2018-02-06 07:32 | PN_ITS ---
Patient Problems: Active and Suspected Problems (Last Reviewed 01/23/18 @ 10:09 by Hali Altamirano) Acute on chronic respiratory failure with hypoxia and hypercapnia (Acute) CA breast with malignant effusion (Acute) Recurrent pleural effusion on left (Acute) Subjective: Patient seen still remains dyspneic at rest on BiPAP in bed. Heart rate is not controlled with heart rate ranging from 140-160 case was discussed with Dr. Jenkins regarding heart rate and plan is to obtain cardiology consultation Objective: GENERAL: Dyspneic at rest on BiPAP HEENT: Clear conjunctiva, NECK; supple, normal thyroid, CHEST: Diminished to auscultation bilaterally, HEART: Irregular, tachycardic ABDOMEN: soft, non-tender, normoactive bowel sounds, RECTAL: deferred EXTREMITIES: No edema, no clubbing, no cyanosis. ROAD MAKER: Awake, no lateralizing signs. SKIN: No rash Vitals/I&O's: Vital Signs Temp Pulse Resp BP Pulse Ox 98.0 F 131 H 28 H 105/48 L 100 02/06/18 06:00 02/06/18 06:30 02/06/18 06:30 02/06/18 06:00 02/06/18 06:30 Oxygen Flow Rate (L/min) 5 Oxygen Delivery Method Nasal Cannula Weight: 77.8 kg Body Mass Index (BMI) 26.6 Intake and Output for Last 24 Hours 02/04/18 02/05/18 02/06/18 23:59 23:59 23:59 Intake Total 3073 / 3073 810 / 810 218 / 218 Output Total 1825 / 1825 1450 / 1450 215 / 215 Balance 1248 / 1248 -640 / -640 Laboratory Results 02/03/18 04:50: Diff Path Review Reviewed 02/04/18 05:10: Diff Path Review Reviewed 02/06/18 04:00: PT 15.4 H, INR 1.2, APTT 38.3 H Current Medications Acetaminophen (Tylenol) 650 mg PO Q4H PRN PRN PRN Reason: FEVER,MILD-MOD PAIN,HEADACHE Al Hydroxide/Mg Hydroxide (Mylanta Ii) 30 ml PO Q6H PRN PRN PRN Reason: Gastric Burning Albuterol Sulfate (Ventolin Aerosols) 2.5 mg INHALATION Q2H PRN PRN PRN Reason: SHORTNESS OF BREATH Amiodarone HCl (Cordarone) 200 mg PO DAILY [facility] Last Admin: 02/05/18 08:43 Dose: 200 mg Amitriptyline HCl (Elavil) 10 mg PO QHS [facility] Last Admin: 02/05/18 22:03 Dose: 10 mg Aspirin (Aspirin, Baby) 81 mg PO DAILY@0800 [facility] Last Admin: 02/05/18 08:41 Dose: 81 mg Bisacodyl (Dulcolax) 10 mg RECTAL DAILY PRN PRN PRN Reason: Constipation Chlorhexidine Gluconate () 1 each TOPICAL DAILY [facility] Last Admin: 02/06/18 04:18 Dose: Not Given Digoxin (Lanoxin) 62.5 mcg PO DAILY [facility] Last Admin: 02/05/18 08:42 Dose: 62.5 mcg Docusate Sodium (Colace) 200 mg PO BID PRN PRN PRN Reason: Constipation Dronabinol (Marinol) 2.5 mg PO BIDAC [facility] Last Admin: 02/05/18 17:08 Dose: 2.5 mg Famotidine (Pepcid) 20 mg PO BID [facility] Last Admin: 02/05/18 22:02 Dose: 20 mg Guaifenesin (Mucinex) 1,200 mg PO BID [facility] Last Admin: 02/05/18 22:01 Dose: 1,200 mg Heparin Sodium (Beef Lung) (Heparin 500 Unit/5 Ml (100/Ml)) 500 unit IV UD PRN PRN Reason: HEPARIN FLUSH Lidocaine/Diphenhydr/Alum/Mg/Simeth () 10 ml PO 4X/DAY [facility] Last Admin: 02/05/18 21:59 Dose: 10 ml Metoprolol Tartrate (Lopressor (Beta Sonny)) 25 mg PO BID [facility] Last Admin: 02/05/18 22:02 Dose: 25 mg Multivitamins (Multivitamin) 1 tablet PO DAILY@0800 [facility] Last Admin: 02/05/18 08:41 Dose: 1 tablet Nicotine (Nicoderm Cq (Pbkc)) 21 mg TRANSDERM. DAILY [facility] Last Admin: 02/05/18 08:41 Dose: 21 mg Nutritional Formula (Lactose Free) (Ensure Enlive) 120 ml PO 4X/DAY [facility] Last Admin: 02/05/18 22:03 Dose: 120 ml Ondansetron HCl (Zofran) 4 mg IV Q4H PRN PRN PRN Reason: Nausea Oxycodone HCl (Oxycontin) 15 mg PO Q12H [facility] Last Admin: 02/05/18 21:59 Dose: 15 mg Oxycodone HCl (Oxyir) 5 mg PO Q4H PRN PRN PRN Reason: Moderate Pain (pain scale 4-5) Last Admin: 02/05/18 23:48 Dose: 5 mg Polyethylene Glycol (Miralax) 17 gm PO DAILY [facility] Last Admin: 02/05/18 08:42 Dose: 17 gm Potassium Phos/Sodium Phos (Neutra-Phos Packet) 1 packet PO 4X/DAY [facility] Last Admin: 02/05/18 22:01 Dose: 1 packet Prochlorperazine Maleate (Compazine Tablet) 5 mg PO Q6H PRN PRN PRN Reason: NAUSEA/VOMITING Sodium Chloride () 5 - 30 ml IV UD PRN PRN Reason: SALINE FLUSH Last Admin: 02/06/18 04:17 Dose: 10 ml Sodium Chloride () 10 ml IV UD PRN PRN Reason: VAD FLUSH Zolpidem Tartrate (Ambien (Generic)) 5 mg PO QHS PRN PRN PRN Reason: SLEEP Medical Necessity - Tobacco Use Smoking Status: Current some day smoker Assessment/Plan Active and Suspected Problems (Last Reviewed 01/23/18 @ 10:09 by Hali Altamirano) Acute on chronic respiratory failure with hypoxia and hypercapnia (Acute) CA breast with malignant effusion (Acute) Recurrent pleural effusion on left (Acute) Patient is a 63-year-old lady with history of breast CA, sarcoma of the left thigh with malignant pleural effusion status post recurrent thoracocentesis presented to the emergency department with progressive shortness of breath and assessment of acute on chronic hypoxic and hypercapnic respiratory failure secondary to left-sided large malignant pleural effusion made admitted to the intensive care unit for subsequent management 1. Acute on chronic hypoxic and hypercapnic respiratory failure secondary to malignant pleural effusion involving the left side. Patient has been admitted to the intensive care unit with consultation placed a pulmonary/intensive care. Patient has been managed intermittently on BiPAP 2. Suspected gram-negative pneumonia; possibly contributing to above; patient is on Levaquin 3. Recurrent left-sided malignant pleural effusion did discuss with patient regarding Pleurx catheter placement consultation was placed to Dr. العراقي and is for patient to undergo the procedure on 02/06/2018 4. History of breast CA is followed by Dr. Marinelli 5. Metastatic sarcoma involving the left Thigh; followed by Dr. Marinelli 6. Paroxysmal A. fib currently with rapid ventricular response rate on dig; metoprolol and amiodarone she placed to cardiology 7. Chronic hypoxic respiratory failure secondary to COPD on baseline home O2 8. Depression with anxiety 9. Thrombocytopenia patient counts improving 10. Anemia secondary to anemia of malignancy as well as chronic disorder monitoring H&H with plans to transfuse if patient becomes symptomatic or hemoglobin falls below 7 11. DVT prophylaxis chemoprophylaxis held in view of patient significant low platelet count Code Visit Inpatient E&M: 58572 Subs Hosp L3
[2018-02-06] MEDS: Metoprolol Tartrate 25 MG Tablet PO ×2 (08:22→21:15)
[2018-02-06] MEDS: Aspirin 81 MG TAB.CHEW PO (08:22)
--- NOTE | 2018-02-06 08:22 | PCM.PN.SRG ---
Patient Problems: Active and Suspected Problems (Last Reviewed 01/23/18 @ 10:09 by Hali Altamirano) Acute on chronic respiratory failure with hypoxia and hypercapnia (Acute) CA breast with malignant effusion (Acute) Recurrent pleural effusion on left (Acute) Subjective: Patient is doing well this morning. She reports her breathing is the same. - Physical Exam General: Alert, Oriented x3, Cooperative HEENT: Atraumatic Neck: No JVD Lungs: Normal air movement Cardiovascular: Tachycardic Abdomen: Soft, Non Tender, Non-Distended Neurological: Cranial nerves II-XII grossly intact Psych/Mental Status: Normal Affect Vital Signs Temp Pulse Resp BP Pulse Ox 98.0 F 145 H 14 94/50 L 92 02/06/18 06:00 02/06/18 07:41 02/06/18 07:41 02/06/18 07:41 02/06/18 07:41 Oxygen Flow Rate (L/min) 5 Oxygen Delivery Method Bi-pap Weight: 171 lb 8.314 oz Body Mass Index (BMI) 26.6 Intake and Output for Last 24 Hours 02/04/18 02/05/18 02/06/18 23:59 23:59 23:59 Intake Total 3073 / 3073 810 / 810 218 / 218 Output Total 1825 / 1825 1450 / 1450 215 / 215 Balance 1248 / 1248 -640 / -640 3 / 3 Laboratory Tests Past 24 Hrs 02/03/18 02/04/18 02/06/18 04:50 05:10 04:00 Diff Path Review Reviewed Reviewed PT 15.4 H INR 1.2 APTT 38.3 H Medical Necessity - Tobacco Use Smoking Status: Current some day smoker Assessment/Plan Active and Suspected Problems (Last Reviewed 01/23/18 @ 10:09 by Hali Altamirano) Acute on chronic respiratory failure with hypoxia and hypercapnia (Acute) CA breast with malignant effusion (Acute) Recurrent pleural effusion on left (Acute) 63-year-old female with multiple malignancies and left pleural effusion 1. I went over the procedure again with her today as well as the risks again. I plan for Pleurx catheter insertion on the left side this afternoon. I have made the patient n.p.o. after noon. Marino العراقي MD Pager: [facility] [address] [place] [address] [address] [place] [address] Office:
[2018-02-06] MEDS: Famotidine 20 MG Tablet PO ×2 (08:23→21:15)
[2018-02-06] MEDS: guaiFENesin 1,200 MG Tablet 1200 MG PO ×2 (08:25→21:15)
[2018-02-06] MEDS: Polyethylene Glycol 3350 17 GM PACKET PO (08:25)
[2018-02-06] MEDS: Na Biphos/Potassium Phosphate PACKET 1 PACKET PO ×3 (08:25→21:15)
[2018-02-06] MEDS: oxyCODONE CR 15 MG Tablet PO ×2 (08:29→21:26)
[2018-02-06] MEDS: Dronabinol 2.5 MG Capsule PO ×2 (08:29→16:56)
[2018-02-06] MEDS: Digoxin 125 MCG Tablet 62.5 MCG PO (08:29)
[2018-02-06] MEDS: Amiodarone 200 MG Tablet PO (08:42)
[2018-02-06] MEDS: Multivitamins,Therapeutic Tablet 1 TABLET PO (08:43)
[2018-02-06 09:18] LABS: Hematocrit 26.7 % (37-47); Hemoglobin 8.2 g/dl (12.0-15.0); Mean Corp Hgb Conc 30.7 g/gl (32-36); Mean Corpuscular Hgb 31.8 pg (27.0-32.0); Mean Corpuscular Volume 103.5 fL (81-99); Mean Platelet Vol. 10.4 fl (6.2-12.0); Platelet Count 154 K/mm3 (150-450); RBC Distribution Width SD 72.8 fl (35.1-43.9); Red Blood Count 2.58 M/mm3 (4.2-5.4); White Blood Count 11.1 K/mm3 (4.4-11.0)
[2018-02-06 09:19] LABS: Differential Indicated MANUAL DIFF; POSITIVE COUNT YES; POSITIVE DIFFERENTIAL YES; POSITIVE MORPHOLOGY YES
[2018-02-06 09:20] LABS: International Normalized Ratio 1.2; Prothrombin Time (Protime)PT. 15.4 SECONDS (11.7-14.9)
[2018-02-06 09:25] LABS: Anion Gap 6 (5-15); BUN 10 mg/dL (7-18); BUN/Creat Ratio 20.9 RATIO (10-20); Calcium,Total 8.9 mg/dL (8.5-10.1); Chloride 100 mmol/L (98-107); Creatinine, Serum 0.48 mg/dL (0.55-1.02); EST Glomerular Filtration Rate 139 mL/min (>60); Est Glom Filt Rate - Afr Amer 168 mL/min (>60); Estimated Creatinine Clearance 115.14 ml/min; Glucose 116 mg/dL (74-106); Magnesium 2.2 mg/dL (1.6-2.6); Potassium 4.2 mmol/L (3.5-5.1); Sodium Level 142 mmol/L (136-145)
[2018-02-06 09:36] LABS: Eosinophil 1 % (0-5); Lymphocyte 6 % (19-41); Monocyte 10 % (0-10); Neutrophil-Segmented 82 % (47-70); Promyelocyte 1 (0-0); Total Cells Counted 100 (MANUAL DIFF)
[2018-02-06 09:37] LABS: Anisocytosis 1+; Hypochromasia 1+; Macrocytosis RAR; Microcytosis 1+; Platelet Estimate ADEQUATE (ADEQ)
[2018-02-06 09:41] LABS: Absolute Lymphocyte Count 0.66 X10^3/ul (0.83-4.51); Absolute Neutrophil Count 9.1 X10^3/uL (2.0-7.7)
--- NOTE | 2018-02-06 10:09 | CASEMGMT ---
Per ICU Interdisciplinary rounds, plan is for Pleurex catheter placement today. Pt will need supplies for homegoing. Discussed DME providers with . Discussed that these specialty supplies are shipped from [facility]. Request made by to check with [employer] and [facility]. NAN SHULTZ called to both DME providers, neither carry or can order this equipment. Explained to , he is agreeable to have [email or web address] deliver supplies to his home. -Preprinted script for pleurex catheter supplies placed on chart for Dr. العراقي to complete. Will fax to [facility] [facility] when completed. -Discussed Home Health nurse on discharge to assist with reinforcement teaching. and pt are considering. Gerald BARBA RN ACM
[2018-02-06] MEDS: Bupivacaine Mpf 0.5% 30 ML VIAL (15:50)
[2018-02-06] MEDS: oxyCODONE 5 MG Tablet PO (16:50)
--- NOTE | 2018-02-06 17:00 | PCM.OPRPT ---
Problem List (1) Recurrent pleural effusion on left Status: Acute Report of Operation Date of Procedure: 02/06/18 Pre-Operative Diagnosis: Left malignant effusion Post-Operative Diagnosis: Same Surgery/Procedure Performed:: Insertion of left chest Pleurx catheter with fluoroscopy guidance Description of Surgical Findings:: Pleurx catheter successfully inserted with over 1 L of serous fluid removed before the tube was clamped. Specimen's removed: None Description of Procedure: The patient was brought back to the operating room and placed in a semi-supine position with her head being elevated as she was short of breath. Next MAC anesthesia was administered and under fluoroscopy an area in the left chest wall was chosen above the silhouette of the heart. The left chest wall was then prepped and draped in usual sterile fashion. Local anesthetic was administered in the 2 incision sites which are marked and then a needle was inserted until the rib was reached and then this was directed just over the rib and into the pleura under fluoroscopy guidance. Once serous fluid was able to be withdrawn the needle was removed and a guidewire was placed into the chest cavity. This was confirmed on fluoroscopy. Next the introducer was removed and the incision was lengthened. The dilator was placed into the incision over the guidewire under fluoroscopy and removed. Next the larger dilator with introducer was inserted under fluoroscopy. Next the more anterior incision was made over the proposed site and the catheter with tunneler was placed into this incision and came out the incision with the introducer. The cuff was placed under the skin about 1 cm proximal to the incision. Next about 3 cm of catheter was trimmed off the distal end and this was placed through the introducer and into the chest cavity under fluoroscopy. This appeared to be non-kinked under fluoroscopy. The catheter was then placed to Pleur-evac -20 suction. 1500 cc of serous fluid were removed as well as another liter of fluid that may have spilled onto the drapes. The catheter was then clamped to be unclamped in ICU. Next the catheter was sutured to the skin using a silk 2-0 suture. The posterior incision was closed with 2 interrupted 3-0 Vicryl sutures and Steri-Strips. The catheter was dressed and left to Pleur-evac drain. The patient was taken to ICU in stable condition and tolerated procedure well. Catheter will be unclamped later tonight to prevent pulmonary edema.
--- NOTE | 2018-02-06 17:13 | RAD_ITS ---
STUDY: X-RAY CHEST REASON FOR EXAM: Female, 63 years old. Pleurx catheter insertion TECHNIQUE: Single AP portable view of the chest. COMPARISON: 02/04/2018 FINDINGS: Placement of left Pleurx catheter with significant decrease in left effusion. Continued left lower lobe airspace disease and small effusion. Stable right chest wall Mediport. Stable right lower lobe infiltrate. No pneumothorax There is mild cardiac enlargement. Normal mediastinum and joel. Normal visualized pulmonary arteries. Normal visualized aortic arch and descending thoracic aorta. Normal visualized thoracic spine. Normal visualized ribs, clavicles, and shoulders. There is no demonstrated abnormality of the visualized soft tissue structures of the upper abdomen. RAD/Chest 1 View (Portable) IMPRESSION: Placement of left Pleurx catheter with significant decrease in left effusion Electronically Signed: Tevin Mcdowell DO at 17:36 EDT Tel , Service support ,
--- NOTE | 2018-02-06 17:15 | OP.PCM_ITS ---
Problem List (1) Recurrent pleural effusion on left Status: Acute Report of Operation Date of Procedure: 02/06/18 Pre-Operative Diagnosis: Left malignant effusion Post-Operative Diagnosis: Same Surgery/Procedure Performed:: Insertion of left chest Pleurx catheter with fluoroscopy guidance Description of Surgical Findings:: Pleurx catheter successfully inserted with over 1 L of serous fluid removed before the tube was clamped. Specimen's removed: None Description of Procedure: The patient was brought back to the operating room and placed in a semi-supine position with her head being elevated as she was short of breath. Next MAC anesthesia was administered and under fluoroscopy an area in the left chest wall was chosen above the silhouette of the heart. The left chest wall was then prepped and draped in usual sterile fashion. Local anesthetic was administered in the 2 incision sites which are marked and then a needle was inserted until the rib was reached and then this was directed just over the rib and into the pleura under fluoroscopy guidance. Once serous fluid was able to be withdrawn the needle was removed and a guidewire was placed into the chest cavity. This was confirmed on fluoroscopy. Next the introducer was removed and the incision was lengthened. The dilator was placed into the incision over the guidewire under fluoroscopy and removed. Next the larger dilator with introducer was inserted under fluoroscopy. Next the more anterior incision was made over the proposed site and the catheter with tunneler was placed into this incision and came out the incision with the introducer. The cuff was placed under the skin about 1 cm proximal to the incision. Next about 3 cm of catheter was trimmed off the distal end and this was placed through the introducer and into the chest cavity under fluoroscopy. This appeared to be non -kinked under fluoroscopy. The catheter was then placed to Pleur-evac -20 suction. 1500 cc of serous fluid were removed as well as another liter of fluid that may have spilled onto the drapes. The catheter was then clamped to be unclamped in ICU. Next the catheter was sutured to the skin using a silk 2- 0 suture. The posterior incision was closed with 2 interrupted 3-0 Vicryl sutures and Steri-Strips. The catheter was dressed and left to Pleur-evac drain. The patient was taken to ICU in stable condition and tolerated procedure well. Catheter will be unclamped later tonight to prevent pulmonary edema.
[2018-02-06] MEDS: Amitriptyline 10 MG Tablet PO (21:14)
[2018-02-07] VITALS (24 sets, daily range): BP systolic 79–132; BP diastolic 34–62; PULSE 86–105; RESP 12–20; TEMP 36.3–37; O2SAT 94–100
[2018-02-07 05:18] LABS: Anion Gap 7 (5-15); BUN 9 mg/dL (7-18); BUN/Creat Ratio 23.2 RATIO (10-20); Calcium,Total 8.4 mg/dL (8.5-10.1); Chloride 101 mmol/L (98-107); Creatinine, Serum 0.39 mg/dL (0.55-1.02); EST Glomerular Filtration Rate 177 mL/min (>60); Est Glom Filt Rate - Afr Amer 214 mL/min (>60); Estimated Creatinine Clearance 136.42 ml/min; Glucose 73 mg/dL (74-106); Potassium 4.2 mmol/L (3.5-5.1); Sodium Level 143 mmol/L (136-145)
[2018-02-07 05:19] LABS: Hematocrit 24.4 % (37-47); Hemoglobin 7.4 g/dl (12.0-15.0); Mean Corp Hgb Conc 30.3 g/gl (32-36); Mean Corpuscular Hgb 30.6 pg (27.0-32.0); Mean Corpuscular Volume 100.8 fL (81-99); Mean Platelet Vol. 9.8 fl (6.2-12.0); Platelet Count 180 K/mm3 (150-450); RBC Distribution Width CV 20.5 % (11.6-14.6); RBC Distribution Width SD 75.3 fl (35.1-43.9); Red Blood Count 2.42 M/mm3 (4.2-5.4); White Blood Count 11.4 K/mm3 (4.4-11.0)
[2018-02-07 05:20] LABS: Scan Indicated on CBC? Y/N YES- FLAGS NOTED
[2018-02-07] MEDS: CHLORHEXIDINE GLUC 2% CLOTH 1 EACH TOWELETTE TOPICAL (05:36)
[2018-02-07 05:42] LABS: Differential Comment SCAN
--- NOTE | 2018-02-07 06:37 | RAD_ITS ---
STUDY: X-RAY CHEST REASON FOR EXAM: Female, 63 years old. Shortness of breath. Acute respiratory failure. TECHNIQUE: Single AP portable view of the chest. COMPARISON: Comparison is made with prior study dated February 06, 2018. FINDINGS: EKG electrodes are seen. The tip of the left Pleurx catheter is unchanged. A right-sided portacatheter is seen with the tip in the proximal portion of the superior vena cava. Residual pleural thickening on the left side. Persistent increased markings in the left lung suggestive of atelectasis and/or infiltrate. Mild degree of increased markings at the right lung base suggestive of a atelectasis and/or infiltrate. There is blunting of the right costophrenic angle. Normal size heart. Normal mediastinum and joel. Normal visualized pulmonary arteries. There is atherosclerotic tortuosity of the aortic arch and descending thoracic aorta. Normal visualized thoracic spine. Normal visualized ribs, clavicles, and shoulders. There is no demonstrated abnormality of the visualized soft tissue structures of the upper abdomen. RAD/Chest 1 View (Portable) IMPRESSION: The left Pleurx catheter is unchanged. Stable examination. Electronically Signed: Anatoly Broussard MD at 12:25 EDT Tel [phone], Service support ,
--- NOTE | 2018-02-07 06:54 | PN_ITS ---
Subjective: The patient was seen and examined at the bedside this morning. Events from the last 24 hours have been reviewed. The patient is currently afebrile, hemodynamically stable and maintaining appropriate oxygen saturations on BiPAP currently. The patient underwent successful Pleurx catheter placement yesterday. 3.1 L of fluid was removed. The patient's heart rate has improved. However, her p.o. intake remains poor. The patient does report interval improvement in her degree of shortness of breath following Pleurx catheter placement. Objective: The patient's most recent lab work, culture data and imaging studies have all been personally reviewed. Blood cultures have shown no growth to date. Respiratory viral panel was negative. Strep and urine Legionella antigens were both negative. Ultrasound-guided thoracentesis was completed on February 01 with 1.5 L of fluid removed. Surface echocardiogram dated December 2017 revealed normal LV size and function with an ejection fraction of 60%. Pulmonary artery systolic pressure was estimated to be 38 mmHg. General: Alert, Cooperative, No apparent distress HEENT: Atraumatic, PERRLA, Normocephalic Oral: Dry Mucosa Neck: Supple, No Nodes, Trachea Midline Lungs: Diminished, - - Improved aeration of the left hemithorax with residual dullness in the left base. Cardiovascular: Regular rate, Regular Rhythm, Normal S1, Normal S2, No murmurs Abdomen: Bowel Sounds Present, Soft, Non Tender Extremities: No clubbing, No cyanosis, No edema Skin: - - No significant change from previous. Musculoskeletal: No Tenderness to Palpation of Joints or Extremities Lymphatic: No Cervical, Supraclavicular, or Inguinal Adenopathy Neurological: Neuro grossly intact Psych/Mental Status: Normal Affect, Appropriate Vital Signs Temp Pulse Resp BP Pulse Ox 97.8 F 88 18 97/51 L 98 02/07/18 04:00 02/07/18 06:00 02/07/18 06:00 02/07/18 06:00 02/07/18 06:00 Oxygen Flow Rate (L/min) 5 Oxygen Delivery Method Bi-pap Weight: 168 lb 13.985 oz Body Mass Index (BMI) 26.9 Intake and Output for Last 24 Hours 02/05/18 02/06/18 02/07/18 23:59 23:59 23:59 Intake Total 810 / 810 1686 / 1686 250 / 250 Output Total 1450 / 1450 4085 / 4085 680 / 680 Balance -640 / -640 -2399 / -2399 -430 / -430 Labs (Last 48 Hours) 02/03/18 02/04/18 02/06/18 04:50 05:10 04:00 WBC RBC Hgb Hct MCV MCH MCHC RDW RDW Differential Plt Count MPV Neut % (Auto) Absolute Neuts (auto) Absolute Lymphs (auto) Total Counted Neutrophils % (Manual) Lymphocytes % (Manual) Monocytes % (Manual) Eosinophils % (Manual) Promyelocytes % Differential Comment Diff Path Review Reviewed Reviewed Platelet Estimate Hypochromasia Anisocytosis Microcytosis Macrocytosis PT 15.4 H INR 1.2 APTT 38.3 H Sodium Potassium Chloride Carbon Dioxide Anion Gap BUN Creatinine Estim Creat Clear Calc Est GFR (MDRD) Af Amer Est GFR (MDRD) Non-Af BUN/Creatinine Ratio Glucose Calcium Magnesium 02/06/18 02/06/18 02/06/18 08:45 08:45 08:45 WBC 11.1 H RBC 2.58 L Hgb 8.2 L Hct 26.7 L MCV 103.5 H MCH 31.8 MCHC 30.7 L RDW 20.0 H RDW Differential 72.8 H Plt Count 154 MPV 10.4 Neut % (Auto) Not Reportable Absolute Neuts (auto) 9.1 H Absolute Lymphs (auto) 0.66 L Total Counted 100 Neutrophils % (Manual) 82 H Lymphocytes % (Manual) 6 L Monocytes % (Manual) 10 Eosinophils % (Manual) 1 Promyelocytes % 1 H Differential Comment Diff Path Review May foll Platelet Estimate ADEQUATE Hypochromasia 1+ Anisocytosis 1+ Microcytosis 1+ Macrocytosis RAR PT 15.4 H INR 1.2 APTT Sodium 142 Potassium 4.2 Chloride 100 Carbon Dioxide 36.0 H Anion Gap 6 BUN 10 Creatinine 0.48 L Estim Creat Clear Calc 115.14 Est GFR (MDRD) Af Amer 168 Est GFR (MDRD) Non-Af 139 BUN/Creatinine Ratio 20.9 H Glucose 116 H Calcium 8.9 Magnesium 2.2 02/07/18 02/07/18 04:45 04:45 WBC 11.4 H RBC 2.42 L Hgb 7.4 L Hct 24.4 L MCV 100.8 H MCH 30.6 MCHC 30.3 L RDW 20.5 H RDW Differential 75.3 H Plt Count 180 MPV 9.8 Neut % (Auto) Absolute Neuts (auto) Absolute Lymphs (auto) Total Counted Neutrophils % (Manual) Lymphocytes % (Manual) Monocytes % (Manual) Eosinophils % (Manual) Promyelocytes % Differential Comment SCAN Diff Path Review Platelet Estimate Hypochromasia Anisocytosis Microcytosis Macrocytosis PT INR APTT Sodium 143 Potassium 4.2 Chloride 101 Carbon Dioxide 35.0 H Anion Gap 7 BUN 9 Creatinine 0.39 L Estim Creat Clear Calc 136.42 Est GFR (MDRD) Af Amer 214 Est GFR (MDRD) Non-Af 177 BUN/Creatinine Ratio 23.2 H Glucose 73 L Calcium 8.4 L Magnesium Clinical Impression(s) from Imaging Studies Chest X-Ray 02/01/18 13:00 IMPRESSION: 1. Persistent left-sided airspace disease with increased left pleural effusion. 2. Right basilar airspace disease . Electronically Signed: Miguel Miranda MD at 13:57 EDT Tel , Service support , Thoracentesis Ultrasound 02/01/18 13:25 IMPRESSION: Successful ultrasound-guided thoracentesis. Electronically Signed: Miguel Miranda MD at 15:34 EDT Tel , Service support , Chest X-Ray 02/01/18 14:17 IMPRESSION: 1. Decreased left pleural effusion. 2. Improved aeration of the left lung Electronically Signed: Miguel Miranda MD at 15:39 EDT Tel , Service support , Chest X-Ray 02/02/18 05:55 IMPRESSION: 1. Decreased left pleural effusion. 2. There is no evidence of pneumothorax. Electronically Signed: Miguel Miranda MD at 9:55 EDT Tel , Service support , Chest X-Ray 02/04/18 06:50 IMPRESSION: Increased left-sided pleural effusion since the study of February 02, 2018 Electronically Signed: Perez Regan, at 7:25 EDT Tel , Service support , Chest X-Ray 02/06/18 17:13 IMPRESSION: Placement of left Pleurx catheter with significant decrease in left effusion Electronically Signed: Tevin Mcdowell, at 17:36 EDT Tel , Service support , Medical Necessity - Tobacco Use Smoking Status: Current some day smoker Assessment/Plan Active and Suspected Problems (Last Reviewed 01/23/18 @ 10:09 by Hali Altamirano) Acute on chronic respiratory failure with hypoxia and hypercapnia (Acute) CA breast with malignant effusion (Acute) Recurrent pleural effusion on left (Acute) RECOMMENDATIONS: 1. Clamp Pleurx catheter. 2. Start D5 half-normal saline at 125 mL's per hour, given poor p.o. intake. 3. Obtain repeat plain film chest x-ray this morning. 4. Encourage incentive spirometer use and mobilize patient as tolerated 5. The patient is medically stable for transfer out of the intensive care unit. IMPRESSIONS: 1. Acute on chronic combined respiratory failure secondary to malignant effusion with recurrence Patient has a known history of recurrent malignant pleural effusion, for which she underwent thoracentesis upon admission to the hospital. The procedure does provide symptomatic support for the patient. However, the pleural effusion has quickly reaccumulated. Therefore, the patient was taken for Pleurx catheter placement on February 06. She is symptomatically improved following pleural catheter placement. Continue to utilize BiPAP as needed. Wean supplemental oxygen as tolerated. Obtain repeat plain film chest x-ray this morning. 2. A. fib with RVR Patient has seen Dr. Benavides in the past. Maintain potassium greater than 4 and magnesium greater than 2. Continue current cardiac medication regimen. 3. Breast cancer/sarcoma with current chemotherapy Multiple complications with chemotherapy including mucositis, bone marrow suppression and alopecia. Patient is followed by Dr. Marinelli as an outpatient. Patient is very clear that she wants to be a full code. 4. Insomnia/depression/pancytopenia secondary to current chemotherapy Complicates care, management, recovery and prognosis. Likely okay to continue with baseline medications for now. No indications for transfusion at this time. This note was generated with [employer]ation software. It may contain incorrect words, spelling, and punctuation that were not noted in checking the note before signing. Code Visit Inpatient E&M: 53947 Subs Hosp L2
--- NOTE | 2018-02-07 07:34 | PCM.PN.HOSP ---
Patient Problems: Active and Suspected Problems (Last Reviewed 01/23/18 @ 10:09 by Hali Altamirano) Acute on chronic respiratory failure with hypoxia and hypercapnia (Acute) CA breast with malignant effusion (Acute) Recurrent pleural effusion on left (Acute) Subjective: Patient underwent the procedure on 02/06/2018; almost 7 L of pleuritic fluid was taken off; heart rate relatively controlled still remains on BiPAP Objective: GENERAL: Dyspneic at rest on BiPAP HEENT: Clear conjunctiva, NECK; supple, normal thyroid, CHEST: Diminished to auscultation bilaterally, HEART: Irregular, tachycardic ABDOMEN: soft, non-tender, normoactive bowel sounds, RECTAL: deferred EXTREMITIES: No edema, no clubbing, no cyanosis. SCOUTS: Awake, no lateralizing signs. SKIN: No rash Vitals/I&O's: Vital Signs Temp Pulse Resp BP Pulse Ox 97.8 F 88 18 97/51 L 98 02/07/18 04:00 02/07/18 06:00 02/07/18 06:00 02/07/18 06:00 02/07/18 06:00 Oxygen Flow Rate (L/min) 5 Oxygen Delivery Method Bi-pap Weight: 76.6 kg Body Mass Index (BMI) 26.9 Intake and Output for Last 24 Hours 02/05/18 02/06/18 02/07/18 23:59 23:59 23:59 Intake Total 810 / 810 1686 / 1686 250 / 250 Output Total 1450 / 1450 4085 / 4085 680 / 680 Balance -640 / -640 -2399 / -2399 -430 / -430 Laboratory Results 02/06/18 08:45: WBC 11.1 H, RBC 2.58 L, Hgb 8.2 L, Hct 26.7 L, MCV 103.5 H, MCH 31.8, MCHC 30.7 L, RDW 20.0 H, RDW Differential 72.8 H, Plt Count 154, MPV 10.4, Neut % (Auto) Not Reportable, Absolute Neuts (auto) 9.1 H, Absolute Lymphs (auto) 0.66 L, Total Counted 100, Neutrophils % (Manual) 82 H, Lymphocytes % (Manual) 6 L, Monocytes % (Manual) 10, Eosinophils % (Manual) 1, Promyelocytes % 1 H, Diff Path Review May foll, Platelet Estimate ADEQUATE, Hypochromasia 1+, Anisocytosis 1+, Microcytosis 1+, Macrocytosis RAR 02/06/18 08:45: PT 15.4 H, INR 1.2 02/06/18 08:45: Sodium 142, Potassium 4.2, Chloride 100, Carbon Dioxide 36.0 H, Anion Gap 6, BUN 10, Creatinine 0.48 L, Estim Creat Clear Calc 115.14, Est GFR (MDRD) Af Amer 168, Est GFR (MDRD) Non-Af 139, BUN/Creatinine Ratio 20.9 H, Glucose 116 H, Calcium 8.9, Magnesium 2.2 02/07/18 04:45: WBC 11.4 H, RBC 2.42 L, Hgb 7.4 L, Hct 24.4 L, MCV 100.8 H, MCH 30.6, MCHC 30.3 L, RDW 20.5 H, RDW Differential 75.3 H, Plt Count 180, MPV 9.8, Differential Comment SCAN 02/07/18 04:45: Sodium 143, Potassium 4.2, Chloride 101, Carbon Dioxide 35.0 H, Anion Gap 7, BUN 9, Creatinine 0.39 L, Estim Creat Clear Calc 136.42, Est GFR (MDRD) Af Amer 214, Est GFR (MDRD) Non-Af 177, BUN/Creatinine Ratio 23.2 H, Glucose 73 L, Calcium 8.4 L Current Medications Acetaminophen (Tylenol) 650 mg PO Q4H PRN PRN PRN Reason: FEVER,MILD-MOD PAIN,HEADACHE Al Hydroxide/Mg Hydroxide (Mylanta Ii) 30 ml PO Q6H PRN PRN PRN Reason: Gastric Burning Albuterol Sulfate (Ventolin Aerosols) 2.5 mg INHALATION Q2H PRN PRN PRN Reason: SHORTNESS OF BREATH Amiodarone HCl (Cordarone) 200 mg PO DAILY [facility] Last Admin: 02/06/18 08:42 Dose: 200 mg Amitriptyline HCl (Elavil) 10 mg PO QHS [facility] Last Admin: 02/06/18 21:14 Dose: 10 mg Aspirin (Aspirin, Baby) 81 mg PO DAILY@0800 [facility] Last Admin: 02/06/18 08:22 Dose: 81 mg Bisacodyl (Dulcolax) 10 mg RECTAL DAILY PRN PRN PRN Reason: Constipation Chlorhexidine Gluconate () 1 each TOPICAL DAILY [facility] Last Admin: 02/07/18 05:36 Dose: 1 each Digoxin (Lanoxin) 62.5 mcg PO DAILY [facility] Last Admin: 02/06/18 08:29 Dose: 62.5 mcg Docusate Sodium (Colace) 200 mg PO BID PRN PRN PRN Reason: Constipation Dronabinol (Marinol) 2.5 mg PO BIDAC [facility] Last Admin: 02/06/18 16:56 Dose: 2.5 mg Famotidine (Pepcid) 20 mg PO BID [facility] Last Admin: 02/06/18 21:15 Dose: 20 mg Guaifenesin (Mucinex) 1,200 mg PO BID [facility] Last Admin: 02/06/18 21:15 Dose: 1,200 mg Heparin Sodium (Beef Lung) (Heparin 500 Unit/5 Ml (100/Ml)) 500 unit IV UD PRN PRN Reason: HEPARIN FLUSH Dextrose/Sodium Chloride () 1,000 mls @ 125 mls/hr IV .Q8H [facility] Lidocaine/Diphenhydr/Alum/Mg/Simeth () 10 ml PO 4X/DAY [facility] Last Admin: 02/06/18 21:14 Dose: 10 ml Metoprolol Tartrate (Lopressor (Beta Sonny)) 25 mg PO BID [facility] Last Admin: 02/06/18 21:15 Dose: 25 mg Multivitamins (Multivitamin) 1 tablet PO DAILY@0800 [facility] Last Admin: 02/06/18 08:43 Dose: 1 tablet Nicotine (Nicoderm Cq (Pbkc)) 21 mg TRANSDERM. DAILY [facility] Last Admin: 02/06/18 08:23 Dose: 21 mg Nutritional Formula (Lactose Free) (Ensure Enlive) 120 ml PO 4X/DAY [facility] Last Admin: 02/06/18 21:14 Dose: 120 ml Ondansetron HCl (Zofran) 4 mg IV Q4H PRN PRN PRN Reason: Nausea Oxycodone HCl (Oxycontin) 15 mg PO Q12H [facility] Last Admin: 02/06/18 21:26 Dose: 15 mg Oxycodone HCl (Oxyir) 5 mg PO Q4H PRN PRN PRN Reason: Moderate Pain (pain scale 4-5) Last Admin: 02/06/18 16:50 Dose: 5 mg Polyethylene Glycol (Miralax) 17 gm PO DAILY [facility] Last Admin: 02/06/18 08:25 Dose: 17 gm Potassium Phos/Sodium Phos (Neutra-Phos Packet) 1 packet PO 4X/DAY [facility] Last Admin: 02/06/18 21:15 Dose: 1 packet Prochlorperazine Maleate (Compazine Tablet) 5 mg PO Q6H PRN PRN PRN Reason: NAUSEA/VOMITING Sodium Chloride () 5 - 30 ml IV UD PRN PRN Reason: SALINE FLUSH Last Admin: 02/06/18 04:17 Dose: 10 ml Sodium Chloride () 10 ml IV UD PRN PRN Reason: VAD FLUSH Zolpidem Tartrate (Ambien (Generic)) 5 mg PO QHS PRN PRN PRN Reason: SLEEP Medical Necessity - Tobacco Use Smoking Status: Current some day smoker Assessment/Plan Active and Suspected Problems (Last Reviewed 01/23/18 @ 10:09 by Hali Altamirano) Acute on chronic respiratory failure with hypoxia and hypercapnia (Acute) CA breast with malignant effusion (Acute) Recurrent pleural effusion on left (Acute) Patient is a 63-year-old lady with history of breast CA, sarcoma of the left thigh with malignant pleural effusion status post recurrent thoracocentesis presented to the emergency department with progressive shortness of breath and assessment of acute on chronic hypoxic and hypercapnic respiratory failure secondary to left-sided large malignant pleural effusion made admitted to the intensive care unit for subsequent management 1. Acute on chronic hypoxic and hypercapnic respiratory failure secondary to malignant pleural effusion involving the left side. Patient has been admitted to the intensive care unit with consultation placed a pulmonary/intensive care. Patient has been managed intermittently on BiPAP 2. Suspected gram-negative pneumonia; possibly contributing to above; patient is on Levaquin 3. Recurrent left-sided malignant pleural effusion did discuss with patient regarding Pleurx catheter placement consultation was placed to Dr. العراقي and is for patient underwent the procedure on 02/06/2018 4. History of breast CA is followed by Dr. Marinelli 5. Metastatic sarcoma involving the left Thigh; followed by Dr. Marinelli 6. Paroxysmal A. fib currently with rapid ventricular response rate on dig; metoprolol and amiodarone she placed to cardiology 7. Chronic hypoxic respiratory failure secondary to COPD on baseline home O2 8. Depression with anxiety 9. Thrombocytopenia patient counts improving 10. Anemia secondary to anemia of malignancy as well as chronic disorder monitoring H&H with plans to transfuse if patient becomes symptomatic or hemoglobin falls below 7 11. DVT prophylaxis ; Lovenox Chest X-Ray 02/06/18 17:13 IMPRESSION: Placement of left Pleurx catheter with significant decrease in left effusion Code Visit Inpatient E&M: 53413 [facility] Hosp L3
[2018-02-07] MEDS: Dext 5%-0.45% NS 1,000 ML 125 ML IV ×3 (07:54→22:24)
[2018-02-07] MEDS: Aspirin 81 MG TAB.CHEW PO (08:31)
[2018-02-07] MEDS: Multivitamins,Therapeutic Tablet 1 TABLET PO (08:31)
[2018-02-07] MEDS: Dronabinol 2.5 MG Capsule PO ×2 (08:34→17:14)
--- NOTE | 2018-02-07 09:00 | PCM.PN.SRG ---
Patient Problems: Active and Suspected Problems (Last Reviewed 01/23/18 @ 10:09 by Hali Altamirano) Acute on chronic respiratory failure with hypoxia and hypercapnia (Acute) CA breast with malignant effusion (Acute) Recurrent pleural effusion on left (Acute) Subjective: Patient is feeling better this morning. She was on BiPAP overnight. - Physical Exam General: Alert, Oriented x3, Cooperative Oral: Moist Mucosa Neck: No JVD Lungs: Short of Breath Cardiovascular: Regular rate, Regular Rhythm Abdomen: Soft, Non Tender, Non-Distended Extremities: No clubbing Neurological: Cranial nerves II-XII grossly intact Psych/Mental Status: Normal Affect Vital Signs Temp Pulse Resp BP Pulse Ox 97.4 F L 103 H 18 120/50 L 97 02/07/18 08:00 02/07/18 08:00 02/07/18 08:00 02/07/18 08:00 02/07/18 08:00 Oxygen Flow Rate (L/min) 5 Oxygen Delivery Method Nasal Cannula Weight: 168 lb 13.985 oz Body Mass Index (BMI) 26.9 Intake and Output for Last 24 Hours 02/05/18 02/06/18 02/07/18 23:59 23:59 23:59 Intake Total 810 / 810 1686 / 1686 250 / 250 Output Total 1450 / 1450 4085 / 4085 680 / 680 Balance -640 / -640 -2399 / -2399 -430 / -430 Laboratory Tests Past 24 Hrs 02/06/18 02/06/18 02/06/18 08:45 08:45 08:45 WBC 11.1 H RBC 2.58 L Hgb 8.2 L Hct 26.7 L MCV 103.5 H MCH 31.8 MCHC 30.7 L RDW 20.0 H RDW Differential 72.8 H Plt Count 154 MPV 10.4 Neut % (Auto) Not Reportable Absolute Neuts (auto) 9.1 H Absolute Lymphs (auto) 0.66 L Total Counted 100 Neutrophils % (Manual) 82 H Lymphocytes % (Manual) 6 L Monocytes % (Manual) 10 Eosinophils % (Manual) 1 Promyelocytes % 1 H Differential Comment Diff Path Review May foll Platelet Estimate ADEQUATE Hypochromasia 1+ Anisocytosis 1+ Microcytosis 1+ Macrocytosis RAR PT 15.4 H INR 1.2 Sodium 142 Potassium 4.2 Chloride 100 Carbon Dioxide 36.0 H Anion Gap 6 BUN 10 Creatinine 0.48 L Estim Creat Clear Calc 115.14 Est GFR (MDRD) Af Amer 168 Est GFR (MDRD) Non-Af 139 BUN/Creatinine Ratio 20.9 H Glucose 116 H Calcium 8.9 Magnesium 2.2 02/07/18 02/07/18 04:45 04:45 WBC 11.4 H RBC 2.42 L Hgb 7.4 L Hct 24.4 L MCV 100.8 H MCH 30.6 MCHC 30.3 L RDW 20.5 H RDW Differential 75.3 H Plt Count 180 MPV 9.8 Neut % (Auto) Absolute Neuts (auto) Absolute Lymphs (auto) Total Counted Neutrophils % (Manual) Lymphocytes % (Manual) Monocytes % (Manual) Eosinophils % (Manual) Promyelocytes % Differential Comment SCAN Diff Path Review Platelet Estimate Hypochromasia Anisocytosis Microcytosis Macrocytosis PT INR Sodium 143 Potassium 4.2 Chloride 101 Carbon Dioxide 35.0 H Anion Gap 7 BUN 9 Creatinine 0.39 L Estim Creat Clear Calc 136.42 Est GFR (MDRD) Af Amer 214 Est GFR (MDRD) Non-Af 177 BUN/Creatinine Ratio 23.2 H Glucose 73 L Calcium 8.4 L Magnesium Clinical Impression(s) from Imaging Studies Chest X-Ray 02/06/18 17:13 IMPRESSION: Placement of left Pleurx catheter with significant decrease in left effusion Electronically Signed: Tevin Mcdowell DO at 17:36 EDT Tel , Service support , Medical Necessity - Tobacco Use Smoking Status: Current some day smoker Assessment/Plan Active and Suspected Problems (Last Reviewed 01/23/18 @ 10:09 by Hali Altamirano) Acute on chronic respiratory failure with hypoxia and hypercapnia (Acute) CA breast with malignant effusion (Acute) Recurrent pleural effusion on left (Acute) 63-year-old female status post left Pleurx catheter placement 1. Patient had successfully placed Pleurx catheter yesterday evening. Since placement she has had 3 L output. This morning she has no air leak and the drainage is serosanguineous. It seems to have ceased. Chest x-ray yesterday showed significant decrease in effusion. 2. Patient being transferred to the floor today. Continue drainage until discharge. When discharge she is to follow-up with me 2 days after discharge for Pleurx catheter training and teaching. My office will order her bottles. Marino العراقي MD Pager: [facility] [address] [place] [address], [address] [place] [address] Office:
--- NOTE | 2018-02-07 09:05 | PN.SURG_ITS ---
Patient Problems: Active and Suspected Problems (Last Reviewed 01/23/18 @ 10:09 by Hali Altamirano) Acute on chronic respiratory failure with hypoxia and hypercapnia (Acute) CA breast with malignant effusion (Acute) Recurrent pleural effusion on left (Acute) Subjective: Patient is feeling better this morning. She was on BiPAP overnight. - Physical Exam General: Alert, Oriented x3, Cooperative Oral: Moist Mucosa Neck: No JVD Lungs: Short of Breath Cardiovascular: Regular rate, Regular Rhythm Abdomen: Soft, Non Tender, Non-Distended Extremities: No clubbing Neurological: Cranial nerves II-XII grossly intact Psych/Mental Status: Normal Affect Vital Signs Temp Pulse Resp BP Pulse Ox 97.4 F L 103 H 18 120/50 L 97 02/07/18 08:00 02/07/18 08:00 02/07/18 08:00 02/07/18 08:00 02/07/18 08:00 Oxygen Flow Rate (L/min) 5 Oxygen Delivery Method Nasal Cannula Weight: 168 lb 13.985 oz Body Mass Index (BMI) 26.9 Intake and Output for Last 24 Hours 02/05/18 02/06/18 02/07/18 23:59 23:59 23:59 Intake Total 810 / 810 1686 / 1686 250 / 250 Output Total 1450 / 1450 4085 / 4085 680 / 680 Balance -640 / -640 -2399 / -2399 -430 / -430 Laboratory Tests Past 24 Hrs 02/06/18 02/06/18 02/06/18 08:45 08:45 08:45 WBC 11.1 H RBC 2.58 L Hgb 8.2 L Hct 26.7 L MCV 103.5 H MCH 31.8 MCHC 30.7 L RDW 20.0 H RDW Differential 72.8 H Plt Count 154 MPV 10.4 Neut % (Auto) Not Reportable Absolute Neuts (auto) 9.1 H Absolute Lymphs (auto) 0.66 L Total Counted 100 Neutrophils % (Manual) 82 H Lymphocytes % (Manual) 6 L Monocytes % (Manual) 10 Eosinophils % (Manual) 1 Promyelocytes % 1 H Differential Comment Diff Path Review May foll Platelet Estimate ADEQUATE Hypochromasia 1+ Anisocytosis 1+ Microcytosis 1+ Macrocytosis RAR PT 15.4 H INR 1.2 Sodium 142 Potassium 4.2 Chloride 100 Carbon Dioxide 36.0 H Anion Gap 6 BUN 10 Creatinine 0.48 L Estim Creat Clear Calc 115.14 Est GFR (MDRD) Af Amer 168 Est GFR (MDRD) Non-Af 139 BUN/Creatinine Ratio 20.9 H Glucose 116 H Calcium 8.9 Magnesium 2.2 02/07/18 02/07/18 04:45 04:45 WBC 11.4 H RBC 2.42 L Hgb 7.4 L Hct 24.4 L MCV 100.8 H MCH 30.6 MCHC 30.3 L RDW 20.5 H RDW Differential 75.3 H Plt Count 180 MPV 9.8 Neut % (Auto) Absolute Neuts (auto) Absolute Lymphs (auto) Total Counted Neutrophils % (Manual) Lymphocytes % (Manual) Monocytes % (Manual) Eosinophils % (Manual) Promyelocytes % Differential Comment SCAN Diff Path Review Platelet Estimate Hypochromasia Anisocytosis Microcytosis Macrocytosis PT INR Sodium 143 Potassium 4.2 Chloride 101 Carbon Dioxide 35.0 H Anion Gap 7 BUN 9 Creatinine 0.39 L Estim Creat Clear Calc 136.42 Est GFR (MDRD) Af Amer 214 Est GFR (MDRD) Non-Af 177 BUN/Creatinine Ratio 23.2 H Glucose 73 L Calcium 8.4 L Magnesium Clinical Impression(s) from Imaging Studies Chest X-Ray 02/06/18 17:13 IMPRESSION: Placement of left Pleurx catheter with significant decrease in left effusion Electronically Signed: Tevin Mcdowell DO at 17:36 EDT Tel , Service support , Medical Necessity - Tobacco Use Smoking Status: Current some day smoker Assessment/Plan Active and Suspected Problems (Last Reviewed 01/23/18 @ 10:09 by Hali Altamirano) Acute on chronic respiratory failure with hypoxia and hypercapnia (Acute) CA breast with malignant effusion (Acute) Recurrent pleural effusion on left (Acute) 63-year-old female status post left Pleurx catheter placement 1. Patient had successfully placed Pleurx catheter yesterday evening. Since placement she has had 3 L output. This morning she has no air leak and the drainage is serosanguineous. It seems to have ceased. Chest x-ray yesterday showed significant decrease in effusion. 2. Patient being transferred to the floor today. Continue drainage until discharge. When discharge she is to follow-up with me 2 days after discharge for Pleurx catheter training and teaching. My office will order her bottles. Marino العراقي MD Pager: [facility] [address] [place] [address], [address] [place] [address] Office:
--- NOTE | 2018-02-07 09:45 | CASEMGMT ---
Pt transferred to PCU. Script for Pleurx drainage devices placed on chart prior to procedure yesterday for Dr. العراقي to complete, has not been completed yet. Report given to Carolyn MONTANA CM re: script for home drainage catheters, considering Home Health, but has not confirmed yet. Gerald CONWAYN RN ACM
[2018-02-07] MEDS: Digoxin 125 MCG Tablet 62.5 MCG PO (10:06)
[2018-02-07] MEDS: Amiodarone 200 MG Tablet PO (10:06)
[2018-02-07] MEDS: Metoprolol Tartrate 25 MG Tablet PO ×2 (10:07→22:17)
[2018-02-07] MEDS: guaiFENesin 1,200 MG Tablet 1200 MG PO ×2 (10:07→22:17)
[2018-02-07] MEDS: Famotidine 20 MG Tablet PO ×2 (10:08→22:17)
[2018-02-07] MEDS: oxyCODONE CR 15 MG Tablet PO ×2 (10:10→22:16)
--- NOTE | 2018-02-07 12:06 | ONC.PN.INPT ---
- Problem List (1) Acute on chronic respiratory failure with hypoxia and hypercapnia Status: Acute (2) Left severe malignant pleural effusion Status: Chronic (3) Metastatic neoplastic disease Status: Chronic Subjective Date of Service:: 02/07/18 Shortness of Breath 63y.o woman with Metastatic Sarcoma, Left pleural effusion on chemotherapy with Adriamycin and Lartruvo, history of tachyarrhythmia was found to be in respiratory distress in the clinic, sent to ER. She was found to have a large left pleural effusion and respiratory failure. She had L thoracentesis and placed on BiPAP machine. She had L Pleurx Catheter placed yesterday. Past Medical History: Chronic Problems (Last Reviewed 01/23/18 @ 10:09 by Hali Altamirano) Left severe malignant pleural effusion (Chronic) GERD (gastroesophageal reflux disease) (Chronic) Tobacco dependence due to cigarettes (Chronic) Insomnia (Chronic) Depression (Chronic) Breast cancer (Chronic) left, for port removal PAF (paroxysmal atrial fibrillation) (Chronic) Bone metastases (Chronic) Sarcoma of left thigh (Chronic) Metastatic neoplastic disease (Chronic) Cough (Chronic) Left axillary pain (Chronic) Chemotherapy management, encounter for (Chronic) Anemia associated with chemotherapy (Chronic) Past Medical History - Most Recent Inpatient Visit Past Medical History Start: 02/01/18 15:10 Text: Status: Complete Freq: Protocol: Document 02/01/18 15:12 [facility] [place] (Rec: 02/01/18 15:27 [facility] [id number]) BMI Required to complete PMH What is Patient's BMI 29.4 Past Medical History Unable History Recalled No Query Text:Pt Unable/Family Not Present Neurologic Medical History Hx Stroke/TIA No Hx Dementia/Alzheimer's No Hx Parkinson's Disease No Hx Seizures No Hx Multiple Sclerosis No Hx Migraines No Cardiac Medical History VTE Present on Admission No Hx of Deep Vein Thrombosis/VTE/PE No Hx Hypertension No Hx Chest Pain/Angina No Hx Heart Attack No Hx Cardiac Surgery/Stents/Etc. No Hx Heart Failure No Hx Pacemaker/AICD No Hx Irregular Heartbeat and/or Afib Yes: HX OF AFIB Hx Anticoagulant Therapy Yes: ASA Query Text:(Coumadin, Aspirin, Plavix, Xarelto, etc.) Hx Pain in Legs when Walking/Leg Cramps No Respiratory Medical History Hx COPD Yes: wears home o2 Hx Emphysema No Hx Smoking Yes: 1/2 PPD 35 YRS Smoking Status Current some day smoker Hx Tobacco Use in last 12 months Yes Sent to [facility] Yes Hx Sleep Apnea No CPAP No BIPAP No Do you snore loudly (louder than talking No or can be heard through closed doors)? Do you often feel tired/ fatigued/ Yes sleepy during daytime? Has anyone observed you stop breathing No during sleep? STOP Results Negative Comments frequent pleural effusions GI Medical History Hx Ulcer No Hx Hepatitis No Hx Cirrhosis No Hx GI Bleed No Hx Unplanned Weight Loss No Genitourinary Medical History Indwelling Catheter in Place on Arrival/ No Admission Hx Renal Disease No Hx Dialysis No Musculoskeletal History Hx Arthritis No Hx Rheumatoid Arthritis No Endocrine Medical History Hx Diabetes No Hx Thyroid Disease No Hematologic Medical History Hx of Blood Transfusion Yes Hx of Transfusion in last 3 Months No Ever experience any problems with No transfusion(s)? Hx of Preganancy in last 3 Months No Nurse Filling Out Transfusion & SGESSEL Questions: Date: 02/01/18 Time: 15:25 Psycho/Social Medical History Hx Depression Yes Hx Anxiety Yes: ON MEDS Hx Behavior Disorder No Hx Alcohol Use No Hx Substance Use No Other Medical History Hx Blood Disorders No Hx Anemia Yes Hx Cancer Yes: sarcoma and breast and lung cancer Hx Drug Resistant Organism No Wound/Pressure Injury Present on Arrival No: to be assessed per primary /Admission rn Query Text:If yes, chart assessment in Shift/Clinical Findings Central Line/PICC/VAD Present on Arrival Yes /Admission Antibiotics within last 7 days? Yes Name of Antibiotic (Include dose/# days keflex taken if known) Last day ATB taken 01/31/18 Comments last chemo 01/30/2018 Risk for Readmission Number of Risk Factors 6 At Risk for Readmission Patient is At Risk For Readmission Patient is eligible for Call Back Y Past Medical History (Last Reviewed 01/23/18 @ 10:09 by Hali Altamirano) Osteopenia (Acute) Osteosarcoma (Acute) med port placement (Acute) replacement of hardware in right femur (Acute) Past Surgical History (Last Reviewed 01/23/18 @ 10:09 by Hali Altamirano) History of breast surgery (Acute) History of hysterectomy (Acute) History of lumpectomy (Acute) History of lung biopsy (Acute) Maternal Family History: Family History (Last Reviewed 01/23/18 @ 10:09 by Hali Altamirano) Father Liver disease Mother Diabetes Heart disease Family History: Diabetes Paternal Family History: Family History (Last Reviewed 01/23/18 @ 10:09 by Hali Altamirano) Father Liver disease Mother Diabetes Heart disease Family History: - - of cirrhosis - Social History Smoking Status: Current some day smoker Review of Systems Constitutional:: Reports: Fatigue. Denies: Fever, Sweats Cardiovascular:: Denies: Chest pain Respiratory: Denies: Cough, Hemoptysis, Shortness of Breath, Wheezing Vital Signs Height 5 ft 6.93 in Weight: 76.6 kg Weight in Pounds 168.9 lbs Pulse Ox 97 Temperature 97.4 F Pulse Rate 103 Respiratory Rate 18 Blood Pressure [BP] 101/47 Blood Pressure 120/50 Blood Pressure Position [BP] Semi-Fowlers Blood Pressure Position Semi-Fowlers - Physical Exam General: Alert, Oriented x3, No apparent distress Lungs: Diminished - Left side, + Pleurx catheter to BSD. Laboratory Data: Laboratory Tests 02/07/18 02/07/18 Range/Units 04:45 04:45 WBC 11.4 H (4.4-11.0) K/mm3 RBC 2.42 L (4.2-5.4) M/mm3 Hgb 7.4 L (12.0-15.0) g/dl Hct 24.4 L (37-47) % MCV 100.8 H (81-99) fL MCH 30.6 (27.0-32.0) pg MCHC 30.3 L (32-36) g/gl RDW 20.5 H (11.6-14.6) % RDW Differential 75.3 H (35.1-43.9) fl Plt Count 180 (150-450) K/mm3 MPV 9.8 (6.2-12.0) fl Differential Comment SCAN Sodium 143 (136-145) mmol/L Potassium 4.2 (3.5-5.1) mmol/L Chloride 101 (98-107) mmol/L Carbon Dioxide 35.0 H (21.0-32.0) mmol/L Anion Gap 7 (5-15) BUN 9 (7-18) mg/dL Creatinine 0.39 L (0.55-1.02) mg/dL Estim Creat Clear Calc 136.42 ml/min Est GFR (MDRD) Af Amer 214 (>60) mL/min Est GFR (MDRD) Non-Af 177 (>60) mL/min BUN/Creatinine Ratio 23.2 H (10-20) RATIO Glucose 73 L (74-106) mg/dL Calcium 8.4 L (8.5-10.1) mg/dL Diagnostic Data: Diagnostic Data Thoracentesis Ultrasound 02/01/18 13:25 IMPRESSION: Successful ultrasound-guided thoracentesis. Electronically Signed: Miguel Miranda MD at 15:34 EDT Tel , Service support , Assessment and Plan Metastatic Sarcoma, Large Left pleural effusion s/p thoracentesis and Pleurx Catheter placement. Respiratory failure, improving. Suggestion is continue current supportive management of respiratory failure. If she becomes stable, discharge home for [facility]. Thank you. Medications: Prescriptions This Visit Medication Instructions Recorded Amiodarone HCl [Cordarone] 200 mg PO DAILY 02/01/18 Amitriptyline HCl [Elavil] 10 mg PO QHS 02/01/18 Digoxin [Lanoxin] 62.5 mcg PO DAILY 02/01/18 Dronabinol [Marinol] 2.5 mg PO BIDAC 02/01/18 Fluconazole [Diflucan] 200 mg PO DAILY 02/01/18 Magic Mouth Wash 10 ml PO 4X/DAY 02/01/18 Oxycodone CR [Oxycontin] 15 mg PO Q12H 02/01/18 Oxycodone [Oxyir] 5 mg PO Q6H PRN 02/01/18 Medications Added to Medication List This Visit Category Date Time Status Dext 5%-0.45% NS 1,000 ml Med 02/07/18 06:40 Active IV 125 mls/hr Enoxaparin [Lovenox] Med 02/08/18 06:00 Active 40 mg SC DAILY@0600 Primary Care Provider: Elver Garcia MD Referring Provider: Code Visit Inpatient E&M: 86769 Subs Hosp L2
--- NOTE | 2018-02-07 12:20 | PN_ITS ---
- Problem List (1) Acute on chronic respiratory failure with hypoxia and hypercapnia Status: Acute (2) Left severe malignant pleural effusion Status: Chronic (3) Metastatic neoplastic disease Status: Chronic Subjective Date of Service:: 02/07/18 Shortness of Breath 63y.o woman with Metastatic Sarcoma, Left pleural effusion on chemotherapy with Adriamycin and Lartruvo, history of tachyarrhythmia was found to be in respiratory distress in the clinic, sent to ER. She was found to have a large left pleural effusion and respiratory failure. She had L thoracentesis and placed on BiPAP machine. She had L Pleurx Catheter placed yesterday. Past Medical History: Chronic Problems (Last Reviewed 01/23/18 @ 10:09 by Hali Altamirano) Left severe malignant pleural effusion (Chronic) GERD (gastroesophageal reflux disease) (Chronic) Tobacco dependence due to cigarettes (Chronic) Insomnia (Chronic) Depression (Chronic) Breast cancer (Chronic) left, for port removal PAF (paroxysmal atrial fibrillation) (Chronic) Bone metastases (Chronic) Sarcoma of left thigh (Chronic) Metastatic neoplastic disease (Chronic) Cough (Chronic) Left axillary pain (Chronic) Chemotherapy management, encounter for (Chronic) Anemia associated with chemotherapy (Chronic) Past Medical History - Most Recent Inpatient Visit Past Medical History Start: 02/01/18 15: 10 Text: Status: Complete Freq: Protocol: Document 02/01/18 15:12 [facility] (Rec: 02/01/18 15:27 [facility] [id number]) BMI Required to complete PMH What is Patient's BMI 29.4 Past Medical History Unable History Recalled No Query Text:Pt Unable/Family Not Present Neurologic Medical History Hx Stroke/TIA No Hx Dementia/Alzheimer's No Hx Parkinson's Disease No Hx Seizures No Hx Multiple Sclerosis No Hx Migraines No Cardiac Medical History VTE Present on Admission No Hx of Deep Vein Thrombosis/VTE/PE No Hx Hypertension No Hx Chest Pain/Angina No Hx Heart Attack No Hx Cardiac Surgery/Stents/Etc. No Hx Heart Failure No Hx Pacemaker/AICD No Hx Irregular Heartbeat and/or Afib Yes: HX OF AFIB Hx Anticoagulant Therapy Yes: ASA Query Text:(Coumadin, Aspirin, Plavix, Xarelto, etc.) Hx Pain in Legs when Walking/Leg Cramps No Respiratory Medical History Hx COPD Yes: wears home o2 Hx Emphysema No Hx Smoking Yes: 1/2 PPD 35 YRS Smoking Status Current some day smoker Hx Tobacco Use in last 12 months Yes Sent to [facility] Yes Hx Sleep Apnea No CPAP No BIPAP No Do you snore loudly (louder than talking No or can be heard through closed doors)? Do you often feel tired/ fatigued/ Yes sleepy during daytime? Has anyone observed you stop breathing No during sleep? STOP Results Negative Comments frequent pleural effusions GI Medical History Hx Ulcer No Hx Hepatitis No Hx Cirrhosis No Hx GI Bleed No Hx Unplanned Weight Loss No Genitourinary Medical History Indwelling Catheter in Place on Arrival/ No Admission Hx Renal Disease No Hx Dialysis No Musculoskeletal History Hx Arthritis No Hx Rheumatoid Arthritis No Endocrine Medical History Hx Diabetes No Hx Thyroid Disease No Hematologic Medical History Hx of Blood Transfusion Yes Hx of Transfusion in last 3 Months No Ever experience any problems with No transfusion(s)? Hx of Preganancy in last 3 Months No Nurse Filling Out Transfusion & SGESSEL Questions: Date: 02/01/18 Time: 15:25 Psycho/Social Medical History Hx Depression Yes Hx Anxiety Yes: ON MEDS Hx Behavior Disorder No Hx Alcohol Use No Hx Substance Use No Other Medical History Hx Blood Disorders No Hx Anemia Yes Hx Cancer Yes: sarcoma and breast and lung cancer Hx Drug Resistant Organism No Wound/Pressure Injury Present on Arrival No: to be assessed per primary /Admission rn Query Text:If yes, chart assessment in Shift/Clinical Findings Central Line/PICC/VAD Present on Arrival Yes /Admission Antibiotics within last 7 days? Yes Name of Antibiotic (Include dose/# days keflex taken if known) Last day ATB taken 01/31/18 Comments last chemo 01/30/2018 Risk for Readmission Number of Risk Factors 6 At Risk for Readmission Patient is At Risk For Readmission Patient is eligible for Call Back Y Past Medical History (Last Reviewed 01/23/18 @ 10:09 by Hali Altamirano) Osteopenia (Acute) Osteosarcoma (Acute) med port placement (Acute) replacement of hardware in right femur (Acute) Past Surgical History (Last Reviewed 01/23/18 @ 10:09 by Hali Altamirano) History of breast surgery (Acute) History of hysterectomy (Acute) History of lumpectomy (Acute) History of lung biopsy (Acute) Maternal Family History: Family History (Last Reviewed 01/23/18 @ 10:09 by Hali Altamirano) Father Liver disease Mother Diabetes Heart disease Family History: Diabetes Paternal Family History: Family History (Last Reviewed 01/23/18 @ 10:09 by Hali Altamirano) Father Liver disease Mother Diabetes Heart disease Family History: - - of cirrhosis - Social History Smoking Status: Current some day smoker Review of Systems Constitutional:: Reports: Fatigue. Denies: Fever, Sweats Cardiovascular:: Denies: Chest pain Respiratory: Denies: Cough, Hemoptysis, Shortness of Breath, Wheezing Vital Signs Height 5 ft 6.93 in Weight: 76.6 kg Weight in Pounds 168.9 lbs Pulse Ox 97 Temperature 97.4 F Pulse Rate 103 Respiratory Rate 18 Blood Pressure [BP] 101/47 Blood Pressure 120/50 Blood Pressure Position [BP] Semi-Fowlers Blood Pressure Position Semi-Fowlers - Physical Exam General: Alert, Oriented x3, No apparent distress Lungs: Diminished - Left side, + Pleurx catheter to BSD. Laboratory Data: Laboratory Tests 3 02/07/18 02/07/18 Range/Units 04:45 04:45 WBC 11.4 H (4.4-11.0) K/mm3 RBC 2.42 L (4.2-5.4) M/mm3 Hgb 7.4 L (12.0-15.0) g/dl Hct 24.4 L (37-47) % MCV 100.8 H (81-99) fL MCH 30.6 (27.0-32.0) pg MCHC 30.3 L (32-36) g/gl RDW 20.5 H (11.6-14.6) % RDW Differential 75.3 H (35.1-43.9) fl Plt Count 180 (150-450) K/mm3 MPV 9.8 (6.2-12.0) fl Differential Comment SCAN Sodium 143 (136-145) mmol/L Potassium 4.2 (3.5-5.1) mmol/L Chloride 101 (98-107) mmol/L Carbon Dioxide 35.0 H (21.0-32.0) mmol/L Anion Gap 7 (5-15) BUN 9 (7-18) mg/dL Creatinine 0.39 L (0.55-1.02) mg/dL Estim Creat Clear Calc 136.42 ml/min Est GFR (MDRD) Af Amer 214 (>60) mL/min Est GFR (MDRD) Non-Af 177 (>60) mL/min BUN/Creatinine Ratio 23.2 H (10-20) RATIO Glucose 73 L (74-106) mg/dL Calcium 8.4 L (8.5-10.1) mg/dL Diagnostic Data: Diagnostic Data Thoracentesis Ultrasound 02/01/18 13:25 IMPRESSION: Successful ultrasound-guided thoracentesis. Electronically Signed: Miguel Miranda MD at 15:34 EDT Tel , Service support , Assessment and Plan Metastatic Sarcoma, Large Left pleural effusion s/p thoracentesis and Pleurx Catheter placement. Respiratory failure, improving. Suggestion is continue current supportive management of respiratory failure. If she becomes stable, discharge home for outpatient follow up at [facility]. Thank you. Medications: Prescriptions This Visit Medication Instructions Recorded Amiodarone HCl [Cordarone] 200 mg PO DAILY 02/01/18 Amitriptyline HCl [Elavil] 10 mg PO QHS 02/01/18 Digoxin [Lanoxin] 62.5 mcg PO DAILY 02/01/18 Dronabinol [Marinol] 2.5 mg PO BIDAC 02/01/18 Fluconazole [Diflucan] 200 mg PO DAILY 02/01/18 Magic Mouth Wash 10 ml PO 4X/DAY 02/01/18 Oxycodone CR [Oxycontin] 15 mg PO Q12H 02/01/18 Oxycodone [Oxyir] 5 mg PO Q6H PRN 02/01/18 Medications Added to Medication List This Visit Category Date Time Status Dext 5%-0.45% NS 1,000 ml Med 02/07/18 06:40 Active IV 125 mls/hr Enoxaparin [Lovenox] Med 02/08/18 06:00 Active 40 mg SC DAILY@0600 Primary Care Provider: Elver Garcia MD Referring Provider: Code Visit Inpatient E&M: [id number] Subs Hosp L2
--- NOTE | 2018-02-07 13:19 | NURSING ---
Notified pharmacy and spoke with Olga. BMX liquid will be sent.
[2018-02-07 14:38] LABS: Pathologist Review Reviewed
--- NOTE | 2018-02-07 16:05 | CASEMGMT ---
This RN CM to room to speak with pt regarding HHC at this time. Pt's sister is at bedside and states that pt's agreed to HHC. Pt agrees at this time also and states no preference on company at this time. Pt's states just left to get something to eat. Per [facility] website, [facility] is in-network for pt at this time. Pt would like CM to f/u again with her and tomorrow regarding same. [place] NAN SHULTZ
[2018-02-07] MEDS: Amitriptyline 10 MG Tablet PO (22:17)
[2018-02-08] VITALS (18 sets, daily range): BP systolic 95–131; BP diastolic 39–70; PULSE 89–118; RESP 16–20; TEMP 36.8–37.2; O2SAT 93–925
[2018-02-08] MEDS: 0.9% NaCl Peripheral Flush Adult/Peds IV (05:31)
[2018-02-08 05:45] LABS: Hematocrit 24.3 % (37-47); Hemoglobin 7.5 g/dl (12.0-15.0); Mean Corp Hgb Conc 30.9 g/gl (32-36); Mean Corpuscular Hgb 31.4 pg (27.0-32.0); Mean Corpuscular Volume 101.7 fL (81-99); Mean Platelet Vol. 9.3 fl (6.2-12.0); Platelet Count 254 K/mm3 (150-450); RBC Distribution Width SD 69.4 fl (35.1-43.9); Red Blood Count 2.39 M/mm3 (4.2-5.4); White Blood Count 11.9 K/mm3 (4.4-11.0)
[2018-02-08 05:46] LABS: Scan Indicated on CBC? Y/N YES- FLAGS NOTED
[2018-02-08 05:53] LABS: Anion Gap 3 (5-15); BUN 7 mg/dL (7-18); BUN/Creat Ratio 18.7 RATIO (10-20); Calcium,Total 8.3 mg/dL (8.5-10.1); Chloride 100 mmol/L (98-107); Creatinine, Serum 0.37 mg/dL (0.55-1.02); EST Glomerular Filtration Rate 185 mL/min (>60); Est Glom Filt Rate - Afr Amer 223 mL/min (>60); Glucose 125 mg/dL (74-106); Potassium 3.7 mmol/L (3.5-5.1); Sodium Level 137 mmol/L (136-145)
--- NOTE | 2018-02-08 05:56 | PCM.PN.SRG ---
Patient Problems: Active and Suspected Problems (Last Reviewed 01/23/18 @ 10:09 by Hali Altamirano) Acute on chronic respiratory failure with hypoxia and hypercapnia (Acute) CA breast with malignant effusion (Acute) Recurrent pleural effusion on left (Acute) Subjective: Pt without complaint - Physical Exam Lungs: - - pleurex cath site clean, dry, intact Vital Signs Temp Pulse Resp BP Pulse Ox 98.7 F 99 20 H 131/70 H 925 02/08/18 02:00 02/08/18 03:01 02/08/18 02:00 02/08/18 02:00 02/08/18 02:00 Oxygen Flow Rate (L/min) 4.5 Oxygen Delivery Method Nasal Cannula Weight: 168 lb 13.985 oz Body Mass Index (BMI) 26.9 Intake and Output for Last 24 Hours 02/06/18 02/07/18 02/08/18 23:59 23:59 23:59 Intake Total 1686 / 1686 1096 / 1096 1351 / 1351 Output Total 4085 / 4085 680 / 680 35 / 35 Balance -2399 / -2399 416 / 416 1316 / 1316 Laboratory Tests Past 24 Hrs 02/06/18 02/08/18 02/08/18 08:45 05:25 05:25 WBC 11.9 H RBC 2.39 L Hgb 7.5 L Hct 24.3 L MCV 101.7 H MCH 31.4 MCHC 30.9 L RDW 20.0 H RDW Differential 69.4 H Plt Count 254 MPV 9.3 [address] Review Reviewed Sodium 137 Potassium 3.7 Chloride 100 Carbon Dioxide 34.0 H Anion Gap 3 L BUN 7 Creatinine 0.37 L Estim Creat Clear Calc 143.80 Est GFR (MDRD) Af Amer 223 Est GFR (MDRD) Non-Af 185 BUN/Creatinine Ratio 18.7 Glucose 125 H Calcium 8.3 L Medical Necessity - Tobacco Use Smoking Status: Current some day smoker Assessment/Plan Active and Suspected Problems (Last Reviewed 01/23/18 @ 10:09 by Hali Altamirano) Acute on chronic respiratory failure with hypoxia and hypercapnia (Acute) CA breast with malignant effusion (Acute) Recurrent pleural effusion on left (Acute) Continue with care CT drainage not excessive at this time
[2018-02-08 06:05] LABS: Differential Comment SCAN
[2018-02-08] MEDS: Dext 5%-0.45% NS 1,000 ML 125 ML IV ×3 (06:37→22:45)
[2018-02-08] MEDS: Enoxaparin 40 MG/0.4 ML Syringe SC (06:42)
[2018-02-08] MEDS: Dronabinol 2.5 MG Capsule PO ×2 (07:03→16:27)
[2018-02-08] MEDS: Multivitamins,Therapeutic Tablet 1 TABLET PO (08:19)
[2018-02-08] MEDS: Aspirin 81 MG TAB.CHEW PO (08:19)
--- NOTE | 2018-02-08 09:18 | PCM.PROGNOTE ---
Patient Problems: Active and Suspected Problems (Last Reviewed 01/23/18 @ 10:09 by Hali Altamirano) Acute on chronic respiratory failure with hypoxia and hypercapnia (Acute) CA breast with malignant effusion (Acute) Recurrent pleural effusion on left (Acute) Subjective: The patient was seen and examined. She is lying in the chair in no acute distress. Reports no shortness of breath, cough, or sputum production. She complains of being very sore to her left chest area where the Pleurx catheter is. She has been weaned to 4-1/2 L of oxygen supplementation. Her is at the bedside. The patient is requesting to go home today. Objective: Recent lab work, culture data and imaging studies reviewed. Blood cultures show NGTD. Respiratory viral panel was negative. Strep and urine Legionella antigens were both negative. Ultrasound-guided thoracentesis was completed on February 01 with 1.5 L of fluid removed. Surface echocardiogram dated December 2017 revealed normal LV size and function with an ejection fraction of 60%. Pulmonary artery systolic pressure was estimated to be 38 mmHg. Pleurx catheter placement on 02/06/[address] العراقي. - Physical Exam General: Alert, Oriented x3, Cooperative, No apparent distress HEENT: Atraumatic, Normocephalic Oral: Dry Mucosa Neck: Supple, Trachea Midline Lungs: No rhonchi, No wheeze, Diminished Cardiovascular: Regular rate, Regular Rhythm, Normal S1, Normal S2, No murmurs, No rub noted, No Gallop Abdomen: Bowel Sounds Present, Soft, Non Tender Extremities: No clubbing, No cyanosis, No edema Skin: No rashes, - - ecchymosis L lateral chest, soft-no hematoma Musculoskeletal: No Tenderness to Palpation of Joints or Extremities Lymphatic: No Cervical, Supraclavicular, or Inguinal Adenopathy Neurological: Neuro grossly intact Psych/Mental Status: - - fatigued, Alert and oriented to time, place, person, mood and affect Vital Signs Temp Pulse Resp BP Pulse Ox 98.6 F 103 H 20 H 113/53 L 95 02/08/18 06:49 02/08/18 07:13 02/08/18 06:49 02/08/18 06:49 02/08/18 06:49 Oxygen Flow Rate (L/min) 4.5 Oxygen Delivery Method Nasal Cannula Weight: 163 lb 9.328 oz Body Mass Index (BMI) 26.9 Intake and Output for Last 24 Hours 02/06/18 02/07/18 02/08/18 23:59 23:59 23:59 Intake Total 1686 / 1686 1096 / 1096 2100 / 2100 Output Total 4085 / 4085 680 / 680 3190 / 3190 Balance -2399 / -2399 416 / 416 -1090 / -1090 Laboratory Tests Past 24 Hrs 02/06/18 02/08/18 02/08/18 08:45 05:25 05:25 WBC 11.9 H RBC 2.39 L Hgb 7.5 L Hct 24.3 L MCV 101.7 H MCH 31.4 MCHC 30.9 L RDW 20.0 H RDW Differential 69.4 H Plt Count 254 MPV 9.3 Differential Comment SCAN Diff Path Review Reviewed Sodium 137 Potassium 3.7 Chloride 100 Carbon Dioxide 34.0 H Anion Gap 3 L BUN 7 Creatinine 0.37 L Estim Creat Clear Calc 143.80 Est GFR (MDRD) Af Amer 223 Est GFR (MDRD) Non-Af 185 BUN/Creatinine Ratio 18.7 Glucose 125 H Calcium 8.3 L Medical Necessity - Tobacco Use Smoking Status: Current some day smoker Assessment/Plan Active and Suspected Problems (Last Reviewed 01/23/18 @ 10:09 by Hali Altamirano) Acute on chronic respiratory failure with hypoxia and hypercapnia (Acute) CA breast with malignant effusion (Acute) Recurrent pleural effusion on left (Acute) RECOMMENDATIONS: 1. Continue Pleurx catheter with surgical f/u Monday 2. Continue IVF given poor oral intake 3. Encourage incentive spirometer use and mobilize patient as tolerated 4. Utilize BiPAP as needed and wean supplemental oxygen as tolerated 5. Case management working on getting HH and Pleurx catheter supplies for at home, anticipate discharge in 1-2 days 6. Resume baseline oxygen supplementation on discharge, obtain walking oximetry as patient's concentrator goes up to 6L IMPRESSIONS: 1. Acute on chronic combined respiratory failure secondary to malignant effusion with recurrence Patient has a known history of recurrent malignant pleural effusion, for which she underwent thoracentesis upon admission to the hospital. The procedure does provide symptomatic support for the patient. However, the pleural effusion has quickly reaccumulated. Therefore, the patient was taken for Pleurx catheter placement on February 06. There has been little drainage since placement. She is symptomatically improved following pleural catheter placement. Continue to utilize BiPAP as needed. Wean supplemental oxygen as tolerated. 2. A. fib with RVR Patient has seen Dr. Benavides in the past. Maintain potassium greater than 4 and magnesium greater than 2. Continue current cardiac medication regimen. 3. Breast cancer/sarcoma with current chemotherapy Multiple complications with chemotherapy including mucositis, bone marrow suppression and alopecia. Patient is followed by Dr. Marinelli as an outpatient. Patient is very clear that she wants to be a full code. 4. Insomnia/depression/pancytopenia secondary to current chemotherapy Complicates care, management, recovery and prognosis. Likely okay to continue with baseline medications for now. No indication for transfusion at this time. This note was generated with [employer] dictation software. It may contain incorrect words, spelling, and punctuation that were not noted in checking the note before signing.
--- NOTE | 2018-02-08 10:00 | CASEMGMT ---
NAN SHULTZ spoke with pt and in room. is frustrated due to speaking with different physicians and staff and is overwhelmed with information. NAN SHULTZ spoke at length with them outlining plan of care after discharge. home Health will be set up through [facility] if available
--- NOTE | 2018-02-08 10:05 | CASEMGMT ---
Addendum entered by Ken Chand 02/08/18 11:46: NAN SHULTZ DC planning. -PLEURX SUPPLIES AND F/U APPT. Call to Dr. العراقي's office, spoke with nurse Jennifer. Per Jennifer, they will order supplies through [employer] . NAN SHULTZ requested this be done today as pt is to dc tomorrow to home. Information needed faxed to Jennifer @ [phone]. -F/U appointment made for Monday, February 12, 2018 @ 2:30 pm. notified of appt time and that any drainage bottles used over weekend should be brought in to office that day and new pleurx kit also. -HOME HEALTH: call to [facility] (call transferred to their main Intake office). Per [facility] nurse, they are able to staff on Monday, February 10. NAN SHULTZ explained pt has new pleurx catheter and reinforcement teaching will be needed. Clinical information faxed to Akanksha @ [facility] Intake @ [phone]. /pt aware of anticipated start of care Sat. and 2 friends/family members will be available for reinforcement teaching. Weekend instructional material director # is [phone]. -charge nurse updated that anticipated dc will be monday. Pt will need pleurx supplies enough to use over weekend and take one to physician of -appts, [facility] # and [facility] # on DC appointment List, copy given to and explained. Original Note: NAN SHULTZ spoke with pt and in room. is frustrated due to speaking with different physicians and staff and is overwhelmed with information. NAN SHULTZ spoke at length with them outlining plan of care after discharge. Home Health will be set up through [facility] if available, arrangements for f/u through Dr. العراقي's office will be made including ordering supplies for home. would like script for hospital bed. Will arrange for Dr. Mcintosh to complete. [employer] is DME of choice. Will not order Hospital bed until has evaluated other options first (bed may be available from family member, would like to look at commercial type bed costs). Gerald CONWAYN RN ACM
[2018-02-08] MEDS: Digoxin 125 MCG Tablet 62.5 MCG PO (10:44)
[2018-02-08] MEDS: Amiodarone 200 MG Tablet PO (10:45)
[2018-02-08] MEDS: guaiFENesin 1,200 MG Tablet 1200 MG PO ×2 (10:46→21:23)
[2018-02-08] MEDS: Metoprolol Tartrate 25 MG Tablet PO ×2 (10:46→21:24)
[2018-02-08] MEDS: Famotidine 20 MG Tablet PO ×2 (10:47→21:23)
[2018-02-08] MEDS: oxyCODONE CR 15 MG Tablet PO ×2 (10:50→21:23)
--- NOTE | 2018-02-08 10:57 | PCM.PN.HOSP ---
Patient Problems: Active and Suspected Problems (Last Reviewed 01/23/18 @ 10:09 by Hali Altamirano) Acute on chronic respiratory failure with hypoxia and hypercapnia (Acute) CA breast with malignant effusion (Acute) Recurrent pleural effusion on left (Acute) Subjective: Patient was transferred from ICU to PCU the day prior. Her clinical condition continues to improve. Objective: GENERAL: Dyspneic at rest HEENT: Clear conjunctiva, NECK; supple, normal thyroid, CHEST: Diminished to auscultation bilaterally, HEART: Irregular, tachycardic ABDOMEN: soft, non-tender, normoactive bowel sounds, RECTAL: deferred EXTREMITIES: No edema, no clubbing, no cyanosis. SENIOR GAMES TECHNICIAN: Awake, no lateralizing signs. SKIN: Areas of ecchymosis Vitals/I&O's: Vital Signs Temp Pulse Resp BP Pulse Ox 98.6 F 89 20 H 113/53 L 95 02/08/18 06:49 02/08/18 10:46 02/08/18 06:49 02/08/18 06:49 02/08/18 06:49 Oxygen Flow Rate (L/min) 4.5 Oxygen Delivery Method Nasal Cannula Weight: 74.2 kg Body Mass Index (BMI) 26.9 Intake and Output for Last 24 Hours 02/06/18 02/07/18 02/08/18 23:59 23:59 23:59 Intake Total 1686 / 1686 1096 / 1096 2100 / 2100 Output Total 4085 / 4085 680 / 680 3190 / 3190 Balance -2399 / -2399 416 / 416 -1090 / -1090 Laboratory Results 02/06/18 08:45: Diff Path Review Reviewed 02/08/18 05:25: WBC 11.9 H, RBC 2.39 L, Hgb 7.5 L, Hct 24.3 L, MCV 101.7 H, MCH 31.4, MCHC 30.9 L, RDW 20.0 H, RDW Differential 69.4 H, Plt Count 254, MPV 9.3, Differential Comment SCAN 02/08/18 05:25: Sodium 137, Potassium 3.7, Chloride 100, Carbon Dioxide 34.0 H, Anion Gap 3 L, BUN 7, Creatinine 0.37 L, Estim Creat Clear Calc 143.80, Est GFR (MDRD) Af Amer 223, Est GFR (MDRD) Non-Af 185, BUN/Creatinine Ratio 18.7, Glucose 125 H, Calcium 8.3 L Current Medications Acetaminophen (Tylenol) 650 mg PO Q4H PRN PRN PRN Reason: FEVER,MILD-MOD PAIN,HEADACHE Al Hydroxide/Mg Hydroxide (Mylanta Ii) 30 ml PO Q6H PRN PRN PRN Reason: Gastric Burning Albuterol Sulfate (Ventolin Aerosols) 2.5 mg INHALATION Q2H PRN PRN PRN Reason: SHORTNESS OF BREATH Amiodarone HCl (Cordarone) 200 mg PO DAILY [facility] Last Admin: 02/08/18 10:45 Dose: 200 mg Amitriptyline HCl (Elavil) 10 mg PO QHS [facility] Last Admin: 02/07/18 22:17 Dose: 10 mg Aspirin (Aspirin, Baby) 81 mg PO DAILY@0800 [facility] Last Admin: 02/08/18 08:19 Dose: 81 mg Bisacodyl (Dulcolax) 10 mg RECTAL DAILY PRN PRN PRN Reason: Constipation Chlorhexidine Gluconate () 1 each TOPICAL DAILY [facility] Last Admin: 02/08/18 10:44 Dose: Not Given Digoxin (Lanoxin) 62.5 mcg PO DAILY [facility] Last Admin: 02/08/18 10:44 Dose: 62.5 mcg Docusate Sodium (Colace) 200 mg PO BID PRN PRN PRN Reason: Constipation Dronabinol (Marinol) 2.5 mg PO BIDAC [facility] Last Admin: 02/08/18 07:03 Dose: 2.5 mg Enoxaparin Sodium (Lovenox) 40 mg SC DAILY@0600 [facility] Last Admin: 02/08/18 06:42 Dose: 40 mg Famotidine (Pepcid) 20 mg PO BID [facility] Last Admin: 02/08/18 10:47 Dose: 20 mg Guaifenesin (Mucinex) 1,200 mg PO BID [facility] Last Admin: 02/08/18 10:46 Dose: 1,200 mg Heparin Sodium (Beef Lung) (Heparin 500 Unit/5 Ml (100/Ml)) 500 unit IV UD PRN PRN Reason: HEPARIN FLUSH Dextrose/Sodium Chloride () 1,000 mls @ 125 mls/hr IV .Q8H [facility] Last Admin: 02/08/18 06:37 Dose: 125 mls/hr Lidocaine/Diphenhydr/Alum/Mg/Simeth () 10 ml PO 4X/DAY [facility] Last Admin: 02/08/18 10:44 Dose: 10 ml Metoprolol Tartrate (Lopressor (Beta Sonny)) 25 mg PO BID [facility] Last Admin: 02/08/18 10:46 Dose: 25 mg Multivitamins (Multivitamin) 1 tablet PO DAILY@0800 [facility] Last Admin: 02/08/18 08:19 Dose: 1 tablet Nicotine (Nicoderm Cq (Pbkc)) 21 mg TRANSDERM. DAILY [facility] Last Admin: 02/08/18 10:46 Dose: Not Given Nutritional Formula (Lactose Free) (Ensure Enlive) 120 ml PO 4X/DAY [facility] Last Admin: 02/08/18 10:46 Dose: Not Given Ondansetron HCl (Zofran) 4 mg IV Q4H PRN PRN PRN Reason: Nausea Oxycodone HCl (Oxycontin) 15 mg PO Q12H [facility] Last Admin: 02/08/18 10:50 Dose: 15 mg Oxycodone HCl (Oxyir) 5 mg PO Q4H PRN PRN PRN Reason: Moderate Pain (pain scale 4-5) Last Admin: 02/06/18 16:50 Dose: 5 mg Polyethylene Glycol (Miralax) 17 gm PO DAILY [facility] Last Admin: 02/08/18 10:46 Dose: Not Given Prochlorperazine Maleate (Compazine Tablet) 5 mg PO Q6H PRN PRN PRN Reason: NAUSEA/VOMITING Sodium Chloride () 5 - 30 ml IV UD PRN PRN Reason: SALINE FLUSH Last Admin: 02/08/18 05:31 Dose: 20 ml Sodium Chloride () 10 ml IV UD PRN PRN Reason: VAD FLUSH Zolpidem Tartrate (Ambien (Generic)) 5 mg PO QHS PRN PRN PRN Reason: SLEEP Medical Necessity - Tobacco Use Smoking Status: Current some day smoker Assessment/Plan Active and Suspected Problems (Last Reviewed 01/23/18 @ 10:09 by Hali Altamirano) Acute on chronic respiratory failure with hypoxia and hypercapnia (Acute) CA breast with malignant effusion (Acute) Recurrent pleural effusion on left (Acute) Patient is a 63-year-old lady with history of breast CA, sarcoma of the left thigh with malignant pleural effusion status post recurrent thoracocentesis presented to the emergency department with progressive shortness of breath and assessment of acute on chronic hypoxic and hypercapnic respiratory failure secondary to left-sided large malignant pleural effusion made admitted to the intensive care unit for subsequent management 1. Acute on chronic hypoxic and hypercapnic respiratory failure secondary to malignant pleural effusion involving the left side. Patient has been admitted to the intensive care unit with consultation placed a pulmonary/intensive care. Patient has been managed intermittently on BiPAP 2. Suspected gram-negative pneumonia; possibly contributing to above; patient is on Levaquin 3. Recurrent left-sided malignant pleural effusion did discuss with patient regarding Pleurx catheter placement consultation was placed to Dr. العراقي and is for patient underwent the procedure on 02/06/2018 4. History of breast CA is followed by Dr. Marinelli 5. Metastatic sarcoma involving the left Thigh; followed by Dr. Marinelli 6. Paroxysmal A. fib currently with rapid ventricular response rate on dig; metoprolol and amiodarone she placed to cardiology 7. Chronic hypoxic respiratory failure secondary to COPD on baseline home O2 8. Depression with anxiety 9. Thrombocytopenia patient counts improving 10. Anemia secondary to anemia of malignancy as well as chronic disorder monitoring H&H with plans to transfuse if patient becomes symptomatic or hemoglobin falls below 7 11. DVT prophylaxis ; Lovenox 12. Severe physical debility: Patient will be discharged home with home health and home PT. She will also require a hospital bed given his significant comorbidities and hypoxia with minimal activity Chest X-Ray 02/06/18 17:13 IMPRESSION: Placement of left Pleurx catheter with significant decrease in left effusion Code Visit Inpatient E&M: 55824 Subs Hosp L2
--- NOTE | 2018-02-08 14:23 | CASEMGMT ---
Call received from Jaquelin, home health nurse with [facility] , pt's PCP Dr. Garcia will not sign Home Care orders because pt has not been to office since 2017. RN LEXII called to Dr. Marinelli's nurse, Maya. She verified with Dr. Marinelli that he will sign home care orders on discharge. Call back to Jaquelin to update, also again let her know that pt has new Pleurx cath and family will need reinforcement teaching. -Fax # for dc instructions: [phone]
[2018-02-08] MEDS: Amitriptyline 10 MG Tablet PO (21:23)
[2018-02-09] VITALS (12 sets, daily range): BP systolic 88–139; BP diastolic 54–73; PULSE 97–127; RESP 16–20; TEMP 36.7–36.9; O2SAT 93–97
[2018-02-09] MEDS: 0.9% NaCl Peripheral Flush Adult/Peds IV ×2 (05:26→10:37)
[2018-02-09] MEDS: Enoxaparin 40 MG/0.4 ML Syringe SC (05:26)
[2018-02-09 05:39] LABS: Hematocrit 25.5 % (37-47); Hemoglobin 7.8 g/dl (12.0-15.0); Mean Corp Hgb Conc 30.6 g/gl (32-36); Mean Corpuscular Hgb 31.1 pg (27.0-32.0); Mean Corpuscular Volume 101.6 fL (81-99); Mean Platelet Vol. 9.4 fl (6.2-12.0); Platelet Count 356 K/mm3 (150-450); RBC Distribution Width CV 19.6 % (11.6-14.6); RBC Distribution Width SD 69.2 fl (35.1-43.9); Red Blood Count 2.51 M/mm3 (4.2-5.4); White Blood Count 13.8 K/mm3 (4.4-11.0)
[2018-02-09 05:43] LABS: Scan Indicated on CBC? Y/N YES- FLAGS NOTED
[2018-02-09 05:48] LABS: Anion Gap 5 (5-15); BUN 6 mg/dL (7-18); BUN/Creat Ratio 14.9 RATIO (10-20); Calcium,Total 8.4 mg/dL (8.5-10.1); Chloride 102 mmol/L (98-107); EST Glomerular Filtration Rate 169 mL/min (>60); Est Glom Filt Rate - Afr Amer 205 mL/min (>60); Estimated Creatinine Clearance 133.01 ml/min; Glucose 114 mg/dL (74-106); Potassium 3.8 mmol/L (3.5-5.1); Sodium Level 140 mmol/L (136-145)
[2018-02-09] MEDS: Dronabinol 2.5 MG Capsule PO (06:52)
[2018-02-09] MEDS: Dext 5%-0.45% NS 1,000 ML 125 ML IV (06:53)
[2018-02-09 07:06] LABS: Differential Comment SCAN
[2018-02-09] MEDS: Multivitamins,Therapeutic Tablet 1 TABLET PO (08:08)
[2018-02-09] MEDS: Aspirin 81 MG TAB.CHEW PO (08:08)
[2018-02-09] MEDS: guaiFENesin 1,200 MG Tablet 1200 MG PO (10:27)
[2018-02-09] MEDS: Famotidine 20 MG Tablet PO (10:28)
[2018-02-09] MEDS: Furosemide 40 MG/4 ML Vial IV (10:28)
[2018-02-09] MEDS: Amiodarone 200 MG Tablet PO (10:28)
[2018-02-09] MEDS: Metoprolol Tartrate 25 MG Tablet PO (10:29)
[2018-02-09] MEDS: oxyCODONE CR 15 MG Tablet PO (10:31)
[2018-02-09] MEDS: Digoxin 125 MCG Tablet 62.5 MCG PO (10:32)
--- NOTE | 2018-02-09 10:44 | PCM.DC ---
- Discharge Diagnoses Current Active Problems: Current Active and Chronic Problems (Last Reviewed 01/23/18 @ 10:09 by Hali Altamirano) Left severe malignant pleural effusion (Chronic) Acute on chronic respiratory failure with hypoxia and hypercapnia (Acute) CA breast with malignant effusion (Acute) Recurrent pleural effusion on left (Acute) You will use the following diet at home:: No restrictions Discharge Activity: Return to Normal Activity Allergies/Adverse Reactions: Allergies Penicillins Allergy (Intermediate, Verified 02/01/18 12:44) Hives mirtazapine Adverse Reaction (Severe, Verified 02/01/18 12:44) mental changes mental changes Medications to take at Discharge Escitalopram Oxalate [Lexapro] 20 mg PO DAILY 09/21/15 Multivitamin [Daily Multiple Vitamin] 1 each PO DAILY 10/01/15 Aspirin [Aspirin, Baby] 81 mg PO DAILY@0800 01/20/18 Cephalexin [Keflex] 500 mg PO BID 01/20/18 Metoprolol Tartrate [Lopressor (beta onur)] 25 mg PO BID 01/20/18 Oxygen, Home [Home Oxygen] 2 - 4 lpm NASAL CONT #1 unit 01/21/18 proCHLORPERazine tablet [Compazine tablet] 5 mg PO Q6H PRN PRN #60 tab 01/23/18 Amiodarone HCl [Cordarone] 200 mg PO DAILY 02/01/18 Amitriptyline HCl [Elavil] 10 mg PO QHS 02/01/18 Digoxin [Lanoxin] 62.5 mcg PO DAILY 02/01/18 Dronabinol [Marinol] 2.5 mg PO BIDAC 02/01/18 Magic Mouth Wash 10 ml PO 4X/DAY 02/01/18 Oxycodone CR [Oxycontin] 15 mg PO Q12H 02/01/18 Oxycodone [Oxyir] 5 mg PO Q6H PRN 02/01/18 Guaifenesin [Mucinex] 1,200 mg PO BID #14 tab 02/09/18 The following prescriptions were given: Guaifenesin [Mucinex] 1,200 mg PO BID #14 tab Primary Care Physician: Elver Garcia MD [Primary Care Provider] - Please Follow Up With: [facility] When: Monday Please Follow Up With: Dr. Marino العراقي When: Monday- Please Follow Up With: [employer] [facility] When: Proposed Discharge Date: 02/09/18
--- NOTE | 2018-02-09 10:47 | DCINST_ITS ---
- Discharge Diagnoses Current Active Problems: Current Active and Chronic Problems (Last Reviewed 01/23/18 @ 10:09 by Hali Altamirano) Left severe malignant pleural effusion (Chronic) Acute on chronic respiratory failure with hypoxia and hypercapnia (Acute) CA breast with malignant effusion (Acute) Recurrent pleural effusion on left (Acute) You will use the following diet at home:: No restrictions Discharge Activity: Return to Normal Activity Allergies/Adverse Reactions: Allergies Penicillins Allergy (Intermediate, Verified 02/01/18 12:44) Hives mirtazapine Adverse Reaction (Severe, Verified 02/01/18 12:44) mental changes mental changes Medications to take at Discharge Escitalopram Oxalate [Lexapro] 20 mg PO DAILY 09/21/15 Multivitamin [Daily Multiple Vitamin] 1 each PO DAILY 10/01/15 Aspirin [Aspirin, Baby] 81 mg PO DAILY@0800 01/20/18 Cephalexin [Keflex] 500 mg PO BID 01/20/18 Metoprolol Tartrate [Lopressor (beta onur)] 25 mg PO BID 01/20/18 Oxygen, Home [Home Oxygen] 2 - 4 lpm NASAL CONT #1 unit 01/21/18 proCHLORPERazine tablet [Compazine tablet] 5 mg PO Q6H PRN PRN #60 tab 01/23/18 Amiodarone HCl [Cordarone] 200 mg PO DAILY 02/01/18 Amitriptyline HCl [Elavil] 10 mg PO QHS 02/01/18 Digoxin [Lanoxin] 62.5 mcg PO DAILY 02/01/18 Dronabinol [Marinol] 2.5 mg PO BIDAC 02/01/18 Magic Mouth Wash 10 ml PO 4X/DAY 02/01/18 Oxycodone CR [Oxycontin] 15 mg PO Q12H 02/01/18 Oxycodone [Oxyir] 5 mg PO Q6H PRN 02/01/18 Guaifenesin [Mucinex] 1,200 mg PO BID #14 tab 02/09/18 The following prescriptions were given: Guaifenesin [Mucinex] 1,200 mg PO BID #14 tab Primary Care Physician: Elver Garcia MD [Primary Care Provider] - Please Follow Up With: [facility] When: Monday Please Follow Up With: Dr. Marino العراقي When: Monday- Please Follow Up With: [employer] [facility] When: Proposed Discharge Date: 02/09/18
--- NOTE | 2018-02-09 10:48 | DS.PCM_ITS ---
Discharge Date and Diagnosis - Problem List Patient Problems: Active and Suspected Problems (Last Reviewed 01/23/18 @ 10:09 by Hali Altamirano) Acute on chronic respiratory failure with hypoxia and hypercapnia (Acute) CA breast with malignant effusion (Acute) Recurrent pleural effusion on left (Acute) Date of Admission: 02/01/18 Date of Discharge: 02/09/18 - Primary Discharge Diagnosis Active and Suspected Problems (Last Reviewed 01/23/18 @ 10:09 by Hali Altamirano) Acute on chronic respiratory failure with hypoxia and hypercapnia (Acute) CA breast with malignant effusion (Acute) Recurrent pleural effusion on left (Acute) - Secondary Discharge Diagnosis Chronic Problems (Last Reviewed 01/23/18 @ 10:09 by Hali Altamirano) Left severe malignant pleural effusion (Chronic) GERD (gastroesophageal reflux disease) (Chronic) Tobacco dependence due to cigarettes (Chronic) Insomnia (Chronic) Depression (Chronic) Breast cancer (Chronic) left, for port removal PAF (paroxysmal atrial fibrillation) (Chronic) Bone metastases (Chronic) Sarcoma of left thigh (Chronic) Metastatic neoplastic disease (Chronic) Cough (Chronic) Left axillary pain (Chronic) Chemotherapy management, encounter for (Chronic) Anemia associated with chemotherapy (Chronic) Hospital Course and Treatment Imaging Results: Impressions Thoracentesis Ultrasound 02/01/18 13:25 IMPRESSION: Successful ultrasound-guided thoracentesis. Electronically Signed: Miguel Miranda MD at 15:34 EDT Tel , Service support , Chest X-Ray 02/07/18 06:37 IMPRESSION: The left Pleurx catheter is unchanged. Stable examination. Electronically Signed: Anatoly Broussard MD at 12:25 EDT Tel [phone], Service support , 02/01/18 13:34 Blood Culture (Wb) - Right Hand Blood Culture - Final No growth in 5 days. 02/01/18 19:30 Mucosa - Nasopharyngeal Respiratory Panel (PCR) - Final 02/01/18 19:30 Urine, Clean Catch Streptococcus pneumoniae Antigen (M - Final 02/01/18 19:30 Urine, Clean Catch Legionella Antigen - Final Laboratory Results 02/09/18 02/09/18 Range/Units 05:20 05:20 WBC 13.8 H (4.4-11.0) K/mm3 RBC 2.51 L (4.2-5.4) M/mm3 Hgb 7.8 L (12.0-15.0) g/dl Hct 25.5 L (37-47) % MCV 101.6 H (81-99) fL MCH 31.1 (27.0-32.0) pg MCHC 30.6 L (32-36) g/gl RDW 19.6 H (11.6-14.6) % RDW Differential 69.2 H (35.1-43.9) fl Plt Count 356 (150-450) K/mm3 MPV 9.4 (6.2-12.0) fl Differential Comment SCAN Sodium 140 (136-145) mmol/L Potassium 3.8 (3.5-5.1) mmol/L Chloride 102 (98-107) mmol/L Carbon Dioxide 33.0 H (21.0-32.0) mmol/L Anion Gap 5 (5-15) BUN 6 L (7-18) mg/dL Creatinine 0.40 L (0.55-1.02) mg/dL Estim Creat Clear Calc 133.01 ml/min Est GFR (MDRD) Af Amer 205 (>60) mL/min Est GFR (MDRD) Non-Af 169 (>60) mL/min BUN/Creatinine Ratio 14.9 (10-20) RATIO Glucose 114 H (74-106) mg/dL Calcium 8.4 L (8.5-10.1) mg/dL Operations: None Summary of Care Provided: Patient is a 63-year-old lady with history of breast CA, sarcoma of the left thigh with malignant pleural effusion status post recurrent thoracocentesis presented to the emergency department with progressive shortness of breath and assessment of acute on chronic hypoxic and hypercapnic respiratory failure secondary to left-sided large malignant pleural effusion made admitted to the intensive care unit for subsequent management 1. Acute on chronic hypoxic and hypercapnic respiratory failure secondary to malignant pleural effusion involving the left side. Patient has been admitted to the intensive care unit with consultation placed a pulmonary/intensive care. Patient has been managed intermittently on BiPAP 2. Suspected gram-negative pneumonia; possibly contributing to above; patient is on Levaquin 3. Recurrent left-sided malignant pleural effusion did discuss with patient regarding Pleurx catheter placement consultation was placed to Dr. العراقي and is for patient underwent the procedure on 02/06/2018 4. History of breast CA is followed by Dr. Marinelli 5. Metastatic sarcoma involving the left Thigh; followed by Dr. Marinelli 6. Paroxysmal A. fib currently with rapid ventricular response rate on dig; metoprolol and amiodarone she placed to cardiology 7. Chronic hypoxic respiratory failure secondary to COPD on baseline home O2 8. Depression with anxiety 9. Thrombocytopenia patient counts improving 10. Anemia secondary to anemia of malignancy as well as chronic disorder monitored H&H 11. DVT prophylaxis ; Lovenox 12. Severe physical debility: Patient will be discharged home with home health and home PT. She will also require a hospital bed given his significant comorbidities and hypoxia with minimal activity Discharge Diet: No Restrictions Discharge Activity: Return to Normal Activity Home Medications: Medications to take at Discharge Escitalopram Oxalate [Lexapro] 20 mg PO DAILY 09/21/15 Multivitamin [Daily Multiple Vitamin] 1 each PO DAILY 10/01/15 Aspirin [Aspirin, Baby] 81 mg PO DAILY@0800 01/20/18 Cephalexin [Keflex] 500 mg PO BID 01/20/18 Metoprolol Tartrate [Lopressor (beta onur)] 25 mg PO BID 01/20/18 Oxygen, Home [Home Oxygen] 2 - 4 lpm NASAL CONT #1 unit 01/21/18 proCHLORPERazine tablet [Compazine tablet] 5 mg PO Q6H PRN PRN #60 tab 01/23/18 Amiodarone HCl [Cordarone] 200 mg PO DAILY 02/01/18 Amitriptyline HCl [Elavil] 10 mg PO QHS 02/01/18 Digoxin [Lanoxin] 62.5 mcg PO DAILY 02/01/18 Dronabinol [Marinol] 2.5 mg PO BIDAC 02/01/18 Magic Mouth Wash 10 ml PO 4X/DAY 02/01/18 Oxycodone CR [Oxycontin] 15 mg PO Q12H 02/01/18 Oxycodone [Oxyir] 5 mg PO Q6H PRN 02/01/18 Guaifenesin [Mucinex] 1,200 mg PO BID #14 tab 02/09/18 Following Prescrptions Were Given to Patient: Guaifenesin [Mucinex] 1,200 mg PO BID #14 tab Primary Care Physician: Elver Garcia MD [Primary Care Provider] - Please Follow Up With: [facility] When: Monday Please Follow Up With: Dr. Marino العراقي When: Monday- Please Follow Up With: [facility] When: Disposition: Home with Home Health Minutes spent on discharge:: 45 Patient Condition:: Stable Medical Necessity - Tobacco Use Smoking Status: Current some day smoker Meaningful Use Info Meaningful Use Diagnoses (Choose all that apply): None applicable Code Visit Inpatient E&M: 55500 Disch Hosp
--- NOTE | 2018-02-09 11:32 | CASEMGMT ---
Discharge summary/instructions and HHC order faxed to [facility] at this time. This RN CM to room to speak with pt/ regarding homegoing. Pt is already on 4liters of oxygen at home through [employer]. states that he is working on getting a bed for pt at this time and refuses hospital bed at this time. Updated pt/ that discharge info faxed to [facility] and that start of care should be 01/11/18, voices understanding. Trin[place] aware to send pt home with 2 pleurx kits for pt, voices understanding. Pt/ voice no further concerns/needs at this time. Ramana [place] CM
--- NOTE | 2018-02-09 14:08 | CASEMGMT ---
Message left with Jaquelin at [facility] to advise of pt discharge today and of the delay due to tachycardia. Advised Jaquelin to call this RN CM back with any questions/concerns. SStlevi [place] CM
--- NOTE | 2018-02-09 15:26 | CASEMGMT ---
Pt's PCP is actually Patrick Lacey and this was changed in computer at this time. New appt made for pt with Marga Lewis at Dr Lacey's office on 02/15 at 10:45am at this time and states they will change this if needed or pt would prefer to see Deepthi. Message left with Dr. Garcia's office to cancel previously set appt for 02/12. Jaquelin at [facility] updated at this time, voices understanding. Ramana [place] CM
[2018-02-09] MEDS: 0.9% NaCl VAD Flush 10 ML IV (16:19)
== END 2018-02-09 16:10 | disposition home health service (06) | DRG 189 ==
LOC: ED 15:16 → PCU 15:23 → ICU 20:55 → PCU 02-07 08:52
PROVIDERS: Internal Medicine Critical Care Medicine; Surgery; Admitting Provider Internal Medicine; Emergency Provider Emergency Medicine; Family Provider Family Medicine; PCP Family Medicine; Visit Provider Internal Medicine
PROC: 0B9P30Z Drainage of Left Pleura with Drainage Device, Percutaneous Approach (ICD-10-PCS; CPT 32550; principal; 2018-02-06 14:15)
DX: J96.21 Acute and chronic respiratory failure with hypoxia (principal); J15.6 Pneumonia due to other Gram-negative bacteria; C40.22 Malignant neoplasm of long bones of left lower limb; J91.0 Malignant pleural effusion; C79.9 Secondary malignant neoplasm of unspecified site; J96.22 Acute and chronic respiratory failure with hypercapnia; Z79.899 Other long term (current) drug therapy; F17.210 Nicotine dependence, cigarettes, uncomplicated; D63.0 Anemia in neoplastic disease; Z99.81 Dependence on supplemental oxygen; J44.9 Chronic obstructive pulmonary disease, unspecified; F41.8 Other specified anxiety disorders; Z85.3 Personal history of malignant neoplasm of breast; K21.9 Gastro-esophageal reflux disease without esophagitis; I48.0 Paroxysmal atrial fibrillation
CPT/HCPCS: 32555; 36415; 36600; 71045; 77001; 80048; 80053; 81002; 82803; 83605; 83735; 83880; 84100; 84484; 85025; 85027; 85610; 85730; 87040; 87449; 87633; 87641; 93005; 94002; 94003; 94640; 97110; 97116; 97162; 97165; 97530; 99282; 99406; J2997; J7030; J7040; J7050; A4216; C1729; J1940; J7799